=== PATIENT | male | born 1935 | race Caucasian/White ===

== ENCOUNTER → 2016-07-21 | Outpatient (CLI) | payer MEDICARE, BC ==
[2016-07-21 17:52] LABS: CH 31.5; CHCM 32.7; HCT 36.8 % (39.0-53.0); HDW 2.59; HGB 11.9 gm/dL (13.0-17.5); MCH 31.4 pg (25.0-35.0); MCHC 32.3 g/dL (31.0-37.0); RBC 3.79 m/uL (4.30-5.90); WBC 12.8 k/uL (3.8-10.6)
[2016-07-21 18:02] LABS: Anion Gap 13 mmol/L; Blood Urea Nitrogen 12 mg/dL (9-20); Carbon Dioxide 25 mmol/L (22-30); Chloride 104 mmol/L (98-107); Non-African American GFR(MDRD) >60 (>60 ml/min/1.73 sqM); Potassium 4.8 mmol/L (3.5-5.1); Sodium 142 mmol/L (137-145)
== END | disposition home or self-care (01) ==
LOC: LABPAT 17:02
PROVIDERS: ATTEND Internal Medicine Interventional Cardiology
DX: Z01.812 Encounter for preprocedural laboratory examination (principal); I35.0 Nonrheumatic aortic (valve) stenosis
CPT/HCPCS: 80051; 82565; 84520; 85027

== ENCOUNTER 2016-08-04 05:38 | Day surgery (SDC) | payer MEDICARE, BC ==
[2016-08-02 11:56] VITALS: BMI 26.5
[2016-08-04] MEDS ORDERED: NITROGLYCERIN SL TABS 0.4 MG TAB SUBLINGUAL PRN (05:49)
[2016-08-04] MEDS ORDERED: ALPRAZolam 0.25 MG TAB PO PRN (05:49)
[2016-08-04] MEDS ORDERED: ALPRAZolam 0.5 MG TAB PO PRN (05:49)
[2016-08-04] MEDS ORDERED: ATORVASTATIN 80 MG TAB PO STA (05:49)
[2016-08-04] MEDS ORDERED: ASPIRIN 325 MG TAB PO STA (05:49)
[2016-08-04] MEDS ORDERED: SODIUM CHLORIDE 0.9% 1,000 ML in EMPTY BAG 1 BAG IV ONE (05:49)
[2016-08-04 06:24] VITALS: TEMP 97.7
[2016-08-04 06:31] LABS: Glucose,Whole Blood 107 mg/dL (75-99)
[2016-08-04] MEDS ORDERED: fentaNYL (PF) 50 MCG/ML 2 ML AMP ONE (06:48)
[2016-08-04] MEDS ORDERED: MIDAZOLAM 2 MG/2 ML VIAL ONE (06:48)
[2016-08-04] MEDS: BENZOCAINE SPRAY 100 APPLIC/CAN MUCOUS MEM ONE ×2 (06:55→07:10)
[2016-08-04] MEDS ORDERED: fentaNYL (PF) 50 MCG/ML 2 ML AMP IVP ONE (07:09)
[2016-08-04] MEDS ORDERED: MIDAZOLAM 2 MG/2 ML VIAL IVP ONE (07:09)
[2016-08-04] MEDS ORDERED: SODIUM CHLORIDE 0.9% 1,000 ML IV ONE (07:30)
[2016-08-04] MEDS ORDERED: LIDOCAINE 2% INJ 20 MG/ML SQ ONE (07:55)
[2016-08-04 08:20] LABS: Site FA
[2016-08-04 08:20] LABS: Site PA
[2016-08-04 08:21] LABS: Site RA
[2016-08-04] MEDS ORDERED: IOHEXOL 350 MG/ML 125ML BOTTLE INJ ONE (08:36)
[2016-08-04] MEDS ORDERED: RX INFO: IV CONTRAST WAS GIVEN 1 EACH MISC MISCELLANE PRN (08:40)
[2016-08-04] MEDS ORDERED: SODIUM CHLORIDE 0.9% 1,000 ML IV SCH (08:45)
[2016-08-04] MEDS ORDERED: ASCORBIC ACID 500 MG TAB PO SCH (09:00)
[2016-08-04] MEDS ORDERED: ATENOLOL 25 MG TAB PO SCH (09:00)
[2016-08-04] MEDS ORDERED: EZETIMIBE PO SCH (09:00)
[2016-08-04] MEDS ORDERED: FERROUS SULFATE 325 MG TAB PO SCH (09:00)
[2016-08-04] MEDS ORDERED: SIMVASTATIN PO SCH (09:00)
[2016-08-04] MEDS ORDERED: ASPIRIN 325 MG TAB PO SCH (09:00)
[2016-08-04] MEDS ORDERED: GLIMEPIRIDE 2 MG TAB PO SCH (09:00)
[2016-08-04] MEDS ORDERED: NON-FORMULARY DRUG (Sitagliptin 100 MG) PO SCH (09:00)
[2016-08-04] MEDS ORDERED: CHOLECALCIFEROL 1,000 UNIT TAB PO SCH (09:00)
[2016-08-04 09:58] LABS: Glucose,Whole Blood 133 mg/dL (75-99)
[2016-08-04 10:05] VITALS: RESP 18
[2016-08-04] MEDS ORDERED: amLODIPine 5 MG TAB PO STA (10:16)
[2016-08-04 12:08] LABS: Glucose,Whole Blood 198 mg/dL (75-99)
[2016-08-04 14:33] VITALS: PULSE 57
[2016-08-04 14:36] LABS: Aty Lym Flag Marked; CHCM 32.9; HCT 37.1 % (39.0-53.0); HDW 2.62; HGB 12.6 gm/dL (13.0-17.5); MCHC 33.9 g/dL (31.0-37.0); MCV 94.6 fL (80.0-100.0); Mean Platelet Volume 8.6; RBC 3.92 m/uL (4.30-5.90); RDW 13.4 % (11.5-15.5); WBC 9.4 k/uL (3.8-10.6); WBC (Perox) 9.62
[2016-08-04 14:38] LABS: INR 1.1 (<1.1); Partial Thromboplastin Time 27.5 sec (22.0-30.0); Prothrombin Time 10.7 sec (9.0-12.0)
[2016-08-04 14:41] LABS: ALT 19 U/L (21-72); AST 18 U/L (17-59); Alkaline Phosphatase 76 U/L (38-126); Anion Gap 10 mmol/L; Blood Urea Nitrogen 8 mg/dL (9-20); Calcium 9.3 mg/dL (8.4-10.2); Carbon Dioxide 27 mmol/L (22-30); Chloride 103 mmol/L (98-107); Cholesterol 147 mg/dL (<200); Glucose 174 mg/dL (74-99); HDL Cholesterol 38 mg/dL (40-60); Magnesium 2.1 mg/dL (1.6-2.3); Non-African American GFR(MDRD) >60 (>60 ml/min/1.73 sqM); Potassium 4.5 mmol/L (3.5-5.1); Sodium 140 mmol/L (137-145); Total Bilirubin 0.9 mg/dL (0.2-1.3); Triglycerides 174 mg/dL (<150)
[2016-08-04 14:53] LABS: Add Differential Manual Differential
[2016-08-04 14:54] LABS: Appearance,Urine Clear (Clear); Bilirubin,Urine Negative (Negative); Glucose,Urine (UA) Negative (Negative); Ketones,Urine Negative (Negative); Leukocyte Esterase,Urine Negative (Negative); Nitrite,Urine Negative (Negative); Protein,Urine Negative (Negative); Specific Gravity,Urine 1.025 (1.001-1.035); UA Billing (MACRO vs. MICRO) CHEM; Urobilinogen,Urine <2.0 mg/dL (<2.0)
[2016-08-04 14:54] LABS: Nucleated Red Blood Cells 0 /100 WBC (0-0); Total Cells Counted 100
[2016-08-04 14:55] LABS: Polychromasia Present
[2016-08-04 15:12] LABS: Hepatitis B Surface Ag Index 0.06
[2016-08-04 15:18] LABS: Hepatitis B Core IgM Index 0.02
[2016-08-04 15:29] LABS: Hepatitis C Virus IgG Ab Negative (Negative); Hepatitis C Virus IgG Index 0.08
--- NOTE | 2016-08-04 15:32 | PCN ---
TRANSESOPHAGEAL ECHOCARDIOGRAM: INDICATION: Evaluation of the aortic valve. PROCEDURE: After explaining the procedure to the patient with its risks and complications, his blood pressure, heart rate and O2 saturation was monitored. The throat was sprayed with Cetacaine. He received 1 mg of intravenous Versed, 50 mcg of intravenous fentanyl. After obtaining moderate sedated state, the probe was introduced into the esophagus without difficulty. Images were obtained. Following that, the probe was removed. There was no immediate complication. FINDINGS: Left atrial size is dilated. Left atrial appendage is normal. Left ventricular size and systolic function normal. The aortic valve and tricuspid valve with several calcification with reduction in the opening by planemetry of the valve areas is ranging between 0.8 and 1.1 cm2. Mitral valve calcification of the chordae. Tricuspid valve is normal. Descending thoracic aorta revealed mild atherosclerotic changes. There was no pericardial effusion. Contrast bubble study revealed no shunting across the intra-atrial septum. Doppler pulse wave and color Doppler obtained, revealed moderate mitral with mild tricuspid regurgitation and mild aortic regurgitation. Accurate measures of the gradient across the aortic valve could not be obtained. CONCLUSION: 1. Biatrial enlargement. 2. Normal appearance of the left atrial appendage. 3. Normal left ventricular size and systolic function. 4. Tricuspid aortic valve with several calcification and evidence of severe aortic stenosis with a valve area ranging between 0.8 and 1.1 cm2 with mild aortic regurgitation. 5. Calcification of the mitral valve chordae with mild to moderate mitral regurgitation and mild tricuspid regurgitation. 6. There was no evidence of shunting across the intra-atrial setum. MTDD
--- NOTE | 2016-08-04 15:53 | P.GSCN ---
History of Present Illness Consult date: 08/04/16 Reason for Consult: Severe aortic stenosis, multivessel coronary artery disease, need for surgical intervention. Requesting physician: Melinda Elizalde History of present illness: This 81-year-old gentleman was being followed by Dr. Elizalde for aortic stenosis with serial echocardiograms. He was seen in Dr. Elizalde's office for follow-up with reports of progressive fatigue and dyspnea on exertion. His echocardiogram showed worsening of his aortic valve stenosis. In addition he had a drop in his ejection fraction and elements of reversible lateral ischemia on a stress test. He did deny chest discomfort, orthopnea, paroxysmal nocturnal dyspnea, edema, palpitations, syncope, stroke-like symptoms, or claudication. He was brought in for transesophageal echocardiogram and cardiac catheterization. His heart catheterization demonstrated left main stenosis 30% , RCA stenosis 70%, circumflex stenosis 80%, proximal LAD stenosis 70%, mid LAD stenosis of 50%. His transesophageal echocardiogram demonstrated biatrial enlargement, a tricuspid aortic valve with severe calcification and evidence of severe aortic stenosis with mild aortic regurgitation, and mild to moderate mitral regurgitation with mild tricuspid regurgitation. Dr. Hannon from cardiothoracic surgery was consulted for the possibility of surgical revascularization and aortic valve replacement. Review of Systems 14 point review systems was completed was negative except as noted. - Cardiovascular Reports as per HPI - Respiratory Reports as per HPI Past Medical History Past Medical History: Diabetes Mellitus, GERD/Reflux, Hyperlipidemia, Hypertension Additional Past Medical History / Comment(s): irregular heartrate, varicose veins, hx shingles, History of Any Multi-Drug Resistant Organisms: None Reported Past Surgical History: Appendectomy, Hernia Repair Additional Past Surgical History / Comment(s): "spots removed from his lung", mastoid surgery as child, mariama cataracts, Past Anesthesia/Blood Transfusion Reactions: No Reported Reaction Past Psychological History: No Psychological Hx Reported Smoking Status: Former smoker Additional Past Alcohol Use History / Comment(s): drinks 2 beers per week Past Drug Use History: None Reported - Past Family History Sister(s) Family Medical History: Cancer Medications and Allergies Home Medications Medication Instructions Recorded Confirmed Type Ascorbic Acid [Vitamin C with Kim 1,000 mg PO DAILY 08/02/16 08/02/16 History Hips] Aspirin 325 mg PO DAILY 08/02/16 08/04/16 History Atenolol [Tenormin] 25 mg PO DAILY 08/02/16 08/02/16 History Cholecalciferol [Vitamin D3] 2,000 unit PO DAILY 08/02/16 08/02/16 History Ezetimibe/Simvastatin [Vytorin 1 tab PO DAILY 08/02/16 08/02/16 History 10-80 mg Tablet] Ferrous Sulfate [Feosol] 325 mg PO DAILY 08/02/16 08/02/16 History Glimepiride [Amaryl] 2 mg PO DAILY 08/02/16 08/02/16 History metFORMIN HCL [Glucophage] 500 mg PO BID 08/02/16 08/04/16 History sitaGLIPtin [Januvia] 100 mg PO DAILY 08/02/16 08/02/16 History Allergies Allergy/AdvReac Type Severity Reaction Status Date / Time No Known Allergies Allergy Verified 08/02/16 11:42 Surgical - Exam Vital Signs Temp Pulse Resp BP Pulse Ox 97.7 F 54 L 14 179/83 97 08/04/16 06:19 08/04/16 06:19 08/04/16 06:19 08/04/16 06:19 08/04/16 06:19 - General well developed, well nourished, no distress, no pain - Eyes PERRL, normal ocular movement - ENT no hearing loss - Neck trachea midline - Respiratory normal expansion, normal respiratory effort, clear to auscultation - Cardiovascular Rhythm: regular Heart Sounds: normal: S1, S2 Abnormal Heart Sounds: systolic murmur - Abdomen Abdomen: soft, non tender, bowel sounds - Genitourinary Deferred - Rectum Deferred - Integumentary no rash - Neurologic normal coordination, normal sensation - Musculoskeletal normal gait - Psychiatric oriented to time, oriented to person, oriented to place, speech is normal, memory intact Results - Labs 08/04/16 14:12 08/04/16 14:12 Abnormal Lab Results - Last 24 Hours (Table) 08/04/16 08/04/16 08/04/16 Range/Units 06:26 09:37 12:00 RBC (4.30-5.90) m/uL Hgb (13.0-17.5) gm/dL Hct (39.0-53.0) % BUN (9-20) mg/dL Glucose (74-99) mg/dL POC Glucose (mg/dL) 107 H 133 H 198 H (75-99) mg/dL ALT (21-72) U/L Triglycerides (<150) mg/dL HDL Cholesterol (40-60) mg/dL 08/04/16 08/04/16 Range/Units 14:12 14:12 RBC 3.92 L (4.30-5.90) m/uL Hgb 12.6 L (13.0-17.5) gm/dL Hct 37.1 L (39.0-53.0) % BUN 8 L (9-20) mg/dL Glucose 174 H (74-99) mg/dL POC Glucose (mg/dL) (75-99) mg/dL ALT 19 L (21-72) U/L Triglycerides 174 H (<150) mg/dL HDL Cholesterol 38 L (40-60) mg/dL Diabetes panel 08/04/16 Range/Units 14:12 Sodium 140 (137-145) mmol/L Potassium 4.5 (3.5-5.1) mmol/L Chloride 103 (98-107) mmol/L Carbon Dioxide 27 (22-30) mmol/L BUN 8 L (9-20) mg/dL Creatinine 0.78 (0.66-1.25) mg/dL Glucose 174 H (74-99) mg/dL Calcium 9.3 (8.4-10.2) mg/dL AST 18 (17-59) U/L ALT 19 L (21-72) U/L Alkaline Phosphatase 76 (38-126) U/L Total Protein 7.0 (6.3-8.2) g/dL Albumin 3.7 (3.5-5.0) g/dL Triglycerides 174 H (<150) mg/dL HDL Cholesterol 38 L (40-60) mg/dL Thyroid panel 08/04/16 Range/Units 14:12 TSH 2.460 (0.465-4.680) mIU/L Calcium panel 08/04/16 Range/Units 14:12 Calcium 9.3 (8.4-10.2) mg/dL Albumin 3.7 (3.5-5.0) g/dL Pituitary panel 08/04/16 Range/Units 14:12 Sodium 140 (137-145) mmol/L Potassium 4.5 (3.5-5.1) mmol/L Chloride 103 (98-107) mmol/L Carbon Dioxide 27 (22-30) mmol/L BUN 8 L (9-20) mg/dL Creatinine 0.78 (0.66-1.25) mg/dL Glucose 174 H (74-99) mg/dL Calcium 9.3 (8.4-10.2) mg/dL TSH 2.460 (0.465-4.680) mIU/L Adrenal panel 08/04/16 Range/Units 14:12 Sodium 140 (137-145) mmol/L Potassium 4.5 (3.5-5.1) mmol/L Chloride 103 (98-107) mmol/L Carbon Dioxide 27 (22-30) mmol/L BUN 8 L (9-20) mg/dL Creatinine 0.78 (0.66-1.25) mg/dL Glucose 174 H (74-99) mg/dL Calcium 9.3 (8.4-10.2) mg/dL Total Bilirubin 0.9 (0.2-1.3) mg/dL AST 18 (17-59) U/L ALT 19 L (21-72) U/L Alkaline Phosphatase 76 (38-126) U/L Total Protein 7.0 (6.3-8.2) g/dL Albumin 3.7 (3.5-5.0) g/dL Assessment and Plan (1) Coronary artery disease Status: Acute (2) Severe aortic stenosis Status: Acute (3) Hypertension Status: Acute (4) Hyperlipidemia Status: Acute (5) Type 2 diabetes mellitus Status: Acute Plan: The patient was seen and examined in the extended stay unit. Chart/diagnostics were reviewed. Dr. Hannon discussed the case in detail with the patient and his . He recommended surgery. All risks and benefits were explained to the patient. Preoperative testing was ordered. The patient will follow up in the office with Dr. Hannon for further discussion on appropriate date and time for surgery. All parties were in agreement. Thank you Dr. Elizalde for this consult. We look forward to working with you in the care of your patient. Time with Patient: Greater than 30
--- NOTE | 2016-08-04 17:05 | CT ---
EXAMINATION TYPE: CT chest wo con DATE OF EXAM: 08/04/2016 COMPARISON: NONE HISTORY: 81-year-old male has no complaints at time of study. Follow up study post heart catheteriza tion. TECHNIQUE: Contiguous axial scanning of the chest without IV contrast. Coronal and sagittal reconstru ctions performed. CT DLP: 588 mGycm Automated exposure control for dose reduction was used. FINDINGS: The heart is upper limits of normal in size with extensive coronary vessel calcifications which are r emarkable for coronary artery disease. Additional dense mitral annular and aortic valvular calcificat ions are noted. Ascending aorta is ectatic at 3.6 cm. There is conventional arterial vessel branching anatomy and ect stefania of the upper descending thoracic aorta 3.1 cm and the lower descending thoracic aorta at 2.6 cm. No thoracic lymphadenopathy by CT size criteria. Trace right pleural effusion. Scattered areas of curvilinear scarring are present. There is a staple line from previous wedge resection in the region of the right middle lobe. Reticular densities in the lower lungs and some mild bibasilar bronchiectasis. Patchy nodular groundglass density in the left lower lobe. Some focal opacity along the right heart margin within the right middle lobe measures 2.0 cm but show s associated volume loss. Tiny layering calculi within the gallbladder. Suspect excreting contrast within the kidneys. Few prom inent mesenteric lymph nodes are seen measuring at the upper limits of normal at 5 mm, nonspecific. There is a moderate-sized hernia. Mild circumferential wall thickening distal third esophagus. Bones: Bridging anterior plate spondylosis mid to lower thoracic spine compatible with DISH. There is a disc osteophyte complex at T11-T12 mildly narrowing the spinal canal. IMPRESSION: 1. TRACE RIGHT PLEURAL EFFUSION. THERE IS ALSO SOME SUBTLE NODULAR GROUNDGLASS IN THE LEFT LOWER LOBE SUGGESTING A SMALL INFECTIOUS/INFLAMMATORY FOCUS. 2. SCATTERED INTERSTITIAL SCARRING AND MILD BIBASILAR BRONCHIECTASIS. PRIOR WEDGE RESECTION IN THE RI GHT MIDDLE LOBE. 3. FOCAL OPACITY MEDIAL RIGHT MIDDLE LOBE MEASURES 2 CM AND COULD REPRESENT SOME CICATRICIAL ATELECTA SIS. RECOMMEND 6 MONTH FOLLOW-UP TO EXCLUDE A PULMONARY NODULE. 4. MODERATE-SIZED HIATAL HERNIA. THERE IS ALSO MILD CIRCUMFERENTIAL WALL THICKENING OF THE LOWER THIR D ESOPHAGUS THAT COULD REPRESENT ESOPHAGITIS. CLINICALLY CORRELATE. 5. CAD, DENSE AORTIC AND MITRAL VALVE CALCIFICATIONS, AND CHOLELITHIASIS.
[2016-08-04 17:21] VITALS: BP 164/77
[2016-08-04 19:05] LABS: Hemoglobin A1C 7.6 % (4.2-6.1)
--- NOTE | 2016-08-05 07:34 | XR ---
EXAMINATION TYPE: XR chest 2V DATE OF EXAM: 08/04/2016 COMPARISON: CT chest 08/04/2016 HISTORY: Preop cardiac surgery TECHNIQUE: Frontal and lateral views of the chest are obtained on 3 images. FINDINGS: There is no pleural effusion, or pneumothorax seen. Areas of scarring present in the lowe r lungs. Calcification in the right upper lobe likely represents granuloma. The cardiac silhouette si ze is within normal limits. The osseous structures are intact. IMPRESSION: No acute cardiopulmonary process.
--- NOTE | 2016-08-05 12:13 | PCN ---
CARDIAC CATHETERIZATION Mr. Pagan is an 81-year-old male with known history of hypertension, hyperlipidemia, and diabetes mellitus who has been complaining of progressive dyspnea and fatigue. He was found to have evidence of progression of aortic valve stenosis as well as abnormal stress test. In view of that recommendation was made regarding cardiac catheterization. The procedure, risks, and complications were discussed with the patient who is in full understanding and agreement. PROCEDURE: The patient was brought to the [employer] Director in fasting, semi-sedated state after receiving Fentanyl and Benadryl and achieving moderate conscious sedated state. Using Xylocaine anesthesia and Seldinger technique, a 6 [place] sheath was introduced into the right femoral artery and an 8 [place] in the right femoral vein. Right heart catheterization was performed using [place] Loy catheter and multiple pressure samples were obtained. Cardiac output by thermodilution was calculated. Following that selective right and left coronary angiography was performed using 6 [place], 4 bend right and left Rosalie catheters. Multiple views of the coronary arteries including hemiaxial views were obtained. Following that attempt to cross the aortic valve were unsuccessful and ascending aortogram in the [place] view was performed. Following that catheter and sheaths were removed. Hemostasis was obtained with compression of the right groin. There was no immediate complications. The patient was returned to his room in stable condition. FINDINGS: HEMODYNAMICS: Right atrial saturation is 69%, pulmonary artery saturation is 68% , femoral artery saturation is 97%. Cardiac output by thermodilution 5.2 L/min and by Cynthia 5.3 L/min. Pulmonary artery systolic pressure of 34 with diastolic of 16 and mean of 23 mmHg. Pulmonary capillary wedge pressure A wave of 16, V wave of 28 with mean of 18 mmHg. Right ventricle systolic pressure of 38 with end-diastolic of 10 mm. Right atrial A wave of 10, V wave of 12 with mean of 8 mmHg. FLUOROSCOPY: There is severe calcification involving all the coronary arteries as well as the mitral annulus and the aortic valve. LEFT MAIN: This is a large size vessel trifurcating into left circumflex, left anterior descending and ramus intermedius. Left main coronary artery is calcified and has a plaque of about 30 to 40% distally. The rest of the vessel has no high grade stenosis. LEFT ANTERIOR DESCENDING CORONARY ARTERY: This is a large size vessel reaching towards the apex with wrap around the apex segment giving rise to one diagonal branch in the mid-segment. The left anterior descending artery at the ostium has 60 to 70% plaque and the mid-segment has diffuse intimal disease with area of stenosis up to 50 to 60%. The diagonal branch has an 80% plaque in the mid- segment. RAMUS INTERMEDIUS: This is a large size vessel reaching towards the apical lateral wall. The ramus intermedius in the mid-segment has an area of stenosis up to 70 to 80%. The rest of the vessel has no high grade stenosis. LEFT CIRCUMFLEX: This is a nondominant small vessel giving rise to an obtuse marginal branch. The obtuse marginal branch has a 70 to 80% plaque in the mid- segment. RIGHT CORONARY ARTERY: This is a large dominant vessel bifurcating into PDA and posterior descending segment and branches. The right coronary artery in the mid and distal segment have diffuse intimal disease, calcified with area of stenosis up to 70%. AORTOGRAM: The aortogram was performed in the [place] view and revealed severe calcified tricuspid aortic valve with no significant aortic regurgitation. CONCLUSION: 1. Calcified coronary arteries. 2. Calcified aortic valve and mitral annulus. 3. Severe triple vessel coronary artery disease. RECOMMENDATIONS: The patient will be evaluated for possible aortic valve replacement and surgical aortic valve replacement. Those findings and recommendations were discussed with the patient and his family who are in full understanding and agreement. DURATION OF THE PROCEDURE: 49 minutes. URVASHI
--- NOTE | 2016-08-05 12:19 | MISC ---
Dear Dr. Matt: I had the pleasure of performing cardiac catheterization on Mr. Pagan at [facility] on August 04, 2016 and full copy of the procedure note will be forwarded to you. In brief he was found to have severe triple vessel coronary artery disease with severe aortic stenosis and based on those findings, I have recommended proceeding with evaluation for aortic valve replacement and coronary artery bypass grafting. I will keep you updated on his progress. Thank you again for allowing me to participate in this patient's care. Please feel free to call for any questions. Sincerely, URVASHI
--- NOTE | 2016-08-10 12:09 | P.VSCSTY ---
Greater Saphenous Vein Mapping This is bilateral lower extremity greater saphenous vein mapping. Date of service 08/04/2016 Vein quality and ultrasound appearance normal. Vein size groin right 6.6 x 9.0 groin left 6.6 x 8.5 High thigh right 3.0 x 2.9 high thigh left 5.0 x 5.9 Mid thigh right 2.4 x 2.4 mid thigh left 3.5 x 4.6 Above-knee right 2.5 x 3.1 above- knee left 3.3 x 3.7 Below knee right 2.1 x 2.4 below-knee left 3.8 x 5.4 Mid calf right 2.2 x 2.7 mid calf left 3.1 x 4.0 Ankle right 2.0 x 2.3 ankle left 1.8 x 1.9 Impression usable bilateral greater saphenous vein. Somewhat small at the left ankle..
--- NOTE | 2016-08-10 12:12 | P.ARTDOP ---
Arterial Doppler Bilateral radial artery study: Imaging shows good size to both radial arteries. The right is 3.0 x 2.5-2.8 x 3.2 mm. The left is 3.9 x 3.3-3.2 x 2.6 mm. However, they are both very heavily calcified. Under these circumstances we are unable to get good pressure gradients on Doppler and were not able to compress to assess viability if radial artery is removed. Impression: Good size to both radial arteries but due to heavy calcification, radial arteries are not acceptable for use as conduit.
== END 2016-08-04 17:00 | disposition home or self-care (01) ==
LOC: CATHCVL 05:38
PROVIDERS: ATTEND Internal Medicine Interventional Cardiology
DX: I35.0 Nonrheumatic aortic (valve) stenosis (principal); I25.10 Atherosclerotic heart disease of native coronary artery without angina pectoris; I25.84 Coronary atherosclerosis due to calcified coronary lesion; I34.0 Nonrheumatic mitral (valve) insufficiency; I36.1 Nonrheumatic tricuspid (valve) insufficiency; E78.2 Mixed hyperlipidemia; E78.00 Pure hypercholesterolemia, unspecified; I10 Essential (primary) hypertension; E11.9 Type 2 diabetes mellitus without complications; Z79.82 Long term (current) use of aspirin; Z79.899 Other long term (current) drug therapy; Z79.84 Long term (current) use of oral hypoglycemic drugs; Z87.891 Personal history of nicotine dependence
CPT/HCPCS: 94150; 93312; 93320; 93325; 93456; 93567; 99152; 83880; 80061; 80053; 80074; 85018; 84443; 83036; 82810; 83735; 85025; 85610; 85730; 81003; 87070; 87086; 71020; 93930; 93970; 93923; 71250; C1769 ×3; C1894 ×2; J2001; J2250; J3010; Q9967

== ENCOUNTER → 2016-09-07 | Outpatient (CLI) | payer MEDICARE, BC ==
[2016-09-07 13:48] LABS: CH 31.8; CHCM 32.8; HCT 35.4 % (39.0-53.0); HGB 11.6 gm/dL (13.0-17.5); MCH 31.9 pg (25.0-35.0); MCHC 32.7 g/dL (31.0-37.0); MCV 97.5 fL (80.0-100.0); Mean Platelet Volume 9.7; RBC 3.63 m/uL (4.30-5.90); RDW 13.7 % (11.5-15.5)
[2016-09-07 14:03] LABS: ALT 30 U/L (21-72); AST 21 U/L (17-59); Alkaline Phosphatase 63 U/L (38-126); Anion Gap 11 mmol/L; Blood Urea Nitrogen 11 mg/dL (9-20); Calcium 9.6 mg/dL (8.4-10.2); Carbon Dioxide 23 mmol/L (22-30); Chloride 106 mmol/L (98-107); Glucose 136 mg/dL (74-99); Magnesium 1.9 mg/dL (1.6-2.3); Non-African American GFR(MDRD) >60 (>60 ml/min/1.73 sqM); Potassium 4.4 mmol/L (3.5-5.1); Sodium 140 mmol/L (137-145); Total Bilirubin 0.5 mg/dL (0.2-1.3); Total Protein 6.7 g/dL (6.3-8.2)
== END | disposition home or self-care (01) ==
LOC: LABPAT 13:28
PROVIDERS: ATTEND Surgery
DX: I25.10 Atherosclerotic heart disease of native coronary artery without angina pectoris (principal); I35.0 Nonrheumatic aortic (valve) stenosis
CPT/HCPCS: 80053; 83735; 85027

== ENCOUNTER 2016-09-12 08:00 | Inpatient (IN) | payer MEDICARE, BC ==
[2016-09-14] MEDS ORDERED: PROPOFOL 1,000 MG/100 ML VIAL IV ONE (05:00)
[2016-09-14] MEDS ORDERED: CALCIUM CHLORIDE 100 MG/ML 10 ML SYRINGE IV ONE (05:00)
[2016-09-14] MEDS ORDERED: AMINOCAPROIC ACID 5,000 MG in DEXTROSE 5% IN WATER 50 ML IV ONE ×2 (05:00)
[2016-09-14] MEDS ORDERED: NITROGLYCERIN SL TABS 0.4 MG TAB SUBLINGUAL ONE (05:00)
[2016-09-14] MEDS ORDERED: CHLORHEXIDINE GLUCONATE 15 ML CUP MUCOUS MEM ONE (05:00)
[2016-09-14] MEDS ORDERED: CLEVIDIPINE BUTYRATE 25 MG in EMPTY BAG 1 BAG IV ONE (05:00)
[2016-09-14] MEDS ORDERED: ASPIRIN 325 MG TAB PO ONE (05:00)
[2016-09-14] MEDS ORDERED: MUPIROCIN 2% OINT 22 GM TUBE NASAL ONE (05:00)
[2016-09-14] MEDS ORDERED: HEPARIN SODIUM,PORCINE 5,000 UNIT in SODIUM CHLORIDE 0.9% 500 ML IV ONE (05:00)
[2016-09-14] MEDS ORDERED: NOREPINEPHRIN 4 MG-0.9% NS PMX 4 MG/250 ML ML IV ONE (05:00)
[2016-09-14] MEDS ORDERED: PROTAMINE SULFATE 250 MG in EMPTY BAG 1 BAG IV ONE (05:00)
[2016-09-14] MEDS ORDERED: NITROGLYCERIN-D5W PMX 25 MG/250 ML BTL IV ONE (05:00)
[2016-09-14] MEDS ORDERED: PROTAMINE SULFATE 10 MG/ML 25 ML VIAL IV ONE ×2 (05:00→08:39)
[2016-09-14] MEDS ORDERED: DEXTROSE 5% IN WATER 1,000 ML with POTASSIUM CHLORIDE 25 MEQ, SODIUM CHLORIDE 4MEQ/ML V... IV ONE ×6 (05:00)
[2016-09-14] MEDS ORDERED: PHENYLEPHRINE-0.9% NACL SYG 1 MG/10 ML SYRINGE IV ONE (05:00)
[2016-09-14] MEDS ORDERED: ceFAZolin 2,000 MG in SODIUM CHLORIDE 0.9% 30 ML IVPB ONE ×4 (05:00)
[2016-09-14] MEDS ORDERED: ceFAZolin 1,000 MG in SODIUM CHLORIDE 0.9% IRRIGATIO 1,000 ML IRRIGATION ONE (05:00)
[2016-09-14] MEDS ORDERED: MAGNESIUM SULFATE MG 500 MG/ML VIAL IV ONE (05:00)
[2016-09-14] MEDS ORDERED: ALBUMIN HUMAN 5% 500 ML IVPB ONE (05:00)
[2016-09-14] MEDS ORDERED: ATORVASTATIN 10 MG TAB PO ONE (05:00)
[2016-09-14] MEDS ORDERED: SODIUM CHLORIDE 0.9% 1,000 ML IV ONE (05:00)
[2016-09-14] MEDS ORDERED: SODIUM BICARB 8.4% 50 ML SYR (1 MEQ/ML) IV ONE (05:00)
[2016-09-14] MEDS ORDERED: DEXTROSE 5% IN WATER 1,000 ML with POTASSIUM CHLORIDE 110 MEQ, MAGNESIUM SULFATE 16 MEQ... IV ONE ×5 (05:00)
[2016-09-14] MEDS ORDERED: PAPAVERINE 360 MG in SODIUM CHLORIDE 0.9% 90 ML IV ONE ×2 (05:00→09:45)
[2016-09-14] MEDS ORDERED: NITROGLYCERIN-D5W PMX 50 MG in DEXTROSE/WATER 1 250ML.BAG IV ONE (05:00)
[2016-09-14] MEDS ORDERED: LACTATED RINGERS 1,000 ML IV ONE (05:00)
[2016-09-14] MEDS ORDERED: PHENYLEPHRINE 40 MG in SODIUM CHLORIDE 0.9% 250 ML IV ONE (05:00)
[2016-09-14] MEDS ORDERED: ALBUMIN HUMAN 25% 50 ML IV ONE (05:00)
[2016-09-14] MEDS ORDERED: MANNITOL 25% 12.5 GM/50 ML VIAL IV ONE (05:00)
[2016-09-14] MEDS ORDERED: HEPARIN SODIUM 1,000 UN/ML (10ML VL) IV ONE (05:00)
[2016-09-14] MEDS ORDERED: METOPROLOL TARTRATE 12.5 MG TAB PO ONE (05:00)
[2016-09-14] MEDS ORDERED: AMINOCAPROIC ACID 250 MG/ML 20 ML VIAL IV ONE (05:00)
[2016-09-14] MEDS ORDERED: INSULIN REGULAR 100 UNIT in SODIUM CHLORIDE 0.9% 100 ML IV ONE (05:00)
[2016-09-14 06:20] LABS: Glucose,Whole Blood 104 mg/dL (75-99)
[2016-09-14] MEDS ORDERED: SODIUM CHLORIDE 0.9% 500 ML with HEPARIN SODIUM,PORCINE 5,000 UNIT IRRIGATION ONE ×2 (07:56)
[2016-09-14] MEDS ORDERED: PAPAVERINE 360 MG in SODIUM CHLORIDE 0.9% 90 ML IRRIGATION ONE (07:57)
[2016-09-14] MEDS ORDERED: ceFAZolin 1,000 MG in SODIUM CHLORIDE 0.9% 1,000 ML IRRIGATION ONE (07:57)
[2016-09-14] MEDS ORDERED: MAGNESIUM SULFATE 4 MEQ/ML 2 ML VIAL ONE (08:39)
[2016-09-14] MEDS ORDERED: fentaNYL (PF) 50 MCG/ML 50 ML VIAL ONE (08:39)
[2016-09-14] MEDS ORDERED: GLYCOPYRROLATE 0.2 MG/ML 2 ML VIAL ONE (08:39)
[2016-09-14] MEDS ORDERED: ELECTROLYTE-R (PH 7.4) 1,000 ML IV.SOLN IV ONE (08:39)
[2016-09-14] MEDS ORDERED: HEPARIN SODIUM,PORCINE 10,000 UNIT/ML 1 ML VIAL ONE (08:39)
[2016-09-14] MEDS ORDERED: fentaNYL (PF) 50 MCG/ML 2 ML AMP ONE (08:39)
[2016-09-14] MEDS ORDERED: SODIUM CHLORIDE 0.9% IRRIG 1,000 ML BTL IRRIGATION ONE (08:39)
[2016-09-14] MEDS ORDERED: SUCCINYLCHOLINE CHLORIDE 100 MG/5 ML SYR IV ONE (08:39)
[2016-09-14] MEDS ORDERED: MIDAZOLAM 2 MG/2 ML VIAL ONE (08:39)
[2016-09-14] MEDS ORDERED: LIDOCAINE 1% INJ 10MG/ML (20 ML MDV) ONE (08:39)
[2016-09-14] MEDS ORDERED: ePHEDrine SULFATE/0.9% NACL/PF 50 MG/5 ML SYRINGE IV ONE (08:39)
[2016-09-14] MEDS ORDERED: PROPOFOL 10 MG/ML 20 ML VIAL IV ONE (08:39)
[2016-09-14] MEDS ORDERED: ALBUMIN HUMAN 5% 500 ML VIAL IVPB ONE (08:39)
[2016-09-14] MEDS ORDERED: VECURONIUM 10 MG VIAL IV ONE (08:39)
[2016-09-14] MEDS ORDERED: CALCIUM CHLORIDE 100 MG/ML 10 ML SYRINGE ONE (08:39)
[2016-09-14] MEDS ORDERED: SODIUM BICARB 8.4% 50 ML SYR (1 MEQ/ML) ONE (08:39)
[2016-09-14 09:21] LABS: Glucose,Whole Blood 93 mg/dL (75-99)
[2016-09-14 11:59] LABS: Glucose,Whole Blood 110 mg/dL (75-99)
[2016-09-14 12:32] LABS: Glucose,Whole Blood 111 mg/dL (75-99)
[2016-09-14 12:52] LABS: Glucose,Whole Blood 211 mg/dL (75-99)
[2016-09-14 13:37] LABS: Glucose,Whole Blood 199 mg/dL (75-99)
[2016-09-14 14:20] LABS: Glucose,Whole Blood 222 mg/dL (75-99)
[2016-09-14 14:51] LABS: Glucose,Whole Blood 231 mg/dL (75-99)
[2016-09-14 16:14] LABS: Glucose,Whole Blood 159 mg/dL (75-99)
[2016-09-14] MEDS ORDERED: ONDANSETRON 4 MG/2 ML VIAL IVP PRN (16:37)
[2016-09-14] MEDS ORDERED: Magnesium Replacement Protocol 1 EACH MISC MISCELLANE PRN (16:37)
[2016-09-14] MEDS ORDERED: Phosphorus Replacement Protoco 1 EACH MISC MISCELLANE PRN (16:37)
[2016-09-14] MEDS ORDERED: NITROGLYCERIN-D5W PMX 50 MG in DEXTROSE/WATER 1 250ML.BAG IV SCH (16:37)
[2016-09-14] MEDS ORDERED: METOCLOPRAMIDE 5 MG/ML 2 ML VIAL IVP PRN (16:37)
[2016-09-14] MEDS ORDERED: BENZOCAINE/MENTHOL LOZENG 1 EACH LOZENGE MUCOUS MEM PRN (16:37)
[2016-09-14] MEDS ORDERED: CALCIUM GLUCONATE 2,000 MG in SODIUM CHLORIDE 0.9% 100 ML IVPB PRN (16:37)
[2016-09-14] MEDS ORDERED: PROPOFOL 1,000 MG/100 ML VIAL IV SCH (16:37)
[2016-09-14] MEDS ORDERED: MORPHINE SULFATE 2 MG/ML SYRINGE IVP PRN (16:37)
[2016-09-14] MEDS ORDERED: Potassium Replacement Protocol 1 EACH MISC MISCELLANE PRN (16:37)
[2016-09-14] MEDS ORDERED: NOREPINEPHRIN 4 MG-0.9% NS PMX 4 MG/250 ML ML IV SCH (16:45)
[2016-09-14] MEDS: IPRATROPIUM-ALBUTEROL 3 ML NEB INHALATION SCH ×3 (17:09→23:23)
[2016-09-14 17:37] LABS: Glucose,Whole Blood 132 mg/dL (75-99)
[2016-09-14 17:39] LABS: Aty Lym Flag Marked; CH 30.9; CHCM 32.4; HDW 2.52; MCH 31.6 pg (25.0-35.0); Mean Platelet Volume 8.9; RBC 1.73 m/uL (4.30-5.90); RDW 13.2 % (11.5-15.5); WBC (Perox) 9.19
[2016-09-14 17:42] LABS: HCT 16.6 % (39.0-53.0); HGB 5.5 gm/dL (13.0-17.5)
[2016-09-14 17:55] LABS: ABG HCO3 24 mmol/L (21-25); ABG PCO2 46 mmHg (35-45); ABG PH 7.33 (7.35-7.45); ABG PO2 248 mmHg (83-108)
[2016-09-14 17:56] LABS: ABG Base Excess -1.6 mmol/L; ABG TCO2 25 mmol/L (19-24)
[2016-09-14 17:58] LABS: Aty Lym Flag Marked; CH 30.8; CHCM 32.2; HDW 2.49; MCH 31.5 pg (25.0-35.0); MCHC 32.8 g/dL (31.0-37.0); MCV 96.1 fL (80.0-100.0); Mean Platelet Volume 9.7; RBC 1.71 m/uL (4.30-5.90); RDW 13.2 % (11.5-15.5); WBC 8.1 k/uL (3.8-10.6); WBC (Perox) 8.39
[2016-09-14 18:00] LABS: HCT 16.4 % (39.0-53.0); HGB 5.4 gm/dL (13.0-17.5)
--- NOTE | 2016-09-14 18:00 | P.CNPUL ---
History of Present Illness Consult date: 09/14/16 Requesting physician: Mackenzie Hannon Reason for consult: other (Mechanical ventilator/critical care management) Chief complaint: Multivessel coronary artery disease History of present illness: This is an 81-year-old gentleman who follows with Dr. Opal casarez as his primary care physician. He has a history of diabetes mellitus, gastroesophageal reflux disease, hyperlipidemia, hypertension. He follows with Dr. Elizalde in the office for aortic stenosis. He is also had worsening fatigue and dyspnea on exertion. His most recent echo revealed severe aortic stenosis and a drop in his ejection fraction along with reversible ischemia on a stress test. He had subsequently undergone cardiac catheterization which revealed multivessel coronary artery disease. He presented here today for an elective surgery which was performed today by Dr. Hannon. He received a PUTNAM to the LAD , saphenous vein grafts to the ramus and the diagonal branches along with aortic valve replacement. He is seen today in the intensive care unit immediately postoperative. He is currently on the mechanical ventilator at assist control of 12, tidal volume 450, FiO2 100% and a PEEP of 5. Current blood gases reveal pO2 of 248, pCO2 46, pH 7.33. There were unable to insert a Haviland-Loy catheter. There is a left IJ present his current blood pressure 114/ 45, CVP of 16, he is in normal sinus rhythm with a first-degree heart block. Current drips are Primacor 0.3 mcg/kg/m, propofol 20 mcg/kg/m, insulin at 1 unit per hour. Lactated Ringer's at 50 MLS per hour. Levophed currently off. Chest x-ray shows evidence of fluid volume overload. There is a split mediastinal chest tubes and a left pleural chest tube in place. Hemoglobin 5.5 which is being rerun in the lab currently. He did receive 2 units of fresh frozen plasma, 1 unit of platelets, 400 of Cell Saver and 1 unit of autologous blood. Estimated blood loss was 2000 MLS. Review of Systems ROS unobtainable: due to endotracheal tube Past Medical History Past Medical History: Diabetes Mellitus, GERD/Reflux, Hyperlipidemia, Hypertension, Memory Impairment Additional Past Medical History / Comment(s): irregular heartrate, varicose veins, past hx shingles, SOB w/exertion History of Any Multi-Drug Resistant Organisms: None Reported Past Surgical History: Appendectomy, Heart Catheterization, Hernia Repair Additional Past Surgical History / Comment(s): "spots removed from his lung", mastoid surgery as child, mariama cataracts Past Anesthesia/Blood Transfusion Reactions: No Reported Reaction Smoking Status: Former smoker - Past Family History Sister(s) Family Medical History: Cancer Medications and Allergies Home Medications Medication Instructions Recorded Confirmed Type Ascorbic Acid [Vitamin C with Kim 1,000 mg PO DAILY 08/02/16 09/14/16 History Hips] Aspirin 325 mg PO DAILY 08/02/16 09/14/16 History Atenolol [Tenormin] 25 mg PO DAILY 08/02/16 09/14/16 History Cholecalciferol [Vitamin D3] 2,000 unit PO DAILY 08/02/16 09/14/16 History Ezetimibe/Simvastatin [Vytorin 1 tab PO DAILY 08/02/16 09/14/16 History 10-80 mg Tablet] Ferrous Sulfate [Feosol] 325 mg PO DAILY 08/02/16 09/14/16 History Glimepiride [Amaryl] 2 mg PO DAILY 08/02/16 09/14/16 History sitaGLIPtin [Januvia] 100 mg PO DAILY 08/02/16 09/14/16 History Calcium Carbonate [Tums] 500 mg PO TID PRN 09/07/16 09/14/16 History Mag Hydrox/Al Hydrox/Simeth 15 - 30 ml PO HS PRN 09/07/16 09/14/16 History [Maalox] metFORMIN HCL [Glucophage] 1,000 mg PO BID 09/14/16 09/14/16 History Allergies Allergy/AdvReac Type Severity Reaction Status Date / Time No Known Allergies Allergy Verified 09/14/16 06:16 Physical Exam Vitals: Vital Signs Temp Pulse Resp BP BP Pulse Ox 09/14/16 06:13 97.7 F 53 L 16 175/81 177/77 97 Intake and Output 09/14/16 09/14/16 09/14/16 06:59 14:59 22:59 Intake Total 844 Output Total 4000 Balance -3156 Intake: Blood Product 844 Ffp 24 Cpd Unit 318 [id number] Ffp 24 Cpda Unit 226 [id number] Platelet Pheresis Acda2 300 Unit [id number] Output: Urine 2000 Estimated Blood Loss 1999 GENERAL EXAM: Intubated, sedated. HEAD: Normocephalic. EYES: Sluggish reaction of pupils, equal size. NOSE: Clear with pink turbinates. THROAT: Oral endotracheal and gastric tube secured in place. No erythema or exudates. NECK: No masses, no JVD. IJ in place. CHEST: Surgical dressing dry and intact. Mediastinal and left chest tubes in place. LUNGS: Equal air entry with few scattered rhonchi, crackles in the bases.. CVS: S1 and S2 normal with no audible murmurs, regular rhythm. ABDOMEN: No hepatosplenomegaly, hypoactive bowel sounds, no guarding or rigidity. SPINE: No scoliosis or deformity SKIN: No rashes Extremities: There is Milton wrap and a CARL drain in place to the right lower extremity. GRZEGORZ hose to the left. Trace peripheral edema. No clubbing, no cyanosis. Peripheral pulses are intact. Results - Laboratory Findings Abnormal lab findings: Abnormal Labs 09/07/16 09/14/16 09/14/16 13:30 06:16 11:45 POC Glucose (mg/dL) 104 H 110 H Crossmatch See Detail 09/14/16 09/14/16 09/14/16 12:19 12:50 13:35 POC Glucose (mg/dL) 111 H 211 H 199 H Crossmatch 09/14/16 09/14/16 09/14/16 14:06 14:47 16:10 POC Glucose (mg/dL) 222 H 231 H 159 H Crossmatch 09/14/16 17:17 POC Glucose (mg/dL) 132 H Crossmatch - Diagnostic Findings Chest x-ray: image reviewed Assessment and Plan Plan: Impression: #1 Coronary artery disease status post coronary artery bypass grafting utilizing a PUTNAM to the LAD, saphenous vein grafts to the ramus and diagonal branches. Postoperative day #0. #2 Severe aortic stenosis status post aortic valve replacement. Postoperative day #0. #3 Mechanical ventilatory support as an expected outcome following thoracotomy. #4 Postoperative anemia as an expected outcome post thoracotomy. #5 Previous history of chronic tobacco dependence. #6 Diabetes mellitus. #7 History of hypertension. #8 Hyperlipidemia. Plan: The patient was seen and evaluated by Dr. Ahn. His chest x-ray ABGs and labs were reviewed. We'll go ahead and increase the tidal volume to 500 and decrease the FiO2 to 50%. We will plan for the early extubation protocol as tolerated. We'll repeat a chest x-ray and blood gases in the a.m. We'll continue bronchodilators every 4 hours. We'll wait for repeat hemoglobin today. He may require further transfusions. We'll continue to monitor him closely here in the intensive care unit. We'll continue to follow make further recommendations based on his clinical status. Time with Patient: Greater than 30
--- NOTE | 2016-09-14 18:09 | XR ---
EXAMINATION TYPE: XR chest 1V portable DATE OF EXAM: 09/14/2016 CLINICAL HISTORY: Post open cardiac surgery TECHNIQUE: Single AP portable frontal view of the chest is obtained. COMPARISON: Chest x-ray from August 04, 2016 FINDINGS: There is new endotracheal tube at superior aortic knob level, approximately 4 to 5 cm abov e the patricia. There is new mediastinal drainage catheter in left apical chest tube. There are new pos t CABG changes with mediastinal clips and sternal wires. There is persisting cardiomegaly with new mild to moderate central vascular congestion and mild inter stitial edema. There is background of chronic parenchymal change with right midlung linear scarring. There are suspected small bilateral pleural effusions. No sizable pneumothorax is evident. Osseous st ructures are demineralized. IMPRESSION: 1. New endotracheal tube is satisfactory in position. 2. There is background chronic parenchymal change with cardiomegaly and new fairly moderate central v ascular congestion and mild interstitial edema with small bilateral pleural effusions, consider hira ed fluid overload state related to recent surgery.
[2016-09-14] MEDS: LACTATED RINGERS 1,000 ML IV SCH (18:10)
[2016-09-14] MEDS: ceFAZolin 2 GM in SODIUM CHLORIDE 0.9% 100 ML IVPB SCH ×2 (18:10→23:05)
[2016-09-14] MEDS: CLEVIDIPINE BUTYRATE 25 MG in EMPTY BAG 1 BAG IV SCH (18:11)
[2016-09-14] MEDS: MILRINONE-D5W PMX 20 MG in DEXTROSE/WATER 1 100ML.BAG IV SCH (18:11)
[2016-09-14 18:12] LABS: Ionized Calcium 4.8 mg/dL (4.5-5.3)
[2016-09-14] MEDS: INSULIN REGULAR 100 UNIT in SODIUM CHLORIDE 0.9% 100 ML IV SCH ×2 (18:12→19:00)
[2016-09-14 18:16] LABS: INR 1.4 (<1.2); Partial Thromboplastin Time 39.3 sec (22.0-30.0); Prothrombin Time 13.9 sec (9.0-12.0)
[2016-09-14 18:19] LABS: ALT 22 U/L (21-72); AST 21 U/L (17-59); Alkaline Phosphatase 30 U/L (38-126); Anion Gap 11 mmol/L; Blood Urea Nitrogen 10 mg/dL (9-20); Calcium 8.2 mg/dL (8.4-10.2); Carbon Dioxide 24 mmol/L (22-30); Chloride 110 mmol/L (98-107); Glucose 114 mg/dL (74-99); Non-African American GFR(MDRD) >60 (>60 ml/min/1.73 sqM); Potassium 3.8 mmol/L (3.5-5.1); Sodium 145 mmol/L (137-145); Total Bilirubin 0.8 mg/dL (0.2-1.3); Total Protein 4.9 g/dL (6.3-8.2)
[2016-09-14 18:42] LABS: Add Differential Manual Differential
[2016-09-14 18:44] LABS: Metamyelocytes % 2 %; Nucleated Red Blood Cells 0 /100 WBC (0-0); Polychromasia Present; Total Cells Counted 200
[2016-09-14 18:50] LABS: Glucose,Whole Blood 118 mg/dL (75-99)
[2016-09-14] MEDS: ACETAMINOPHEN IV (For NPO) 1,000 MG in EMPTY BAG 1 BAG IVPB SCH ×2 (19:12→23:05)
[2016-09-14] MEDS: POTASSIUM CHLORIDE 10 MEQ in WATER FOR INJECTION 1 100ML.BAG IVPB SCH ×2 (19:14→20:54)
[2016-09-14 20:20] LABS: Glucose,Whole Blood 114 mg/dL (75-99)
[2016-09-14] MEDS: MUPIROCIN 2% OINT 22 GM TUBE NASAL SCH (20:54)
[2016-09-14 20:58] LABS: Glucose,Whole Blood 121 mg/dL (75-99)
[2016-09-14 21:12] LABS: Aty Lym Flag Marked; CH 31.1; CHCM 32.6; HDW 2.67; MCHC 33.3 g/dL (31.0-37.0); MCV 96.1 fL (80.0-100.0); Mean Platelet Volume 9.6; RBC 2.06 m/uL (4.30-5.90); RDW 13.6 % (11.5-15.5); WBC 8.5 k/uL (3.8-10.6); WBC (Perox) 8.61
[2016-09-14 21:13] LABS: HCT 19.8 % (39.0-53.0); HGB 6.6 gm/dL (13.0-17.5)
[2016-09-14 21:22] LABS: Add Differential Manual Differential; Anion Gap 7 mmol/L; Blood Urea Nitrogen 10 mg/dL (9-20); Carbon Dioxide 25 mmol/L (22-30); Chloride 110 mmol/L (98-107); Glucose 110 mg/dL (74-99); Potassium 3.9 mmol/L (3.5-5.1); Sodium 142 mmol/L (137-145)
[2016-09-14 21:23] LABS: Calcium 8.4 mg/dL (8.4-10.2); Magnesium 2.4 mg/dL (1.6-2.3); Non-African American GFR(MDRD) >60 (>60 ml/min/1.73 sqM)
[2016-09-14 21:24] LABS: Nucleated Red Blood Cells 0 /100 WBC (0-0); Polychromasia Present; Total Cells Counted 100
[2016-09-14 22:15] LABS: Glucose,Whole Blood 127 mg/dL (75-99)
[2016-09-14 22:55] LABS: Glucose,Whole Blood 135 mg/dL (75-99)
[2016-09-14] MEDS: HEPARIN SODIUM,PORCINE 5,000 UNIT/ML 1 ML VIAL SQ SCH (23:17)
[2016-09-15 00:10] LABS: Glucose,Whole Blood 148 mg/dL (75-99)
[2016-09-15 01:59] LABS: Glucose,Whole Blood 160 mg/dL (75-99)
[2016-09-15] MEDS: IPRATROPIUM-ALBUTEROL 3 ML NEB INHALATION SCH (03:15)
[2016-09-15 03:45] LABS: ABG Base Excess -3.3 mmol/L; ABG HCO3 22 mmol/L (21-25); ABG PCO2 41 mmHg (35-45); ABG PH 7.34 (7.35-7.45); ABG PO2 121 mmHg (83-108); ABG TCO2 23 mmol/L (19-24)
[2016-09-15 04:07] LABS: Glucose,Whole Blood 187 mg/dL (75-99)
[2016-09-15 04:24] LABS: Aty Lym Flag Marked; CH 31.8; CHCM 33.1; HDW 2.84; HGB 7.7 gm/dL (13.0-17.5); MCV 96.7 fL (80.0-100.0); Mean Platelet Volume 9.4; RBC 2.48 m/uL (4.30-5.90); RDW 14.2 % (11.5-15.5); WBC 10.4 k/uL (3.8-10.6)
[2016-09-15 04:28] LABS: INR 1.2 (<1.2); Prothrombin Time 12.3 sec (9.0-12.0)
[2016-09-15 04:40] LABS: ALT 16 U/L (21-72); AST 30 U/L (17-59); Alkaline Phosphatase 30 U/L (38-126); Anion Gap 9 mmol/L; Blood Urea Nitrogen 10 mg/dL (9-20); Calcium 8.3 mg/dL (8.4-10.2); Carbon Dioxide 23 mmol/L (22-30); Chloride 111 mmol/L (98-107); Glucose 156 mg/dL (74-99); Magnesium 2.3 mg/dL (1.6-2.3); Non-African American GFR(MDRD) >60 (>60 ml/min/1.73 sqM); Potassium 4.9 mmol/L (3.5-5.1); Sodium 143 mmol/L (137-145); Total Bilirubin 0.9 mg/dL (0.2-1.3)
[2016-09-15 04:46] LABS: Add Differential Manual Differential
[2016-09-15 04:53] LABS: Band Neutrophils % 21.5 %; Manual Review Performed; Nucleated Red Blood Cells 0 /100 WBC (0-0); Total Cells Counted 200
[2016-09-15 04:57] LABS: Glucose,Whole Blood 161 mg/dL (75-99)
[2016-09-15 06:29] LABS: ABG Base Excess 0.9 mmol/L; ABG HCO3 24 mmol/L (21-25); ABG Hematocrit 33 % (34.0-46.0); ABG PCO2 32 mmHg (35-45); ABG PH 7.48 (7.35-7.45); ABG PO2 364 mmHg (83-108); ABG TCO2 25 mmol/L (19-24)
[2016-09-15 06:30] LABS: ABG Base Excess -1.3 mmol/L; ABG HCO3 23 mmol/L (21-25); ABG Hematocrit 26 % (34.0-46.0); ABG Oxygen Saturation 99.5 % (94-97); ABG PCO2 42 mmHg (35-45); ABG PH 7.37 (7.35-7.45); ABG PO2 167 mmHg (83-108); ABG TCO2 25 mmol/L (19-24)
[2016-09-15 06:31] LABS: ABG Base Excess -2.2 mmol/L; ABG HCO3 23 mmol/L (21-25); ABG Hematocrit 25 % (34.0-46.0); ABG Oxygen Saturation 99.9 % (94-97); ABG PCO2 47 mmHg (35-45); ABG PH 7.32 (7.35-7.45); ABG PO2 372 mmHg (83-108); ABG TCO2 25 mmol/L (19-24)
[2016-09-15 06:32] LABS: ABG Base Excess -1.2 mmol/L; ABG HCO3 23 mmol/L (21-25); ABG Oxygen Saturation 99.9 % (94-97); ABG PCO2 37 mmHg (35-45); ABG PO2 277 mmHg (83-108); ABG TCO2 24 mmol/L (19-24)
[2016-09-15 06:33] LABS: ABG Hematocrit 24 % (34.0-46.0)
[2016-09-15 06:34] LABS: ABG Base Excess -1.9 mmol/L; ABG HCO3 23 mmol/L (21-25); ABG Oxygen Saturation 99.8 % (94-97); ABG PCO2 43 mmHg (35-45); ABG PH 7.35 (7.35-7.45); ABG PO2 258 mmHg (83-108); ABG TCO2 24 mmol/L (19-24)
[2016-09-15 06:35] LABS: ABG Base Excess -2.6 mmol/L; ABG HCO3 24 mmol/L (21-25); ABG PCO2 57 mmHg (35-45); ABG PH 7.25 (7.35-7.45); ABG PO2 250 mmHg (83-108); ABG TCO2 26 mmol/L (19-24)
[2016-09-15 06:35] LABS: ABG Hematocrit 23 % (34.0-46.0)
[2016-09-15 06:36] LABS: ABG Hematocrit 22 % (34.0-46.0); ABG Oxygen Saturation 99.8 % (94-97)
[2016-09-15 06:38] LABS: ABG Base Excess -2.6 mmol/L; ABG HCO3 21 mmol/L (21-25); ABG Hematocrit 23 % (34.0-46.0); ABG Oxygen Saturation 99.9 % (94-97); ABG PCO2 36 mmHg (35-45); ABG PH 7.39 (7.35-7.45); ABG PO2 307 mmHg (83-108); ABG TCO2 23 mmol/L (19-24)
[2016-09-15 06:39] LABS: ABG Base Excess -4.7 mmol/L; ABG HCO3 21 mmol/L (21-25); ABG Oxygen Saturation 99.9 % (94-97); ABG PCO2 42 mmHg (35-45); ABG PH 7.31 (7.35-7.45); ABG PO2 272 mmHg (83-108); ABG TCO2 22 mmol/L (19-24)
[2016-09-15 06:40] LABS: Glucose,Whole Blood 158 mg/dL (75-99)
[2016-09-15 06:40] LABS: ABG Hematocrit 24 % (34.0-46.0)
[2016-09-15] MEDS: ACETAMINOPHEN IV (For NPO) 1,000 MG in EMPTY BAG 1 BAG IVPB SCH ×2 (06:46→14:24)
[2016-09-15] MEDS: MILRINONE-D5W PMX 20 MG in DEXTROSE/WATER 1 100ML.BAG IV SCH ×2 (06:47→17:02)
[2016-09-15] MEDS ORDERED: FUROSEMIDE 10 MG/ML 2 ML VIAL IV STA (07:49)
[2016-09-15] MEDS: ceFAZolin 2 GM in SODIUM CHLORIDE 0.9% 100 ML IVPB SCH (08:48)
[2016-09-15] MEDS: ASPIRIN 325 MG TAB PO SCH (08:49)
[2016-09-15] MEDS: METOPROLOL TARTRATE 12.5 MG TAB PO SCH ×2 (08:49→20:46)
[2016-09-15] MEDS: CLOPIDOGREL 75 MG TAB PO SCH (08:50)
[2016-09-15] MEDS: HEPARIN SODIUM,PORCINE 5,000 UNIT/ML 1 ML VIAL SQ SCH ×2 (08:50→17:04)
[2016-09-15] MEDS: ATORVASTATIN 40 MG TAB PO SCH (08:50)
[2016-09-15] MEDS: PANTOPRAZOLE 40 MG/10 ML VIAL IVP SCH (08:50)
--- NOTE | 2016-09-15 08:52 | P.CRDCN ---
History of Present Illness Consult date: 09/15/16 History of present illness: This is a pleasant 81-year-old gentleman who sees Dr. Elizalde as an outpatient who was admitted to the hospital yesterday and underwent aortic valve replacement along with CABG 3 with PUTNAM to LAD, SVG to diagonal, and SVG to ramus intermedius. The patient was extubated yesterday. Hemodynamically he continues to be stable beside small dose of Primacor. He has been maintaining normal sinus mechanism. He is making good urine. On follow-up with him this morning he seems to be slightly agitated and he is in pain. Patient continues to be on dual antiplatelet therapy along with a statin and beta gregg Past Medical History Past Medical History: Diabetes Mellitus, GERD/Reflux, Hyperlipidemia, Hypertension, Memory Impairment Additional Past Medical History / Comment(s): irregular heartrate, varicose veins, past hx shingles, SOB w/exertion History of Any Multi-Drug Resistant Organisms: None Reported Past Surgical History: Appendectomy, Heart Catheterization, Hernia Repair Additional Past Surgical History / Comment(s): "spots removed from his lung", mastoid surgery as child, mariama cataracts Past Anesthesia/Blood Transfusion Reactions: No Reported Reaction Smoking Status: Former smoker - Past Family History Sister(s) Family Medical History: Cancer Medications and Allergies Home Medications Medication Instructions Recorded Confirmed Type Ascorbic Acid [Vitamin C with Kim 1,000 mg PO DAILY 08/02/16 09/14/16 History Hips] Aspirin 325 mg PO DAILY 08/02/16 09/14/16 History Atenolol [Tenormin] 25 mg PO DAILY 08/02/16 09/14/16 History Cholecalciferol [Vitamin D3] 2,000 unit PO DAILY 08/02/16 09/14/16 History Ezetimibe/Simvastatin [Vytorin 1 tab PO DAILY 08/02/16 09/14/16 History 10-80 mg Tablet] Ferrous Sulfate [Feosol] 325 mg PO DAILY 08/02/16 09/14/16 History Glimepiride [Amaryl] 2 mg PO DAILY 08/02/16 09/14/16 History sitaGLIPtin [Januvia] 100 mg PO DAILY 08/02/16 09/14/16 History Calcium Carbonate [Tums] 500 mg PO TID PRN 09/07/16 09/14/16 History Mag Hydrox/Al Hydrox/Simeth 15 - 30 ml PO HS PRN 09/07/16 09/14/16 History [Maalox] metFORMIN HCL [Glucophage] 1,000 mg PO BID 09/14/16 09/14/16 History Allergies Allergy/AdvReac Type Severity Reaction Status Date / Time No Known Allergies Allergy Verified 09/14/16 06:16 Physical Exam Vitals: Vital Signs Temp Pulse Pulse Resp BP Pulse Ox 09/15/16 07:40 100 09/15/16 07:00 78 14 137/57 100 09/15/16 06:00 80 21 136/54 100 09/15/16 05:00 83 18 125/59 99 09/15/16 04:00 97.9 F 78 16 133/56 100 09/15/16 03:40 53 L 12 99 09/15/16 03:35 53 L 16 09/15/16 03:00 89 13 118/46 100 09/15/16 02:00 75 12 103/46 99 09/15/16 01:00 80 19 108/49 99 09/15/16 00:00 85 13 116/50 98 09/14/16 23:39 82 09/14/16 23:35 53 L 13 98 09/14/16 23:24 88 09/14/16 23:04 84 16 115/55 98 09/14/16 23:00 85 13 115/55 98 09/14/16 22:41 97.5 F L 81 13 137/56 98 09/14/16 22:11 97.5 F L 83 12 121/48 100 09/14/16 22:01 97.5 F L 83 12 125/49 100 09/14/16 22:00 97.4 F L 83 12 115/55 99 09/14/16 21:00 97.4 F L 81 12 105/51 100 09/14/16 20:11 90 09/14/16 20:00 97.4 F L 83 13 98 09/14/16 19:15 84 12 100 09/14/16 19:00 84 12 99 09/14/16 18:58 97.5 F L 86 12 125/50 99 09/14/16 18:46 97.4 F L 85 12 133/50 99 09/14/16 18:45 84 12 100 08/09/17 18:30 84 12 100 09/14/16 18:26 97.4 F L 85 12 130/52 100 09/14/16 18:17 97.4 F L 88 14 121/48 100 09/14/16 18:15 84 12 99 09/14/16 18:00 83 12 99 09/14/16 17:45 82 12 100 09/14/16 17:30 97.4 F L 82 12 100 09/14/16 16:23 97.4 F L 88 14 121/48 100 Intake and Output 09/14/16 09/15/16 09/15/16 22:59 06:59 14:59 Intake Total 2046.086 1089.827 56 Output Total 4570 718 65 Balance -2523.914 371.827 -9 Intake: IV 871.4 708 56 ACETAMINOPHEN IV (For NPO 100 200 ) 1,000 mg In Empty Bag 1 bag @ 400 mls/hr IVPB Q6HR [facility] Rx#:[id number] Calcium Gluconate 2,000 100 mg In Sodium Chloride 0.9 % 100 ml @ 100 mls/hr IVPB ONCE PRN Rx#: [id number] Insulin Regular 100 unit 3 In Sodium Chloride 0.9% 100 ml @ Per Protocol IV .Q0M [facility] Rx#:[id number] Lactated Ringers 1,000 ml 300 360 50 @ 50 mls/hr IV .Q20H [facility] Rx#:[id number] Norepinephrin 4 mg-0.9% 22.5 Ns Pmx 4 mg In 250 ml @ Titrate IV .Q0M [facility] Rx#: [id number] Potassium Chloride 10 meq 200 In Water For Injection 1 100ml.bag @ 100 mls/hr IVPB Q1H [facility] Rx#: [id number] Pressure Bag 18 48 6 Propofol 1,000 mg In 100 27.9 ml @ Titrate IV .Q0M [facility] Rx#:[id number] ceFAZolin 2 gm In Sodium 100 100 Chloride 0.9% 100 ml @ 100 mls/hr IVPB Q8HR [facility] Rx#:[id number] Intake, IV Titration 20.686 71.827 Amount Insulin Regular 100 unit 1.308 10.843 In Sodium Chloride 0.9% 100 ml @ Per Protocol IV .Q0M [facility] Rx#:[id number] Milrinone-D5w Pmx 20 mg 60.984 In Dextrose/Water 1 100ml .bag @ 0.3 MCG/KG/MIN 7. 26 mls/hr IV .[id number] [facility] Rx#:[id number] Propofol 1,000 mg In 100 19.378 ml @ Titrate IV .Q0M [facility] Rx#:[id number] Blood Product 1154 310 Ffp 24 Cpd Unit 318 [id number] Ffp 24 Cpda Unit 226 [id number] Platelet Pheresis Acda2 300 Unit [id number] Rc As-1 Unit 0 310 [id number] Rc Pheresis 2 As3 Unit 310 [id number] Output: Chest Tube Drainage 271 158 20 Chest Tube Left 31 8 0 Mediastinal 240 150 20 Drainage 25 50 Right Calf 25 50 Urine 2274 510 45 Estimated Blood Loss 1999 Other: Voiding Method Indwelling Catheter Indwelling Catheter Weight 83 kg ABP, PAP, CO, CI - Last 8 Hours Arterial Blood Pressure 122/39 Arterial Blood Pressure 127/43 Arterial Blood Pressure 121/48 Arterial Blood Pressure 123/48 Arterial Blood Pressure 125/48 Arterial Blood Pressure 130/53 Arterial Blood Pressure 120/50 - Constitutional General appearance: no acute distress - Respiratory Respiratory: bilateral: diminished - Cardiovascular Rhythm: regular Heart sounds: normal: S1, S2 Abnormal Heart Sounds: systolic murmur Results 09/15/16 04:05 09/15/16 04:05 Cardiac Enzymes 09/14/16 09/14/16 09/15/16 Range/Units 17:20 17:43 04:05 AST Cancelled 21 30 Coagulation 09/14/16 09/15/16 Range/Units 17:43 04:05 PT 13.9 H 12.3 H (9.0-12.0) sec APTT 39.3 H (22.0-30.0) sec CBC 09/14/16 09/14/16 09/14/16 Range/Units 17:20 17:43 21:00 WBC 9.0 8.1 8.5 (3.8-10.6) k/uL RBC 1.73 L 1.71 L 2.06 L (4.30-5.90) m/uL Hgb 5.5 L* D 5.4 L* 6.6 L* (13.0-17.5) gm/dL Hct 16.6 L* 16.4 L* 19.8 L* (39.0-53.0) % Plt Count 87 L D 73 L 76 L (150-450) k/uL 09/15/16 Range/Units 04:05 WBC 10.4 (3.8-10.6) k/uL RBC 2.48 L (4.30-5.90) m/uL Hgb 7.7 L (13.0-17.5) gm/dL Hct 24.0 L (39.0-53.0) % Plt Count 100 L (150-450) k/uL Comprehensive Metabolic Panel 09/14/16 09/14/16 09/14/16 Range/Units 17:20 17:43 21:00 Sodium Cancelled 145 142 Potassium Cancelled 3.8 3.9 Chloride Cancelled 110 H 110 H Carbon Dioxide Cancelled 24 25 BUN Cancelled 10 10 Creatinine Cancelled 0.70 0.70 Glucose Cancelled 114 H 110 H Calcium Cancelled 8.2 L 8.4 AST Cancelled 21 ALT Cancelled 22 Alkaline Phosphatase Cancelled 30 L Total Protein Cancelled 4.9 L Albumin Cancelled 3.1 L 09/15/16 Range/Units 04:05 Sodium 143 Potassium 4.9 Chloride 111 H Carbon Dioxide 23 BUN 10 Creatinine 0.71 Glucose 156 H Calcium 8.3 L AST 30 ALT 16 L Alkaline Phosphatase 30 L Total Protein 5.0 L Albumin 3.2 L Current Medications Generic Name Dose Route Start Last Admin Trade Name Freq PRN Reason Stop Dose Admin Hydrocodone Bitart/Acetaminophen 2 each 09/15/16 15:47 [place] 5-325 PO Q4HR PRN Severe Pain Hydrocodone Bitart/Acetaminophen 1 each 09/15/16 15:47 [place] 5-325 PO Q4HR PRN Moderate Pain Albuterol/Ipratropium 3 ml 09/15/16 15:49 Duoneb 0.5 Mg-3 Mg/3 Ml Soln INHALATION RT-Q2H PRN Shortness Of Breath Or Wheezing Aspirin 325 mg 09/15/16 09:00 Aspirin PO DAILY [facility] Atorvastatin Calcium 40 mg 09/15/16 12:00 Lipitor PO DAILY [facility] Benzocaine/Menthol 1 each 09/14/16 16:37 Cepacol Lozenge MUCOUS MEM Q2H PRN Sore Throat Bisacodyl 10 mg 09/15/16 15:48 Dulcolax RECTAL DAILY PRN Constipation Clopidogrel Bisulfate 75 mg 09/15/16 16:00 Plavix PO DAILY [facility] Heparin Sodium (Porcine) 5,000 unit 09/15/16 00:00 09/14/16 23:17 Heparin SQ Not Given Q8HR [facility] Acetaminophen 1,000 mg/ IV 100 mls @ 400 mls/hr 09/14/16 18:00 09/15/16 06:46 Solution IVPB 09/15/16 17:30 400 mls/hr Q6HR [facility] Administration Albumin Human 250 ml/ IV 250 mls @ 250 mls/hr 09/14/16 16:37 Solution IVPB 09/16/16 16:38 Q1HR PRN For Volume Calcium Gluconate 2,000 mg/ 120 mls @ 100 mls/hr 09/14/16 16:37 Sodium Chloride IVPB 09/15/16 16:38 ONCE PRN Ionized Calcium less than 4.4 Cefazolin Sodium 2 gm/ Sodium 100 mls @ 100 mls/hr 09/14/16 17:00 09/14/16 23 :05 Chloride IVPB 09/15/16 08:59 100 mls/hr Q8HR [facility] Administration Clevidipine 25 mg/ IV Solution 50 mls @ 2 mls/hr 09/14/16 16:37 09/14/16 18: 11 IV Not Given .Q24H [facility] Protocol 1 MG/HR Insulin Human Regular 100 unit 101 mls @ 0 mls/hr 09/14/16 16:37 09/15/16 04: 21 / Sodium Chloride IV 3 units/hr .Q0M [facility] 3.03 mls/hr Protocol Titration Per Protocol Lactated Ringer's 1,000 mls @ 20 mls/hr 09/14/16 16:37 09/14/16 18:10 Lactated Ringers IV 50 mls/hr .Q24H [facility] Administration Milrinone Lactate/Dextrose 20 100 mls @ 2.42 mls/hr 09/14/16 17:00 09/15/16 06:47 mg/ IV Solution IV 0.2 mcg/kg/min .Q24H [facility] 4.84 mls/hr 0.1 MCG/KG/MIN Administration Norepinephrine Bitartrate 4 mg in 250 mls @ 0 mls/hr 09/14/16 16:45 Levophed-0.9% Nacl 4 Mg/250ml Pmx IV .Q0M [facility] Protocol Titrate Magnesium Hydroxide 2,400 mg 09/15/16 15:48 Milk Of Magnesia PO BID PRN Constipation Metoclopramide HCl 10 mg 09/14/16 16:37 Reglan IVP Q4H PRN Nausea And Vomiting Metoprolol Tartrate 12.5 mg 09/15/16 09:00 Lopressor PO BID [facility] Miscellaneous Information 1 each 09/14/16 16:37 Magnesium Per Protocol MISCELLANE DAILY PRN Per Protocol Protocol Miscellaneous Information 1 each 09/14/16 16:37 Phosphorus Per Protocol MISCELLANE DAILY PRN Per Protocol Protocol Miscellaneous Information 1 each 09/14/16 16:37 Potassium Per Protocol MISCELLANE DAILY PRN Per Protocol Protocol Mupirocin 1 applic 09/14/16 21:00 09/14/16 20:54 Bactroban Oint NASAL 09/17/16 21:01 1 applic BID [facility] Administration Ondansetron HCl 4 mg 09/14/16 16:37 Zofran IVP Q6HR PRN Nausea And Vomiting Oxycodone HCl 10 mg 09/14/16 16:37 09/15/16 08:45 Oxyir PO 09/15/16 16:38 10 mg Q4H PRN Administration Severe Pain Oxycodone HCl 5 mg 09/14/16 16:37 Oxyir PO 09/15/16 16:38 Q4H PRN Moderate Pain Pantoprazole Sodium 40 mg 09/15/16 09:00 Protonix IVP DAILY [facility] Senna/Docusate Sodium 2 each 09/15/16 21:00 Senokot-S PO HS [facility] Sodium Chloride 10 ml 09/14/16 21:00 09/14/16 20:54 Saline Flush IV 10 ml BID [facility] Administration Intake and Output 09/14/16 09/15/16 09/15/16 22:59 06:59 14:59 Intake Total 1866.086 1089.827 56 Output Total 5710 718 65 Balance -2523.914 371.827 -9 Intake: IV 871.4 708 56 ACETAMINOPHEN IV (For NPO 100 200 ) 1,000 mg In Empty Bag 1 bag @ 400 mls/hr IVPB Q6HR [facility] Rx#:[id number] Calcium Gluconate 2,000 100 mg In Sodium Chloride 0.9 % 100 ml @ 100 mls/hr IVPB ONCE PRN Rx#: [id number] Insulin Regular 100 unit 3 In Sodium Chloride 0.9% 100 ml @ Per Protocol IV .Q0M [facility] Rx#:[id number] Lactated Ringers 1,000 ml 300 360 50 @ 50 mls/hr IV .Q20H [facility] Rx#:[id number] Norepinephrin 4 mg-0.9% 22.5 Ns Pmx 4 mg In 250 ml @ Titrate IV .Q0M [facility] Rx#: [id number] Potassium Chloride 10 meq 200 In Water For Injection 1 100ml.bag @ 100 mls/hr IVPB Q1H [facility] Rx#: [id number] Pressure Bag 18 48 6 Propofol 1,000 mg In 100 27.9 ml @ Titrate IV .Q0M [facility] Rx#:[id number] ceFAZolin 2 gm In Sodium 100 100 Chloride 0.9% 100 ml @ 100 mls/hr IVPB Q8HR [facility] Rx#:[id number] Intake, IV Titration 20.686 71.827 Amount Insulin Regular 100 unit 1.308 10.843 In Sodium Chloride 0.9% 100 ml @ Per Protocol IV .Q0M [facility] Rx#:[id number] Milrinone-D5w Pmx 20 mg 60.984 In Dextrose/Water 1 100ml .bag @ 0.3 MCG/KG/MIN 7. 26 mls/hr IV .[id number] [facility] Rx#:[id number] Propofol 1,000 mg In 100 19.378 ml @ Titrate IV .Q0M [facility] Rx#:[id number] Blood Product 1154 310 Ffp 24 Cpd Unit 318 [id number] Ffp 24 Cpda Unit 226 [id number] Platelet Pheresis Acda2 300 Unit [id number] Rc As-1 Unit 0 310 [id number] Rc Pheresis 2 As3 Unit 310 [id number] Output: Chest Tube Drainage 271 158 20 Chest Tube Left 31 8 0 Mediastinal 240 150 20 Drainage 25 50 Right Calf 25 50 Urine 2274 510 45 Estimated Blood Loss 1999 Other: Voiding Method Indwelling Catheter Indwelling Catheter Weight 83 kg 09/15/16 04:05 09/15/16 04:05 Assessment and Plan Plan: This is a pleasant 81-year-old gentleman who was admitted to the hospital yesterday and underwent aortic valve replacement along with CABG 3 as described above. We'll continue the current medical treatment which included dual antiplatelet therapy and statin. Continue monitor the heart rate and the patient has been maintaining normal sinus mechanism. We'll continue following up with him.
--- NOTE | 2016-09-15 09:12 | XR ---
EXAMINATION TYPE: XR chest 1V portable DATE OF EXAM: 09/15/2016 COMPARISON: NONE HISTORY: Postop cardiac surgery FINDINGS: There are bilateral pleural effusions with cardiomegaly and bibasilar infiltrate. There is a diffuse interstitial pattern. ET and NG tube removed. Chest tube noted. Postsurgical changes and mediastinal drain noted. Suggestion of epicardial lead. IMPRESSION: 1. Bilateral infiltrate and pleural effusion. Correlate for CHF.
[2016-09-15] MEDS: MUPIROCIN 2% OINT 22 GM TUBE NASAL SCH ×2 (09:18→21:05)
[2016-09-15] MEDS: KETOROLAC 30 MG/ML 1 ML VIAL IVP SCH ×3 (09:20→20:54)
[2016-09-15 09:55] LABS: Glucose,Whole Blood 130 mg/dL (75-99)
--- NOTE | 2016-09-15 10:18 | P.PN ---
Subjective Principal diagnosis: Symptomatic multivessel coronary artery disease. Severe aortic valve stenosis with mild aortic regurgitation. Type 2 diabetes mellitus. GERD. Hypertension. Hyperlipidemia. Previous tobacco dependence. Elective coronary artery bypass grafting using the left internal mammary artery to the left anterior descending artery, reverse saphenous vein graft to the ramus artery, reverse saphenous vein graft to the first diagonal artery, endoscopic vein harvesting of the right greater saphenous vein, epi-aortic scanning, graft flow measurement using the Medist[employer] system, bioprosthetic aortic valve replacement, exclusion of the left atrial appendage. The patient is currently sitting up in bed in no acute distress. Was extubated this morning. Appears to be in a mild amount of pain, does not appear short of breath. Will still a bit sleepy this morning but is now more awake. Objective - Vital Signs Vital signs: Vital Signs Temp 97.9 F 09/15/16 04:00 Pulse 78 09/15/16 07:00 Resp 14 09/15/16 07:00 BP 137/57 09/15/16 07:00 Pulse Ox 100 09/15/16 07:40 Intake & Output 09/14/16 09/15/16 09/15/16 18:59 06:59 18:59 Intake Total 1657.4 1478.513 56 Output Total 4284 1004 65 Balance -2626.6 474.513 -9 Weight 83 kg Intake: IV 503.4 1076 56 ACETAMINOPHEN IV (For NPO 100 200 ) 1,000 mg In Empty Bag 1 bag @ 400 mls/hr IVPB Q6HR [facility] Rx#:[id number] Calcium Gluconate 2,000 100 mg In Sodium Chloride 0.9 % 100 ml @ 100 mls/hr IVPB ONCE PRN Rx#: [id number] Insulin Regular 100 unit 3 In Sodium Chloride 0.9% 100 ml @ Per Protocol IV .Q0M [facility] Rx#:[id number] Lactated Ringers 1,000 ml 150 510 50 @ 50 mls/hr IV .Q20H [facility] Rx#:[id number] Norepinephrin 4 mg-0.9% 22.5 Ns Pmx 4 mg In 250 ml @ Titrate IV .Q0M [facility] Rx#: [id number] Potassium Chloride 10 meq 200 In Water For Injection 1 100ml.bag @ 100 mls/hr IVPB Q1H [facility] Rx#: [id number] Pressure Bag 66 6 Propofol 1,000 mg In 100 27.9 ml @ Titrate IV .Q0M [facility] Rx#:[id number] ceFAZolin 2 gm In Sodium 100 100 Chloride 0.9% 100 ml @ 100 mls/hr IVPB Q8HR [facility] Rx#:[id number] Intake, IV Titration 92.513 Amount Insulin Regular 100 unit 12.151 In Sodium Chloride 0.9% 100 ml @ Per Protocol IV .Q0M [facility] Rx#:[id number] Milrinone-D5w Pmx 20 mg 60.984 In Dextrose/Water 1 100ml .bag @ 0.3 MCG/KG/MIN 7. 26 mls/hr IV .[id number] [facility] Rx#:[id number] Propofol 1,000 mg In 100 19.378 ml @ Titrate IV .Q0M [facility] Rx#:[id number] Blood Product 1154 310 Ffp 24 Cpd Unit 318 [id number] Ffp 24 Cpda Unit 226 [id number] Platelet Pheresis Acda2 300 Unit [id number] Rc As-1 Unit 310 [id number] Rc Pheresis 2 As3 Unit 310 [id number] Output: Chest Tube Drainage 175 254 20 Chest Tube Left 25 14 0 Mediastinal 150 240 20 Drainage 75 Right Calf 75 Urine 2109 675 45 Estimated Blood Loss 1999 Other: Voiding Method Indwelling Catheter Indwelling Catheter ABP, PAP, CO, CI - Last Documented Arterial Blood Pressure 122/39 - Constitutional General appearance: Present: cooperative, no acute distress - Respiratory Details: Lungs sounds diminished bilaterally. Respirations even, nonlabored. Currently on 4 L nasal cannula with oxygen saturation 100%. Not able to use incentive spirometry appropriately. Left pleural chest tube to -20 cm wall suction, 10 mL serosanguineous drainage overnight, 150 mL since surgery. Mediastinal chest tube to -20 cm wall suction, 120 mL serosanguineous drainage overnight, 450 mL since surgery. No air leaks present. - Cardiovascular Details: S1, S2 present. Regular rate and rhythm, normal sinus rhythm on telemetry. Sternum stable. A/V epicardial pacemaker wires present, connected to generator , VVI mode with backup rate 50 bpm. No edema present. Palpable pulses bilaterally. Left internal jugular Cordis, right radial arterial line present. Heart hugger in place with patient unable to demonstrate appropriate use. Teds/SCDs present. - Gastrointestinal Gastrointestinal Comment(s): Abdomen soft, nontender, nondistended. Hypoactive bowel sounds present 4 quadrants. Tolerating clear liquids. - Genitourinary Genitourinary Comment(s): Lindsey present draining clear, yellow urine. Output 45-75 mL per hour overnight. - Integumentary Integumentary Comment(s): Anterior chest incision well approximated, dry intact dressing. Right lower extremity EVH site well approximated, CARL drain present with minimal serous drainage. - Musculoskeletal Musculoskeletal: Present: strength equal bilaterally - Psychiatric Psychiatric Comment(s): Alert and oriented to person and place however thought the year was 1955. Psychiatric: Present: appropriate affect - Allied health notes Allied health notes reviewed: nursing - Labs CBC & Chem 7: 09/15/16 04:05 09/15/16 04:05 Labs: Abnormal Lab Results - Last 24 Hours (Table) 09/07/16 09/14/16 09/14/16 Range/Units 13:30 09:08 11:45 RBC (4.30-5.90) m/uL Hgb (13.0-17.5) gm/dL Hct (39.0-53.0) % Plt Count (150-450) k/uL Neutrophils # (Manual) (1.3-7.7) k/uL Lymphocytes # (Manual) (1.0-4.8) k/uL PT (9.0-12.0) sec INR (<1.2) APTT (22.0-30.0) sec Fibrinogen (200-500) mg/dL ABG pH 7.48 H (7.35-7.45) ABG pCO2 32 L (35-45) mmHg ABG pO2 364 H (83-108) mmHg ABG Total CO2 25 H (19-24) mmol/L ABG O2 Saturation 100.0 H (94-97) % ABG Hematocrit 33 L (34.0-46.0) % ABG Potassium 4.9 H (3.4-4.5) mmol/L Chloride (98-107) mmol/L Glucose (74-99) mg/dL POC Glucose (mg/dL) 110 H (75-99) mg/dL Calcium (8.4-10.2) mg/dL Magnesium (1.6-2.3) mg/dL ALT (21-72) U/L Alkaline Phosphatase (38-126) U/L Total Protein (6.3-8.2) g/dL Albumin (3.5-5.0) g/dL Arterial Blood Potassium 4.9 H (3.4-4.5) mmol/L Crossmatch See Detail 09/14/16 09/14/16 09/14/16 Range/Units 11:46 12:19 12:19 RBC (4.30-5.90) m/uL Hgb (13.0-17.5) gm/dL Hct (39.0-53.0) % Plt Count (150-450) k/uL Neutrophils # (Manual) (1.3-7.7) k/uL Lymphocytes # (Manual) (1.0-4.8) k/uL PT (9.0-12.0) sec INR (<1.2) APTT (22.0-30.0) sec Fibrinogen (200-500) mg/dL ABG pH 7.32 L (7.35-7.45) ABG pCO2 47 H (35-45) mmHg ABG pO2 167 H 372 H (83-108) mmHg ABG Total CO2 25 H 25 H (19-24) mmol/L ABG O2 Saturation 99.5 H 99.9 H (94-97) % ABG Hematocrit 26 L 25 L (34.0-46.0) % ABG Potassium 4.8 H 5.0 H (3.4-4.5) mmol/L Chloride (98-107) mmol/L Glucose (74-99) mg/dL POC Glucose (mg/dL) 111 H (75-99) mg/dL Calcium (8.4-10.2) mg/dL Magnesium (1.6-2.3) mg/dL ALT (21-72) U/L Alkaline Phosphatase (38-126) U/L Total Protein (6.3-8.2) g/dL Albumin (3.5-5.0) g/dL Arterial Blood Potassium 4.8 H 5.0 H (3.4-4.5) mmol/L Crossmatch 09/14/16 09/14/16 09/14/16 Range/Units 12:50 12:50 13:35 RBC (4.30-5.90) m/uL Hgb (13.0-17.5) gm/dL Hct (39.0-53.0) % Plt Count (150-450) k/uL Neutrophils # (Manual) (1.3-7.7) k/uL Lymphocytes # (Manual) (1.0-4.8) k/uL PT (9.0-12.0) sec INR (<1.2) APTT (22.0-30.0) sec Fibrinogen (200-500) mg/dL ABG pH (7.35-7.45) ABG pCO2 (35-45) mmHg ABG pO2 277 H (83-108) mmHg ABG Total CO2 (19-24) mmol/L ABG O2 Saturation 99.9 H (94-97) % ABG Hematocrit 24 L (34.0-46.0) % ABG Potassium 6.4 H* (3.4-4.5) mmol/L Chloride (98-107) mmol/L Glucose (74-99) mg/dL POC Glucose (mg/dL) 211 H 199 H (75-99) mg/dL Calcium (8.4-10.2) mg/dL Magnesium (1.6-2.3) mg/dL ALT (21-72) U/L Alkaline Phosphatase (38-126) U/L Total Protein (6.3-8.2) g/dL Albumin (3.5-5.0) g/dL Arterial Blood Potassium 6.4 H* (3.4-4.5) mmol/L Crossmatch 09/14/16 09/14/16 09/14/16 Range/Units 13:35 14:06 14:07 RBC (4.30-5.90) m/uL Hgb (13.0-17.5) gm/dL Hct (39.0-53.0) % Plt Count (150-450) k/uL Neutrophils # (Manual) (1.3-7.7) k/uL Lymphocytes # (Manual) (1.0-4.8) k/uL PT (9.0-12.0) sec INR (<1.2) APTT (22.0-30.0) sec Fibrinogen (200-500) mg/dL ABG pH 7.25 L (7.35-7.45) ABG pCO2 57 H (35-45) mmHg ABG pO2 258 H 250 H (83-108) mmHg ABG Total CO2 26 H (19-24) mmol/L ABG O2 Saturation 99.8 H 99.8 H (94-97) % ABG Hematocrit 23 L 22 L (34.0-46.0) % ABG Potassium 5.4 H 5.2 H (3.4-4.5) mmol/L Chloride (98-107) mmol/L Glucose (74-99) mg/dL POC Glucose (mg/dL) 222 H (75-99) mg/dL Calcium (8.4-10.2) mg/dL Magnesium (1.6-2.3) mg/dL ALT (21-72) U/L Alkaline Phosphatase (38-126) U/L Total Protein (6.3-8.2) g/dL Albumin (3.5-5.0) g/dL Arterial Blood Potassium 5.4 H 5.2 H (3.4-4.5) mmol/L Crossmatch 09/14/16 09/14/16 09/14/16 Range/Units 14:47 14:48 16:10 RBC (4.30-5.90) m/uL Hgb (13.0-17.5) gm/dL Hct (39.0-53.0) % Plt Count (150-450) k/uL Neutrophils # (Manual) (1.3-7.7) k/uL Lymphocytes # (Manual) (1.0-4.8) k/uL PT (9.0-12.0) sec INR (<1.2) APTT (22.0-30.0) sec Fibrinogen (200-500) mg/dL ABG pH (7.35-7.45) ABG pCO2 (35-45) mmHg ABG pO2 307 H (83-108) mmHg ABG Total CO2 (19-24) mmol/L ABG O2 Saturation 99.9 H (94-97) % ABG Hematocrit 23 L (34.0-46.0) % ABG Potassium 5.2 H (3.4-4.5) mmol/L Chloride (98-107) mmol/L Glucose (74-99) mg/dL POC Glucose (mg/dL) 231 H 159 H (75-99) mg/dL Calcium (8.4-10.2) mg/dL Magnesium (1.6-2.3) mg/dL ALT (21-72) U/L Alkaline Phosphatase (38-126) U/L Total Protein (6.3-8.2) g/dL Albumin (3.5-5.0) g/dL Arterial Blood Potassium 5.2 H (3.4-4.5) mmol/L Crossmatch 09/14/16 09/14/16 09/14/16 Range/Units 16:11 17:17 17:20 RBC 1.73 L (4.30-5.90) m/uL Hgb 5.5 L* D (13.0-17.5) gm/dL Hct 16.6 L* (39.0-53.0) % Plt Count 87 L D (150-450) k/uL Neutrophils # (Manual) (1.3-7.7) k/uL Lymphocytes # (Manual) (1.0-4.8) k/uL PT (9.0-12.0) sec INR (<1.2) APTT (22.0-30.0) sec Fibrinogen (200-500) mg/dL ABG pH 7.31 L (7.35-7.45) ABG pCO2 (35-45) mmHg ABG pO2 272 H (83-108) mmHg ABG Total CO2 (19-24) mmol/L ABG O2 Saturation 99.9 H (94-97) % ABG Hematocrit 24 L (34.0-46.0) % ABG Potassium (3.4-4.5) mmol/L Chloride (98-107) mmol/L Glucose (74-99) mg/dL POC Glucose (mg/dL) 132 H (75-99) mg/dL Calcium (8.4-10.2) mg/dL Magnesium (1.6-2.3) mg/dL ALT (21-72) U/L Alkaline Phosphatase (38-126) U/L Total Protein (6.3-8.2) g/dL Albumin (3.5-5.0) g/dL Arterial Blood Potassium (3.4-4.5) mmol/L Crossmatch 0809/14/16 09/14/16 Range/Units 17:40 17:43 17:43 RBC 1.71 L (4.30-5.90) m/uL Hgb 5.4 L* (13.0-17.5) gm/dL Hct 16.4 L* (39.0-53.0) % Plt Count 73 L (150-450) k/uL Neutrophils # (Manual) (1.3-7.7) k/uL Lymphocytes # (Manual) 0.97 L (1.0-4.8) k/uL PT 13.9 H (9.0-12.0) sec INR 1.4 H (<1.2) APTT 39.3 H (22.0-30.0) sec Fibrinogen (200-500) mg/dL ABG pH 7.33 L (7.35-7.45) ABG pCO2 46 H (35-45) mmHg ABG pO2 248 H (83-108) mmHg ABG Total CO2 25 H (19-24) mmol/L ABG O2 Saturation 100.0 H (94-97) % ABG Hematocrit (34.0-46.0) % ABG Potassium (3.4-4.5) mmol/L Chloride (98-107) mmol/L Glucose (74-99) mg/dL POC Glucose (mg/dL) (75-99) mg/dL Calcium (8.4-10.2) mg/dL Magnesium (1.6-2.3) mg/dL ALT (21-72) U/L Alkaline Phosphatase (38-126) U/L Total Protein (6.3-8.2) g/dL Albumin (3.5-5.0) g/dL Arterial Blood Potassium (3.4-4.5) mmol/L Crossmatch 09/14/16 09/14/16 09/14/16 Range/Units 17:43 17:43 18:45 RBC (4.30-5.90) m/uL Hgb (13.0-17.5) gm/dL Hct (39.0-53.0) % Plt Count (150-450) k/uL Neutrophils # (Manual) (1.3-7.7) k/uL Lymphocytes # (Manual) (1.0-4.8) k/uL PT (9.0-12.0) sec INR (<1.2) APTT (22.0-30.0) sec Fibrinogen 177 L (200-500) mg/dL ABG pH (7.35-7.45) ABG pCO2 (35-45) mmHg ABG pO2 (83-108) mmHg ABG Total CO2 (19-24) mmol/L ABG O2 Saturation (94-97) % ABG Hematocrit (34.0-46.0) % ABG Potassium (3.4-4.5) mmol/L Chloride 110 H (98-107) mmol/L Glucose 114 H (74-99) mg/dL POC Glucose (mg/dL) 118 H (75-99) mg/dL Calcium 8.2 L (8.4-10.2) mg/dL Magnesium (1.6-2.3) mg/dL ALT (21-72) U/L Alkaline Phosphatase 30 L (38-126) U/L Total Protein 4.9 L (6.3-8.2) g/dL Albumin 3.1 L (3.5-5.0) g/dL Arterial Blood Potassium (3.4-4.5) mmol/L Crossmatch 09/14/16 09/14/16 09/14/16 Range/Units 20:17 20:56 21:00 RBC 2.06 L (4.30-5.90) m/uL Hgb 6.6 L* (13.0-17.5) gm/dL Hct 19.8 L* (39.0-53.0) % Plt Count 76 L (150-450) k/uL Neutrophils # (Manual) (1.3-7.7) k/uL Lymphocytes # (Manual) (1.0-4.8) k/uL PT (9.0-12.0) sec INR (<1.2) APTT (22.0-30.0) sec Fibrinogen (200-500) mg/dL ABG pH (7.35-7.45) ABG pCO2 (35-45) mmHg ABG pO2 (83-108) mmHg ABG Total CO2 (19-24) mmol/L ABG O2 Saturation (94-97) % ABG Hematocrit (34.0-46.0) % ABG Potassium (3.4-4.5) mmol/L Chloride (98-107) mmol/L Glucose (74-99) mg/dL POC Glucose (mg/dL) 114 H 121 H (75-99) mg/dL Calcium (8.4-10.2) mg/dL Magnesium (1.6-2.3) mg/dL ALT (21-72) U/L Alkaline Phosphatase (38-126) U/L Total Protein (6.3-8.2) g/dL Albumin (3.5-5.0) g/dL Arterial Blood Potassium (3.4-4.5) mmol/L Crossmatch 09/14/16 09/14/16 09/14/16 Range/Units 21:00 22:13 22:54 RBC (4.30-5.90) m/uL Hgb (13.0-17.5) gm/dL Hct (39.0-53.0) % Plt Count (150-450) k/uL Neutrophils # (Manual) (1.3-7.7) k/uL Lymphocytes # (Manual) (1.0-4.8) k/uL PT (9.0-12.0) sec INR (<1.2) APTT (22.0-30.0) sec Fibrinogen (200-500) mg/dL ABG pH (7.35-7.45) ABG pCO2 (35-45) mmHg ABG pO2 (83-108) mmHg ABG Total CO2 (19-24) mmol/L ABG O2 Saturation (94-97) % ABG Hematocrit (34.0-46.0) % ABG Potassium (3.4-4.5) mmol/L Chloride 110 H (98-107) mmol/L Glucose 110 H (74-99) mg/dL POC Glucose (mg/dL) 127 H 135 H (75-99) mg/dL Calcium (8.4-10.2) mg/dL Magnesium 2.4 H (1.6-2.3) mg/dL ALT (21-72) U/L Alkaline Phosphatase (38-126) U/L Total Protein (6.3-8.2) g/dL Albumin (3.5-5.0) g/dL Arterial Blood Potassium (3.4-4.5) mmol/L Crossmatch 09/15/16 09/15/16 09/15/16 Range/Units 00:08 01:58 03:33 RBC (4.30-5.90) m/uL Hgb (13.0-17.5) gm/dL Hct (39.0-53.0) % Plt Count (150-450) k/uL Neutrophils # (Manual) (1.3-7.7) k/uL Lymphocytes # (Manual) (1.0-4.8) k/uL PT (9.0-12.0) sec INR (<1.2) APTT (22.0-30.0) sec Fibrinogen (200-500) mg/dL ABG pH 7.34 L (7.35-7.45) ABG pCO2 (35-45) mmHg ABG pO2 121 H (83-108) mmHg ABG Total CO2 (19-24) mmol/L ABG O2 Saturation 99.0 H (94-97) % ABG Hematocrit (34.0-46.0) % ABG Potassium (3.4-4.5) mmol/L Chloride (98-107) mmol/L Glucose (74-99) mg/dL POC Glucose (mg/dL) 148 H 160 H (75-99) mg/dL Calcium (8.4-10.2) mg/dL Magnesium (1.6-2.3) mg/dL ALT (21-72) U/L Alkaline Phosphatase (38-126) U/L Total Protein (6.3-8.2) g/dL Albumin (3.5-5.0) g/dL Arterial Blood Potassium (3.4-4.5) mmol/L Crossmatch 09/15/16 09/15/16 09/15/16 Range/Units 04:05 04:05 04:05 RBC 2.48 L (4.30-5.90) m/uL Hgb 7.7 L (13.0-17.5) gm/dL Hct 24.0 L (39.0-53.0) % Plt Count 100 L (150-450) k/uL Neutrophils # (Manual) 8.99 H (1.3-7.7) k/uL Lymphocytes # (Manual) 0.62 L (1.0-4.8) k/uL PT 12.3 H (9.0-12.0) sec INR 1.2 H (<1.2) APTT (22.0-30.0) sec Fibrinogen (200-500) mg/dL ABG pH (7.35-7.45) ABG pCO2 (35-45) mmHg ABG pO2 (83-108) mmHg ABG Total CO2 (19-24) mmol/L ABG O2 Saturation (94-97) % ABG Hematocrit (34.0-46.0) % ABG Potassium (3.4-4.5) mmol/L Chloride 111 H (98-107) mmol/L Glucose 156 H (74-99) mg/dL POC Glucose (mg/dL) (75-99) mg/dL Calcium 8.3 L (8.4-10.2) mg/dL Magnesium (1.6-2.3) mg/dL ALT 16 L (21-72) U/L Alkaline Phosphatase 30 L (38-126) U/L Total Protein 5.0 L (6.3-8.2) g/dL Albumin 3.2 L (3.5-5.0) g/dL Arterial Blood Potassium (3.4-4.5) mmol/L Crossmatch 09/15/16 09/15/16 09/15/16 Range/Units 04:05 04:56 06:39 RBC (4.30-5.90) m/uL Hgb (13.0-17.5) gm/dL Hct (39.0-53.0) % Plt Count (150-450) k/uL Neutrophils # (Manual) (1.3-7.7) k/uL Lymphocytes # (Manual) (1.0-4.8) k/uL PT (9.0-12.0) sec INR (<1.2) APTT (22.0-30.0) sec Fibrinogen (200-500) mg/dL ABG pH (7.35-7.45) ABG pCO2 (35-45) mmHg ABG pO2 (83-108) mmHg ABG Total CO2 (19-24) mmol/L ABG O2 Saturation (94-97) % ABG Hematocrit (34.0-46.0) % ABG Potassium (3.4-4.5) mmol/L Chloride (98-107) mmol/L Glucose (74-99) mg/dL POC Glucose (mg/dL) 187 H 161 H 158 H (75-99) mg/dL Calcium (8.4-10.2) mg/dL Magnesium (1.6-2.3) mg/dL ALT (21-72) U/L Alkaline Phosphatase (38-126) U/L Total Protein (6.3-8.2) g/dL Albumin (3.5-5.0) g/dL Arterial Blood Potassium (3.4-4.5) mmol/L Crossmatch - Imaging and Cardiology Chest x-ray: report reviewed, image reviewed Assessment and Plan (1) Coronary artery disease Status: Acute (2) Hyperlipidemia Status: Acute (3) Hypertension Status: Acute (4) Severe aortic stenosis Status: Acute (5) Type 2 diabetes mellitus Status: Acute (6) Tobacco dependence in remission Status: Acute Plan: 1. Continue aspirin, Lipitor, Plavix, beta gregg. Will maximize beta gregg therapy as tolerated. 2. Will give Lasix 20 mg IV push 1 today. 3. Wean Primacor. 4. Wean O2 as tolerated. Encourage incentive spirometer use. 5. Increase activity, out of bed to chair. Physical therapy to follow. 6. GI/DVT prophylaxis. 7. Insulin management per primary care service. 8. Will monitor daily labs, chest x-rays. 9. More recommendations as patient progresses. Time with Patient: Greater than 30
[2016-09-15 10:56] LABS: Glucose,Whole Blood 113 mg/dL (75-99)
[2016-09-15 12:00] LABS: Glucose,Whole Blood 118 mg/dL (75-99)
[2016-09-15 13:05] LABS: Glucose,Whole Blood 122 mg/dL (75-99)
--- NOTE | 2016-09-15 13:14 | P.CONS ---
History of Present Illness - Reason for Consult Consult date: 09/15/16 medical management Requesting physician: Mackenzie Hannon - Chief Complaint post CABG and AVR - History of Present Illness This is an 81-year-old gentleman who follows with Dr. San as his primary care physician. He has a history of diabetes mellitus, gastroesophageal reflux disease, hyperlipidemia, hypertension. He follows with Dr. Elizalde in the office for aortic stenosis. He is also had worsening fatigue and dyspnea on exertion. His most recent echo revealed severe aortic stenosis and a drop in his ejection fraction along with reversible ischemia on a stress test. He had subsequently undergone cardiac catheterization which revealed multivessel coronary artery disease. He presented here today for an elective surgery which was performed today by Dr. Hannon. He received a PUTNAM to the LAD, saphenous vein grafts to the ramus and the diagonal branches along with aortic valve replacement. Patient was seen in the ICU sitting in a recliner appears a bit confused with minimal short term memory deficit, there is chest wall pain and minimal cough. Review of Systems Constitutional: Reports fatigue, Reports lethargy, Reports weakness, Denies anorexia, Denies chronic headaches, Denies chronic pain Eyes: bilateral blurred vision, denies bulging eye, denies decreased vision, denies diplopia Ears: bilateral: decreased hearing Ears, nose, mouth and throat: Denies dysphagia, Denies neck lump, Denies sore throat, Denies vertigo Cardiovascular: Reports chest pain, Reports decreased exercise tolerance, Reports dyspnea on exertion, Reports high blood pressure, Reports shortness of breath, Denies rapid heart beat, Denies syncope Respiratory: Reports cough, Reports dyspnea, Denies congestion, Denies cough with sputum, Denies home oxygen, Denies sleep apnea, Denies snoring, Denies wheezing Gastrointestinal: Denies abdominal pain, Denies bloating, Denies BRBPR, Denies hematemesis, Denies melena, Denies nausea, Denies vomiting Genitourinary: Denies dysuria Musculoskeletal: Reports gait dysfunction Musculoskeletal: absent: ankle pain, ankle stiffness, ankle swelling, elbow pain , elbow stiffness, elbow swelling, foot pain, foot stiffness, foot swelling, hand pain, hand stiffness, hand swelling, hip pain, hip stiffness, hip swelling , knee pain, knee stiffness, knee swelling, shoulder pain, shoulder stiffness, shoulder swelling, wrist pain, wrist stiffness, wrist swelling Integumentary: Denies pruritus, Denies rash Neurological: Reports confusion Psychiatric: Reports memory loss, Denies anxiety, Denies depression Endocrine: Denies fatigue, Denies weight change Past Medical History Past Medical History: Coronary Artery Disease (CAD), Diabetes Mellitus, GERD/ Reflux, Hyperlipidemia, Hypertension, Memory Impairment, Osteoarthritis (OA), Prostate Disorder Additional Past Medical History / Comment(s): irregular heartrate, varicose veins, past hx shingles, SOB w/exertion History of Any Multi-Drug Resistant Organisms: None Reported Past Surgical History: Appendectomy, Heart Catheterization, Hernia Repair Additional Past Surgical History / Comment(s): "spots removed from his lung", mastoid surgery as child, mariama cataracts Past Anesthesia/Blood Transfusion Reactions: No Reported Reaction Smoking Status: Former smoker - Past Family History Sister(s) Family Medical History: Cancer (Patient had a sister with colon cancer.) Father Family Medical History: Unable to Obtain (he said that his father at the age of 45.) Mother Family Medical History: Diabetes Mellitus (mother at the age of 45 from DM2.) Brother(s) Family Medical History: No Reported History (Patient has 2 brothers.) Medications and Allergies Home Medications Medication Instructions Recorded Confirmed Type Ascorbic Acid [Vitamin C with Kim 1,000 mg PO DAILY 08/02/16 09/14/16 History Hips] Aspirin 325 mg PO DAILY 08/02/16 09/14/16 History Atenolol [Tenormin] 25 mg PO DAILY 08/02/16 09/14/16 History Cholecalciferol [Vitamin D3] 2,000 unit PO DAILY 08/02/16 09/14/16 History Ezetimibe/Simvastatin [Vytorin 1 tab PO DAILY 08/02/16 09/14/16 History 10-80 mg Tablet] Ferrous Sulfate [Feosol] 325 mg PO DAILY 08/02/16 09/14/16 History Glimepiride [Amaryl] 2 mg PO DAILY 08/02/16 09/14/16 History sitaGLIPtin [Januvia] 100 mg PO DAILY 08/02/16 09/14/16 History Calcium Carbonate [Tums] 500 mg PO TID PRN 09/07/16 09/14/16 History Mag Hydrox/Al Hydrox/Simeth 15 - 30 ml PO HS PRN 09/07/16 09/14/16 History [Maalox] metFORMIN HCL [Glucophage] 1,000 mg PO BID 09/14/16 09/14/16 History Allergies Allergy/AdvReac Type Severity Reaction Status Date / Time No Known Allergies Allergy Verified 09/14/16 06:16 Physical Exam Vitals: Vital Signs Temp Pulse Pulse Resp BP Pulse Ox 09/15/16 07:40 100 09/15/16 07:00 78 14 137/57 100 09/15/16 06:00 80 21 136/54 100 09/15/16 05:00 83 18 125/59 99 09/15/16 04:00 97.9 F 78 16 133/56 100 09/15/16 03:40 53 L 12 99 09/15/16 03:35 53 L 16 09/15/16 03:00 89 13 118/46 100 09/15/16 02:00 75 12 103/46 99 09/15/16 01:00 80 19 108/49 99 09/15/16 00:00 85 13 116/50 98 09/14/16 23:39 82 09/14/16 23:35 53 L 13 98 09/14/16 23:24 88 09/14/16 23:04 84 16 115/55 98 09/14/16 23:00 85 13 115/55 98 09/14/16 22:41 97.5 F L 81 13 137/56 98 09/14/16 22:11 97.5 F L 83 12 121/48 100 09/14/16 22:01 97.5 F L 83 12 125/49 100 09/14/16 22:00 97.4 F L 83 12 115/55 99 09/14/16 21:00 97.4 F L 81 12 105/51 100 09/14/16 20:11 90 09/14/16 20:00 97.4 F L 83 13 98 09/14/16 19:15 84 12 100 09/14/16 19:00 84 12 99 09/14/16 18:58 97.5 F L 86 12 125/50 99 09/14/16 18:46 97.4 F L 85 12 133/50 99 09/14/16 18:45 84 12 100 09/14/16 18:30 84 12 100 09/14/16 18:26 97.4 F L 85 12 130/52 100 08/09/17 18:17 97.4 F L 88 14 121/48 100 09/14/16 18:15 84 12 99 09/14/16 18:00 83 12 99 09/14/16 17:45 82 12 100 09/14/16 17:30 97.4 F L 82 12 100 09/14/16 16:23 97.4 F L 88 14 121/48 100 Intake and Output 09/14/16 09/15/16 09/15/16 22:59 06:59 14:59 Intake Total 2046.086 1089.827 56 Output Total 4570 718 65 Balance -2523.914 371.827 -9 Intake: IV 871.4 708 56 ACETAMINOPHEN IV (For NPO 100 200 ) 1,000 mg In Empty Bag 1 bag @ 400 mls/hr IVPB Q6HR [facility] Rx#:[id number] Calcium Gluconate 2,000 100 mg In Sodium Chloride 0.9 % 100 ml @ 100 mls/hr IVPB ONCE PRN Rx#: [id number] Insulin Regular 100 unit 3 In Sodium Chloride 0.9% 100 ml @ Per Protocol IV .Q0M [facility] Rx#:[id number] Lactated Ringers 1,000 ml 300 360 50 @ 50 mls/hr IV .Q20H [facility] Rx#:[id number] Norepinephrin 4 mg-0.9% 22.5 Ns Pmx 4 mg In 250 ml @ Titrate IV .Q0M [facility] Rx#: [id number] Potassium Chloride 10 meq 200 In Water For Injection 1 100ml.bag @ 100 mls/hr IVPB Q1H [facility] Rx#: [id number] Pressure Bag 18 48 6 Propofol 1,000 mg In 100 27.9 ml @ Titrate IV .Q0M [facility] Rx#:[id number] ceFAZolin 2 gm In Sodium 100 100 Chloride 0.9% 100 ml @ 100 mls/hr IVPB Q8HR [facility] Rx#:[id number] Intake, IV Titration 20.686 71.827 Amount Insulin Regular 100 unit 1.308 10.843 In Sodium Chloride 0.9% 100 ml @ Per Protocol IV .Q0M [facility] Rx#:[id number] Milrinone-D5w Pmx 20 mg 60.984 In Dextrose/Water 1 100ml .bag @ 0.3 MCG/KG/MIN 7. 26 mls/hr IV .[id number] [facility] Rx#:[id number] Propofol 1,000 mg In 100 19.378 ml @ Titrate IV .Q0M [facility] Rx#:[id number] Blood Product 1154 310 Ffp 24 Cpd Unit 318 [id number] Ffp 24 Cpda Unit 226 [id number] Platelet Pheresis Acda2 300 Unit [id number] Rc As-1 Unit 0 310 [id number] Rc Pheresis 2 As3 Unit 310 [id number] Output: Chest Tube Drainage 271 158 20 Chest Tube Left 31 8 0 Mediastinal 240 150 20 Drainage 25 50 Right Calf 25 50 Urine 2274 510 45 Estimated Blood Loss 1999 Other: Voiding Method Indwelling Catheter Indwelling Catheter Weight 83 kg ABP, PAP, CO, CI - Last 8 Hours Arterial Blood Pressure 122/39 Arterial Blood Pressure 127/43 Arterial Blood Pressure 121/48 Arterial Blood Pressure 123/48 Arterial Blood Pressure 125/48 - Constitutional General appearance: average body habitus, mild distress - EENT Eyes: anicteric sclerae, EOMI, PERRLA, ptosis, no scleral icterus ENT: hard of hearing, normal oropharynx, no thrush Ears: bilateral: normal - Neck Neck: no lymphadenopathy, normal ROM, no rigidity, no thyromegaly Carotids: bilateral: upstroke delayed Thyroid: bilateral: normal size - Respiratory Respiratory: bilateral: diminished, dullness, rales, rhonchi, prolonged expiration (chest tubes and pacer wires), negative: wheezing - Cardiovascular Rhythm: regular Heart sounds: normal: S1, S2 Abnormal Heart Sounds: systolic murmur, rub, S3 Gallop - Gastrointestinal General gastrointestinal: normal bowel sounds, soft - Integumentary Integumentary: normal, normal turgor - Neurologic Neurologic: CNII-XII intact - Musculoskeletal Musculoskeletal: generalized weakness, strength equal bilaterally - Psychiatric Psychiatric: no A&O x's 3, appropriate affect, intact judgment & insight Results CBC & Chem 7: 09/15/16 04:05 09/15/16 04:05 Labs: Abnormal Lab Results - Last 24 Hours (Table) 09/07/16 09/14/16 09/14/16 Range/Units 13:30 09:08 11:45 RBC (4.30-5.90) m/uL Hgb (13.0-17.5) gm/dL Hct (39.0-53.0) % Plt Count (150-450) k/uL Neutrophils # (Manual) (1.3-7.7) k/uL Lymphocytes # (Manual) (1.0-4.8) k/uL PT (9.0-12.0) sec INR (<1.2) APTT (22.0-30.0) sec Fibrinogen (200-500) mg/dL ABG pH 7.48 H (7.35-7.45) ABG pCO2 32 L (35-45) mmHg ABG pO2 364 H (83-108) mmHg ABG Total CO2 25 H (19-24) mmol/L ABG O2 Saturation 100.0 H (94-97) % ABG Hematocrit 33 L (34.0-46.0) % ABG Potassium 4.9 H (3.4-4.5) mmol/L Chloride (98-107) mmol/L Glucose (74-99) mg/dL POC Glucose (mg/dL) 110 H (75-99) mg/dL Calcium (8.4-10.2) mg/dL Magnesium (1.6-2.3) mg/dL ALT (21-72) U/L Alkaline Phosphatase (38-126) U/L Total Protein (6.3-8.2) g/dL Albumin (3.5-5.0) g/dL Arterial Blood Potassium 4.9 H (3.4-4.5) mmol/L Crossmatch See Detail 09/14/16 09/14/16 09/14/16 Range/Units 11:46 12:19 12:19 RBC (4.30-5.90) m/uL Hgb (13.0-17.5) gm/dL Hct (39.0-53.0) % Plt Count (150-450) k/uL Neutrophils # (Manual) (1.3-7.7) k/uL Lymphocytes # (Manual) (1.0-4.8) k/uL PT (9.0-12.0) sec INR (<1.2) APTT (22.0-30.0) sec Fibrinogen (200-500) mg/dL ABG pH 7.32 L (7.35-7.45) ABG pCO2 47 H (35-45) mmHg ABG pO2 167 H 372 H (83-108) mmHg ABG Total CO2 25 H 25 H (19-24) mmol/L ABG O2 Saturation 99.5 H 99.9 H (94-97) % ABG Hematocrit 26 L 25 L (34.0-46.0) % ABG Potassium 4.8 H 5.0 H (3.4-4.5) mmol/L Chloride (98-107) mmol/L Glucose (74-99) mg/dL POC Glucose (mg/dL) 111 H (75-99) mg/dL Calcium (8.4-10.2) mg/dL Magnesium (1.6-2.3) mg/dL ALT (21-72) U/L Alkaline Phosphatase (38-126) U/L Total Protein (6.3-8.2) g/dL Albumin (3.5-5.0) g/dL Arterial Blood Potassium 4.8 H 5.0 H (3.4-4.5) mmol/L Crossmatch 09/14/16 09/14/16 09/14/16 Range/Units 12:50 12:50 13:35 RBC (4.30-5.90) m/uL Hgb (13.0-17.5) gm/dL Hct (39.0-53.0) % Plt Count (150-450) k/uL Neutrophils # (Manual) (1.3-7.7) k/uL Lymphocytes # (Manual) (1.0-4.8) k/uL PT (9.0-12.0) sec INR (<1.2) APTT (22.0-30.0) sec Fibrinogen (200-500) mg/dL ABG pH (7.35-7.45) ABG pCO2 (35-45) mmHg ABG pO2 277 H (83-108) mmHg ABG Total CO2 (19-24) mmol/L ABG O2 Saturation 99.9 H (94-97) % ABG Hematocrit 24 L (34.0-46.0) % ABG Potassium 6.4 H* (3.4-4.5) mmol/L Chloride (98-107) mmol/L Glucose (74-99) mg/dL POC Glucose (mg/dL) 211 H 199 H (75-99) mg/dL Calcium (8.4-10.2) mg/dL Magnesium (1.6-2.3) mg/dL ALT (21-72) U/L Alkaline Phosphatase (38-126) U/L Total Protein (6.3-8.2) g/dL Albumin (3.5-5.0) g/dL Arterial Blood Potassium 6.4 H* (3.4-4.5) mmol/L Crossmatch 09/14/16 09/14/16 09/14/16 Range/Units 13:35 14:06 14:07 RBC (4.30-5.90) m/uL Hgb (13.0-17.5) gm/dL Hct (39.0-53.0) % Plt Count (150-450) k/uL Neutrophils # (Manual) (1.3-7.7) k/uL Lymphocytes # (Manual) (1.0-4.8) k/uL PT (9.0-12.0) sec INR (<1.2) APTT (22.0-30.0) sec Fibrinogen (200-500) mg/dL ABG pH 7.25 L (7.35-7.45) ABG pCO2 57 H (35-45) mmHg ABG pO2 258 H 250 H (83-108) mmHg ABG Total CO2 26 H (19-24) mmol/L ABG O2 Saturation 99.8 H 99.8 H (94-97) % ABG Hematocrit 23 L 22 L (34.0-46.0) % ABG Potassium 5.4 H 5.2 H (3.4-4.5) mmol/L Chloride (98-107) mmol/L Glucose (74-99) mg/dL POC Glucose (mg/dL) 222 H (75-99) mg/dL Calcium (8.4-10.2) mg/dL Magnesium (1.6-2.3) mg/dL ALT (21-72) U/L Alkaline Phosphatase (38-126) U/L Total Protein (6.3-8.2) g/dL Albumin (3.5-5.0) g/dL Arterial Blood Potassium 5.4 H 5.2 H (3.4-4.5) mmol/L Crossmatch 09/14/16 09/14/16 09/14/16 Range/Units 14:47 14:48 16:10 RBC (4.30-5.90) m/uL Hgb (13.0-17.5) gm/dL Hct (39.0-53.0) % Plt Count (150-450) k/uL Neutrophils # (Manual) (1.3-7.7) k/uL Lymphocytes # (Manual) (1.0-4.8) k/uL PT (9.0-12.0) sec INR (<1.2) APTT (22.0-30.0) sec Fibrinogen (200-500) mg/dL ABG pH (7.35-7.45) ABG pCO2 (35-45) mmHg ABG pO2 307 H (83-108) mmHg ABG Total CO2 (19-24) mmol/L ABG O2 Saturation 99.9 H (94-97) % ABG Hematocrit 23 L (34.0-46.0) % ABG Potassium 5.2 H (3.4-4.5) mmol/L Chloride (98-107) mmol/L Glucose (74-99) mg/dL POC Glucose (mg/dL) 231 H 159 H (75-99) mg/dL Calcium (8.4-10.2) mg/dL Magnesium (1.6-2.3) mg/dL ALT (21-72) U/L Alkaline Phosphatase (38-126) U/L Total Protein (6.3-8.2) g/dL Albumin (3.5-5.0) g/dL Arterial Blood Potassium 5.2 H (3.4-4.5) mmol/L Crossmatch 09/14/16 09/14/16 09/14/16 Range/Units 16:11 17:17 17:20 RBC 1.73 L (4.30-5.90) m/uL Hgb 5.5 L* D (13.0-17.5) gm/dL Hct 16.6 L* (39.0-53.0) % Plt Count 87 L D (150-450) k/uL Neutrophils # (Manual) (1.3-7.7) k/uL Lymphocytes # (Manual) (1.0-4.8) k/uL PT (9.0-12.0) sec INR (<1.2) APTT (22.0-30.0) sec Fibrinogen (200-500) mg/dL ABG pH 7.31 L (7.35-7.45) ABG pCO2 (35-45) mmHg ABG pO2 272 H (83-108) mmHg ABG Total CO2 (19-24) mmol/L ABG O2 Saturation 99.9 H (94-97) % ABG Hematocrit 24 L (34.0-46.0) % ABG Potassium (3.4-4.5) mmol/L Chloride (98-107) mmol/L Glucose (74-99) mg/dL POC Glucose (mg/dL) 132 H (75-99) mg/dL Calcium (8.4-10.2) mg/dL Magnesium (1.6-2.3) mg/dL ALT (21-72) U/L Alkaline Phosphatase (38-126) U/L Total Protein (6.3-8.2) g/dL Albumin (3.5-5.0) g/dL Arterial Blood Potassium (3.4-4.5) mmol/L Crossmatch 09/14/16 09/14/16 09/14/16 Range/Units 17:40 17:43 17:43 RBC 1.71 L (4.30-5.90) m/uL Hgb 5.4 L* (13.0-17.5) gm/dL Hct 16.4 L* (39.0-53.0) % Plt Count 73 L (150-450) k/uL Neutrophils # (Manual) (1.3-7.7) k/uL Lymphocytes # (Manual) 0.97 L (1.0-4.8) k/uL PT 13.9 H (9.0-12.0) sec INR 1.4 H (<1.2) APTT 39.3 H (22.0-30.0) sec Fibrinogen (200-500) mg/dL ABG pH 7.33 L (7.35-7.45) ABG pCO2 46 H (35-45) mmHg ABG pO2 248 H (83-108) mmHg ABG Total CO2 25 H (19-24) mmol/L ABG O2 Saturation 100.0 H (94-97) % ABG Hematocrit (34.0-46.0) % ABG Potassium (3.4-4.5) mmol/L Chloride (98-107) mmol/L Glucose (74-99) mg/dL POC Glucose (mg/dL) (75-99) mg/dL Calcium (8.4-10.2) mg/dL Magnesium (1.6-2.3) mg/dL ALT (21-72) U/L Alkaline Phosphatase (38-126) U/L Total Protein (6.3-8.2) g/dL Albumin (3.5-5.0) g/dL Arterial Blood Potassium (3.4-4.5) mmol/L Crossmatch 09/14/16 09/14/16 09/14/16 Range/Units 17:43 17:43 18:45 RBC (4.30-5.90) m/uL Hgb (13.0-17.5) gm/dL Hct (39.0-53.0) % Plt Count (150-450) k/uL Neutrophils # (Manual) (1.3-7.7) k/uL Lymphocytes # (Manual) (1.0-4.8) k/uL PT (9.0-12.0) sec INR (<1.2) APTT (22.0-30.0) sec Fibrinogen 177 L (200-500) mg/dL ABG pH (7.35-7.45) ABG pCO2 (35-45) mmHg ABG pO2 (83-108) mmHg ABG Total CO2 (19-24) mmol/L ABG O2 Saturation (94-97) % ABG Hematocrit (34.0-46.0) % ABG Potassium (3.4-4.5) mmol/L Chloride 110 H (98-107) mmol/L Glucose 114 H (74-99) mg/dL POC Glucose (mg/dL) 118 H (75-99) mg/dL Calcium 8.2 L (8.4-10.2) mg/dL Magnesium (1.6-2.3) mg/dL ALT (21-72) U/L Alkaline Phosphatase 30 L (38-126) U/L Total Protein 4.9 L (6.3-8.2) g/dL Albumin 3.1 L (3.5-5.0) g/dL Arterial Blood Potassium (3.4-4.5) mmol/L Crossmatch 09/14/16 09/14/16 09/14/16 Range/Units 20:17 20:56 21:00 RBC 2.06 L (4.30-5.90) m/uL Hgb 6.6 L* (13.0-17.5) gm/dL Hct 19.8 L* (39.0-53.0) % Plt Count 76 L (150-450) k/uL Neutrophils # (Manual) (1.3-7.7) k/uL Lymphocytes # (Manual) (1.0-4.8) k/uL PT (9.0-12.0) sec INR (<1.2) APTT (22.0-30.0) sec Fibrinogen (200-500) mg/dL ABG pH (7.35-7.45) ABG pCO2 (35-45) mmHg ABG pO2 (83-108) mmHg ABG Total CO2 (19-24) mmol/L ABG O2 Saturation (94-97) % ABG Hematocrit (34.0-46.0) % ABG Potassium (3.4-4.5) mmol/L Chloride (98-107) mmol/L Glucose (74-99) mg/dL POC Glucose (mg/dL) 114 H 121 H (75-99) mg/dL Calcium (8.4-10.2) mg/dL Magnesium (1.6-2.3) mg/dL ALT (21-72) U/L Alkaline Phosphatase (38-126) U/L Total Protein (6.3-8.2) g/dL Albumin (3.5-5.0) g/dL Arterial Blood Potassium (3.4-4.5) mmol/L Crossmatch 09/14/16 09/14/16 09/14/16 Range/Units 21:00 22:13 22:54 RBC (4.30-5.90) m/uL Hgb (13.0-17.5) gm/dL Hct (39.0-53.0) % Plt Count (150-450) k/uL Neutrophils # (Manual) (1.3-7.7) k/uL Lymphocytes # (Manual) (1.0-4.8) k/uL PT (9.0-12.0) sec INR (<1.2) APTT (22.0-30.0) sec Fibrinogen (200-500) mg/dL ABG pH (7.35-7.45) ABG pCO2 (35-45) mmHg ABG pO2 (83-108) mmHg ABG Total CO2 (19-24) mmol/L ABG O2 Saturation (94-97) % ABG Hematocrit (34.0-46.0) % ABG Potassium (3.4-4.5) mmol/L Chloride 110 H (98-107) mmol/L Glucose 110 H (74-99) mg/dL POC Glucose (mg/dL) 127 H 135 H (75-99) mg/dL Calcium (8.4-10.2) mg/dL Magnesium 2.4 H (1.6-2.3) mg/dL ALT (21-72) U/L Alkaline Phosphatase (38-126) U/L Total Protein (6.3-8.2) g/dL Albumin (3.5-5.0) g/dL Arterial Blood Potassium (3.4-4.5) mmol/L Crossmatch 09/15/16 09/15/16 09/15/16 Range/Units 00:08 01:58 03:33 RBC (4.30-5.90) m/uL Hgb (13.0-17.5) gm/dL Hct (39.0-53.0) % Plt Count (150-450) k/uL Neutrophils # (Manual) (1.3-7.7) k/uL Lymphocytes # (Manual) (1.0-4.8) k/uL PT (9.0-12.0) sec INR (<1.2) APTT (22.0-30.0) sec Fibrinogen (200-500) mg/dL ABG pH 7.34 L (7.35-7.45) ABG pCO2 (35-45) mmHg ABG pO2 121 H (83-108) mmHg ABG Total CO2 (19-24) mmol/L ABG O2 Saturation 99.0 H (94-97) % ABG Hematocrit (34.0-46.0) % ABG Potassium (3.4-4.5) mmol/L Chloride (98-107) mmol/L Glucose (74-99) mg/dL POC Glucose (mg/dL) 148 H 160 H (75-99) mg/dL Calcium (8.4-10.2) mg/dL Magnesium (1.6-2.3) mg/dL ALT (21-72) U/L Alkaline Phosphatase (38-126) U/L Total Protein (6.3-8.2) g/dL Albumin (3.5-5.0) g/dL Arterial Blood Potassium (3.4-4.5) mmol/L Crossmatch 09/15/16 09/15/16 09/15/16 Range/Units 04:05 04:05 04:05 RBC 2.48 L (4.30-5.90) m/uL Hgb 7.7 L (13.0-17.5) gm/dL Hct 24.0 L (39.0-53.0) % Plt Count 100 L (150-450) k/uL Neutrophils # (Manual) 8.99 H (1.3-7.7) k/uL Lymphocytes # (Manual) 0.62 L (1.0-4.8) k/uL PT 12.3 H (9.0-12.0) sec INR 1.2 H (<1.2) APTT (22.0-30.0) sec Fibrinogen (200-500) mg/dL ABG pH (7.35-7.45) ABG pCO2 (35-45) mmHg ABG pO2 (83-108) mmHg ABG Total CO2 (19-24) mmol/L ABG O2 Saturation (94-97) % ABG Hematocrit (34.0-46.0) % ABG Potassium (3.4-4.5) mmol/L Chloride 111 H (98-107) mmol/L Glucose 156 H (74-99) mg/dL POC Glucose (mg/dL) (75-99) mg/dL Calcium 8.3 L (8.4-10.2) mg/dL Magnesium (1.6-2.3) mg/dL ALT 16 L (21-72) U/L Alkaline Phosphatase 30 L (38-126) U/L Total Protein 5.0 L (6.3-8.2) g/dL Albumin 3.2 L (3.5-5.0) g/dL Arterial Blood Potassium (3.4-4.5) mmol/L Crossmatch 09/15/16 09/15/16 09/15/16 Range/Units 04:05 04:56 06:39 RBC (4.30-5.90) m/uL Hgb (13.0-17.5) gm/dL Hct (39.0-53.0) % Plt Count (150-450) k/uL Neutrophils # (Manual) (1.3-7.7) k/uL Lymphocytes # (Manual) (1.0-4.8) k/uL PT (9.0-12.0) sec INR (<1.2) APTT (22.0-30.0) sec Fibrinogen (200-500) mg/dL ABG pH (7.35-7.45) ABG pCO2 (35-45) mmHg ABG pO2 (83-108) mmHg ABG Total CO2 (19-24) mmol/L ABG O2 Saturation (94-97) % ABG Hematocrit (34.0-46.0) % ABG Potassium (3.4-4.5) mmol/L Chloride (98-107) mmol/L Glucose (74-99) mg/dL POC Glucose (mg/dL) 187 H 161 H 158 H (75-99) mg/dL Calcium (8.4-10.2) mg/dL Magnesium (1.6-2.3) mg/dL ALT (21-72) U/L Alkaline Phosphatase (38-126) U/L Total Protein (6.3-8.2) g/dL Albumin (3.5-5.0) g/dL Arterial Blood Potassium (3.4-4.5) mmol/L Crossmatch 09/15/16 Range/Units 09:51 RBC (4.30-5.90) m/uL Hgb (13.0-17.5) gm/dL Hct (39.0-53.0) % Plt Count (150-450) k/uL Neutrophils # (Manual) (1.3-7.7) k/uL Lymphocytes # (Manual) (1.0-4.8) k/uL PT (9.0-12.0) sec INR (<1.2) APTT (22.0-30.0) sec Fibrinogen (200-500) mg/dL ABG pH (7.35-7.45) ABG pCO2 (35-45) mmHg ABG pO2 (83-108) mmHg ABG Total CO2 (19-24) mmol/L ABG O2 Saturation (94-97) % ABG Hematocrit (34.0-46.0) % ABG Potassium (3.4-4.5) mmol/L Chloride (98-107) mmol/L Glucose (74-99) mg/dL POC Glucose (mg/dL) 130 H (75-99) mg/dL Calcium (8.4-10.2) mg/dL Magnesium (1.6-2.3) mg/dL ALT (21-72) U/L Alkaline Phosphatase (38-126) U/L Total Protein (6.3-8.2) g/dL Albumin (3.5-5.0) g/dL Arterial Blood Potassium (3.4-4.5) mmol/L Crossmatch Assessment and Plan Plan: Assessment and plan: 1. Post operative day #1 status post CABG X3 with AVR. Continue current management as per cardiothoracic surgery, cardiology, pulmonary medicine, continue aggressive pulmonary toileting, continue metoprolol 12.5 mg orally twice every day, restart the patient on statin, continue patient on aspirin 325 mg orally once every day, continue Plavix any 5 mg orally once every day, pain control, increase activity. 2. Post vent dependent respiratory failure secondary to CABG 3 and AVR. Patient was extubated continue aggressive pulmonary toileting, encourage the usage of incentive spirometer. 3. Hypertension and hypertensive cardiovascular disease. Continue metoprolol 12.5 mg orally twice every day, start the patient on small dose of losartan when more stable. 4. Hyperlipidemia. restart Lipitor 80 mg orally daily. 5. Diabetes Mellitus type 2. will continue with insulin drip. 6. vascular dementia. will monitor. 7. DVT prophylaxis. SCD;s and GRANT wraps. 8. GI prophylaxis . continue with protonix 40 mg IVP daily. 9. Full code. 10. Thank you for the consult will follow with you.
[2016-09-15 13:50] LABS: Glucose,Whole Blood 125 mg/dL (75-99)
[2016-09-15 14:59] LABS: Glucose,Whole Blood 134 mg/dL (75-99)
[2016-09-15] MEDS ORDERED: HYDROcodone/APAP 5-325MG 1 EACH TAB PO PRN (15:47)
[2016-09-15] MEDS ORDERED: MAGNESIUM HYDROXIDE 2,400 MG/10 ML CUP PO PRN (15:48)
[2016-09-15] MEDS ORDERED: BISACODYL 10 MG SUPP RECTAL PRN (15:48)
[2016-09-15] MEDS ORDERED: IPRATROPIUM-ALBUTEROL 3 ML NEB INHALATION PRN (15:49)
[2016-09-15 16:07] LABS: Glucose,Whole Blood 127 mg/dL (75-99)
--- NOTE | 2016-09-15 16:10 | P.PN ---
Subjective Principal diagnosis: Multivessel coronary artery disease This is an 81-year-old gentleman who follows with Dr. Opal casarez as his primary care physician. He has a history of diabetes mellitus, gastroesophageal reflux disease, hyperlipidemia, hypertension. He follows with Dr. Elizalde in the office for aortic stenosis. He is also had worsening fatigue and dyspnea on exertion. His most recent echo revealed severe aortic stenosis and a drop in his ejection fraction along with reversible ischemia on a stress test. He had subsequently undergone cardiac catheterization which revealed multivessel coronary artery disease. He presented here today for an elective surgery which was performed today by Dr. Hannon. He received a PUTNAM to the LAD , saphenous vein grafts to the ramus and the diagonal branches along with aortic valve replacement. He is seen today in the intensive care unit immediately postoperative. He is currently on the mechanical ventilator at assist control of 12, tidal volume 450, FiO2 100% and a PEEP of 5. Current blood gases reveal pO2 of 248, pCO2 46, pH 7.33. There were unable to insert a [place] catheter. There is a left IJ present his current blood pressure 114/ 45, CVP of 16, he is in normal sinus rhythm with a first-degree heart block. Current drips are Primacor 0.3 mcg/kg/m, propofol 20 mcg/kg/m, insulin at 1 unit per hour. Lactated Ringer's at 50 MLS per hour. Levophed currently off. Chest x-ray shows evidence of fluid volume overload. There is a split mediastinal chest tubes and a left pleural chest tube in place. Hemoglobin 5.5 which is being rerun in the lab currently. He did receive 2 units of fresh frozen plasma, 1 unit of platelets, 400 of Cell Saver and 1 unit of autologous blood. Estimated blood loss was 2000 MLS. The patient is seen again today 09/15/2016 in follow-up in the intensive care unit. He was successfully extubated and is maintaining good O2 saturations in the upper 90s on 3 L/m per nasal cannula. His chest x-ray reveals bilateral infiltrates with small effusions. He was given Lasix 20 mg IV push 1. Currently in a negative balance. He is sternal and left pleural chest tubes are in place. He remains on milrinone at 0.1 mcg/kg/m. He is on lactated Ringer's at 50 MLS per hour. He is on a insulin drip at 1 unit per hour. His remaining in normal sinus rhythm. He did receive a total of 2 units of packed red blood cells, 2 units of fresh frozen plasma, 1 unit of pheresis platelets. His current hemoglobin is 7.7. Platelet count 100,000. Objective - Vital Signs Vital signs: Vital Signs Temp 98.7 F 09/15/16 12:00 Pulse 69 09/15/16 15:00 Resp 18 09/15/16 15:00 BP 115/60 09/15/16 15:00 Pulse Ox 100 09/15/16 15:00 Intake & Output 09/14/16 09/15/16 09/15/16 18:59 06:59 18:59 Intake Total 1657.4 1478.513 625.65 Output Total 4284 1004 996 Balance -2626.6 474.513 -370.35 Weight 83 kg Intake: IV 503.4 1076 604 ACETAMINOPHEN IV (For NPO 100 200 ) 1,000 mg In Empty Bag 1 bag @ 400 mls/hr IVPB Q6HR [facility]US Rx#:[id number] Calcium Gluconate 2,000 100 mg In Sodium Chloride 0.9 % 100 ml @ 100 mls/hr IVPB ONCE PRN Rx#: [id number] Insulin Regular 100 unit 3 In Sodium Chloride 0.9% 100 ml @ Per Protocol IV .Q0M JESUS Rx#:[id number] Lactated Ringers 1,000 ml 150 510 450 @ 20 mls/hr IV .Q24H JESUS Rx#:[id number] Norepinephrin 4 mg-0.9% 22.5 Ns Pmx 4 mg In 250 ml @ Titrate IV .Q0M JESUS Rx#: [id number] Potassium Chloride 10 meq 200 In Water For Injection 1 100ml.bag @ 100 mls/hr IVPB Q1H [facility]US Rx#: [id number] Pressure Bag 66 54 Propofol 1,000 mg In 100 27.9 ml @ Titrate IV .Q0M [facility]US Rx#:[id number] ceFAZolin 2 gm In Sodium 100 100 100 Chloride 0.9% 100 ml @ 100 mls/hr IVPB Q8HR [facility]US Rx#:[id number] Intake, IV Titration 92.513 21.65 Amount Insulin Regular 100 unit 12.151 21.65 In Sodium Chloride 0.9% 100 ml @ Per Protocol IV .Q0M [facility]US Rx#:[id number] Milrinone-D5w Pmx 20 mg 60.984 In Dextrose/Water 1 100ml .bag @ 0.1 MCG/KG/MIN 2. 42 mls/hr IV .Q24H [facility]US Rx #:[id number] Propofol 1,000 mg In 100 19.378 ml @ Titrate IV .Q0M [facility]US Rx#:[id number] Blood Product 1154 310 Ffp 24 Cpd Unit 318 [id number] Ffp 24 Cpda Unit 226 [id number] Platelet Pheresis Acda2 300 Unit [id number] Rc As-1 Unit 310 [id number] Rc Pheresis 2 As3 Unit 310 [id number] Output: Chest Tube Drainage 175 254 432 Chest Tube Left 25 14 282 Mediastinal 150 240 150 Drainage 75 Right Calf 75 Urine 2109 675 564 Estimated Blood Loss 1999 Other: Voiding Method Indwelling Catheter Indwelling Catheter Indwelling Catheter ABP, PAP, CO, CI - Last Documented Arterial Blood Pressure 83/35 - Exam GENERAL EXAM: Awake, alert. No acute distress. HEAD: Normocephalic. EYES: Sluggish reaction of pupils, equal size. NOSE: Clear with pink turbinates. THROAT: No erythema or exudates. NECK: No masses, no JVD. IJ in place. CHEST: Surgical dressing dry and intact. Mediastinal and left chest tubes in place. LUNGS: Equal air entry with few scattered rhonchi, crackles in the bases.. CVS: S1 and S2 normal with no audible murmurs, regular rhythm. ABDOMEN: No hepatosplenomegaly, hypoactive bowel sounds, no guarding or rigidity. SPINE: No scoliosis or deformity SKIN: No rashes Extremities: There is [place] wrap and a CARL drain in place to the right lower extremity. GRZEGORZ hose to the left. Trace peripheral edema. No clubbing, no cyanosis. Peripheral pulses are intact. - Labs CBC & Chem 7: 09/15/16 04:05 09/15/16 04:05 Labs: Abnormal Lab Results - Last 24 Hours (Table) 09/07/16 09/14/16 09/14/16 Range/Units 13:30 09:08 11:46 RBC (4.30-5.90) m/uL Hgb (13.0-17.5) gm/dL Hct (39.0-53.0) % Plt Count (150-450) k/uL Neutrophils # (Manual) (1.3-7.7) k/uL Lymphocytes # (Manual) (1.0-4.8) k/uL PT (9.0-12.0) sec INR (<1.2) APTT (22.0-30.0) sec Fibrinogen (200-500) mg/dL ABG pH 7.48 H (7.35-7.45) ABG pCO2 32 L (35-45) mmHg ABG pO2 364 H 167 H (83-108) mmHg ABG Total CO2 25 H 25 H (19-24) mmol/L ABG O2 Saturation 100.0 H 99.5 H (94-97) % ABG Hematocrit 33 L 26 L (34.0-46.0) % ABG Potassium 4.9 H 4.8 H (3.4-4.5) mmol/L Chloride (98-107) mmol/L Glucose (74-99) mg/dL POC Glucose (mg/dL) (75-99) mg/dL Calcium (8.4-10.2) mg/dL Magnesium (1.6-2.3) mg/dL ALT (21-72) U/L Alkaline Phosphatase (38-126) U/L Total Protein (6.3-8.2) g/dL Albumin (3.5-5.0) g/dL Arterial Blood Potassium 4.9 H 4.8 H (3.4-4.5) mmol/L Crossmatch See Detail 09/14/16 09/14/16 09/14/16 Range/Units 12:19 12:50 13:35 RBC (4.30-5.90) m/uL Hgb (13.0-17.5) gm/dL Hct (39.0-53.0) % Plt Count (150-450) k/uL Neutrophils # (Manual) (1.3-7.7) k/uL Lymphocytes # (Manual) (1.0-4.8) k/uL PT (9.0-12.0) sec INR (<1.2) APTT (22.0-30.0) sec Fibrinogen (200-500) mg/dL ABG pH 7.32 L (7.35-7.45) ABG pCO2 47 H (35-45) mmHg ABG pO2 372 H 277 H 258 H (83-108) mmHg ABG Total CO2 25 H (19-24) mmol/L ABG O2 Saturation 99.9 H 99.9 H 99.8 H (94-97) % ABG Hematocrit 25 L 24 L 23 L (34.0-46.0) % ABG Potassium 5.0 H 6.4 H* 5.4 H (3.4-4.5) mmol/L Chloride (98-107) mmol/L Glucose (74-99) mg/dL POC Glucose (mg/dL) (75-99) mg/dL Calcium (8.4-10.2) mg/dL Magnesium (1.6-2.3) mg/dL ALT (21-72) U/L Alkaline Phosphatase (38-126) U/L Total Protein (6.3-8.2) g/dL Albumin (3.5-5.0) g/dL Arterial Blood Potassium 5.0 H 6.4 H* 5.4 H (3.4-4.5) mmol/L Crossmatch 09/14/16 09/14/16 09/14/16 Range/Units 14:07 14:48 16:10 RBC (4.30-5.90) m/uL Hgb (13.0-17.5) gm/dL Hct (39.0-53.0) % Plt Count (150-450) k/uL Neutrophils # (Manual) (1.3-7.7) k/uL Lymphocytes # (Manual) (1.0-4.8) k/uL PT (9.0-12.0) sec INR (<1.2) APTT (22.0-30.0) sec Fibrinogen (200-500) mg/dL ABG pH 7.25 L (7.35-7.45) ABG pCO2 57 H (35-45) mmHg ABG pO2 250 H 307 H (83-108) mmHg ABG Total CO2 26 H (19-24) mmol/L ABG O2 Saturation 99.8 H 99.9 H (94-97) % ABG Hematocrit 22 L 23 L (34.0-46.0) % ABG Potassium 5.2 H 5.2 H (3.4-4.5) mmol/L Chloride (98-107) mmol/L Glucose (74-99) mg/dL POC Glucose (mg/dL) 159 H (75-99) mg/dL Calcium (8.4-10.2) mg/dL Magnesium (1.6-2.3) mg/dL ALT (21-72) U/L Alkaline Phosphatase (38-126) U/L Total Protein (6.3-8.2) g/dL Albumin (3.5-5.0) g/dL Arterial Blood Potassium 5.2 H 5.2 H (3.4-4.5) mmol/L Crossmatch 09/14/16 09/14/16 09/14/16 Range/Units 16:11 17:17 17:20 RBC 1.73 L (4.30-5.90) m/uL Hgb 5.5 L* D (13.0-17.5) gm/dL Hct 16.6 L* (39.0-53.0) % Plt Count 87 L D (150-450) k/uL Neutrophils # (Manual) (1.3-7.7) k/uL Lymphocytes # (Manual) (1.0-4.8) k/uL PT (9.0-12.0) sec INR (<1.2) APTT (22.0-30.0) sec Fibrinogen (200-500) mg/dL ABG pH 7.31 L (7.35-7.45) ABG pCO2 (35-45) mmHg ABG pO2 272 H (83-108) mmHg ABG Total CO2 (19-24) mmol/L ABG O2 Saturation 99.9 H (94-97) % ABG Hematocrit 24 L (34.0-46.0) % ABG Potassium (3.4-4.5) mmol/L Chloride (98-107) mmol/L Glucose (74-99) mg/dL POC Glucose (mg/dL) 132 H (75-99) mg/dL Calcium (8.4-10.2) mg/dL Magnesium (1.6-2.3) mg/dL ALT (21-72) U/L Alkaline Phosphatase (38-126) U/L Total Protein (6.3-8.2) g/dL Albumin (3.5-5.0) g/dL Arterial Blood Potassium (3.4-4.5) mmol/L Crossmatch 09/14/16 09/14/16 09/14/16 Range/Units 17:40 17:43 17:43 RBC 1.71 L (4.30-5.90) m/uL Hgb 5.4 L* (13.0-17.5) gm/dL Hct 16.4 L* (39.0-53.0) % Plt Count 73 L (150-450) k/uL Neutrophils # (Manual) (1.3-7.7) k/uL Lymphocytes # (Manual) 0.97 L (1.0-4.8) k/uL PT 13.9 H (9.0-12.0) sec INR 1.4 H (<1.2) APTT 39.3 H (22.0-30.0) sec Fibrinogen (200-500) mg/dL ABG pH 7.33 L (7.35-7.45) ABG pCO2 46 H (35-45) mmHg ABG pO2 248 H (83-108) mmHg ABG Total CO2 25 H (19-24) mmol/L ABG O2 Saturation 100.0 H (94-97) % ABG Hematocrit (34.0-46.0) % ABG Potassium (3.4-4.5) mmol/L Chloride (98-107) mmol/L Glucose (74-99) mg/dL POC Glucose (mg/dL) (75-99) mg/dL Calcium (8.4-10.2) mg/dL Magnesium (1.6-2.3) mg/dL ALT (21-72) U/L Alkaline Phosphatase (38-126) U/L Total Protein (6.3-8.2) g/dL Albumin (3.5-5.0) g/dL Arterial Blood Potassium (3.4-4.5) mmol/L Crossmatch 09/14/16 09/14/16 09/14/16 Range/Units 17:43 17:43 18:45 RBC (4.30-5.90) m/uL Hgb (13.0-17.5) gm/dL Hct (39.0-53.0) % Plt Count (150-450) k/uL Neutrophils # (Manual) (1.3-7.7) k/uL Lymphocytes # (Manual) (1.0-4.8) k/uL PT (9.0-12.0) sec INR (<1.2) APTT (22.0-30.0) sec Fibrinogen 177 L (200-500) mg/dL ABG pH (7.35-7.45) ABG pCO2 (35-45) mmHg ABG pO2 (83-108) mmHg ABG Total CO2 (19-24) mmol/L ABG O2 Saturation (94-97) % ABG Hematocrit (34.0-46.0) % ABG Potassium (3.4-4.5) mmol/L Chloride 110 H (98-107) mmol/L Glucose 114 H (74-99) mg/dL POC Glucose (mg/dL) 118 H (75-99) mg/dL Calcium 8.2 L (8.4-10.2) mg/dL Magnesium (1.6-2.3) mg/dL ALT (21-72) U/L Alkaline Phosphatase 30 L (38-126) U/L Total Protein 4.9 L (6.3-8.2) g/dL Albumin 3.1 L (3.5-5.0) g/dL Arterial Blood Potassium (3.4-4.5) mmol/L Crossmatch 09/14/16 09/14/16 09/14/16 Range/Units 20:17 20:56 21:00 RBC 2.06 L (4.30-5.90) m/uL Hgb 6.6 L* (13.0-17.5) gm/dL Hct 19.8 L* (39.0-53.0) % Plt Count 76 L (150-450) k/uL Neutrophils # (Manual) (1.3-7.7) k/uL Lymphocytes # (Manual) (1.0-4.8) k/uL PT (9.0-12.0) sec INR (<1.2) APTT (22.0-30.0) sec Fibrinogen (200-500) mg/dL ABG pH (7.35-7.45) ABG pCO2 (35-45) mmHg ABG pO2 (83-108) mmHg ABG Total CO2 (19-24) mmol/L ABG O2 Saturation (94-97) % ABG Hematocrit (34.0-46.0) % ABG Potassium (3.4-4.5) mmol/L Chloride (98-107) mmol/L Glucose (74-99) mg/dL POC Glucose (mg/dL) 114 H 121 H (75-99) mg/dL Calcium (8.4-10.2) mg/dL Magnesium (1.6-2.3) mg/dL ALT (21-72) U/L Alkaline Phosphatase (38-126) U/L Total Protein (6.3-8.2) g/dL Albumin (3.5-5.0) g/dL Arterial Blood Potassium (3.4-4.5) mmol/L Crossmatch 09/14/16 09/14/16 09/14/16 Range/Units 21:00 22:13 22:54 RBC (4.30-5.90) m/uL Hgb (13.0-17.5) gm/dL Hct (39.0-53.0) % Plt Count (150-450) k/uL Neutrophils # (Manual) (1.3-7.7) k/uL Lymphocytes # (Manual) (1.0-4.8) k/uL PT (9.0-12.0) sec INR (<1.2) APTT (22.0-30.0) sec Fibrinogen (200-500) mg/dL ABG pH (7.35-7.45) ABG pCO2 (35-45) mmHg ABG pO2 (83-108) mmHg ABG Total CO2 (19-24) mmol/L ABG O2 Saturation (94-97) % ABG Hematocrit (34.0-46.0) % ABG Potassium (3.4-4.5) mmol/L Chloride 110 H (98-107) mmol/L Glucose 110 H (74-99) mg/dL POC Glucose (mg/dL) 127 H 135 H (75-99) mg/dL Calcium (8.4-10.2) mg/dL Magnesium 2.4 H (1.6-2.3) mg/dL ALT (21-72) U/L Alkaline Phosphatase (38-126) U/L Total Protein (6.3-8.2) g/dL Albumin (3.5-5.0) g/dL Arterial Blood Potassium (3.4-4.5) mmol/L Crossmatch 09/15/16 09/15/16 09/15/16 Range/Units 00:08 01:58 03:33 RBC (4.30-5.90) m/uL Hgb (13.0-17.5) gm/dL Hct (39.0-53.0) % Plt Count (150-450) k/uL Neutrophils # (Manual) (1.3-7.7) k/uL Lymphocytes # (Manual) (1.0-4.8) k/uL PT (9.0-12.0) sec INR (<1.2) APTT (22.0-30.0) sec Fibrinogen (200-500) mg/dL ABG pH 7.34 L (7.35-7.45) ABG pCO2 (35-45) mmHg ABG pO2 121 H (83-108) mmHg ABG Total CO2 (19-24) mmol/L ABG O2 Saturation 99.0 H (94-97) % ABG Hematocrit (34.0-46.0) % ABG Potassium (3.4-4.5) mmol/L Chloride (98-107) mmol/L Glucose (74-99) mg/dL POC Glucose (mg/dL) 148 H 160 H (75-99) mg/dL Calcium (8.4-10.2) mg/dL Magnesium (1.6-2.3) mg/dL ALT (21-72) U/L Alkaline Phosphatase (38-126) U/L Total Protein (6.3-8.2) g/dL Albumin (3.5-5.0) g/dL Arterial Blood Potassium (3.4-4.5) mmol/L Crossmatch 09/15/16 09/15/16 09/15/16 Range/Units 04:05 04:05 04:05 RBC 2.48 L (4.30-5.90) m/uL Hgb 7.7 L (13.0-17.5) gm/dL Hct 24.0 L (39.0-53.0) % Plt Count 100 L (150-450) k/uL Neutrophils # (Manual) 8.99 H (1.3-7.7) k/uL Lymphocytes # (Manual) 0.62 L (1.0-4.8) k/uL PT 12.3 H (9.0-12.0) sec INR 1.2 H (<1.2) APTT (22.0-30.0) sec Fibrinogen (200-500) mg/dL ABG pH (7.35-7.45) ABG pCO2 (35-45) mmHg ABG pO2 (83-108) mmHg ABG Total CO2 (19-24) mmol/L ABG O2 Saturation (94-97) % ABG Hematocrit (34.0-46.0) % ABG Potassium (3.4-4.5) mmol/L Chloride 111 H (98-107) mmol/L Glucose 156 H (74-99) mg/dL POC Glucose (mg/dL) (75-99) mg/dL Calcium 8.3 L (8.4-10.2) mg/dL Magnesium (1.6-2.3) mg/dL ALT 16 L (21-72) U/L Alkaline Phosphatase 30 L (38-126) U/L Total Protein 5.0 L (6.3-8.2) g/dL Albumin 3.2 L (3.5-5.0) g/dL Arterial Blood Potassium (3.4-4.5) mmol/L Crossmatch 09/15/16 09/15/16 09/15/16 Range/Units 04:05 04:56 06:39 RBC (4.30-5.90) m/uL Hgb (13.0-17.5) gm/dL Hct (39.0-53.0) % Plt Count (150-450) k/uL Neutrophils # (Manual) (1.3-7.7) k/uL Lymphocytes # (Manual) (1.0-4.8) k/uL PT (9.0-12.0) sec INR (<1.2) APTT (22.0-30.0) sec Fibrinogen (200-500) mg/dL ABG pH (7.35-7.45) ABG pCO2 (35-45) mmHg ABG pO2 (83-108) mmHg ABG Total CO2 (19-24) mmol/L ABG O2 Saturation (94-97) % ABG Hematocrit (34.0-46.0) % ABG Potassium (3.4-4.5) mmol/L Chloride (98-107) mmol/L Glucose (74-99) mg/dL POC Glucose (mg/dL) 187 H 161 H 158 H (75-99) mg/dL Calcium (8.4-10.2) mg/dL Magnesium (1.6-2.3) mg/dL ALT (21-72) U/L Alkaline Phosphatase (38-126) U/L Total Protein (6.3-8.2) g/dL Albumin (3.5-5.0) g/dL Arterial Blood Potassium (3.4-4.5) mmol/L Crossmatch 09/15/16 09/15/16 09/15/16 Range/Units 09:51 10:54 11:59 RBC (4.30-5.90) m/uL Hgb (13.0-17.5) gm/dL Hct (39.0-53.0) % Plt Count (150-450) k/uL Neutrophils # (Manual) (1.3-7.7) k/uL Lymphocytes # (Manual) (1.0-4.8) k/uL PT (9.0-12.0) sec INR (<1.2) APTT (22.0-30.0) sec Fibrinogen (200-500) mg/dL ABG pH (7.35-7.45) ABG pCO2 (35-45) mmHg ABG pO2 (83-108) mmHg ABG Total CO2 (19-24) mmol/L ABG O2 Saturation (94-97) % ABG Hematocrit (34.0-46.0) % ABG Potassium (3.4-4.5) mmol/L Chloride (98-107) mmol/L Glucose (74-99) mg/dL POC Glucose (mg/dL) 130 H 113 H 118 H (75-99) mg/dL Calcium (8.4-10.2) mg/dL Magnesium (1.6-2.3) mg/dL ALT (21-72) U/L Alkaline Phosphatase (38-126) U/L Total Protein (6.3-8.2) g/dL Albumin (3.5-5.0) g/dL Arterial Blood Potassium (3.4-4.5) mmol/L Crossmatch 09/15/16 09/15/16 09/15/16 Range/Units 13:03 13:48 14:58 RBC (4.30-5.90) m/uL Hgb (13.0-17.5) gm/dL Hct (39.0-53.0) % Plt Count (150-450) k/uL Neutrophils # (Manual) (1.3-7.7) k/uL Lymphocytes # (Manual) (1.0-4.8) k/uL PT (9.0-12.0) sec INR (<1.2) APTT (22.0-30.0) sec Fibrinogen (200-500) mg/dL ABG pH (7.35-7.45) ABG pCO2 (35-45) mmHg ABG pO2 (83-108) mmHg ABG Total CO2 (19-24) mmol/L ABG O2 Saturation (94-97) % ABG Hematocrit (34.0-46.0) % ABG Potassium (3.4-4.5) mmol/L Chloride (98-107) mmol/L Glucose (74-99) mg/dL POC Glucose (mg/dL) 122 H 125 H 134 H (75-99) mg/dL Calcium (8.4-10.2) mg/dL Magnesium (1.6-2.3) mg/dL ALT (21-72) U/L Alkaline Phosphatase (38-126) U/L Total Protein (6.3-8.2) g/dL Albumin (3.5-5.0) g/dL Arterial Blood Potassium (3.4-4.5) mmol/L Crossmatch Assessment and Plan Plan: Impression: #1 Coronary artery disease status post coronary artery bypass grafting utilizing a PUTNAM to the LAD, saphenous vein grafts to the ramus and diagonal branches. Postoperative day #1. #2 Severe aortic stenosis status post aortic valve replacement. Postoperative day #1. #3 Mechanical ventilatory support as an expected outcome following thoracotomy, extubated currently on 3 L/m per nasal cannula.. #4 Postoperative anemia as an expected outcome post thoracotomy. Current hemoglobin 7.7. #5 Previous history of chronic tobacco dependence. #6 Diabetes mellitus. #7 History of hypertension. #8 Hyperlipidemia. Plan: The patient was seen and evaluated by Dr. Ahn. His chest x-ray ABGs and labs were reviewed. We will continue with his current plan of care. He is educated regarding the importance of the increased use of incentive spirometer and cough and deep breathing exercises. We'll repeat a chest x-ray and blood gases in the a.m. We'll continue bronchodilators every 4 hours. We'll continue to monitor him closely here in the intensive care unit. We'll continue to follow make further recommendations based on his clinical status.
[2016-09-15 16:52] LABS: Glucose,Whole Blood 131 mg/dL (75-99)
[2016-09-15] MEDS: LACTATED RINGERS 1,000 ML IV SCH (17:02)
[2016-09-15] MEDS: CLEVIDIPINE BUTYRATE 25 MG in EMPTY BAG 1 BAG IV SCH (17:04)
--- NOTE | 2016-09-15 17:19 | OP ---
DATE OF SURGERY: 09/14/2016 SURGEON: Dr. Mackenzie Hannon FILTRATION OPERATOR: Oliver Smith FILTRATION OPERATOR: Kali Kevin FILTRATION OPERATOR: Yoselyn Encinas ANESTHESIA: Dr. Lerma PREOPERATIVE DIAGNOSES: 1. Severe aortic graft stenosis. 2. Diffuse calcific coronary artery disease. 3. Preserved left ventricular function. 4. Hyperlipidemia. 5. Diabetes. 6. Hypertension. POSTOPERATIVE DIAGNOSES: 1. Severe aortic graft stenosis. 2. Diffuse calcific coronary artery disease. 3. Preserved left ventricular function. 4. Hyperlipidemia. 5. Diabetes. 6. Hypertension. PROCEDURE: 1. Triple-vessel coronary artery bypass grafting using the left internal mammary artery to the left anterior descending artery, reverse saphenous vein graft from the aorta to the diagonal artery, reverse saphenous vein graft from the aorta to the ramus intermedius artery. 2. Aortic valve replacement using a 25 mm pericardial bioprosthesis Magna-Ease. 3. Endoscopic harvesting of the right greater saphenous vein. 4. Intraoperative transesophageal echocardiogram and epiaortic scanning. 5. Intraoperative graft flow measurements using the [employer] system. INDICATION FOR SURGERY: Patient is an 81-year-old gentleman with workup showing severe calcific aortic valve stenosis as well as diffuse coronary artery disease with mainly proximal LAD, diagonal and ramus intermedius disease. The right coronary artery had stp-[id number] lesions except at the proximal small PDA. There was a smaller obtuse marginal artery also. Patient has obvious varicose vein in his left lower extremity, and we are hoping to obtain vein from the right lower extremity that will be suitable. Patient is brought in today for aortic valve replacement and coronary artery bypass grafting. Risks, benefits and alternatives were discussed with him. He understood them and agreed to proceed. DESCRIPTION OF THE PROCEDURE: Patient in supine position. A left internal jugular introducer was inserted, but a [place]-Loy catheter could not be floated. A right radial arterial line was placed. Subsequently he was brought to the operating room, where general endotracheal anesthesia was induced uneventfully. Lindsey catheter was inserted. Two grams of cefazolin was given intravenously. The chest, abdomen and both lower extremities were prepped and draped using ChloraPrep. Ioban was used to cover the skin. Transesophageal echocardiogram showed left ventricular hypertrophy, preserved systolic function, mild mitral valve regurgitation and normal RV function. Midline sternotomy was performed and the bone was moderately osteoporotic. No bone wax was used. The left hemisternum was elevated and the left internal mammary artery was harvested in a semi-skeletonized fashion. In the same setting , the right greater saphenous vein was harvested endoscopically from groin to above ankle level after administration of 2500 units of heparin. The leg incisions were closed over a drain. Mediastinal fat was transected between 2 ties and epiaortic scanning revealed a protruding atheroma in the posterior aspect of the aorta at the level of the crossing of the right coronary artery at the mid ascending aorta. Distally the aorta was fine. Pericardium was opened in inverted T-fashion and we encountered diffuse pericardial adhesions. Good part of those adhesions were lysed bluntly and the rest sharply anteriorly. Pericardial cradle was created. Findings included an enlarged heart and a soft aorta. After systemic heparinization and placement of respective pledgeted pursestring , aorta cannulation with a 21 Polish Soft-Flow at the level of the proximal arch , right atrial appendage cannulation with a 29 three-stage venous cannula was performed. Antegrade as well as retrograde cardioplegia catheters were placed. The mammary artery was double-clipped distally and transected. It had an excellent pulsatile flow in it. It was around 1.75 mm in diameter. The vein was prepared and we were able to basically isolate 2 suitable segments for potential bypasses. Cardiopulmonary bypass was initiated, and with the heart empty and warm, we completed the dissection of the left ventricle from the pericardial adhesions. Most of the coronary arteries were obscured by the fibrinous layer. The LAD was diffusely diseased and calcific, and I found a spot where the anterior wall was soft in its mid aspect. I was able to identify the diagonal artery also in its soft spot after diffuse calcific disease. Looking at the lateral wall, the ramus intermedius artery was diffusely calcified, and luckily we found a spot just before it bifurcated which was suitable for bypass. There were no plans at this point to bypass the posterior descending artery. The same was also for the smaller obtuse marginal artery that was actually very small by the time it came out of the groove. Aortic clamping was performed and myocardial protection was achieved with initial dose of 1 liter of cold blood cardioplegia followed by 500 mL of retrograde cold blood cardioplegia. All subsequent doses were given retrograde at 15-minute intervals. First part of the surgery was performed with distal anastomosis. The first distal anastomosis was between a segment of reverse saphenous vein graft and the ramus intermedius artery before it bifurcated, which was around 1.5 mm in diameter, using Prolene 7-0 in continuous fashion. The second distal anastomosis was between another segment of vein and the diagonal artery, which was around 1.5 mm in diameter also, diffusely diseased, using Prolene 7-0 in continuous fashion. The third distal anastomosis was between the left internal mammary artery and the mid to distal aspect of the left anterior descending artery which was diffusely diseased. It was around 1.5 mm in diameter. We used Prolene 7-0 in continuous fashion. The mammary pedicle was affixed to the epicardium with a Prolene 6-0 suture. Attention was moved at this point to performing the aortic valve replacement. The aorta was opened above the sinotubular junction in a transverse fashion. The aortic valve appeared to be trileaflet, severely calcified, and severely stenotic. The valve was excised, and it took a while to debride the deep annular calcification that extended deep in the septum also. Thorough irrigation was performed. Both coronary arteries were identified. The annulus was measured at 25 mm, and a 25 mm Magna-Ease pericardial bioprosthesis was selected and prepared on the back table. A total of 16 Ticron 2-0 pledgeted sutures on the ventricular side was passed all around the annulus circumference , and they were passed symmetrically into the valve cuff, which seated nicely in a supra-annular position. The needles were cut and the suture tied using the Cor-Knot device. Thorough irrigation was performed before and after implanting the valve. Both coronary ostia were cleared. The aorta was closed in 2 layers using Prolene 4-0 pledgeted in each corner with the first layer in a horizontal mattress and the second layer in an [id number]-blk-[id number] technique. CO2 was flowing over the field as long as the aorta was opened. At this point, we started the warming as we performed the 2 proximal anastomoses of the 2 veins grafts after punching 2 buttons of 5 mm each, and the 2 proximal anastomoses were completed using Prolene 6-0 in continuous fashion. Patient was given lidocaine and magnesium and de-airing maneuvers were carried out before unclamping of the aorta with the head down and the vent on. Patient regained spontaneous sinus rhythm. Two monopolar atrial pacing wires were affixed to the right atrial wall and one bipolar ventricular pacing wire was driven into the anterior aspect of the right ventricle. Two subsequent chest tubes were placed. YANDEL showed good functioning aortic valve with no para-valvular leak and we were able to wean off bypass guided by the YANDEL, as we had no [place]-Loy catheter, and the left ventricular function was good. We had started the patient on Primacor empirically initially. There was no mitral valve regurgitation. Satisfied with the echo and the anastomoses, test dose and then full dose protamine was given. GRAFT FLOW MEASUREMENT REVEALED EXCELLENT FLOWS IN ALL 3 GRAFTS. It took a while to achieve hemostasis, as the patient was relatively coagulopathic. I used some Coseal over the aortotomy and the proximal anastomosis. Decannulation followed and the retrograde cardioplegia site was reinforced. The aortotomy site needed to be reinforced with 2 pledgeted Prolene sutures. The antegrade site was also reinforced with a pledgeted Prolene. A deep groove was made in the left pleuropericardial fat to accommodate the mammary artery medial to the lung and away from the posterior sternal table. Pericardial site was loosely approximated over the heart, and mediastinal fat was approximated over the proximal aorta and the grafts. After ensuring adequate hemostasis and hemodynamics and after correct sponge, instrument and needle count, the sternum was closed using 7 interrupted stainless steel wires after interposing Fibrillar between the sternal edges. Thorough irrigation with cefazolin followed. The rest of the closure proceeded in layers. Patient received 900 mL of Cell Saver blood, received 6 units of platelets and 2 units of FFP. He was transferred to the ICU with normal sinus rhythm, normal EKG, mean arterial pressure of 71, CVP 16. MTDD
[2016-09-15 17:52] LABS: Glucose,Whole Blood 130 mg/dL (75-99)
[2016-09-15] MEDS: HYDROcodone/APAP 5-325MG 1 EACH TAB PO PRN (18:44)
[2016-09-15 18:55] LABS: Glucose,Whole Blood 132 mg/dL (75-99)
[2016-09-15 19:57] LABS: Glucose,Whole Blood 130 mg/dL (75-99)
[2016-09-15] MEDS: SENNOSIDES-DOCUSATE SODIUM 1 EACH TAB PO SCH (20:45)
[2016-09-15 21:08] LABS: Glucose,Whole Blood 132 mg/dL (75-99)
[2016-09-15 22:12] LABS: Glucose,Whole Blood 124 mg/dL (75-99)
[2016-09-15] MEDS: LORazepam 2 MG/ML SYRINGE IV PRN (22:16)
[2016-09-15] MEDS ORDERED: LORazepam 2 MG/ML SYRINGE IV STA (22:53)
[2016-09-15] MEDS: ALBUMIN HUMAN 5% 250 ML in EMPTY BAG 1 BAG IVPB PRN (23:01)
[2016-09-15 23:08] LABS: Glucose,Whole Blood 124 mg/dL (75-99)
[2016-09-16 00:08] LABS: Glucose,Whole Blood 121 mg/dL (75-99)
[2016-09-16] MEDS: LORazepam 2 MG/ML SYRINGE IV PRN (00:32)
[2016-09-16] MEDS: HEPARIN SODIUM,PORCINE 5,000 UNIT/ML 1 ML VIAL SQ SCH ×3 (00:42→15:58)
[2016-09-16 01:06] LABS: Glucose,Whole Blood 114 mg/dL (75-99)
[2016-09-16 02:11] LABS: Glucose,Whole Blood 119 mg/dL (75-99)
[2016-09-16 04:12] LABS: Glucose,Whole Blood 142 mg/dL (75-99)
[2016-09-16 04:13] LABS: Aty Lym Flag Marked; CH 31.9; CHCM 33.3; HCT 21.5 % (39.0-53.0); HDW 2.93; HGB 7.1 gm/dL (13.0-17.5); MCH 31.9 pg (25.0-35.0); MCHC 33.1 g/dL (31.0-37.0); MCV 96.5 fL (80.0-100.0); Mean Platelet Volume 12.2; RBC 2.23 m/uL (4.30-5.90); WBC 13.1 k/uL (3.8-10.6); WBC (Perox) 12.92
[2016-09-16 04:17] LABS: Ionized Calcium 4.9 mg/dL (4.5-5.3)
[2016-09-16] MEDS: KETOROLAC 30 MG/ML 1 ML VIAL IVP SCH ×4 (04:20→21:09)
[2016-09-16 04:25] LABS: ALT 18 U/L (21-72); AST 43 U/L (17-59); Alkaline Phosphatase 40 U/L (38-126); Anion Gap 10 mmol/L; Blood Urea Nitrogen 15 mg/dL (9-20); Calcium 8.5 mg/dL (8.4-10.2); Carbon Dioxide 22 mmol/L (22-30); Chloride 109 mmol/L (98-107); Glucose 126 mg/dL (74-99); Magnesium 2.3 mg/dL (1.6-2.3); Non-African American GFR(MDRD) >60 (>60 ml/min/1.73 sqM); Potassium 4.5 mmol/L (3.5-5.1); Sodium 141 mmol/L (137-145); Total Bilirubin 0.9 mg/dL (0.2-1.3); Total Protein 5.1 g/dL (6.3-8.2)
[2016-09-16 04:32] LABS: Add Differential Manual Differential
[2016-09-16 04:35] LABS: Manual Review Performed; Nucleated Red Blood Cells 0 /100 WBC (0-0); Total Cells Counted 100
[2016-09-16 04:39] LABS: INR 1.3 (<1.2); Partial Thromboplastin Time 33.8 sec (22.0-30.0)
[2016-09-16 05:11] LABS: Glucose,Whole Blood 133 mg/dL (75-99)
[2016-09-16] MEDS: ALBUMIN HUMAN 5% 250 ML in EMPTY BAG 1 BAG IVPB PRN (05:17)
[2016-09-16 06:48] LABS: Glucose,Whole Blood 122 mg/dL (75-99)
--- NOTE | 2016-09-16 07:37 | XR ---
EXAMINATION TYPE: XR chest 1V portable DATE OF EXAM: 09/16/2016 COMPARISON: Prior chest x-ray 09/15/2016 HISTORY: Postop cardiac surgery TECHNIQUE: Single frontal view of the chest is obtained. FINDINGS: Patient is rotated. Heart is enlarged. Sided chest tube remains in place. There is improve d aeration within the lungs. Persistent basilar density is present. Overlying cardiac leads are noted , patient is post median sternotomy. There is a median sternal drain. Patchy basilar density persists . No sizable pneumothorax. IMPRESSION: Some improvement in aeration. Additional follow-up is recommended.
[2016-09-16 07:51] LABS: Glucose,Whole Blood 139 mg/dL (75-99)
[2016-09-16] MEDS ORDERED: QUEtiapine 50 MG TAB PO SCH (09:00)
--- NOTE | 2016-09-16 09:06 | P.PN ---
Subjective Principal diagnosis: Status post open heart This is a pleasant 81-year-old gentleman who sees Dr. Elizalde as an outpatient who was admitted to the hospital yesterday and underwent aortic valve replacement along with CABG 3 with PUTNAM to LAD, SVG to diagonal, and SVG to ramus intermedius. Hemodynamically he continues to be stable beside small dose of Primacor. He has been maintaining normal sinus mechanism with frequent PVCs On follow-up with the patient today he is very confused and he is educated. Objective - Vital Signs Vital signs: Vital Signs Temp 98.8 F 09/16/16 08:00 Pulse 73 09/16/16 08:00 Resp 16 09/16/16 08:00 BP 162/69 09/16/16 08:00 Pulse Ox 100 09/16/16 08:00 Intake & Output 09/15/16 09/16/16 09/16/16 18:59 06:59 18:59 Intake Total 899.26 1049.119 142.454 Output Total 1311 565 120 Balance -411.74 484.119 22.454 Weight 82 kg 89.8 kg Intake: IV 828 1033 53 Albumin Human 5% 250 ml 500 In Empty Bag 1 bag @ 250 mls/hr IVPB Q1HR PRN Rx#: [id number] Lactated Ringers 1,000 ml 650 500 50 @ 20 mls/hr IV .Q24H JESUS Rx#:[id number] Pressure Bag 78 33 3 ceFAZolin 2 gm In Sodium 100 Chloride 0.9% 100 ml @ 100 mls/hr IVPB Q8HR JESUS Rx#:[id number] Intake, IV Titration 71.26 16.119 89.454 Amount Insulin Regular 100 unit 21.65 16.119 In Sodium Chloride 0.9% 100 ml @ Per Protocol IV .Q0M JESUS Rx#:[id number] Lactated Ringers 1,000 ml 20 @ 20 mls/hr IV .Q24H JESUS Rx#:[id number] Milrinone-D5w Pmx 20 mg 49.61 69.454 In Dextrose/Water 1 100ml .bag @ 0.1 MCG/KG/MIN 2. 42 mls/hr IV .Q24H JESUS Rx #:[id number] Oral 0 Output: Chest Tube Drainage 582 290 15 Chest Tube Left 372 120 5 Mediastinal 210 170 10 Drainage 30 25 Right Calf 30 25 Urine 699 275 80 Other: Voiding Method Indwelling Catheter Indwelling Catheter Indwelling Catheter ABP, PAP, CO, CI - Last Documented Arterial Blood Pressure 147/52 - Constitutional General appearance: Present: no acute distress - Respiratory Respiratory: bilateral: CTA - Cardiovascular Rhythm: regular Heart sounds: normal: S1, S2 - Labs CBC & Chem 7: 09/16/16 04:05 09/16/16 04:05 Labs: Abnormal Lab Results - Last 24 Hours (Table) 09/15/16 09/15/16 09/15/16 Range/Units 09:51 10:54 11:59 WBC (3.8-10.6) k/uL RBC (4.30-5.90) m/uL Hgb (13.0-17.5) gm/dL Hct (39.0-53.0) % Plt Count (150-450) k/uL Neutrophils # (Manual) (1.3-7.7) k/uL PT (9.0-12.0) sec INR (<1.2) APTT (22.0-30.0) sec Chloride (98-107) mmol/L Glucose (74-99) mg/dL POC Glucose (mg/dL) 130 H 113 H 118 H (75-99) mg/dL ALT (21-72) U/L Total Protein (6.3-8.2) g/dL Albumin (3.5-5.0) g/dL 09/15/16 09/15/16 09/15/16 Range/Units 13:03 13:48 14:58 WBC (3.8-10.6) k/uL RBC (4.30-5.90) m/uL Hgb (13.0-17.5) gm/dL Hct (39.0-53.0) % Plt Count (150-450) k/uL Neutrophils # (Manual) (1.3-7.7) k/uL PT (9.0-12.0) sec INR (<1.2) APTT (22.0-30.0) sec Chloride (98-107) mmol/L Glucose (74-99) mg/dL POC Glucose (mg/dL) 122 H 125 H 134 H (75-99) mg/dL ALT (21-72) U/L Total Protein (6.3-8.2) g/dL Albumin (3.5-5.0) g/dL 09/15/16 09/15/16 09/15/16 Range/Units 16:06 16:50 17:51 WBC (3.8-10.6) k/uL RBC (4.30-5.90) m/uL Hgb (13.0-17.5) gm/dL Hct (39.0-53.0) % Plt Count (150-450) k/uL Neutrophils # (Manual) (1.3-7.7) k/uL PT (9.0-12.0) sec INR (<1.2) APTT (22.0-30.0) sec Chloride (98-107) mmol/L Glucose (74-99) mg/dL POC Glucose (mg/dL) 127 H 131 H 130 H (75-99) mg/dL ALT (21-72) U/L Total Protein (6.3-8.2) g/dL Albumin (3.5-5.0) g/dL 09/15/16 09/15/16 09/15/16 Range/Units 18:52 19:55 21:07 WBC (3.8-10.6) k/uL RBC (4.30-5.90) m/uL Hgb (13.0-17.5) gm/dL Hct (39.0-53.0) % Plt Count (150-450) k/uL Neutrophils # (Manual) (1.3-7.7) k/uL PT (9.0-12.0) sec INR (<1.2) APTT (22.0-30.0) sec Chloride (98-107) mmol/L Glucose (74-99) mg/dL POC Glucose (mg/dL) 132 H 130 H 132 H (75-99) mg/dL ALT (21-72) U/L Total Protein (6.3-8.2) g/dL Albumin (3.5-5.0) g/dL 09/15/16 09/15/16 09/16/16 Range/Units 22:10 23:06 00:07 WBC (3.8-10.6) k/uL RBC (4.30-5.90) m/uL Hgb (13.0-17.5) gm/dL Hct (39.0-53.0) % Plt Count (150-450) k/uL Neutrophils # (Manual) (1.3-7.7) k/uL PT (9.0-12.0) sec INR (<1.2) APTT (22.0-30.0) sec Chloride (98-107) mmol/L Glucose (74-99) mg/dL POC Glucose (mg/dL) 124 H 124 H 121 H (75-99) mg/dL ALT (21-72) U/L Total Protein (6.3-8.2) g/dL Albumin (3.5-5.0) g/dL 09/16/16 09/16/16 09/16/16 Range/Units 01:05 02:10 04:05 WBC (3.8-10.6) k/uL RBC (4.30-5.90) m/uL Hgb (13.0-17.5) gm/dL Hct (39.0-53.0) % Plt Count (150-450) k/uL Neutrophils # (Manual) (1.3-7.7) k/uL PT (9.0-12.0) sec INR (<1.2) APTT (22.0-30.0) sec Chloride 109 H (98-107) mmol/L Glucose 126 H (74-99) mg/dL POC Glucose (mg/dL) 114 H 119 H (75-99) mg/dL ALT 18 L (21-72) U/L Total Protein 5.1 L (6.3-8.2) g/dL Albumin 3.1 L (3.5-5.0) g/dL 09/16/16 09/16/16 09/16/16 Range/Units 04:05 04:05 04:11 WBC 13.1 H (3.8-10.6) k/uL RBC 2.23 L (4.30-5.90) m/uL Hgb 7.1 L (13.0-17.5) gm/dL Hct 21.5 L (39.0-53.0) % Plt Count 78 L (150-450) k/uL Neutrophils # (Manual) 11.13 H (1.3-7.7) k/uL PT 13.0 H (9.0-12.0) sec INR 1.3 H (<1.2) APTT 33.8 H (22.0-30.0) sec Chloride (98-107) mmol/L Glucose (74-99) mg/dL POC Glucose (mg/dL) 142 H (75-99) mg/dL ALT (21-72) U/L Total Protein (6.3-8.2) g/dL Albumin (3.5-5.0) g/dL 09/16/16 09/16/16 09/16/16 Range/Units 05:08 06:47 07:49 WBC (3.8-10.6) k/uL RBC (4.30-5.90) m/uL Hgb (13.0-17.5) gm/dL Hct (39.0-53.0) % Plt Count (150-450) k/uL Neutrophils # (Manual) (1.3-7.7) k/uL PT (9.0-12.0) sec INR (<1.2) APTT (22.0-30.0) sec Chloride (98-107) mmol/L Glucose (74-99) mg/dL POC Glucose (mg/dL) 133 H 122 H 139 H (75-99) mg/dL ALT (21-72) U/L Total Protein (6.3-8.2) g/dL Albumin (3.5-5.0) g/dL Assessment and Plan Plan: This is a pleasant 81-year-old gentleman who was admitted to the hospital yesterday and underwent aortic valve replacement along with CABG 3 as described above. We'll continue the current medical treatment which included dual antiplatelet therapy and statin. Continue monitor the heart rate and the patient has been maintaining normal sinus mechanism. We'll continue following up with him.
[2016-09-16] MEDS: METOPROLOL TARTRATE 25 MG TAB PO SCH ×2 (09:09→20:28)
[2016-09-16] MEDS: MUPIROCIN 2% OINT 22 GM TUBE NASAL SCH ×2 (09:09→21:12)
[2016-09-16] MEDS: ATORVASTATIN 40 MG TAB PO SCH (09:09)
[2016-09-16] MEDS: ASPIRIN 325 MG TAB PO SCH (09:09)
[2016-09-16] MEDS: CLOPIDOGREL 75 MG TAB PO SCH (09:09)
[2016-09-16] MEDS: PANTOPRAZOLE 40 MG/10 ML VIAL IVP SCH (09:10)
[2016-09-16] MEDS: HALOPERIDOL LACTATE 5 MG/ML 1 ML VIAL IVP PRN ×2 (09:36→21:53)
[2016-09-16 09:44] LABS: Glucose,Whole Blood 144 mg/dL (75-99)
[2016-09-16] MEDS ORDERED: FUROSEMIDE 10 MG/ML 2 ML VIAL IV STA (10:13)
--- NOTE | 2016-09-16 11:42 | P.PN ---
Subjective Principal diagnosis: Symptomatic multivessel coronary artery disease. Severe aortic valve stenosis with mild aortic regurgitation. Preserved left ventricular function. Type 2 diabetes mellitus. GERD. Hypertension. Hyperlipidemia. Previous tobacco dependence. POD #2 elective triple-vessel coronary artery bypass grafting using the left internal mammary artery to the left anterior descending artery, reverse saphenous vein graft from the aorta to the ramus artery, reverse saphenous vein graft from the aorta to the diagonal artery. Aortic valve replacement using a 25 mm pericardial bioprosthesis magna ease. Endoscopic vein harvesting of the right greater saphenous vein. Intraoperative transesophageal echocardiogram and epi-aortic scanning. Intraoperative graft flow measurement using the [employer] system. The patient is currently sitting up in bed in no acute distress. Significantly confused. Per RN reports patient was confused and combative overnight, attempting several times to pull out his Cordis. Per this morning patient does have episodes of forgetfulness but has not been quite this agitated. Objective - Vital Signs Vital signs: Vital Signs Temp 98.8 F 09/16/16 08:00 Pulse 68 09/16/16 11:00 Resp 15 09/16/16 11:00 BP 107/48 09/16/16 11:00 Pulse Ox 92 L 09/16/16 11:00 Intake & Output 09/15/16 09/16/16 09/16/16 18:59 06:59 18:59 Intake Total 899.26 1049.119 202.454 Output Total 1311 565 200 Balance -411.74 484.119 2.454 Weight 82 kg 89.8 kg Intake: IV 828 1033 113 Albumin Human 5% 250 ml 500 In Empty Bag 1 bag @ 250 mls/hr IVPB Q1HR PRN Rx#: [id number] Lactated Ringers 1,000 ml 650 500 110 @ 20 mls/hr IV .Q24H [facility] Rx#:[id number] Pressure Bag 78 33 3 ceFAZolin 2 gm In Sodium 100 Chloride 0.9% 100 ml @ 100 mls/hr IVPB Q8HR [facility] Rx#:[id number] Intake, IV Titration 71.26 16.119 89.454 Amount Insulin Regular 100 unit 21.65 16.119 In Sodium Chloride 0.9% 100 ml @ Per Protocol IV .Q0M [facility]US Rx#:[id number] Lactated Ringers 1,000 ml 20 @ 20 mls/hr IV .Q24H [facility] Rx#:[id number] Milrinone-D5w Pmx 20 mg 49.61 69.454 In Dextrose/Water 1 100ml .bag @ 0.1 MCG/KG/MIN 2. 42 mls/hr IV .Q24H [facility] Rx #:[id number] Oral 0 Output: Chest Tube Drainage 582 290 15 Chest Tube Left 372 120 5 Mediastinal 210 170 10 Drainage 30 25 Right Calf 30 25 Urine 699 275 160 Other: Voiding Method Indwelling Catheter Indwelling Catheter Indwelling Catheter ABP, PAP, CO, CI - Last Documented Arterial Blood Pressure 147/52 Pulmonary Artery Pressure 94/43 - Constitutional General appearance: Present: no acute distress - Respiratory Details: Lungs sounds diminished bilaterally. Respirations even, nonlabored. Currently on 2 LPM NC with oxygen saturation 100%. Unable to use incentive spirometry. Mediastinal chest tube to -20 cm wall suction, 150 mL serosanguineous drainage overnight, 350 mL in the last 24 hours. Left pleural chest tube to -20 cm wall suction, 60 mL serous and was drainage overnight, 450 mL in the last no air leaks present. - Cardiovascular Details: S1, S2 present. Regular rate and rhythm, sinus rhythm with the bigeminal PVCs. A/V epicardial pacemaker wires present, capped. Sternum stable. Heart hugger in place with patient unable to use appropriately. No edema present. Teds/SCDs present. - Gastrointestinal Gastrointestinal Comment(s): Abdomen soft, nontender, nondistended. Active bowel sounds 4 quadrants. Tolerating diet. - Genitourinary Genitourinary Comment(s): Lindsey present draining clear, yellow urine. Output has tapered off overnight down to 15 mL/h this morning. - Integumentary Integumentary Comment(s): Anterior chest well approximated and covered with dry intact dressing. Right lower extremity EVH site well approximated with CARL drain in place. - Musculoskeletal Musculoskeletal: Present: strength equal bilaterally - Psychiatric Psychiatric Comment(s): Patient is oriented to person only. States he is in [place] and the year is 1936. Very argumentative, combative. Does settle down somewhat with and daughter at bedside. - Allied health notes Allied health notes reviewed: nursing - Labs CBC & Chem 7: 09/16/16 04:05 09/16/16 04:05 Labs: Abnormal Lab Results - Last 24 Hours (Table) 09/15/16 09/15/16 09/15/16 Range/Units 11:59 13:03 13:48 WBC (3.8-10.6) k/uL RBC (4.30-5.90) m/uL Hgb (13.0-17.5) gm/dL Hct (39.0-53.0) % Plt Count (150-450) k/uL Neutrophils # (Manual) (1.3-7.7) k/uL PT (9.0-12.0) sec INR (<1.2) APTT (22.0-30.0) sec Chloride (98-107) mmol/L Glucose (74-99) mg/dL POC Glucose (mg/dL) 118 H 122 H 125 H (75-99) mg/dL ALT (21-72) U/L Total Protein (6.3-8.2) g/dL Albumin (3.5-5.0) g/dL 09/15/16 09/15/16 09/15/16 Range/Units 14:58 16:06 16:50 WBC (3.8-10.6) k/uL RBC (4.30-5.90) m/uL Hgb (13.0-17.5) gm/dL Hct (39.0-53.0) % Plt Count (150-450) k/uL Neutrophils # (Manual) (1.3-7.7) k/uL PT (9.0-12.0) sec INR (<1.2) APTT (22.0-30.0) sec Chloride (98-107) mmol/L Glucose (74-99) mg/dL POC Glucose (mg/dL) 134 H 127 H 131 H (75-99) mg/dL ALT (21-72) U/L Total Protein (6.3-8.2) g/dL Albumin (3.5-5.0) g/dL 09/15/16 09/15/16 09/15/16 Range/Units 17:51 18:52 19:55 WBC (3.8-10.6) k/uL RBC (4.30-5.90) m/uL Hgb (13.0-17.5) gm/dL Hct (39.0-53.0) % Plt Count (150-450) k/uL Neutrophils # (Manual) (1.3-7.7) k/uL PT (9.0-12.0) sec INR (<1.2) APTT (22.0-30.0) sec Chloride (98-107) mmol/L Glucose (74-99) mg/dL POC Glucose (mg/dL) 130 H 132 H 130 H (75-99) mg/dL ALT (21-72) U/L Total Protein (6.3-8.2) g/dL Albumin (3.5-5.0) g/dL 09/15/16 09/15/16 09/15/16 Range/Units 21:07 22:10 23:06 WBC (3.8-10.6) k/uL RBC (4.30-5.90) m/uL Hgb (13.0-17.5) gm/dL Hct (39.0-53.0) % Plt Count (150-450) k/uL Neutrophils # (Manual) (1.3-7.7) k/uL PT (9.0-12.0) sec INR (<1.2) APTT (22.0-30.0) sec Chloride (98-107) mmol/L Glucose (74-99) mg/dL POC Glucose (mg/dL) 132 H 124 H 124 H (75-99) mg/dL ALT (21-72) U/L Total Protein (6.3-8.2) g/dL Albumin (3.5-5.0) g/dL 09/16/16 09/16/16 09/16/16 Range/Units 00:07 01:05 02:10 WBC (3.8-10.6) k/uL RBC (4.30-5.90) m/uL Hgb (13.0-17.5) gm/dL Hct (39.0-53.0) % Plt Count (150-450) k/uL Neutrophils # (Manual) (1.3-7.7) k/uL PT (9.0-12.0) sec INR (<1.2) APTT (22.0-30.0) sec Chloride (98-107) mmol/L Glucose (74-99) mg/dL POC Glucose (mg/dL) 121 H 114 H 119 H (75-99) mg/dL ALT (21-72) U/L Total Protein (6.3-8.2) g/dL Albumin (3.5-5.0) g/dL 09/16/16 09/16/16 09/16/16 Range/Units 04:05 04:05 04:05 WBC 13.1 H (3.8-10.6) k/uL RBC 2.23 L (4.30-5.90) m/uL Hgb 7.1 L (13.0-17.5) gm/dL Hct 21.5 L (39.0-53.0) % Plt Count 78 L (150-450) k/uL Neutrophils # (Manual) 11.13 H (1.3-7.7) k/uL PT 13.0 H (9.0-12.0) sec INR 1.3 H (<1.2) APTT 33.8 H (22.0-30.0) sec Chloride 109 H (98-107) mmol/L Glucose 126 H (74-99) mg/dL POC Glucose (mg/dL) (75-99) mg/dL ALT 18 L (21-72) U/L Total Protein 5.1 L (6.3-8.2) g/dL Albumin 3.1 L (3.5-5.0) g/dL 09/16/16 09/16/16 09/16/16 Range/Units 04:11 05:08 06:47 WBC (3.8-10.6) k/uL RBC (4.30-5.90) m/uL Hgb (13.0-17.5) gm/dL Hct (39.0-53.0) % Plt Count (150-450) k/uL Neutrophils # (Manual) (1.3-7.7) k/uL PT (9.0-12.0) sec INR (<1.2) APTT (22.0-30.0) sec Chloride (98-107) mmol/L Glucose (74-99) mg/dL POC Glucose (mg/dL) 142 H 133 H 122 H (75-99) mg/dL ALT (21-72) U/L Total Protein (6.3-8.2) g/dL Albumin (3.5-5.0) g/dL 09/16/16 09/16/16 Range/Units 07:49 09:42 WBC (3.8-10.6) k/uL RBC (4.30-5.90) m/uL Hgb (13.0-17.5) gm/dL Hct (39.0-53.0) % Plt Count (150-450) k/uL Neutrophils # (Manual) (1.3-7.7) k/uL PT (9.0-12.0) sec INR (<1.2) APTT (22.0-30.0) sec Chloride (98-107) mmol/L Glucose (74-99) mg/dL POC Glucose (mg/dL) 139 H 144 H (75-99) mg/dL ALT (21-72) U/L Total Protein (6.3-8.2) g/dL Albumin (3.5-5.0) g/dL - Imaging and Cardiology Chest x-ray: report reviewed, image reviewed Assessment and Plan (1) Coronary artery disease Status: Acute (2) Hyperlipidemia Status: Acute (3) Hypertension Status: Acute (4) Severe aortic stenosis Status: Acute (5) Type 2 diabetes mellitus Status: Acute (6) Tobacco dependence in remission Status: Acute Plan: 1. Continue aspirin, Lipitor, Plavix, beta gregg. Will maximize beta gregg therapy as tolerated. 2. Will give Lasix 20 mg IV push 1 today. 3. Seroquel scheduled started, Haldol when necessary ordered. Consult placed for psychiatry to address mental status. 4. Wean O2 as tolerated. Encourage incentive spirometer use. 5. Increase activity, out of bed to chair. Physical therapy to follow. 6. GI/DVT prophylaxis. 7. Insulin management per primary care service. 8. Will monitor daily labs, chest x-rays. 9. More recommendations as patient progresses. Time with Patient: Greater than 30
[2016-09-16 13:39] LABS: Glucose,Whole Blood 158 mg/dL (75-99)
--- NOTE | 2016-09-16 13:48 | P.PN ---
Subjective This is an 81-year-old gentleman who follows with Dr. San as his primary care physician. He has a history of diabetes mellitus, gastroesophageal reflux disease, hyperlipidemia, hypertension. He follows with Dr. Elizalde in the office for aortic stenosis. He is also had worsening fatigue and dyspnea on exertion. His most recent echo revealed severe aortic stenosis and a drop in his ejection fraction along with reversible ischemia on a stress test. He had subsequently undergone cardiac catheterization which revealed multivessel coronary artery disease. He presented here today for an elective surgery which was performed today by Dr. Hannon. He received a PUTNAM to the LAD, saphenous vein grafts to the ramus and the diagonal branches along with aortic valve replacement. Patient was seen in the ICU sitting in a recliner appears a bit confused with minimal short term memory deficit, there is chest wall pain and minimal cough. 09/16: issues lethargic this morning and contributing factors include lack of sleep, Ativan during the night, Haldol and Seroquel 50 mg given this morning. Patient was very uncooperative and combative and confused. Would recommend Seroquel at 12.5 mg to 25 mg twice daily only. Psychiatric consult was added. patient is sitting in bed and appears to be in no acute distress but again quite lethargic. Objective - Vital Signs Vital signs: Vital Signs Temp 98.8 F 09/16/16 08:00 Pulse 68 09/16/16 11:00 Resp 15 09/16/16 11:00 BP 107/48 09/16/16 11:00 Pulse Ox 92 L 09/16/16 11:00 Intake & Output 09/15/16 09/16/16 09/16/16 18:59 06:59 18:59 Intake Total 899.26 1049.119 202.454 Output Total 1311 565 200 Balance -411.74 484.119 2.454 Weight 82 kg 89.8 kg Intake: IV 828 1033 113 Albumin Human 5% 250 ml 500 In Empty Bag 1 bag @ 250 mls/hr IVPB Q1HR PRN Rx#: [id number] Lactated Ringers 1,000 ml 650 500 110 @ 20 mls/hr IV .Q24H [facility] Rx#:[id number] Pressure Bag 78 33 3 ceFAZolin 2 gm In Sodium 100 Chloride 0.9% 100 ml @ 100 mls/hr IVPB Q8HR [facility] Rx#:[id number] Intake, IV Titration 71.26 16.119 89.454 Amount Insulin Regular 100 unit 21.65 16.119 In Sodium Chloride 0.9% 100 ml @ Per Protocol IV .Q0M [facility] Rx#:[id number] Lactated Ringers 1,000 ml 20 @ 20 mls/hr IV .Q24H [facility] Rx#:[id number] Milrinone-D5w Pmx 20 mg 49.61 69.454 In Dextrose/Water 1 100ml .bag @ 0.1 MCG/KG/MIN 2. 42 mls/hr IV .Q24H [facility] Rx #:[id number] Oral 0 Output: Chest Tube Drainage 582 290 15 Chest Tube Left 372 120 5 Mediastinal 210 170 10 Drainage 30 25 Right Calf 30 25 Urine 699 275 160 Other: Voiding Method Indwelling Catheter Indwelling Catheter Indwelling Catheter ABP, PAP, CO, CI - Last Documented Arterial Blood Pressure 147/52 Pulmonary Artery Pressure 94/43 - Exam General appearance: average body habitus, mild distress - EENT Eyes: anicteric sclerae, EOMI, PERRLA, ptosis, no scleral icterus ENT: hard of hearing, normal oropharynx, no thrush Ears: bilateral: normal - Neck Neck: no lymphadenopathy, normal ROM, no rigidity, no thyromegaly Carotids: bilateral: upstroke delayed Thyroid: bilateral: normal size - Respiratory Respiratory: bilateral: diminished, dullness, rales, rhonchi, prolonged expiration (chest tubes and pacer wires), negative: wheezing - Cardiovascular Rhythm: regular Heart sounds: normal: S1, S2 Abnormal Heart Sounds: systolic murmur, rub, S3 Gallop - Gastrointestinal General gastrointestinal: normal bowel sounds, soft - Integumentary Integumentary: normal, normal turgor - Neurologic Neurologic: CNII-XII intact - Musculoskeletal Musculoskeletal: generalized weakness, strength equal bilaterally - Psychiatric Psychiatric: no A&O x's 3, appropriate affect, intact judgment & insight - Labs CBC & Chem 7: 09/16/16 04:05 09/16/16 04:05 Labs: Abnormal Lab Results - Last 24 Hours (Table) 09/15/16 09/15/16 09/15/16 Range/Units 11:59 13:03 13:48 WBC (3.8-10.6) k/uL RBC (4.30-5.90) m/uL Hgb (13.0-17.5) gm/dL Hct (39.0-53.0) % Plt Count (150-450) k/uL Neutrophils # (Manual) (1.3-7.7) k/uL PT (9.0-12.0) sec INR (<1.2) APTT (22.0-30.0) sec Chloride (98-107) mmol/L Glucose (74-99) mg/dL POC Glucose (mg/dL) 118 H 122 H 125 H (75-99) mg/dL ALT (21-72) U/L Total Protein (6.3-8.2) g/dL Albumin (3.5-5.0) g/dL 09/15/16 09/15/16 09/15/16 Range/Units 14:58 16:06 16:50 WBC (3.8-10.6) k/uL RBC (4.30-5.90) m/uL Hgb (13.0-17.5) gm/dL Hct (39.0-53.0) % Plt Count (150-450) k/uL Neutrophils # (Manual) (1.3-7.7) k/uL PT (9.0-12.0) sec INR (<1.2) APTT (22.0-30.0) sec Chloride (98-107) mmol/L Glucose (74-99) mg/dL POC Glucose (mg/dL) 134 H 127 H 131 H (75-99) mg/dL ALT (21-72) U/L Total Protein (6.3-8.2) g/dL Albumin (3.5-5.0) g/dL 09/15/16 09/15/16 09/15/16 Range/Units 17:51 18:52 19:55 WBC (3.8-10.6) k/uL RBC (4.30-5.90) m/uL Hgb (13.0-17.5) gm/dL Hct (39.0-53.0) % Plt Count (150-450) k/uL Neutrophils # (Manual) (1.3-7.7) k/uL PT (9.0-12.0) sec INR (<1.2) APTT (22.0-30.0) sec Chloride (98-107) mmol/L Glucose (74-99) mg/dL POC Glucose (mg/dL) 130 H 132 H 130 H (75-99) mg/dL ALT (21-72) U/L Total Protein (6.3-8.2) g/dL Albumin (3.5-5.0) g/dL 09/15/16 09/15/16 09/15/16 Range/Units 21:07 22:10 23:06 WBC (3.8-10.6) k/uL RBC (4.30-5.90) m/uL Hgb (13.0-17.5) gm/dL Hct (39.0-53.0) % Plt Count (150-450) k/uL Neutrophils # (Manual) (1.3-7.7) k/uL PT (9.0-12.0) sec INR (<1.2) APTT (22.0-30.0) sec Chloride (98-107) mmol/L Glucose (74-99) mg/dL POC Glucose (mg/dL) 132 H 124 H 124 H (75-99) mg/dL ALT (21-72) U/L Total Protein (6.3-8.2) g/dL Albumin (3.5-5.0) g/dL 09/16/16 09/16/16 09/16/16 Range/Units 00:07 01:05 02:10 WBC (3.8-10.6) k/uL RBC (4.30-5.90) m/uL Hgb (13.0-17.5) gm/dL Hct (39.0-53.0) % Plt Count (150-450) k/uL Neutrophils # (Manual) (1.3-7.7) k/uL PT (9.0-12.0) sec INR (<1.2) APTT (22.0-30.0) sec Chloride (98-107) mmol/L Glucose (74-99) mg/dL POC Glucose (mg/dL) 121 H 114 H 119 H (75-99) mg/dL ALT (21-72) U/L Total Protein (6.3-8.2) g/dL Albumin (3.5-5.0) g/dL 09/16/16 09/16/16 09/16/16 Range/Units 04:05 04:05 04:05 WBC 13.1 H (3.8-10.6) k/uL RBC 2.23 L (4.30-5.90) m/uL Hgb 7.1 L (13.0-17.5) gm/dL Hct 21.5 L (39.0-53.0) % Plt Count 78 L (150-450) k/uL Neutrophils # (Manual) 11.13 H (1.3-7.7) k/uL PT 13.0 H (9.0-12.0) sec INR 1.3 H (<1.2) APTT 33.8 H (22.0-30.0) sec Chloride 109 H (98-107) mmol/L Glucose 126 H (74-99) mg/dL POC Glucose (mg/dL) (75-99) mg/dL ALT 18 L (21-72) U/L Total Protein 5.1 L (6.3-8.2) g/dL Albumin 3.1 L (3.5-5.0) g/dL 09/16/16 09/16/16 09/16/16 Range/Units 04:11 05:08 06:47 WBC (3.8-10.6) k/uL RBC (4.30-5.90) m/uL Hgb (13.0-17.5) gm/dL Hct (39.0-53.0) % Plt Count (150-450) k/uL Neutrophils # (Manual) (1.3-7.7) k/uL PT (9.0-12.0) sec INR (<1.2) APTT (22.0-30.0) sec Chloride (98-107) mmol/L Glucose (74-99) mg/dL POC Glucose (mg/dL) 142 H 133 H 122 H (75-99) mg/dL ALT (21-72) U/L Total Protein (6.3-8.2) g/dL Albumin (3.5-5.0) g/dL 09/16/16 09/16/16 Range/Units 07:49 09:42 WBC (3.8-10.6) k/uL RBC (4.30-5.90) m/uL Hgb (13.0-17.5) gm/dL Hct (39.0-53.0) % Plt Count (150-450) k/uL Neutrophils # (Manual) (1.3-7.7) k/uL PT (9.0-12.0) sec INR (<1.2) APTT (22.0-30.0) sec Chloride (98-107) mmol/L Glucose (74-99) mg/dL POC Glucose (mg/dL) 139 H 144 H (75-99) mg/dL ALT (21-72) U/L Total Protein (6.3-8.2) g/dL Albumin (3.5-5.0) g/dL Assessment and Plan Plan: 1. Status post CABG X3 with AVR. Continue current management as per cardiothoracic surgery, cardiology, pulmonary medicine, continue aggressive pulmonary toileting, continue metoprolol 12.5 mg orally twice every day, restart the patient on statin, continue patient on aspirin 325 mg orally once every day, continue Plavix any 5 mg orally once every day, pain control, increase activity. 2. Post vent dependent respiratory failure secondary to CABG 3 and AVR, expected. Patient was extubated continue aggressive pulmonary toileting, encourage the usage of incentive spirometer. 3. Hypertension and hypertensive cardiovascular disease. Continue metoprolol 12.5 mg orally twice every day, start the patient on small dose of losartan when more stable. 4. Hyperlipidemia. restart Lipitor 80 mg orally daily. 5. Diabetes Mellitus type 2. will continue with insulin drip. 6. Vascular dementia with behavioral disturbance. Patient has received Ativan which may have contributed to his confusion , Haldol and Seroquel. Would recommend Seroquel 12.5-25 mg twice daily only. Psychiatric consult was requested. 7. Metabolic encephalopathy secondary to a combination of lack of sleep, vascular dementia, Ativan, Haldol and Seroquel. Avoid Ativan. 8. DVT prophylaxis. SCD;s and GRANT wraps. 9. GI prophylaxis . continue with protonix 40 mg IVP daily. 10. Full code. Discharge plan: To be determined Impression and plan of care have been directed as dictated by the signing physician. Shavon Kingston nurse practitioner acting as scribe for signing physician.
[2016-09-16] MEDS ORDERED: OLANZapine 2.5 MG TAB PO ONE (14:37)
[2016-09-16 14:51] LABS: Glucose,Whole Blood 160 mg/dL (75-99)
--- NOTE | 2016-09-16 15:31 | P.PN ---
Subjective Principal diagnosis: Multivessel coronary artery disease This is an 81-year-old gentleman who follows with Dr. Opal casarez as his primary care physician. He has a history of diabetes mellitus, gastroesophageal reflux disease, hyperlipidemia, hypertension. He follows with Dr. Elizalde in the office for aortic stenosis. He is also had worsening fatigue and dyspnea on exertion. His most recent echo revealed severe aortic stenosis and a drop in his ejection fraction along with reversible ischemia on a stress test. He had subsequently undergone cardiac catheterization which revealed multivessel coronary artery disease. He presented here today for an elective surgery which was performed today by Dr. Hannon. He received a PUTNAM to the LAD , saphenous vein grafts to the ramus and the diagonal branches along with aortic valve replacement. He is seen today in the intensive care unit immediately postoperative. He is currently on the mechanical ventilator at assist control of 12, tidal volume 450, FiO2 100% and a PEEP of 5. Current blood gases reveal pO2 of 248, pCO2 46, pH 7.33. There were unable to insert a [place]her[place]-Loy catheter. There is a left IJ present his current blood pressure 114/ 45, CVP of 16, he is in normal sinus rhythm with a first-degree heart block. Current drips are Primacor 0.3 mcg/kg/m, propofol 20 mcg/kg/m, insulin at 1 unit per hour. Lactated Ringer's at 50 MLS per hour. Levophed currently off. Chest x-ray shows evidence of fluid volume overload. There is a split mediastinal chest tubes and a left pleural chest tube in place. Hemoglobin 5.5 which is being rerun in the lab currently. He did receive 2 units of fresh frozen plasma, 1 unit of platelets, 400 of Cell Saver and 1 unit of autologous blood. Estimated blood loss was 2000 MLS. The patient is seen again today 09/15/2016 in follow-up in the intensive care unit. He was successfully extubated and is maintaining good O2 saturations in the upper 90s on 3 L/m per nasal cannula. His chest x-ray reveals bilateral infiltrates with small effusions. He was given Lasix 20 mg IV push 1. Currently in a negative balance. He is sternal and left pleural chest tubes are in place. He remains on milrinone at 0.1 mcg/kg/m. He is on lactated Ringer's at 50 MLS per hour. He is on a insulin drip at 1 unit per hour. His remaining in normal sinus rhythm. He did receive a total of 2 units of packed red blood cells, 2 units of fresh frozen plasma, 1 unit of pheresis platelets. His current hemoglobin is 7.7. Platelet count 100,000. The patient is seen again today 09/16/2016 in follow-up in the intensive care unit. The patient has had ongoing issues with altered mental status and confusion. Yelling out. Disoriented to place and time. He has required Haldol and Seroquel. He is currently receiving lactated Ringer's at 20 miles per hour. The milrinone has been discontinued. He did receive albumin 250 MLS. He remains on insulin drip at 0.5 units per hour. He has remained hemodynamically stable. CVP 16. WBC 13.1. Hemoglobin 7.1. Platelet count 78, 000. He is maintaining good O2 saturations in the 90s on 2 L/m per nasal cannula. His remaining in sinus rhythm. His chest x-ray does show some persistent basilar densities but improvement in overall aeration. Objective - Vital Signs Vital signs: Vital Signs Temp 98.8 F 09/16/16 08:00 Pulse 101 H 09/16/16 14:00 Resp 30 H 09/16/16 14:00 BP 145/77 09/16/16 14:00 Pulse Ox 94 L 09/16/16 14:00 Intake & Output 09/15/16 09/16/16 09/16/16 18:59 06:59 18:59 Intake Total 899.26 1049.119 262.454 Output Total 1311 565 490 Balance -411.74 484.119 -227.546 Weight 82 kg 89.8 kg Intake: IV 828 1033 153 Albumin Human 5% 250 ml 500 In Empty Bag 1 bag @ 250 mls/hr IVPB Q1HR PRN Rx#: [id number] Lactated Ringers 1,000 ml 650 500 150 @ 20 mls/hr IV .Q24H JESUS Rx#:[id number] Pressure Bag 78 33 3 ceFAZolin 2 gm In Sodium 100 Chloride 0.9% 100 ml @ 100 mls/hr IVPB Q8HR JESUS Rx#:[id number] Intake, IV Titration 71.26 16.119 109.454 Amount Insulin Regular 100 unit 21.65 16.119 In Sodium Chloride 0.9% 100 ml @ Per Protocol IV .Q0M JESUS Rx#:[id number] Lactated Ringers 1,000 ml 40 @ 20 mls/hr IV .Q24H JESUS Rx#:[id number] Milrinone-D5w Pmx 20 mg 49.61 69.454 In Dextrose/Water 1 100ml .bag @ 0.1 MCG/KG/MIN 2. 42 mls/hr IV .Q24H JESUS Rx #:[id number] Oral 0 Output: Chest Tube Drainage 582 290 15 Chest Tube Left 372 120 5 Mediastinal 210 170 10 Drainage 30 45 Right Calf 30 45 Urine 699 275 430 Other: Voiding Method Indwelling Catheter Indwelling Catheter Indwelling Catheter ABP, PAP, CO, CI - Last Documented Arterial Blood Pressure 147/52 Pulmonary Artery Pressure 141/53 - Exam GENERAL EXAM: Awake, confused to time and place. HEAD: Normocephalic. EYES: Sluggish reaction of pupils, equal size. NOSE: Clear with pink turbinates. THROAT: No erythema or exudates. NECK: No masses, no JVD. IJ in place. CHEST: Surgical dressing dry and intact. Mediastinal and left chest tubes in place. LUNGS: Equal air entry with few scattered rhonchi, crackles in the bases.. CVS: S1 and S2 normal with no audible murmurs, regular rhythm. ABDOMEN: No hepatosplenomegaly, hypoactive bowel sounds, no guarding or rigidity. SPINE: No scoliosis or deformity SKIN: No rashes Extremities: There is Milton wrap and a CARL drain in place to the right lower extremity. GRZEGORZ hose to the left. Trace peripheral edema. No clubbing, no cyanosis. Peripheral pulses are intact. - Labs CBC & Chem 7: 09/16/16 04:05 09/16/16 04:05 Labs: Abnormal Lab Results - Last 24 Hours (Table) 09/15/16 09/15/16 09/15/16 Range/Units 16:06 16:50 17:51 WBC (3.8-10.6) k/uL RBC (4.30-5.90) m/uL Hgb (13.0-17.5) gm/dL Hct (39.0-53.0) % Plt Count (150-450) k/uL Neutrophils # (Manual) (1.3-7.7) k/uL PT (9.0-12.0) sec INR (<1.2) APTT (22.0-30.0) sec Chloride (98-107) mmol/L Glucose (74-99) mg/dL POC Glucose (mg/dL) 127 H 131 H 130 H (75-99) mg/dL ALT (21-72) U/L Total Protein (6.3-8.2) g/dL Albumin (3.5-5.0) g/dL 09/15/16 09/15/16 09/15/16 Range/Units 18:52 19:55 21:07 WBC (3.8-10.6) k/uL RBC (4.30-5.90) m/uL Hgb (13.0-17.5) gm/dL Hct (39.0-53.0) % Plt Count (150-450) k/uL Neutrophils # (Manual) (1.3-7.7) k/uL PT (9.0-12.0) sec INR (<1.2) APTT (22.0-30.0) sec Chloride (98-107) mmol/L Glucose (74-99) mg/dL POC Glucose (mg/dL) 132 H 130 H 132 H (75-99) mg/dL ALT (21-72) U/L Total Protein (6.3-8.2) g/dL Albumin (3.5-5.0) g/dL 09/15/16 09/15/16 09/16/16 Range/Units 22:10 23:06 00:07 WBC (3.8-10.6) k/uL RBC (4.30-5.90) m/uL Hgb (13.0-17.5) gm/dL Hct (39.0-53.0) % Plt Count (150-450) k/uL Neutrophils # (Manual) (1.3-7.7) k/uL PT (9.0-12.0) sec INR (<1.2) APTT (22.0-30.0) sec Chloride (98-107) mmol/L Glucose (74-99) mg/dL POC Glucose (mg/dL) 124 H 124 H 121 H (75-99) mg/dL ALT (21-72) U/L Total Protein (6.3-8.2) g/dL Albumin (3.5-5.0) g/dL 09/16/16 09/16/16 09/16/16 Range/Units 01:05 02:10 04:05 WBC (3.8-10.6) k/uL RBC (4.30-5.90) m/uL Hgb (13.0-17.5) gm/dL Hct (39.0-53.0) % Plt Count (150-450) k/uL Neutrophils # (Manual) (1.3-7.7) k/uL PT (9.0-12.0) sec INR (<1.2) APTT (22.0-30.0) sec Chloride 109 H (98-107) mmol/L Glucose 126 H (74-99) mg/dL POC Glucose (mg/dL) 114 H 119 H (75-99) mg/dL ALT 18 L (21-72) U/L Total Protein 5.1 L (6.3-8.2) g/dL Albumin 3.1 L (3.5-5.0) g/dL 09/16/16 09/16/16 09/16/16 Range/Units 04:05 04:05 04:11 WBC 13.1 H (3.8-10.6) k/uL RBC 2.23 L (4.30-5.90) m/uL Hgb 7.1 L (13.0-17.5) gm/dL Hct 21.5 L (39.0-53.0) % Plt Count 78 L (150-450) k/uL Neutrophils # (Manual) 11.13 H (1.3-7.7) k/uL PT 13.0 H (9.0-12.0) sec INR 1.3 H (<1.2) APTT 33.8 H (22.0-30.0) sec Chloride (98-107) mmol/L Glucose (74-99) mg/dL POC Glucose (mg/dL) 142 H (75-99) mg/dL ALT (21-72) U/L Total Protein (6.3-8.2) g/dL Albumin (3.5-5.0) g/dL 09/16/16 09/16/1609/16/17 Range/Units 05:08 06:47 07:49 WBC (3.8-10.6) k/uL RBC (4.30-5.90) m/uL Hgb (13.0-17.5) gm/dL Hct (39.0-53.0) % Plt Count (150-450) k/uL Neutrophils # (Manual) (1.3-7.7) k/uL PT (9.0-12.0) sec INR (<1.2) APTT (22.0-30.0) sec Chloride (98-107) mmol/L Glucose (74-99) mg/dL POC Glucose (mg/dL) 133 H 122 H 139 H (75-99) mg/dL ALT (21-72) U/L Total Protein (6.3-8.2) g/dL Albumin (3.5-5.0) g/dL 09/16/16 09/16/16 09/16/16 Range/Units 09:42 13:37 14:49 WBC (3.8-10.6) k/uL RBC (4.30-5.90) m/uL Hgb (13.0-17.5) gm/dL Hct (39.0-53.0) % Plt Count (150-450) k/uL Neutrophils # (Manual) (1.3-7.7) k/uL PT (9.0-12.0) sec INR (<1.2) APTT (22.0-30.0) sec Chloride (98-107) mmol/L Glucose (74-99) mg/dL POC Glucose (mg/dL) 144 H 158 H 160 H (75-99) mg/dL ALT (21-72) U/L Total Protein (6.3-8.2) g/dL Albumin (3.5-5.0) g/dL Assessment and Plan Plan: Impression: #1 Coronary artery disease status post coronary artery bypass grafting utilizing a PUTNAM to the LAD, saphenous vein grafts to the ramus and diagonal branches. Postoperative day #2. #2 Severe aortic stenosis status post aortic valve replacement. Postoperative day #2. #3 Mechanical ventilatory support as an expected outcome following thoracotomy, extubated currently on 3 L/m per nasal cannula.. #4 Postoperative anemia as an expected outcome post thoracotomy. Current hemoglobin 7.1. #5 Previous history of chronic tobacco dependence. #6 Diabetes mellitus. #7 History of hypertension. #8 Hyperlipidemia. #9 History of dementia with significant altered mental status and confusion with some agitation. Plan: The patient was seen and evaluated by Dr. Ahn. His chest x-ray and labs were reviewed. He is currently stable from the pulmonary critical care standpoint. His altered mental status is the main issue in his recovery right now. Psychiatry has been consulted, they're recommending Risperdal. We will continue with his other medications. We'll continue to monitor him closely here in the intensive care unit. Repeat his chest x-ray and labs in the a.m. He is too altered to instruct on the incentive spirometer at this time. His family remains at the bedside.
--- NOTE | 2016-09-16 16:30 | P.CN ---
Psychiatric Consult - . Consult date: 09/16/16 Consult:: 09/16/16 15:37 Identification and Reason for Consult: Patient is an 81-year-old male who is being consulted for psychosis after CABG, becoming quite agitated. Patient is currently 2 days postop from a triple bypass and aortic valve replacement. Patient's chart was reviewed, spoke with the treating team the patient was seen with 3 family members present. Patient's family members provided all of the history as the patient was not able to do so. History of Present Illness: Patient is an 81-year-old male who was admitted on September 14 for aortic valve replacement and he also underwent a triple coronary artery bypass. Per the patient's family the patient was slightly confused yesterday, had his eyes open and was mumbling, apparently became quite agitated last evening trying to pull on IV lines, etc. Patient is seen in the intensive care unit and was observed to be constantly repeating phrases such as "come on" and at times pulling on his wrist restraints. Patient, per the family and nursing staff, after receiving medication (haldol iv and quetiapine) this morning did quiet down and appeared to be sleeping for several hours. Patient at times was calmer but this did not appear to be in response to any intervention by the family. Per the patient's family over the last 3-4 years the patient has had some difficulty with his short-term memory. Per his patient has been caring for his ADLs without assistance, he continues to drive short distances and has never gotten lost. Patient has never wandered from home nor has he ever gotten lost. Patient recognizes all members of his family and has never had any episodes of agitation at home. Patient has never had a CT or MRI of the brain to determine the etiology of his memory problems. Past Psychiatric History: Patient has no prior history of psychiatric treatment. Past Medical/Surgical History: [Patient has a history of aortic stenosis now status post aortic valve replacement; coronary artery disease now status post triple coronary artery bypass; type 2 diabetes mellitus, GERD, hypertension and elevated lipids.] Current Medications Hydrocodone Bitart/Acetaminophen ([place] 5-325) 2 each PO Q4HR PRN PRN Reason: Severe Pain Last Admin: 09/15/16 18:44 Dose: 2 each Hydrocodone Bitart/Acetaminophen ([place] 5-325) 1 each PO Q4HR PRN PRN Reason: Moderate Pain Albuterol/Ipratropium (Duoneb 0.5 Mg-3 Mg/3 Ml Soln) 3 ml INHALATION RT-Q2H PRN PRN Reason: Shortness Of Breath Or Wheezing Aspirin (Aspirin) 325 mg PO DAILY [facility] Last Admin: 09/16/16 09:09 Dose: 325 mg Atorvastatin Calcium (Lipitor) 40 mg PO DAILY [facility] Last Admin: 09/16/16 09:09 Dose: 40 mg Benzocaine/Menthol (Cepacol Lozenge) 1 each MUCOUS MEM Q2H PRN PRN Reason: Sore Throat Bisacodyl (Dulcolax) 10 mg RECTAL DAILY PRN PRN Reason: Constipation Clopidogrel Bisulfate (Plavix) 75 mg PO DAILY [facility] Last Admin: 09/16/16 09:09 Dose: 75 mg Haloperidol Lactate (Haldol) 0.5 mg IVP Q8HR PRN PRN Reason: Agitation or Acute Psychosis Last Admin: 09/16/16 09:36 Dose: 0.5 mg Heparin Sodium (Porcine) (Heparin) 5,000 unit SQ Q8HR [facility] Last Admin: 09/16/16 09:10 Dose: 5,000 unit Albumin Human 250 ml/ IV (Solution) 250 mls @ 250 mls/hr IVPB Q1HR PRN PRN Reason: For Volume Stop: 09/16/16 16:38 Last Admin: 09/16/16 05:17 Dose: 250 mls/hr Clevidipine 25 mg/ IV Solution 50 mls @ 2 mls/hr IV .Q24H JESUS; 1 MG/HR PRN Reason: Protocol Last Admin: 09/15/16 17:04 Dose: Not Given Insulin Human Regular 100 unit (/ Sodium Chloride) 101 mls @ 0 mls/hr IV .Q0M JESUS; Per Protocol PRN Reason: Protocol Last Titration: 09/16/16 06:48 Dose: 0.49 units/hr, 0.5 mls/hr Lactated Ringer's (Lactated Ringers) 1,000 mls @ 20 mls/hr IV .Q24H [facility]ESUS Last Admin: 09/15/16 17:02 Dose: 20 mls/hr Milrinone Lactate/Dextrose 20 (mg/ IV Solution) 100 mls @ 2.42 mls/hr IV .Q24H [facility]ESUS PRN Reason: 0.1 MCG/KG/MIN Last Infusion: 09/16/16 07:23 Dose: 0 mcg/kg/min, 0 mls/hr Norepinephrine Bitartrate (Levophed-0.9% Nacl 4 Mg/250ml Pmx) 4 mg in 250 mls @ 0 mls/hr IV .Q0M [facility]; Titrate PRN Reason: Protocol Ketorolac Tromethamine (Toradol) 15 mg IVP Q6H [facility] Stop: 09/20/16 09:01 Last Admin: 09/16/16 15:20 Dose: 15 mg Magnesium Hydroxide (Milk Of Magnesia) 2,400 mg PO BID PRN PRN Reason: Constipation Metoprolol Tartrate (Lopressor) 25 mg PO BID [facility] Last Admin: 09/16/16 09:09 Dose: 25 mg Miscellaneous Information (Magnesium Per Protocol) 1 each MISCELLANE DAILY PRN ; Protocol PRN Reason: Per Protocol Miscellaneous Information (Phosphorus Per Protocol) 1 each MISCELLANE DAILY PRN ; Protocol PRN Reason: Per Protocol Miscellaneous Information (Potassium Per Protocol) 1 each MISCELLANE DAILY PRN ; Protocol PRN Reason: Per Protocol Mupirocin (Bactroban Oint) 1 applic NASAL BID [facility] Stop: 09/17/16 21:01 Last Admin: 09/16/16 09:09 Dose: 1 applic Ondansetron HCl (Zofran) 4 mg IVP Q6HR PRN PRN Reason: Nausea And Vomiting Last Admin: 09/15/16 09:28 Dose: 4 mg Pantoprazole Sodium (Protonix) 40 mg IVP DAILY [facility] Last Admin: 09/16/16 09:10 Dose: 40 mg Quetiapine Fumarate (Seroquel) 50 mg PO BID [facility] Last Admin: 09/16/16 09:09 Dose: 50 mg Senna/Docusate Sodium (Senokot-S) 2 each PO HS [facility] Last Admin: 09/15/16 20:45 Dose: 2 each Sodium Chloride (Saline Flush) 10 ml IV BID [facility] Last Admin: 09/16/16 09:10 Dose: 10 ml Mental Status:Appearance/Attitude: Patient is in the intensive care unit, sitting up in bed with his eyes shut and is not responding to verbal commands. Behavior: Patient is not demonstrating any psychomotor retardation, however became acutely agitated last evening and while I was present today began pulling at his wrist restraints. Speech/Language: Patient was talking and repeating phrases such as "come on" and was not able to respond to questions. Thought Process: Unable to assess Thought Content: Unable to assess Suicidal/Homicidal Ideation: Unable to assess Sensorium/Cognition: Patient is not responding to his name, has his eyes shut but is repeating phrases over and over Mood/Affect: Patient appears agitated and at times pulls against his wrist restraints. Insight/Judgement: Unable to assess Assessment: Patient has become confused, agitated after having surgery on September 14, he has required medication to control his agitation and prevent any injury. Patient was given Ativan last evening and this morning he received Haldol 0.5 mg IV and Seroquel 50 mg orally with some benefit as the patient became less agitated and was sleeping, this lasted for about 5 hours. Laboratory Last Values WBC 13.1 k/uL (3.8-10.6) H 09/16/16 04:05 RBC 2.23 m/uL (4.30-5.90) L 09/16/16 04:05 Hgb 7.1 gm/dL (13.0-17.5) L 09/16/16 04:05 Hct 21.5 % (39.0-53.0) L 09/16/16 04:05 MCV 96.5 fL (80.0-100.0) 09/16/16 04:05 MCH 31.9 pg (25.0-35.0) 09/16/16 04:05 MCHC 33.1 g/dL (31.0-37.0) 09/16/16 04:05 RDW 15.0 % (11.5-15.5) 09/16/16 04:05 Plt Count 78 k/uL (150-450) L 09/16/16 04:05 Neutrophils % (Manual) 78 % 09/16/16 04:05 Band Neutrophils % 7.0 % 09/16/16 04:05 Lymphocytes % (Manual) 12 % 09/16/16 04:05 Monocytes % (Manual) 1 % 09/16/16 04:05 Eosinophils % (Manual) 2 % 09/16/16 04:05 Metamyelocytes % 2 % 09/14/16 17:43 Neutrophils # (Manual) 11.13 k/uL (1.3-7.7) H 09/16/16 04:05 Lymphocytes # (Manual) 1.57 k/uL (1.0-4.8) 09/16/16 04:05 Monocytes # (Manual) 0.13 k/uL (0-1.0) 09/16/16 04:05 Eosinophils # (Manual) 0.26 k/uL (0-0.7) 09/16/16 04:05 Nucleated RBCs 0 /100 WBC (0-0) 09/16/16 04:05 Manual Slide Review Performed 09/16/16 04:05 Polychromasia Present 09/14/16 21:00 Poikilocytosis (manual Present 09/16/16 04:05 PT 13.0 sec (9.0-12.0) H 09/16/16 04:05 INR 1.3 (<1.2) H 09/16/16 04:05 APTT 33.8 sec (22.0-30.0) H 09/16/16 04:05 Fibrinogen 177 mg/dL (200-500) L 09/14/16 17:43 Sample Site matlock 09/15/16 03:33 ABG pH 7.34 (7.35-7.45) L 09/15/16 03:33 ABG pCO2 41 mmHg (35-45) 09/15/16 03:33 ABG pO2 121 mmHg (83-108) H 09/15/16 03:33 ABG HCO3 22 mmol/L (21-25) 09/15/16 03:33 ABG Total CO2 23 mmol/L (19-24) 09/15/16 03:33 ABG O2 Saturation 99.0 % (94-97) H 09/15/16 03:33 ABG Base Excess -3.3 mmol/L 09/15/16 03:33 ABG Hematocrit 24 % (34.0-46.0) L 09/14/16 16:11 ABG Sodium 146 mmol/L (135-146) 09/14/16 16:11 ABG Potassium 4.2 mmol/L (3.4-4.5) 09/14/16 16:11 FiO2 40 % 09/15/16 03:33 Sodium 141 mmol/L (137-145) 09/16/16 04:05 Potassium 4.5 mmol/L (3.5-5.1) 09/16/16 04:05 Chloride 109 mmol/L (98-107) H 09/16/16 04:05 Carbon Dioxide 22 mmol/L (22-30) 09/16/16 04:05 Anion Gap 10 mmol/L 09/16/16 04:05 BUN 15 mg/dL (9-20) 09/16/16 04:05 Creatinine 1.00 mg/dL (0.66-1.25) 09/16/16 04:05 Est GFR (MDRD) Af Amer >60 (>60 ml/min/1.73 sqM) 09/16/16 04:05 Est GFR (MDRD) Non-Af >60 (>60 ml/min/1.73 sqM) 09/16/16 04:05 Glucose 126 mg/dL (74-99) H 09/16/16 04:05 POC Glucose (mg/dL) 160 mg/dL (75-99) H 09/16/16 14:49 POC Glu Mobile Architect ID Iván Meeks A 09/16/16 14:49 Calcium 8.5 mg/dL (8.4-10.2) 09/16/16 04:05 Ionized Calcium Eyal 4.9 mg/dL (4.5-5.3) 09/16/16 04:05 Magnesium 2.3 mg/dL (1.6-2.3) 09/16/16 04:05 Total Bilirubin 0.9 mg/dL (0.2-1.3) 09/16/16 04:05 AST 43 U/L (17-59) 09/16/16 04:05 ALT 18 U/L (21-72) L 09/16/16 04:05 Alkaline Phosphatase 40 U/L (38-126) 09/16/16 04:05 Total Protein 5.1 g/dL (6.3-8.2) L 09/16/16 04:05 Albumin 3.1 g/dL (3.5-5.0) L 09/16/16 04:05 Arterial Blood Potassium 4.2 mmol/L (3.4-4.5) 09/14/16 16:11 Blood Type O Positive 09/07/16 13:30 Blood Type Recheck No 09/07/16 13:30 Antibody Screen NEGATIVE 09/07/16 13:30 Crossmatch See Detail 09/07/16 13:30 Transfuse Plasma 09/14/16 09/14/16 16:00 Transfuse Platelets 09/14/16 09/07/16 13:30 Spec Expiration Date 09/16/2016 - 2330 09/07/16 13:30 Diagnosis: Delirium, multiple etiologies. Plan: I spoke with the treating team and when I was assessing the patient he was becoming more agitated and so dose of Zyprexa 2.5 mg was ordered and given. I returned to see patient after receiving the zyprexa, about 40 minutes later, patient was less agitated, continued to repeat phrases, did answer some questions appropriately, open your eyes, "I can't" but he did try to do so. Patient was not pulling on his restraints, at times would appear calmer. Will continue haldol 0.5mg IV q8 hrs prn for severe agitation and will start zyprexa 2.5mg every 6 hours as needed for agitation. Would not use any Ativan as this will only cause increasing confusion. Would continue to reorient the patient, family has been at bedside. I discussed my recommendations with his nurse and treating team. Thank you for the consultation, please don't hesitate to contact me if there are any questions or concerns. 09/16/16 16:16 09/16/16 16:23
[2016-09-16 17:16] LABS: Glucose,Whole Blood 162 mg/dL (75-99)
[2016-09-16] MEDS: CLEVIDIPINE BUTYRATE 25 MG in EMPTY BAG 1 BAG IV SCH (18:16)
[2016-09-16 18:57] LABS: Glucose,Whole Blood 155 mg/dL (75-99)
[2016-09-16] MEDS: OLANZapine 2.5 MG TAB PO PRN (19:16)
[2016-09-16 20:05] LABS: Glucose,Whole Blood 150 mg/dL (75-99)
[2016-09-16] MEDS: SENNOSIDES-DOCUSATE SODIUM 1 EACH TAB PO SCH (20:29)
[2016-09-16] MEDS ORDERED: DEXTROSE 5% IN WATER 100 ML with AMIODARONE 150 MG IV ONE (20:50)
[2016-09-16 20:59] LABS: Glucose,Whole Blood 140 mg/dL (75-99)
[2016-09-16] MEDS: AMIODARONE 450 MG in DEXTROSE 5% IN WATER 250 ML IV SCH ×2 (21:05)
[2016-09-16 21:59] LABS: Glucose,Whole Blood 163 mg/dL (75-99)
[2016-09-16 23:04] LABS: Glucose,Whole Blood 143 mg/dL (75-99)
[2016-09-16] MEDS: MILRINONE-D5W PMX 20 MG in DEXTROSE/WATER 1 100ML.BAG IV SCH (23:54)
[2016-09-17 00:12] LABS: Glucose,Whole Blood 132 mg/dL (75-99)
[2016-09-17 01:17] LABS: Anion Gap 11 mmol/L; Blood Urea Nitrogen 21 mg/dL (9-20); Calcium 8.7 mg/dL (8.4-10.2); Carbon Dioxide 24 mmol/L (22-30); Chloride 108 mmol/L (98-107); Glucose 122 mg/dL (74-99); Magnesium 2.5 mg/dL (1.6-2.3); Non-African American GFR(MDRD) >60 (>60 ml/min/1.73 sqM); Sodium 143 mmol/L (137-145)
[2016-09-17 01:24] LABS: Potassium 4.3 mmol/L (3.5-5.1)
[2016-09-17 02:02] LABS: Glucose,Whole Blood 118 mg/dL (75-99)
[2016-09-17] MEDS: OLANZapine 2.5 MG TAB PO PRN (02:04)
[2016-09-17 03:11] LABS: Glucose,Whole Blood 120 mg/dL (75-99)
[2016-09-17] MEDS: HYDROcodone/APAP 5-325MG 1 EACH TAB PO PRN (03:44)
[2016-09-17] MEDS: HEPARIN SODIUM,PORCINE 5,000 UNIT/ML 1 ML VIAL SQ SCH ×4 (03:52→23:52)
[2016-09-17] MEDS: KETOROLAC 30 MG/ML 1 ML VIAL IVP SCH ×4 (03:52→21:34)
[2016-09-17 04:35] LABS: Glucose,Whole Blood 142 mg/dL (75-99)
[2016-09-17] MEDS ORDERED: FUROSEMIDE 10 MG/ML 2 ML VIAL IV STA (04:47)
[2016-09-17 04:49] LABS: Aty Lym Flag Marked; CHCM 32.4; HCT 22.9 % (39.0-53.0); HGB 7.5 gm/dL (13.0-17.5); MCH 31.4 pg (25.0-35.0); MCHC 32.6 g/dL (31.0-37.0); MCV 96.4 fL (80.0-100.0); RBC 2.38 m/uL (4.30-5.90); RDW 14.3 % (11.5-15.5); WBC 12.9 k/uL (3.8-10.6); WBC (Perox) 14.61
[2016-09-17 04:57] LABS: ALT 31 U/L (21-72); AST 74 U/L (17-59); Alkaline Phosphatase 48 U/L (38-126); Anion Gap 10 mmol/L; Blood Urea Nitrogen 22 mg/dL (9-20); Calcium 8.5 mg/dL (8.4-10.2); Carbon Dioxide 23 mmol/L (22-30); Chloride 109 mmol/L (98-107); Glucose 137 mg/dL (74-99); Non-African American GFR(MDRD) >60 (>60 ml/min/1.73 sqM); Potassium 4.8 mmol/L (3.5-5.1); Sodium 142 mmol/L (137-145); Total Bilirubin 1.8 mg/dL (0.2-1.3); Total Protein 5.5 g/dL (6.3-8.2)
[2016-09-17 05:11] LABS: Add Differential Manual Differential
[2016-09-17 05:13] LABS: Manual Review Performed; Nucleated Red Blood Cells 0 /100 WBC (0-0); Total Cells Counted 100
[2016-09-17] MEDS: AMIODARONE 450 MG in DEXTROSE 5% IN WATER 250 ML IV SCH ×6 (05:23→21:31)
[2016-09-17 06:13] LABS: Glucose,Whole Blood 141 mg/dL (75-99)
--- NOTE | 2016-09-17 07:40 | XR ---
EXAMINATION TYPE: XR chest 1V portable DATE OF EXAM: 09/17/2016 Comparison: 09/16/2016 Clinical History: 81-year-old male post cardiac surgery Findings: Median sternotomy wires with prosthetic aortic valve and post-CABG clips. Left apical chest tube pres ent without appreciable pneumothorax. A left IJ sheath remains in place. Heart remains enlarged. Diffuse interstitial and vascular prominence. Small left effusion with a prom inent patchy retrocardiac and left basilar opacity. Impression: 1. Overall stable. Correlate for CHF and pulmonary vascular congestion/interstitial edema 2. Prominent retrocardiac and left basilar atelectasis and/or consolidation. Similar small left pleur al effusion is suspected as well.
[2016-09-17] MEDS: PANTOPRAZOLE 40 MG/10 ML VIAL IVP SCH (08:25)
[2016-09-17] MEDS: MUPIROCIN 2% OINT 22 GM TUBE NASAL SCH ×2 (08:25→21:33)
[2016-09-17] MEDS: LACTATED RINGERS 1,000 ML IV SCH ×2 (08:26→18:14)
[2016-09-17 08:34] LABS: Glucose,Whole Blood 123 mg/dL (75-99)
[2016-09-17 10:01] LABS: Glucose,Whole Blood 121 mg/dL (75-99)
[2016-09-17] MEDS: ASPIRIN 325 MG TAB PO SCH (10:13)
[2016-09-17] MEDS: ATORVASTATIN 40 MG TAB PO SCH (10:13)
[2016-09-17] MEDS: METOPROLOL TARTRATE 25 MG TAB PO SCH ×2 (10:13→21:33)
[2016-09-17] MEDS: CLOPIDOGREL 75 MG TAB PO SCH (10:13)
[2016-09-17] MEDS ORDERED: ALBUMIN HUMAN 5% 250 ML IVPB ONE ×3 (10:31→15:51)
[2016-09-17 12:42] LABS: Glucose,Whole Blood 139 mg/dL (75-99)
[2016-09-17 14:18] LABS: Glucose,Whole Blood 137 mg/dL (75-99)
--- NOTE | 2016-09-17 14:30 | P.PN ---
Subjective This is an 81-year-old gentleman who follows with Dr. Opal casarez as his primary care physician. He has a history of diabetes mellitus, gastroesophageal reflux disease, hyperlipidemia, hypertension. He follows with Dr. Elizalde in the office for aortic stenosis. He is also had worsening fatigue and dyspnea on exertion. His most recent echo revealed severe aortic stenosis and a drop in his ejection fraction along with reversible ischemia on a stress test. He had subsequently undergone cardiac catheterization which revealed multivessel coronary artery disease. He presented here today for an elective surgery which was performed today by Dr. Hannon. He received a PUTNAM to the LAD , saphenous vein grafts to the ramus and the diagonal branches along with aortic valve replacement. He is seen today in the intensive care unit immediately postoperative. He is currently on the mechanical ventilator at assist control of 12, tidal volume 450, FiO2 100% and a PEEP of 5. Current blood gases reveal pO2 of 248, pCO2 46, pH 7.33. There were unable to insert a [place] catheter. There is a left IJ present his current blood pressure 114/ 45, CVP of 16, he is in normal sinus rhythm with a first-degree heart block. Current drips are Primacor 0.3 mcg/kg/m, propofol 20 mcg/kg/m, insulin at 1 unit per hour. Lactated Ringer's at 50 MLS per hour. Levophed currently off. Chest x-ray shows evidence of fluid volume overload. There is a split mediastinal chest tubes and a left pleural chest tube in place. Hemoglobin 5.5 which is being rerun in the lab currently. He did receive 2 units of fresh frozen plasma, 1 unit of platelets, 400 of Cell Saver and 1 unit of autologous blood. Estimated blood loss was 2000 MLS. The patient is seen again today 09/15/2016 in follow-up in the intensive care unit. He was successfully extubated and is maintaining good O2 saturations in the upper 90s on 3 L/m per nasal cannula. His chest x-ray reveals bilateral infiltrates with small effusions. He was given Lasix 20 mg IV push 1. Currently in a negative balance. He is sternal and left pleural chest tubes are in place. He remains on milrinone at 0.1 mcg/kg/m. He is on lactated Ringer's at 50 MLS per hour. He is on a insulin drip at 1 unit per hour. His remaining in normal sinus rhythm. He did receive a total of 2 units of packed red blood cells, 2 units of fresh frozen plasma, 1 unit of pheresis platelets. His current hemoglobin is 7.7. Platelet count 100,000. The patient is seen again today 09/16/2016 in follow-up in the intensive care unit. The patient has had ongoing issues with altered mental status and confusion. Yelling out. Disoriented to place and time. He has required Haldol and Seroquel. He is currently receiving lactated Ringer's at 20 miles per hour. The milrinone has been discontinued. He did receive albumin 250 MLS. He remains on insulin drip at 0.5 units per hour. He has remained hemodynamically stable. CVP 16. WBC 13.1. Hemoglobin 7.1. Platelet count 78, 000. He is maintaining good O2 saturations in the 90s on 2 L/m per nasal cannula. His remaining in sinus rhythm. His chest x-ray does show some persistent basilar densities but improvement in overall aeration. On 09/17/2016 the patient is being seen in follow-up. Active issue remains his delirium as the patient has an underlying dementia in addition. He is taken Zyprexa 2.5 mg every 6 hours as needed. He is calm and comfortable. Overnight he also received IV Haldol. Hemodynamically stable. Resting comfortably in bed. In fact quite sleepy. This point. He is however easily arousable. No respiratory distress. No aspiration. Sternum stable clean and intact. Still on 2 L of oxygen nasal cannula. The milrinone drip was discontinued. He did go into atrial fibrillation currently is on amiodarone drip as loading. Rhythm is back to sinus at this point and well-controlled. Hemoglobin is at 7.5 and stable. Chest x-ray showing CHF with pulmonary vessel congestion and interstitial edema. There is also small left pleural effusion suspected. Objective - Vital Signs Vital signs: Vital Signs Temp 98.1 F 09/17/16 12:00 Pulse 62 09/17/16 14:00 Resp 25 H 09/17/16 14:00 BP 142/69 09/17/16 14:00 Pulse Ox 82 L 09/17/16 14:00 Intake & Output 09/16/16 09/17/16 09/17/16 18:59 06:59 18:59 Intake Total 342.454 849.825 250.592 Output Total 770 610 200 Balance -427.546 239.825 50.592 Weight 89.8 kg 88.7 kg 88.7 kg Intake: IV 213 583 214 Lactated Ringers 1,000 ml 210 550 190 @ 20 mls/hr IV .Q24H [facility] Rx#:[id number] Pressure Bag 3 33 24 Intake, IV Titration 129.454 266.825 36.592 Amount Amiodarone 450 mg In 254.650 Dextrose 5% in Water 250 ml @ 1 MG/MIN 34.53 mls/ hr IV .Q7H31M [facility] Rx#: [id number] Insulin Regular 100 unit 12.175 16.592 In Sodium Chloride 0.9% 100 ml @ Per Protocol IV .Q0M [facility] Rx#:[id number] Lactated Ringers 1,000 ml 60 20 @ 20 mls/hr IV .Q24H [facility] Rx#:[id number] Milrinone-D5w Pmx 20 mg 69.454 In Dextrose/Water 1 100ml .bag @ 0.1 MCG/KG/MIN 2. 42 mls/hr IV .Q24H [facility] Rx #:[id number] Oral 0 Output: Chest Tube Drainage 135 320 60 Chest Tube Left 125 320 60 Mediastinal 10 Drainage 45 Right Calf 45 Urine 590 290 140 Other: Voiding Method Indwelling Catheter Indwelling Catheter Indwelling Catheter ABP, PAP, CO, CI - Last Documented Arterial Blood Pressure 147/52 Pulmonary Artery Pressure 141/53 - Exam Head exam was generally normal. There was no scleral icterus or corneal arcus. Mucous membranes were moist.Neck was supple and without jugular venous distension, thyromegaly, or carotid bruits. Carotids were easily palpable bilaterally. There was no adenopathy. Lung sounds are diminished bilaterally otherwise clear. No wheezes or rhonchi. Heart sounds are regular, normal S1- S2 and the sternum stable clean and intact.Abdominal exam revealed normal bowel sounds. The abdomen was soft, non-tender, and without masses, organomegaly, or appreciable enlargement of the abdominal aorta. Examination of the extremities revealed easily palpable radial, femoral and pedal pulses. There was no cyanosis , clubbing or edema. neurologically the patient is quite sedated under the influence of Zyprexa. He was having some confusion and agitation earlier which got treated. - Labs CBC & Chem 7: 09/17/16 04:36 09/17/16 04:36 Labs: Abnormal Lab Results - Last 24 Hours (Table) 09/16/16 09/16/16 09/16/16 Range/Units 14:49 17:14 18:55 WBC (3.8-10.6) k/uL RBC (4.30-5.90) m/uL Hgb (13.0-17.5) gm/dL Hct (39.0-53.0) % Plt Count (150-450) k/uL Neutrophils # (Manual) (1.3-7.7) k/uL Chloride (98-107) mmol/L BUN (9-20) mg/dL Glucose (74-99) mg/dL POC Glucose (mg/dL) 160 H 162 H 155 H (75-99) mg/dL Magnesium (1.6-2.3) mg/dL Total Bilirubin (0.2-1.3) mg/dL AST (17-59) U/L Total Protein (6.3-8.2) g/dL Albumin (3.5-5.0) g/dL 09/16/16 09/16/16 09/16/16 Range/Units 20:03 20:57 21:58 WBC (3.8-10.6) k/uL RBC (4.30-5.90) m/uL Hgb (13.0-17.5) gm/dL Hct (39.0-53.0) % Plt Count (150-450) k/uL Neutrophils # (Manual) (1.3-7.7) k/uL Chloride (98-107) mmol/L BUN (9-20) mg/dL Glucose (74-99) mg/dL POC Glucose (mg/dL) 150 H 140 H 163 H (75-99) mg/dL Magnesium (1.6-2.3) mg/dL Total Bilirubin (0.2-1.3) mg/dL AST (17-59) U/L Total Protein (6.3-8.2) g/dL Albumin (3.5-5.0) g/dL 09/16/16 09/17/16 09/17/16 Range/Units 23:02 00:11 00:48 WBC (3.8-10.6) k/uL RBC (4.30-5.90) m/uL Hgb (13.0-17.5) gm/dL Hct (39.0-53.0) % Plt Count (150-450) k/uL Neutrophils # (Manual) (1.3-7.7) k/uL Chloride 108 H (98-107) mmol/L BUN 21 H (9-20) mg/dL Glucose 122 H (74-99) mg/dL POC Glucose (mg/dL) 143 H 132 H (75-99) mg/dL Magnesium 2.5 H (1.6-2.3) mg/dL Total Bilirubin (0.2-1.3) mg/dL AST (17-59) U/L Total Protein (6.3-8.2) g/dL Albumin (3.5-5.0) g/dL 09/17/16 09/17/16 09/17/16 Range/Units 02:00 03:10 04:33 WBC (3.8-10.6) k/uL RBC (4.30-5.90) m/uL Hgb (13.0-17.5) gm/dL Hct (39.0-53.0) % Plt Count (150-450) k/uL Neutrophils # (Manual) (1.3-7.7) k/uL Chloride (98-107) mmol/L BUN (9-20) mg/dL Glucose (74-99) mg/dL POC Glucose (mg/dL) 118 H 120 H 142 H (75-99) mg/dL Magnesium (1.6-2.3) mg/dL Total Bilirubin (0.2-1.3) mg/dL AST (17-59) U/L Total Protein (6.3-8.2) g/dL Albumin (3.5-5.0) g/dL 09/17/16 09/17/16 09/17/16 Range/Units 04:36 04:36 06:12 WBC 12.9 H (3.8-10.6) k/uL RBC 2.38 L (4.30-5.90) m/uL Hgb 7.5 L (13.0-17.5) gm/dL Hct 22.9 L (39.0-53.0) % Plt Count 100 L (150-450) k/uL Neutrophils # (Manual) 10.19 H (1.3-7.7) k/uL Chloride 109 H (98-107) mmol/L BUN 22 H (9-20) mg/dL Glucose 137 H (74-99) mg/dL POC Glucose (mg/dL) 141 H (75-99) mg/dL Magnesium (1.6-2.3) mg/dL Total Bilirubin 1.8 H (0.2-1.3) mg/dL AST 74 H (17-59) U/L Total Protein 5.5 L (6.3-8.2) g/dL Albumin 3.3 L (3.5-5.0) g/dL 09/17/16 09/17/16 09/17/16 Range/Units 08:32 09:59 12:40 WBC (3.8-10.6) k/uL RBC (4.30-5.90) m/uL Hgb (13.0-17.5) gm/dL Hct (39.0-53.0) % Plt Count (150-450) k/uL Neutrophils # (Manual) (1.3-7.7) k/uL Chloride (98-107) mmol/L BUN (9-20) mg/dL Glucose (74-99) mg/dL POC Glucose (mg/dL) 123 H 121 H 139 H (75-99) mg/dL Magnesium (1.6-2.3) mg/dL Total Bilirubin (0.2-1.3) mg/dL AST (17-59) U/L Total Protein (6.3-8.2) g/dL Albumin (3.5-5.0) g/dL 09/17/16 Range/Units 14:17 WBC (3.8-10.6) k/uL RBC (4.30-5.90) m/uL Hgb (13.0-17.5) gm/dL Hct (39.0-53.0) % Plt Count (150-450) k/uL Neutrophils # (Manual) (1.3-7.7) k/uL Chloride (98-107) mmol/L BUN (9-20) mg/dL Glucose (74-99) mg/dL POC Glucose (mg/dL) 137 H (75-99) mg/dL Magnesium (1.6-2.3) mg/dL Total Bilirubin (0.2-1.3) mg/dL AST (17-59) U/L Total Protein (6.3-8.2) g/dL Albumin (3.5-5.0) g/dL Assessment and Plan Plan: Impression: #1 Coronary artery disease status post coronary artery bypass grafting utilizing a PUTNAM to the LAD, saphenous vein grafts to the ramus and diagonal branches. Postoperative day #3. #2 Severe aortic stenosis status post aortic valve replacement. Postoperative day #3. The left-sided chest tube still in place with diminished output. #3 postoperative the ileum currently on Zyprexa. No active agitation. #4 Postoperative anemia as an expected outcome post thoracotomy. Current hemoglobin 7.5 #5 Previous history of chronic tobacco dependence. #6 Diabetes mellitus. #7 History of hypertension. #8 Hyperlipidemia. #9 History of dementia #10 postoperative atrial fibrillation currently on amiodarone, rhythm is back to sinus. Plan Monitor the output from the chest tube and consider removing it at a later stage. Complete then amiodarone and switched to oral. Zyprexa for agitation and delirium. Haldol for agitation. We'll try to encourage incentive spirometer once awake and cooperative. Chest x-ray was reviewed from today. We 'll continue to follow.
--- NOTE | 2016-09-17 15:03 | P.PN ---
Subjective This is an 81-year-old gentleman who follows with Dr. San as his primary care physician. He has a history of diabetes mellitus, gastroesophageal reflux disease, hyperlipidemia, hypertension. He follows with Dr. Elizalde in the office for aortic stenosis. He is also had worsening fatigue and dyspnea on exertion. His most recent echo revealed severe aortic stenosis and a drop in his ejection fraction along with reversible ischemia on a stress test. He had subsequently undergone cardiac catheterization which revealed multivessel coronary artery disease. He presented here today for an elective surgery which was performed today by Dr. Hannon. He received a PUTNAM to the LAD, saphenous vein grafts to the ramus and the diagonal branches along with aortic valve replacement. Patient was seen in the ICU sitting in a recliner appears a bit confused with minimal short term memory deficit, there is chest wall pain and minimal cough. 09/16: issues lethargic this morning and contributing factors include lack of sleep, Ativan during the night, Haldol and Seroquel 50 mg given this morning. Patient was very uncooperative and combative and confused. Would recommend Seroquel at 12.5 mg to 25 mg twice daily only. Psychiatric consult was added. patient is sitting in bed and appears to be in no acute distress but again quite lethargic. 09/17: Patient's more oriented however he is a bit drowsy, patient required Seroquel as recommended by psychiatry, patient remains in ICU, can follow commands, patient with dry mouth no aspirations observed by nursing staff Objective - Vital Signs Vital signs: Vital Signs Temp 98.1 F 09/17/16 12:00 Pulse 62 09/17/16 14:00 Resp 25 H 09/17/16 14:00 BP 142/69 09/17/16 14:00 Pulse Ox 82 L 09/17/16 14:00 Intake & Output 09/16/16 09/17/16 09/17/16 18:59 06:59 18:59 Intake Total 342.454 849.825 250.592 Output Total 770 610 200 Balance -427.546 239.825 50.592 Weight 89.8 kg 88.7 kg 88.7 kg Intake: IV 213 583 214 Lactated Ringers 1,000 ml 210 550 190 @ 20 mls/hr IV .Q24H [facility] Rx#:[id number] Pressure Bag 3 33 24 Intake, IV Titration 129.454 266.825 36.592 Amount Amiodarone 450 mg In 254.650 Dextrose 5% in Water 250 ml @ 1 MG/MIN 34.53 mls/ hr IV .Q7H31M [facility] Rx#: [id number] Insulin Regular 100 unit 12.175 16.592 In Sodium Chloride 0.9% 100 ml @ Per Protocol IV .Q0M [facility] Rx#:[id number] Lactated Ringers 1,000 ml 60 20 @ 20 mls/hr IV .Q24H [facility] Rx#:[id number] Milrinone-D5w Pmx 20 mg 69.454 In Dextrose/Water 1 100ml .bag @ 0.1 MCG/KG/MIN 2. 42 mls/hr IV .Q24H [facility] Rx #:[id number] Oral 0 Output: Chest Tube Drainage 135 320 60 Chest Tube Left 125 320 60 Mediastinal 10 Drainage 45 Right Calf 45 Urine 590 290 140 Other: Voiding Method Indwelling Catheter Indwelling Catheter Indwelling Catheter ABP, PAP, CO, CI - Last Documented Arterial Blood Pressure 147/52 Pulmonary Artery Pressure 141/53 - Constitutional General appearance: Present: cooperative, no acute distress - EENT Eyes: Present: anicteric sclerae, EOMI, PERRLA, normal appearance ENT: Present: NA/AT, normal oropharynx - Neck Neck: Present: normal ROM - Respiratory Respiratory: bilateral: CTA, diminished, negative: dullness, rales, rhonchi, wheezing, prolonged expiration - Cardiovascular Rhythm: regular Heart sounds: normal: S1, S2 Abnormal Heart Sounds: Absent: systolic murmur, diastolic murmur, rub, S3 Gallop , S4 Gallop, click, other - Gastrointestinal General gastrointestinal: Present: normal bowel sounds, soft - Integumentary Integumentary: Present: normal - Neurologic Neurologic: Present: focal deficits (lethargic) - Musculoskeletal Musculoskeletal: Present: generalized weakness - Labs CBC & Chem 7: 09/17/16 04:36 09/17/16 04:36 Labs: Abnormal Lab Results - Last 24 Hours (Table) 09/16/16 09/16/16 09/16/16 Range/Units 17:14 18:55 20:03 WBC (3.8-10.6) k/uL RBC (4.30-5.90) m/uL Hgb (13.0-17.5) gm/dL Hct (39.0-53.0) % Plt Count (150-450) k/uL Neutrophils # (Manual) (1.3-7.7) k/uL Chloride (98-107) mmol/L BUN (9-20) mg/dL Glucose (74-99) mg/dL POC Glucose (mg/dL) 162 H 155 H 150 H (75-99) mg/dL Magnesium (1.6-2.3) mg/dL Total Bilirubin (0.2-1.3) mg/dL AST (17-59) U/L Total Protein (6.3-8.2) g/dL Albumin (3.5-5.0) g/dL 09/16/16 09/16/16 09/16/16 Range/Units 20:57 21:58 23:02 WBC (3.8-10.6) k/uL RBC (4.30-5.90) m/uL Hgb (13.0-17.5) gm/dL Hct (39.0-53.0) % Plt Count (150-450) k/uL Neutrophils # (Manual) (1.3-7.7) k/uL Chloride (98-107) mmol/L BUN (9-20) mg/dL Glucose (74-99) mg/dL POC Glucose (mg/dL) 140 H 163 H 143 H (75-99) mg/dL Magnesium (1.6-2.3) mg/dL Total Bilirubin (0.2-1.3) mg/dL AST (17-59) U/L Total Protein (6.3-8.2) g/dL Albumin (3.5-5.0) g/dL 09/17/16 09/17/16 09/17/16 Range/Units 00:11 00:48 02:00 WBC (3.8-10.6) k/uL RBC (4.30-5.90) m/uL Hgb (13.0-17.5) gm/dL Hct (39.0-53.0) % Plt Count (150-450) k/uL Neutrophils # (Manual) (1.3-7.7) k/uL Chloride 108 H (98-107) mmol/L BUN 21 H (9-20) mg/dL Glucose 122 H (74-99) mg/dL POC Glucose (mg/dL) 132 H 118 H (75-99) mg/dL Magnesium 2.5 H (1.6-2.3) mg/dL Total Bilirubin (0.2-1.3) mg/dL AST (17-59) U/L Total Protein (6.3-8.2) g/dL Albumin (3.5-5.0) g/dL 09/17/16 09/17/16 09/17/16 Range/Units 03:10 04:33 04:36 WBC (3.8-10.6) k/uL RBC (4.30-5.90) m/uL Hgb (13.0-17.5) gm/dL Hct (39.0-53.0) % Plt Count (150-450) k/uL Neutrophils # (Manual) (1.3-7.7) k/uL Chloride 109 H (98-107) mmol/L BUN 22 H (9-20) mg/dL Glucose 137 H (74-99) mg/dL POC Glucose (mg/dL) 120 H 142 H (75-99) mg/dL Magnesium (1.6-2.3) mg/dL Total Bilirubin 1.8 H (0.2-1.3) mg/dL AST 74 H (17-59) U/L Total Protein 5.5 L (6.3-8.2) g/dL Albumin 3.3 L (3.5-5.0) g/dL 09/17/16 09/17/16 09/17/16 Range/Units 04:36 06:12 08:32 WBC 12.9 H (3.8-10.6) k/uL RBC 2.38 L (4.30-5.90) m/uL Hgb 7.5 L (13.0-17.5) gm/dL Hct 22.9 L (39.0-53.0) % Plt Count 100 L (150-450) k/uL Neutrophils # (Manual) 10.19 H (1.3-7.7) k/uL Chloride (98-107) mmol/L BUN (9-20) mg/dL Glucose (74-99) mg/dL POC Glucose (mg/dL) 141 H 123 H (75-99) mg/dL Magnesium (1.6-2.3) mg/dL Total Bilirubin (0.2-1.3) mg/dL AST (17-59) U/L Total Protein (6.3-8.2) g/dL Albumin (3.5-5.0) g/dL 09/17/16 09/17/16 09/17/16 Range/Units 09:59 12:40 14:17 WBC (3.8-10.6) k/uL RBC (4.30-5.90) m/uL Hgb (13.0-17.5) gm/dL Hct (39.0-53.0) % Plt Count (150-450) k/uL Neutrophils # (Manual) (1.3-7.7) k/uL Chloride (98-107) mmol/L BUN (9-20) mg/dL Glucose (74-99) mg/dL POC Glucose (mg/dL) 121 H 139 H 137 H (75-99) mg/dL Magnesium (1.6-2.3) mg/dL Total Bilirubin (0.2-1.3) mg/dL AST (17-59) U/L Total Protein (6.3-8.2) g/dL Albumin (3.5-5.0) g/dL Assessment and Plan Plan: . Status post CABG X3 with AVR. Continue current management as per cardiothoracic surgery, cardiology, pulmonary medicine, continue aggressive pulmonary toileting, continue metoprolol 12.5 mg orally twice every day, restart the patient on statin, continue patient on aspirin 325 mg orally once every day, continue Plavix any 5 mg orally once every day, pain control, increase activity. 2. Post vent dependent respiratory failure secondary to CABG 3 and AVR, expected. Patient was extubated continue aggressive pulmonary toileting, encourage the usage of incentive spirometer. 3. Hypertension and hypertensive cardiovascular disease. Continue metoprolol 12.5 mg orally twice every day, start the patient on small dose of losartan when more stable. 4. Hyperlipidemia. restart Lipitor 80 mg orally daily. 5. Diabetes Mellitus type 2. will continue with insulin drip. 6. Vascular dementia with behavioral disturbance. Patient has received Ativan which may have contributed to his confusion, and is discontinued, patient is on Seroquel 2.5 mg every 4 times a day when necessary Haldol IV for severe agitation and psychosis. Vitamin B12 to be checked, thyroid function test is normal 7. Metabolic encephalopathy secondary to a combination of lack of sleep, vascular dementia, Ativan, Haldol and Seroquel. Avoid Ativan. 8. DVT prophylaxis. SCD;s and GRANT wraps. 9. GI prophylaxis . continue with protonix 40 mg IVP daily. 10. Full code. Discharge plan: To be determined
[2016-09-17 16:09] LABS: Glucose,Whole Blood 111 mg/dL (75-99)
--- NOTE | 2016-09-17 17:43 | P.PN ---
Subjective Principal diagnosis: Symptomatic multivessel coronary artery disease. Severe aortic valve stenosis with mild aortic regurgitation. Preserved left ventricular function. Type 2 diabetes mellitus. GERD. Hypertension. Hyperlipidemia. Previous tobacco dependence. POD #3 elective triple-vessel coronary artery bypass grafting using the left internal mammary artery to the left anterior descending artery, reverse saphenous vein graft from the aorta to the ramus artery, reverse saphenous vein graft from the aorta to the diagonal artery. Aortic valve replacement using a 25 mm pericardial bioprosthesis magna ease. Endoscopic vein harvesting of the right greater saphenous vein. Intraoperative transesophageal echocardiogram and epi-aortic scanning. Intraoperative graft flow measurement using the InnoCytestim system. Patient is laying in bed with his head of bed elevated he is in no acute distress. He is agitated and sedated. He is following simple commands appropriately and moving all 4 extremities. His bedside nurse reports that he has been agitated, confused and combative throughout the night. His and daughter are at the bedside presently comforting the patient. He is oriented 1. Objective - Vital Signs Vital signs: Vital Signs Temp 98.3 F 09/17/16 16:00 Pulse 67 09/17/16 16:00 Resp 23 09/17/16 16:00 BP 166/91 09/17/16 16:00 Pulse Ox 97 09/17/16 16:00 Intake & Output 09/16/16 09/17/16 09/17/16 18:59 06:59 18:59 Intake Total 342.454 849.825 569.487 Output Total 770 610 360 Balance -427.546 239.825 209.487 Weight 89.8 kg 88.7 kg 88.7 kg Intake: IV 213 583 280 Lactated Ringers 1,000 ml 210 550 250 @ 20 mls/hr IV .Q24H [facility] Rx#:[id number] Pressure Bag 3 33 30 Intake, IV Titration 129.454 266.825 289.487 Amount Albumin Human 5% 250 ml 250 In Empty Bag 1 bag @ 250 mls/hr IVPB Q1HR PRN Rx#: [id number] Amiodarone 450 mg In 254.650 Dextrose 5% in Water 250 ml @ 1 MG/MIN 34.53 mls/ hr IV .Q7H31M [facility]US Rx#: [id number] Insulin Regular 100 unit 12.175 19.487 In Sodium Chloride 0.9% 100 ml @ Per Protocol IV .Q0M [facility]US Rx#:[id number] Lactated Ringers 1,000 ml 60 20 @ 20 mls/hr IV .Q24H [facility] Rx#:[id number] Milrinone-D5w Pmx 20 mg 69.454 In Dextrose/Water 1 100ml .bag @ 0.1 MCG/KG/MIN 2. 42 mls/hr IV .Q24H [facility] Rx #:[id number] Oral 0 Output: Chest Tube Drainage 135 320 150 Chest Tube Left 125 320 150 Mediastinal 10 Drainage 45 Right Calf 45 Urine 590 290 210 Other: Voiding Method Indwelling Catheter Indwelling Catheter Indwelling Catheter ABP, PAP, CO, CI - Last Documented Arterial Blood Pressure 147/52 Pulmonary Artery Pressure 141/53 - Constitutional Constitutional Comment(s): He is in no acute distress. He is agitated and confused. He is attempting to pull his gown and sheet off. - Neck Details: Left IJ Cordis in place continuous CVP monitoring, his current CVP pressure is 10. No JVD present. - Respiratory Details: Lungs are essentially clear throughout, diminished to his bilateral bases. Respirations are symmetrical and unlabored. His current oxygen saturations are 96% on 2 L nasal cannula. He is unable to use his incentive spirometry with direct showing at this time due to his agitation and confusion. His left pleural chest tube remains in place and without air leak. It is draining thin serosanguineous drainage. Remains to low continuous wall suction. 240 mL output in the last 8 hours, 400 mL output in the last 24 hours. - Cardiovascular Details: Irregular rhythm with controlled rate. S1 and S2 present, negative for S3, gallop or murmur. Bedside telemetry showing atrial fibrillation heart rate 65. AV epicardial pacemaker wires in place and grounded. His sternum is stable. His heart hugger is in place and is unable to use his heart hugger appropriately due to his agitation and confusion. He has knee-high GRZEGORZ hose and sequential compression devices in place to his bilateral lower extremities No edema present. - Gastrointestinal Gastrointestinal Comment(s): Abdomen is soft, nontender, and nondistended. Bowel sounds are present in all 4 abdominal quadrants. He is tolerating sips of water. - Genitourinary Genitourinary Comment(s): Marginal urine output, Lindsey catheter for accurate I&O. Dark nighat urine. - Musculoskeletal Musculoskeletal: Present: generalized weakness, strength equal bilaterally - Psychiatric Psychiatric Comment(s): He is oriented 1 to person. He states the year is 1936. Attempts made to re- orientate patient to time and place. He remains agitated and confused. - Allied health notes Allied health notes reviewed: nursing - Labs CBC & Chem 7: 09/17/16 04:36 09/17/16 04:36 Labs: Abnormal Lab Results - Last 24 Hours (Table) 09/16/16 09/16/16 09/16/16 Range/Units 18:55 20:03 20:57 WBC (3.8-10.6) k/uL RBC (4.30-5.90) m/uL Hgb (13.0-17.5) gm/dL Hct (39.0-53.0) % Plt Count (150-450) k/uL Neutrophils # (Manual) (1.3-7.7) k/uL Chloride (98-107) mmol/L BUN (9-20) mg/dL Glucose (74-99) mg/dL POC Glucose (mg/dL) 155 H 150 H 140 H (75-99) mg/dL Magnesium (1.6-2.3) mg/dL Total Bilirubin (0.2-1.3) mg/dL AST (17-59) U/L Total Protein (6.3-8.2) g/dL Albumin (3.5-5.0) g/dL 09/16/16 09/16/16 09/17/16 Range/Units 21:58 23:02 00:11 WBC (3.8-10.6) k/uL RBC (4.30-5.90) m/uL Hgb (13.0-17.5) gm/dL Hct (39.0-53.0) % Plt Count (150-450) k/uL Neutrophils # (Manual) (1.3-7.7) k/uL Chloride (98-107) mmol/L BUN (9-20) mg/dL Glucose (74-99) mg/dL POC Glucose (mg/dL) 163 H 143 H 132 H (75-99) mg/dL Magnesium (1.6-2.3) mg/dL Total Bilirubin (0.2-1.3) mg/dL AST (17-59) U/L Total Protein (6.3-8.2) g/dL Albumin (3.5-5.0) g/dL 09/17/16 09/17/16 09/17/16 Range/Units 00:48 02:00 03:10 WBC (3.8-10.6) k/uL RBC (4.30-5.90) m/uL Hgb (13.0-17.5) gm/dL Hct (39.0-53.0) % Plt Count (150-450) k/uL Neutrophils # (Manual) (1.3-7.7) k/uL Chloride 108 H (98-107) mmol/L BUN 21 H (9-20) mg/dL Glucose 122 H (74-99) mg/dL POC Glucose (mg/dL) 118 H 120 H (75-99) mg/dL Magnesium 2.5 H (1.6-2.3) mg/dL Total Bilirubin (0.2-1.3) mg/dL AST (17-59) U/L Total Protein (6.3-8.2) g/dL Albumin (3.5-5.0) g/dL 09/17/16 09/17/16 09/17/16 Range/Units 04:33 04:36 04:36 WBC 12.9 H (3.8-10.6) k/uL RBC 2.38 L (4.30-5.90) m/uL Hgb 7.5 L (13.0-17.5) gm/dL Hct 22.9 L (39.0-53.0) % Plt Count 100 L (150-450) k/uL Neutrophils # (Manual) 10.19 H (1.3-7.7) k/uL Chloride 109 H (98-107) mmol/L BUN 22 H (9-20) mg/dL Glucose 137 H (74-99) mg/dL POC Glucose (mg/dL) 142 H (75-99) mg/dL Magnesium (1.6-2.3) mg/dL Total Bilirubin 1.8 H (0.2-1.3) mg/dL AST 74 H (17-59) U/L Total Protein 5.5 L (6.3-8.2) g/dL Albumin 3.3 L (3.5-5.0) g/dL 09/17/16 09/17/16 09/17/16 Range/Units 06:12 08:32 09:59 WBC (3.8-10.6) k/uL RBC (4.30-5.90) m/uL Hgb (13.0-17.5) gm/dL Hct (39.0-53.0) % Plt Count (150-450) k/uL Neutrophils # (Manual) (1.3-7.7) k/uL Chloride (98-107) mmol/L BUN (9-20) mg/dL Glucose (74-99) mg/dL POC Glucose (mg/dL) 141 H 123 H 121 H (75-99) mg/dL Magnesium (1.6-2.3) mg/dL Total Bilirubin (0.2-1.3) mg/dL AST (17-59) U/L Total Protein (6.3-8.2) g/dL Albumin (3.5-5.0) g/dL 09/17/16 09/17/16 09/17/16 Range/Units 12:40 14:17 16:07 WBC (3.8-10.6) k/uL RBC (4.30-5.90) m/uL Hgb (13.0-17.5) gm/dL Hct (39.0-53.0) % Plt Count (150-450) k/uL Neutrophils # (Manual) (1.3-7.7) k/uL Chloride (98-107) mmol/L BUN (9-20) mg/dL Glucose (74-99) mg/dL POC Glucose (mg/dL) 139 H 137 H 111 H (75-99) mg/dL Magnesium (1.6-2.3) mg/dL Total Bilirubin (0.2-1.3) mg/dL AST (17-59) U/L Total Protein (6.3-8.2) g/dL Albumin (3.5-5.0) g/dL - Imaging and Cardiology Chest x-ray: report reviewed, image reviewed Assessment and Plan (1) Tobacco dependence in remission Status: Acute (2) Coronary artery disease Status: Acute (3) Hyperlipidemia Status: Acute (4) Hypertension Status: Acute (5) Severe aortic stenosis Status: Acute (6) Type 2 diabetes mellitus Status: Acute Plan: 1. Continue aspirin, Lipitor, Plavix, beta gregg. Will maximize beta gregg therapy as tolerated. 2. Discontinue his left IJ Cordis. 3. Seroquel scheduled started, Haldol when necessary ordered. Consult placed for psychiatry to address mental status. 4. Wean O2 as tolerated. Encourage incentive spirometer use. 5. Increase activity, out of bed to chair. Physical therapy to follow. 6. GI/DVT prophylaxis. 7. Insulin management per primary care service. 8. Will monitor daily labs, chest x-rays. 9. More recommendations as patient progresses. Time with Patient: Greater than 30
[2016-09-17] MEDS: CLEVIDIPINE BUTYRATE 25 MG in EMPTY BAG 1 BAG IV SCH (18:12)
[2016-09-17] MEDS: MILRINONE-D5W PMX 20 MG in DEXTROSE/WATER 1 100ML.BAG IV SCH (18:15)
[2016-09-17 18:18] LABS: Glucose,Whole Blood 119 mg/dL (75-99)
[2016-09-17 20:15] LABS: Glucose,Whole Blood 152 mg/dL (75-99)
--- NOTE | 2016-09-17 20:19 | P.PN ---
Subjective Principal diagnosis: Status post open heart This is a pleasant 81-year-old gentleman who sees Dr. Elizalde as an outpatient who was admitted to the hospital yesterday and underwent aortic valve replacement along with CABG 3 with PUTNAM to LAD, SVG to diagonal, and SVG to ramus intermedius. On follow-up with the patient today he is very confused and he is agitated. Objective - Vital Signs Vital signs: Vital Signs Temp 98.3 F 09/17/16 16:00 Pulse 72 09/17/16 19:00 Resp 19 09/17/16 19:00 BP 151/84 09/17/16 19:00 Pulse Ox 96 09/17/16 19:00 Intake & Output 09/17/16 09/17/16 09/18/16 06:59 18:59 06:59 Intake Total 849.825 665.487 Output Total 610 415 Balance 239.825 250.487 Weight 88.7 kg 88.7 kg Intake: IV 583 376 Lactated Ringers 1,000 ml 550 340 @ 20 mls/hr IV .Q24H [facility] Rx#:[id number] Pressure Bag 33 36 Intake, IV Titration 266.825 289.487 Amount Albumin Human 5% 250 ml 250 In Empty Bag 1 bag @ 250 mls/hr IVPB Q1HR PRN Rx#: [id number] Amiodarone 450 mg In 254.650 Dextrose 5% in Water 250 ml @ 1 MG/MIN 34.53 mls/ hr IV .Q7H31M [facility] Rx#: [id number] Insulin Regular 100 unit 12.175 19.487 In Sodium Chloride 0.9% 100 ml @ Per Protocol IV .Q0M [facility] Rx#:[id number] Lactated Ringers 1,000 ml 20 @ 20 mls/hr IV .Q24H [facility] Rx#:[id number] Output: Chest Tube Drainage 320 170 Chest Tube Left 320 170 Urine 290 245 Other: Voiding Method Indwelling Catheter Indwelling Catheter ABP, PAP, CO, CI - Last Documented Arterial Blood Pressure 147/52 Pulmonary Artery Pressure 141/53 - Constitutional General appearance: Present: mild distress - Labs CBC & Chem 7: 09/17/16 04:36 09/17/16 04:36 Labs: Abnormal Lab Results - Last 24 Hours (Table) 09/16/16 09/16/16 09/16/16 Range/Units 20:57 21:58 23:02 WBC (3.8-10.6) k/uL RBC (4.30-5.90) m/uL Hgb (13.0-17.5) gm/dL Hct (39.0-53.0) % Plt Count (150-450) k/uL Neutrophils # (Manual) (1.3-7.7) k/uL Chloride (98-107) mmol/L BUN (9-20) mg/dL Glucose (74-99) mg/dL POC Glucose (mg/dL) 140 H 163 H 143 H (75-99) mg/dL Magnesium (1.6-2.3) mg/dL Total Bilirubin (0.2-1.3) mg/dL AST (17-59) U/L Total Protein (6.3-8.2) g/dL Albumin (3.5-5.0) g/dL 09/17/16 09/17/16 09/17/16 Range/Units 00:11 00:48 02:00 WBC (3.8-10.6) k/uL RBC (4.30-5.90) m/uL Hgb (13.0-17.5) gm/dL Hct (39.0-53.0) % Plt Count (150-450) k/uL Neutrophils # (Manual) (1.3-7.7) k/uL Chloride 108 H (98-107) mmol/L BUN 21 H (9-20) mg/dL Glucose 122 H (74-99) mg/dL POC Glucose (mg/dL) 132 H 118 H (75-99) mg/dL Magnesium 2.5 H (1.6-2.3) mg/dL Total Bilirubin (0.2-1.3) mg/dL AST (17-59) U/L Total Protein (6.3-8.2) g/dL Albumin (3.5-5.0) g/dL 09/17/16 09/17/16 09/17/16 Range/Units 03:10 04:33 04:36 WBC (3.8-10.6) k/uL RBC (4.30-5.90) m/uL Hgb (13.0-17.5) gm/dL Hct (39.0-53.0) % Plt Count (150-450) k/uL Neutrophils # (Manual) (1.3-7.7) k/uL Chloride 109 H (98-107) mmol/L BUN 22 H (9-20) mg/dL Glucose 137 H (74-99) mg/dL POC Glucose (mg/dL) 120 H 142 H (75-99) mg/dL Magnesium (1.6-2.3) mg/dL Total Bilirubin 1.8 H (0.2-1.3) mg/dL AST 74 H (17-59) U/L Total Protein 5.5 L (6.3-8.2) g/dL Albumin 3.3 L (3.5-5.0) g/dL 09/17/16 09/17/16 09/17/16 Range/Units 04:36 06:12 08:32 WBC 12.9 H (3.8-10.6) k/uL RBC 2.38 L (4.30-5.90) m/uL Hgb 7.5 L (13.0-17.5) gm/dL Hct 22.9 L (39.0-53.0) % Plt Count 100 L (150-450) k/uL Neutrophils # (Manual) 10.19 H (1.3-7.7) k/uL Chloride (98-107) mmol/L BUN (9-20) mg/dL Glucose (74-99) mg/dL POC Glucose (mg/dL) 141 H 123 H (75-99) mg/dL Magnesium (1.6-2.3) mg/dL Total Bilirubin (0.2-1.3) mg/dL AST (17-59) U/L Total Protein (6.3-8.2) g/dL Albumin (3.5-5.0) g/dL 09/17/16 09/17/16 09/17/16 Range/Units 09:59 12:40 14:17 WBC (3.8-10.6) k/uL RBC (4.30-5.90) m/uL Hgb (13.0-17.5) gm/dL Hct (39.0-53.0) % Plt Count (150-450) k/uL Neutrophils # (Manual) (1.3-7.7) k/uL Chloride (98-107) mmol/L BUN (9-20) mg/dL Glucose (74-99) mg/dL POC Glucose (mg/dL) 121 H 139 H 137 H (75-99) mg/dL Magnesium (1.6-2.3) mg/dL Total Bilirubin (0.2-1.3) mg/dL AST (17-59) U/L Total Protein (6.3-8.2) g/dL Albumin (3.5-5.0) g/dL 09/17/16 09/17/16 09/17/16 Range/Units 16:07 18:17 20:13 WBC (3.8-10.6) k/uL RBC (4.30-5.90) m/uL Hgb (13.0-17.5) gm/dL Hct (39.0-53.0) % Plt Count (150-450) k/uL Neutrophils # (Manual) (1.3-7.7) k/uL Chloride (98-107) mmol/L BUN (9-20) mg/dL Glucose (74-99) mg/dL POC Glucose (mg/dL) 111 H 119 H 152 H (75-99) mg/dL Magnesium (1.6-2.3) mg/dL Total Bilirubin (0.2-1.3) mg/dL AST (17-59) U/L Total Protein (6.3-8.2) g/dL Albumin (3.5-5.0) g/dL Assessment and Plan Plan: This is a pleasant 81-year-old gentleman who was admitted to the hospital yesterday and underwent aortic valve replacement along with CABG 3 as described above. We'll continue the current medical treatment which included dual antiplatelet therapy and statin. Continue monitor the heart rate and the patient has been maintaining normal sinus mechanism. We'll continue following up with him.
[2016-09-17 21:06] LABS: Glucose,Whole Blood 144 mg/dL (75-99)
[2016-09-17] MEDS: AMIODARONE 200 MG TAB PO SCH (21:33)
[2016-09-17] MEDS: SENNOSIDES-DOCUSATE SODIUM 1 EACH TAB PO SCH (21:34)
[2016-09-17 22:03] LABS: Glucose,Whole Blood 170 mg/dL (75-99)
[2016-09-17 23:46] LABS: Glucose,Whole Blood 128 mg/dL (75-99)
[2016-09-18 01:55] LABS: Glucose,Whole Blood 124 mg/dL (75-99)
[2016-09-18] MEDS: HYDROcodone/APAP 5-325MG 1 EACH TAB PO PRN (02:00)
[2016-09-18] MEDS ORDERED: FUROSEMIDE 10 MG/ML 2 ML VIAL IV ONE ×2 (02:26→07:30)
[2016-09-18] MEDS: KETOROLAC 30 MG/ML 1 ML VIAL IVP SCH ×2 (03:46→08:42)
[2016-09-18 04:28] LABS: Glucose,Whole Blood 156 mg/dL (75-99)
[2016-09-18 05:25] LABS: Aty Lym Flag Marked; CH 31.1; CHCM 31.9; HDW 2.81; MCH 31.6 pg (25.0-35.0); MCHC 32.3 g/dL (31.0-37.0); MCV 98.1 fL (80.0-100.0); Mean Platelet Volume 9.4; RBC 2.14 m/uL (4.30-5.90); RDW 14.4 % (11.5-15.5); WBC 13.8 k/uL (3.8-10.6)
[2016-09-18 05:28] LABS: HGB 6.8 gm/dL (13.0-17.5)
[2016-09-18 05:36] LABS: ALT 78 U/L (21-72); AST 161 U/L (17-59); Alkaline Phosphatase 52 U/L (38-126); Anion Gap 15 mmol/L; Blood Urea Nitrogen 29 mg/dL (9-20); Calcium 8.4 mg/dL (8.4-10.2); Carbon Dioxide 18 mmol/L (22-30); Chloride 109 mmol/L (98-107); Glucose 145 mg/dL (74-99); Magnesium 2.4 mg/dL (1.6-2.3); Non-African American GFR(MDRD) >60 (>60 ml/min/1.73 sqM); Phosphorous 2.6 mg/dL (2.5-4.5); Potassium 4.2 mmol/L (3.5-5.1); Sodium 142 mmol/L (137-145); Total Bilirubin 3.1 mg/dL (0.2-1.3); Total Protein 5.3 g/dL (6.3-8.2)
[2016-09-18 05:56] LABS: Add Differential Manual Differential
[2016-09-18 06:01] LABS: Manual Review Performed; Nucleated Red Blood Cells 0 /100 WBC (0-0); Total Cells Counted 100
[2016-09-18 07:58] LABS: Glucose,Whole Blood 157 mg/dL (75-99)
--- NOTE | 2016-09-18 08:25 | XR ---
EXAMINATION TYPE: XR chest 1V portable DATE OF EXAM: 09/18/2016 Comparison: 09/17/2016 Clinical History: 81-year-old male FLUID OVERLOAD Findings: Median sternotomy wires are present with post-CABG clips. Prosthetic aortic valve. There is an apical ly directed left-sided chest tube without appreciable pneumothorax. Multiple old left-sided rib fract ures are present. Diffuse interstitial and vascular prominence. Fluid thickening the minor fissure. P rominent retrocardiac opacity likely in part due to underlying hiatal hernia. Additional left basilar opacity with suggestion of small left effusion. Skinfolds projecting at the peripheral right midlung . Impression: 1. Cardiomegaly with interstitial opacities. Correlate for continued CHF and pulmonary vascular conge stion/interstitial edema. 2. Small left effusion. Prominent retrocardiac and left basilar opacity likely in part relates to the patient's hiatal hernia. Continued underlying atelectasis/consolidation suggested.
[2016-09-18] MEDS: PANTOPRAZOLE 40 MG/10 ML VIAL IVP SCH (08:39)
[2016-09-18] MEDS: FERROUS SULFATE 325 MG TAB PO SCH (08:39)
[2016-09-18] MEDS: HEPARIN SODIUM,PORCINE 5,000 UNIT/ML 1 ML VIAL SQ SCH ×2 (08:40→16:10)
[2016-09-18] MEDS: CLOPIDOGREL 75 MG TAB PO SCH (08:40)
[2016-09-18] MEDS: METOPROLOL TARTRATE 25 MG TAB PO SCH ×2 (08:40→21:14)
[2016-09-18] MEDS: AMIODARONE 200 MG TAB PO SCH (08:40)
[2016-09-18] MEDS: ATORVASTATIN 40 MG TAB PO SCH (08:41)
[2016-09-18] MEDS: ASPIRIN 325 MG TAB PO SCH (08:41)
--- NOTE | 2016-09-18 09:03 | P.PN ---
Subjective This is an 81-year-old gentleman who follows with Dr. Opal casarez as his primary care physician. He has a history of diabetes mellitus, gastroesophageal reflux disease, hyperlipidemia, hypertension. He follows with Dr. Elizalde in the office for aortic stenosis. He is also had worsening fatigue and dyspnea on exertion. His most recent echo revealed severe aortic stenosis and a drop in his ejection fraction along with reversible ischemia on a stress test. He had subsequently undergone cardiac catheterization which revealed multivessel coronary artery disease. He presented here today for an elective surgery which was performed today by Dr. Hannon. He received a PUTNAM to the LAD , saphenous vein grafts to the ramus and the diagonal branches along with aortic valve replacement. He is seen today in the intensive care unit immediately postoperative. He is currently on the mechanical ventilator at assist control of 12, tidal volume 450, FiO2 100% and a PEEP of 5. Current blood gases reveal pO2 of 248, pCO2 46, pH 7.33. There were unable to insert a [place] catheter. There is a left IJ present his current blood pressure 114/ 45, CVP of 16, he is in normal sinus rhythm with a first-degree heart block. Current drips are Primacor 0.3 mcg/kg/m, propofol 20 mcg/kg/m, insulin at 1 unit per hour. Lactated Ringer's at 50 MLS per hour. Levophed currently off. Chest x-ray shows evidence of fluid volume overload. There is a split mediastinal chest tubes and a left pleural chest tube in place. Hemoglobin 5.5 which is being rerun in the lab currently. He did receive 2 units of fresh frozen plasma, 1 unit of platelets, 400 of Cell Saver and 1 unit of autologous blood. Estimated blood loss was 2000 MLS. The patient is seen again today 09/15/2016 in follow-up in the intensive care unit. He was successfully extubated and is maintaining good O2 saturations in the upper 90s on 3 L/m per nasal cannula. His chest x-ray reveals bilateral infiltrates with small effusions. He was given Lasix 20 mg IV push 1. Currently in a negative balance. He is sternal and left pleural chest tubes are in place. He remains on milrinone at 0.1 mcg/kg/m. He is on lactated Ringer's at 50 MLS per hour. He is on a insulin drip at 1 unit per hour. His remaining in normal sinus rhythm. He did receive a total of 2 units of packed red blood cells, 2 units of fresh frozen plasma, 1 unit of pheresis platelets. His current hemoglobin is 7.7. Platelet count 100,000. The patient is seen again today 09/16/2016 in follow-up in the intensive care unit. The patient has had ongoing issues with altered mental status and confusion. Yelling out. Disoriented to place and time. He has required Haldol and Seroquel. He is currently receiving lactated Ringer's at 20 miles per hour. The milrinone has been discontinued. He did receive albumin 250 MLS. He remains on insulin drip at 0.5 units per hour. He has remained hemodynamically stable. CVP 16. WBC 13.1. Hemoglobin 7.1. Platelet count 78, 000. He is maintaining good O2 saturations in the 90s on 2 L/m per nasal cannula. His remaining in sinus rhythm. His chest x-ray does show some persistent basilar densities but improvement in overall aeration. On 09/17/2016 the patient is being seen in follow-up. Active issue remains his delirium as the patient has an underlying dementia in addition. He is taken Zyprexa 2.5 mg every 6 hours as needed. He is calm and comfortable. Overnight he also received IV Haldol. Hemodynamically stable. Resting comfortably in bed. In fact quite sleepy. This point. He is however easily arousable. No respiratory distress. No aspiration. Sternum stable clean and intact. Still on 2 L of oxygen nasal cannula. The milrinone drip was discontinued. He did go into atrial fibrillation currently is on amiodarone drip as loading. Rhythm is back to sinus at this point and well-controlled. Hemoglobin is at 7.5 and stable. Chest x-ray showing CHF with pulmonary vessel congestion and interstitial edema. There is also small left pleural effusion suspected. On 09/20/2016 I'm seeing this patient in follow-up. Mentation is improved considerably. The patient did not require any Zyprexa. 2 no cough or pain control. Hemodynamically stable. Left sided chest tube in place. Put out approximately 0 that cc since morning it is such that she will be kept in place. Chest x-ray shows no pneumothorax. Lungs are well expanded. His off milrinone. Producing adequate amount of urine output. Cardiac rhythm is sinus and he is on oral amiodarone. No respiratory distress. Sternum stable clean and intact. Hemoglobin is down to 6.8 and the patient will be receiving a unit of packed RBC. Lasix will be given after the units of blood. Objective - Vital Signs Vital signs: Vital Signs Temp 98.7 F 09/18/16 04:00 Pulse 63 09/18/16 08:00 Resp 18 09/18/16 08:00 BP 176/71 09/18/16 08:00 Pulse Ox 98 09/18/16 08:00 Intake & Output 09/17/16 09/18/16 09/18/16 18:59 06:59 18:59 Intake Total 665.487 315.361 20 Output Total 415 464 245 Balance 250.487 -148.639 -225 Weight 88.7 kg Intake: IV 376 220 20 Lactated Ringers 1,000 ml 340 220 20 @ 20 mls/hr IV .Q24H [facility] Rx#:[id number] Pressure Bag 36 Intake, IV Titration 289.487 5.361 Amount Albumin Human 5% 250 ml 250 In Empty Bag 1 bag @ 250 mls/hr IVPB Q1HR PRN Rx#: [id number] Insulin Regular 100 unit 19.487 5.361 In Sodium Chloride 0.9% 100 ml @ Per Protocol IV .Q0M [facility]US Rx#:[id number] Lactated Ringers 1,000 ml 20 @ 20 mls/hr IV .Q24H [facility] Rx#:[id number] Oral 90 Output: Chest Tube Drainage 170 130 20 Chest Tube Left 170 130 20 Urine 245 334 225 Other: Voiding Method Indwelling Catheter Indwelling Catheter ABP, PAP, CO, CI - Last Documented Arterial Blood Pressure 147/52 Pulmonary Artery Pressure 141/53 - Exam Head exam was generally normal. There was no scleral icterus or corneal arcus. Mucous membranes were moist.Neck was supple and without jugular venous distension, thyromegaly, or carotid bruits. Carotids were easily palpable bilaterally. There was no adenopathy. Lung sounds are diminished bilaterally otherwise clear. No wheezes or rhonchi. Heart sounds are regular, normal S1- S2 and the sternum stable clean and intact.Abdominal exam revealed normal bowel sounds. The abdomen was soft, non-tender, and without masses, organomegaly, or appreciable enlargement of the abdominal aorta. Examination of the extremities revealed easily palpable radial, femoral and pedal pulses. There was no cyanosis , clubbing or edema. neurologically the patient is quite sedated under the influence of Zyprexa. He was having some confusion and agitation earlier which got treated. - Labs CBC & Chem 7: 09/18/16 04:54 09/18/16 04:54 Labs: Abnormal Lab Results - Last 24 Hours (Table) 09/17/16 09/17/16 09/17/16 Range/Units 09:59 12:40 14:17 WBC (3.8-10.6) k/uL RBC (4.30-5.90) m/uL Hgb (13.0-17.5) gm/dL Hct (39.0-53.0) % Plt Count (150-450) k/uL Neutrophils # (Manual) (1.3-7.7) k/uL Lymphocytes # (Manual) (1.0-4.8) k/uL Chloride (98-107) mmol/L Carbon Dioxide (22-30) mmol/L BUN (9-20) mg/dL Glucose (74-99) mg/dL POC Glucose (mg/dL) 121 H 139 H 137 H (75-99) mg/dL Magnesium (1.6-2.3) mg/dL Total Bilirubin (0.2-1.3) mg/dL AST (17-59) U/L ALT (21-72) U/L Total Protein (6.3-8.2) g/dL Albumin (3.5-5.0) g/dL 09/17/16 09/17/16 09/17/16 Range/Units 16:07 18:17 20:13 WBC (3.8-10.6) k/uL RBC (4.30-5.90) m/uL Hgb (13.0-17.5) gm/dL Hct (39.0-53.0) % Plt Count (150-450) k/uL Neutrophils # (Manual) (1.3-7.7) k/uL Lymphocytes # (Manual) (1.0-4.8) k/uL Chloride (98-107) mmol/L Carbon Dioxide (22-30) mmol/L BUN (9-20) mg/dL Glucose (74-99) mg/dL POC Glucose (mg/dL) 111 H 119 H 152 H (75-99) mg/dL Magnesium (1.6-2.3) mg/dL Total Bilirubin (0.2-1.3) mg/dL AST (17-59) U/L ALT (21-72) U/L Total Protein (6.3-8.2) g/dL Albumin (3.5-5.0) g/dL 09/17/16 09/17/16 09/17/16 Range/Units 21:04 22:01 23:44 WBC (3.8-10.6) k/uL RBC (4.30-5.90) m/uL Hgb (13.0-17.5) gm/dL Hct (39.0-53.0) % Plt Count (150-450) k/uL Neutrophils # (Manual) (1.3-7.7) k/uL Lymphocytes # (Manual) (1.0-4.8) k/uL Chloride (98-107) mmol/L Carbon Dioxide (22-30) mmol/L BUN (9-20) mg/dL Glucose (74-99) mg/dL POC Glucose (mg/dL) 144 H 170 H 128 H (75-99) mg/dL Magnesium (1.6-2.3) mg/dL Total Bilirubin (0.2-1.3) mg/dL AST (17-59) U/L ALT (21-72) U/L Total Protein (6.3-8.2) g/dL Albumin (3.5-5.0) g/dL 09/18/16 09/18/16 09/18/16 Range/Units 01:54 04:27 04:54 WBC 13.8 H (3.8-10.6) k/uL RBC 2.14 L (4.30-5.90) m/uL Hgb 6.8 L* (13.0-17.5) gm/dL Hct 21.0 L (39.0-53.0) % Plt Count 124 L (150-450) k/uL Neutrophils # (Manual) 13.38 H (1.3-7.7) k/uL Lymphocytes # (Manual) 0.14 L (1.0-4.8) k/uL Chloride (98-107) mmol/L Carbon Dioxide (22-30) mmol/L BUN (9-20) mg/dL Glucose (74-99) mg/dL POC Glucose (mg/dL) 124 H 156 H (75-99) mg/dL Magnesium (1.6-2.3) mg/dL Total Bilirubin (0.2-1.3) mg/dL AST (17-59) U/L ALT (21-72) U/L Total Protein (6.3-8.2) g/dL Albumin (3.5-5.0) g/dL 09/18/16 09/18/16 Range/Units 04:54 07:56 WBC (3.8-10.6) k/uL RBC (4.30-5.90) m/uL Hgb (13.0-17.5) gm/dL Hct (39.0-53.0) % Plt Count (150-450) k/uL Neutrophils # (Manual) (1.3-7.7) k/uL Lymphocytes # (Manual) (1.0-4.8) k/uL Chloride 109 H (98-107) mmol/L Carbon Dioxide 18 L (22-30) mmol/L BUN 29 H (9-20) mg/dL Glucose 145 H (74-99) mg/dL POC Glucose (mg/dL) 157 H (75-99) mg/dL Magnesium 2.4 H (1.6-2.3) mg/dL Total Bilirubin 3.1 H (0.2-1.3) mg/dL AST 161 H (17-59) U/L ALT 78 H (21-72) U/L Total Protein 5.3 L (6.3-8.2) g/dL Albumin 3.1 L (3.5-5.0) g/dL Assessment and Plan Plan: Impression: #1 Coronary artery disease status post coronary artery bypass grafting utilizing a PUTNAM to the LAD, saphenous vein grafts to the ramus and diagonal branches. Postoperative day #4. #2 Severe aortic stenosis status post aortic valve replacement. Postoperative day #4. The left-sided chest tube still in place with an output of 300 mL since morning. #3 postoperative delirium, currently on Zyprexa. No active agitation. Patient is not required Zyprexa overnight. #4 Postoperative anemia as an expected outcome post thoracotomy. Current hemoglobin 6.8, and the patient be receiving a unit of packed RBC #5 Previous history of chronic tobacco dependence. #6 Diabetes mellitus. Patient is on 1 units an hour of insulin drip and the patient will be switched to sliding scale coverage. #7 History of hypertension. #8 Hyperlipidemia. #9 History of dementia #10 postoperative atrial fibrillation currently on amiodarone, rhythm is back to sinus. Plan Mentation is improved. We'll continue to follow. No need for Zyprexa at this point. Give units of packed RBC. Lasix 40 mg following the transfusion. Stop insulin drip and put the patient on a sliding scale insulin coverage. May start Januvia and metformin at a later stage once the patient is back to his regular diet. We'll continue to follow. He'll be kept in ICU. There is a sitter at the bedside.
[2016-09-18 10:10] LABS: Glucose,Whole Blood 174 mg/dL (75-99)
[2016-09-18] MEDS: INSULIN REGULAR 100 UNIT in SODIUM CHLORIDE 0.9% 100 ML IV SCH (10:12)
[2016-09-18 12:42] LABS: Glucose,Whole Blood 139 mg/dL (75-99)
--- NOTE | 2016-09-18 14:24 | P.PN ---
Subjective Principal diagnosis: Status post open heart This is a pleasant 81-year-old gentleman who sees Dr. Elizalde as an outpatient who was admitted to the hospital yesterday and underwent aortic valve replacement along with CABG 3 with PUTNAM to LAD, SVG to diagonal, and SVG to ramus intermedius. On follow-up with the patient today the change in mental status has improved significantly. Objective - Vital Signs Vital signs: Vital Signs Temp 97.4 F L 09/18/16 12:00 Pulse 51 L 09/18/16 13:00 Resp 13 09/18/16 13:00 BP 126/54 09/18/16 13:00 Pulse Ox 98 09/18/16 13:00 Intake & Output 09/17/16 09/18/16 09/18/16 18:59 06:59 18:59 Intake Total 665.487 315.361 572.883 Output Total 210 408 1192 Balance 250.487 -148.639 -692.117 Weight 88.7 kg 88.7 kg Intake: IV 376 220 140 Lactated Ringers 1,000 ml 340 220 140 @ 20 mls/hr IV .Q24H [facility] Rx#:[id number] Pressure Bag 36 Intake, IV Titration 289.487 5.361 2.883 Amount Albumin Human 5% 250 ml 250 In Empty Bag 1 bag @ 250 mls/hr IVPB Q1HR PRN Rx#: [id number] Insulin Regular 100 unit 19.487 5.361 2.883 In Sodium Chloride 0.9% 100 ml @ Per Protocol IV .Q0M [facility] Rx#:[id number] Lactated Ringers 1,000 ml 20 @ 20 mls/hr IV .Q24H [facility] Rx#:[id number] Oral 90 120 Blood Product 310 Rc Pheresis 2 As3 Unit 310 [id number] Output: Chest Tube Drainage 170 130 370 Chest Tube Left 170 130 370 Urine 245 334 895 Other: Voiding Method Indwelling Catheter Indwelling Catheter Indwelling Catheter # Bowel Movements 1 ABP, PAP, CO, CI - Last Documented Arterial Blood Pressure 147/52 Pulmonary Artery Pressure 141/53 - Constitutional General appearance: Present: no acute distress - Respiratory Respiratory: bilateral: diminished - Cardiovascular Rhythm: regular Heart sounds: normal: S1, S2 - Labs CBC & Chem 7: 09/18/16 04:54 09/18/16 04:54 Labs: Abnormal Lab Results - Last 24 Hours (Table) 09/07/16 09/17/16 09/17/16 Range/Units 13:30 16:07 18:17 WBC (3.8-10.6) k/uL RBC (4.30-5.90) m/uL Hgb (13.0-17.5) gm/dL Hct (39.0-53.0) % Plt Count (150-450) k/uL Neutrophils # (Manual) (1.3-7.7) k/uL Lymphocytes # (Manual) (1.0-4.8) k/uL Chloride (98-107) mmol/L Carbon Dioxide (22-30) mmol/L BUN (9-20) mg/dL Glucose (74-99) mg/dL POC Glucose (mg/dL) 111 H 119 H (75-99) mg/dL Magnesium (1.6-2.3) mg/dL Total Bilirubin (0.2-1.3) mg/dL AST (17-59) U/L ALT (21-72) U/L Total Protein (6.3-8.2) g/dL Albumin (3.5-5.0) g/dL Crossmatch See Detail 09/17/16 09/17/16 09/17/16 Range/Units 20:13 21:04 22:01 WBC (3.8-10.6) k/uL RBC (4.30-5.90) m/uL Hgb (13.0-17.5) gm/dL Hct (39.0-53.0) % Plt Count (150-450) k/uL Neutrophils # (Manual) (1.3-7.7) k/uL Lymphocytes # (Manual) (1.0-4.8) k/uL Chloride (98-107) mmol/L Carbon Dioxide (22-30) mmol/L BUN (9-20) mg/dL Glucose (74-99) mg/dL POC Glucose (mg/dL) 152 H 144 H 170 H (75-99) mg/dL Magnesium (1.6-2.3) mg/dL Total Bilirubin (0.2-1.3) mg/dL AST (17-59) U/L ALT (21-72) U/L Total Protein (6.3-8.2) g/dL Albumin (3.5-5.0) g/dL Crossmatch 09/17/16 09/18/16 09/18/16 Range/Units 23:44 01:54 04:27 WBC (3.8-10.6) k/uL RBC (4.30-5.90) m/uL Hgb (13.0-17.5) gm/dL Hct (39.0-53.0) % Plt Count (150-450) k/uL Neutrophils # (Manual) (1.3-7.7) k/uL Lymphocytes # (Manual) (1.0-4.8) k/uL Chloride (98-107) mmol/L Carbon Dioxide (22-30) mmol/L BUN (9-20) mg/dL Glucose (74-99) mg/dL POC Glucose (mg/dL) 128 H 124 H 156 H (75-99) mg/dL Magnesium (1.6-2.3) mg/dL Total Bilirubin (0.2-1.3) mg/dL AST (17-59) U/L ALT (21-72) U/L Total Protein (6.3-8.2) g/dL Albumin (3.5-5.0) g/dL Crossmatch 09/18/16 09/18/16 09/18/16 Range/Units 04:54 04:54 07:56 WBC 13.8 H (3.8-10.6) k/uL RBC 2.14 L (4.30-5.90) m/uL Hgb 6.8 L* (13.0-17.5) gm/dL Hct 21.0 L (39.0-53.0) % Plt Count 124 L (150-450) k/uL Neutrophils # (Manual) 13.38 H (1.3-7.7) k/uL Lymphocytes # (Manual) 0.14 L (1.0-4.8) k/uL Chloride 109 H (98-107) mmol/L Carbon Dioxide 18 L (22-30) mmol/L BUN 29 H (9-20) mg/dL Glucose 145 H (74-99) mg/dL POC Glucose (mg/dL) 157 H (75-99) mg/dL Magnesium 2.4 H (1.6-2.3) mg/dL Total Bilirubin 3.1 H (0.2-1.3) mg/dL AST 161 H (17-59) U/L ALT 78 H (21-72) U/L Total Protein 5.3 L (6.3-8.2) g/dL Albumin 3.1 L (3.5-5.0) g/dL Crossmatch 09/18/16 09/18/16 09/18/16 Range/Units 08:10 10:09 12:39 WBC (3.8-10.6) k/uL RBC (4.30-5.90) m/uL Hgb (13.0-17.5) gm/dL Hct (39.0-53.0) % Plt Count (150-450) k/uL Neutrophils # (Manual) (1.3-7.7) k/uL Lymphocytes # (Manual) (1.0-4.8) k/uL Chloride (98-107) mmol/L Carbon Dioxide (22-30) mmol/L BUN (9-20) mg/dL Glucose (74-99) mg/dL POC Glucose (mg/dL) 174 H 139 H (75-99) mg/dL Magnesium (1.6-2.3) mg/dL Total Bilirubin (0.2-1.3) mg/dL AST (17-59) U/L ALT (21-72) U/L Total Protein (6.3-8.2) g/dL Albumin (3.5-5.0) g/dL Crossmatch See Detail Assessment and Plan Plan: This is a pleasant 81-year-old gentleman who was admitted to the hospital yesterday and underwent aortic valve replacement along with CABG 3 as described above. We'll continue the current medical treatment which included dual antiplatelet therapy and statin. Continue monitor the heart rate and the patient has been maintaining normal sinus mechanism. We'll continue following up with him.
[2016-09-18 15:51] LABS: Aty Lym Flag Marked; CHCM 32.6; HCT 25.7 % (39.0-53.0); HDW 3.13; MCH 32.1 pg (25.0-35.0); MCHC 33.5 g/dL (31.0-37.0); MCV 95.8 fL (80.0-100.0); RBC 2.68 m/uL (4.30-5.90); RDW 14.5 % (11.5-15.5); WBC 11.5 k/uL (3.8-10.6); WBC (Perox) 12.37
[2016-09-18 15:53] LABS: HGB 8.6 gm/dL (13.0-17.5)
[2016-09-18] MEDS: LISINOPRIL 10 MG TAB PO SCH (16:10)
--- NOTE | 2016-09-18 17:04 | P.PN ---
Subjective This is an 81-year-old gentleman who follows with Dr. San as his primary care physician. He has a history of diabetes mellitus, gastroesophageal reflux disease, hyperlipidemia, hypertension. He follows with Dr. Elizalde in the office for aortic stenosis. He is also had worsening fatigue and dyspnea on exertion. His most recent echo revealed severe aortic stenosis and a drop in his ejection fraction along with reversible ischemia on a stress test. He had subsequently undergone cardiac catheterization which revealed multivessel coronary artery disease. He presented here today for an elective surgery which was performed today by Dr. Hannon. He received a PUTNAM to the LAD, saphenous vein grafts to the ramus and the diagonal branches along with aortic valve replacement. Patient was seen in the ICU sitting in a recliner appears a bit confused with minimal short term memory deficit, there is chest wall pain and minimal cough. 09/16: issues lethargic this morning and contributing factors include lack of sleep, Ativan during the night, Haldol and Seroquel 50 mg given this morning. Patient was very uncooperative and combative and confused. Would recommend Seroquel at 12.5 mg to 25 mg twice daily only. Psychiatric consult was added. patient is sitting in bed and appears to be in no acute distress but again quite lethargic. 09/17: Patient's more oriented however he is a bit drowsy, patient required Seroquel as recommended by psychiatry, patient remains in ICU, can follow commands, patient with dry mouth no aspirations observed by nursing staff 09/18: Patient remains in ICU, mentation has improved significantly, patient's more lucid, did not require any sedation or antipsychotics at this point, he is to receive 1 unit of packed red blood cells for hemoglobin of 6.8, patient is comfortable, chest tube and left side remains in place insulin drip is now switched to sliding scale, 1 diet is more consistent, home blood sugar medications will be resumed Objective - Vital Signs Vital signs: Vital Signs Temp 98.0 F 09/18/16 16:00 Pulse 55 L 09/18/16 16:00 Resp 16 09/18/16 16:00 BP 140/56 09/18/16 16:00 Pulse Ox 96 09/18/16 16:00 Intake & Output 09/17/16 09/18/16 09/18/16 18:59 06:59 18:59 Intake Total 665.487 057.318 4068.883 Output Total 888 708 5874 Balance 250.487 -148.639 -32.117 Weight 88.7 kg 88.7 kg Intake: IV 376 220 200 Lactated Ringers 1,000 ml 340 220 200 @ 20 mls/hr IV .Q24H [facility] Rx#:[id number] Pressure Bag 36 Intake, IV Titration 289.487 5.361 2.883 Amount Albumin Human 5% 250 ml 250 In Empty Bag 1 bag @ 250 mls/hr IVPB Q1HR PRN Rx#: [id number] Insulin Regular 100 unit 19.487 5.361 2.883 In Sodium Chloride 0.9% 100 ml @ Per Protocol IV .Q0M [facility] Rx#:[id number] Lactated Ringers 1,000 ml 20 @ 20 mls/hr IV .Q24H [facility] Rx#:[id number] Oral 90 960 Blood Product 310 Rc Pheresis 2 As3 Unit 310 [id number] Output: Chest Tube Drainage 170 130 410 Chest Tube Left 170 130 410 Urine 973 846 0615 Other: Voiding Method Indwelling Catheter Indwelling Catheter Indwelling Catheter # Bowel Movements 1 ABP, PAP, CO, CI - Last Documented Arterial Blood Pressure 147/52 Pulmonary Artery Pressure 141/53 - Constitutional General appearance: Present: cooperative, no acute distress - EENT Eyes: Present: anicteric sclerae, EOMI, poor dentition, normal appearance ENT: Present: NA/AT - Neck Neck: Present: normal ROM - Respiratory Respiratory: bilateral: CTA - Cardiovascular Rhythm: regular Heart sounds: normal: S1, S2 Abnormal Heart Sounds: Absent: systolic murmur, diastolic murmur, rub, S3 Gallop , S4 Gallop, click, other - Gastrointestinal General gastrointestinal: Present: normal bowel sounds, soft - Integumentary Integumentary: Present: decreased turgor, normal - Neurologic Neurologic: Present: CNII-XII intact - Musculoskeletal Musculoskeletal: Present: generalized weakness, strength equal bilaterally - Psychiatric Psychiatric: Present: A&O x's 3, appropriate affect - Labs CBC & Chem 7: 09/18/16 15:38 09/18/16 04:54 Labs: Abnormal Lab Results - Last 24 Hours (Table) 09/07/16 09/17/16 09/17/16 Range/Units 13:30 18:17 20:13 WBC (3.8-10.6) k/uL RBC (4.30-5.90) m/uL Hgb (13.0-17.5) gm/dL Hct (39.0-53.0) % Plt Count (150-450) k/uL Neutrophils # (Manual) (1.3-7.7) k/uL Lymphocytes # (Manual) (1.0-4.8) k/uL Chloride (98-107) mmol/L Carbon Dioxide (22-30) mmol/L BUN (9-20) mg/dL Glucose (74-99) mg/dL POC Glucose (mg/dL) 119 H 152 H (75-99) mg/dL Magnesium (1.6-2.3) mg/dL Total Bilirubin (0.2-1.3) mg/dL AST (17-59) U/L ALT (21-72) U/L Total Protein (6.3-8.2) g/dL Albumin (3.5-5.0) g/dL Crossmatch See Detail 09/17/16 09/17/16 09/17/16 Range/Units 21:04 22:01 23:44 WBC (3.8-10.6) k/uL RBC (4.30-5.90) m/uL Hgb (13.0-17.5) gm/dL Hct (39.0-53.0) % Plt Count (150-450) k/uL Neutrophils # (Manual) (1.3-7.7) k/uL Lymphocytes # (Manual) (1.0-4.8) k/uL Chloride (98-107) mmol/L Carbon Dioxide (22-30) mmol/L BUN (9-20) mg/dL Glucose (74-99) mg/dL POC Glucose (mg/dL) 144 H 170 H 128 H (75-99) mg/dL Magnesium (1.6-2.3) mg/dL Total Bilirubin (0.2-1.3) mg/dL AST (17-59) U/L ALT (21-72) U/L Total Protein (6.3-8.2) g/dL Albumin (3.5-5.0) g/dL Crossmatch 09/18/16 09/18/16 09/18/16 Range/Units 01:54 04:27 04:54 WBC 13.8 H (3.8-10.6) k/uL RBC 2.14 L (4.30-5.90) m/uL Hgb 6.8 L* (13.0-17.5) gm/dL Hct 21.0 L (39.0-53.0) % Plt Count 124 L (150-450) k/uL Neutrophils # (Manual) 13.38 H (1.3-7.7) k/uL Lymphocytes # (Manual) 0.14 L (1.0-4.8) k/uL Chloride (98-107) mmol/L Carbon Dioxide (22-30) mmol/L BUN (9-20) mg/dL Glucose (74-99) mg/dL POC Glucose (mg/dL) 124 H 156 H (75-99) mg/dL Magnesium (1.6-2.3) mg/dL Total Bilirubin (0.2-1.3) mg/dL AST (17-59) U/L ALT (21-72) U/L Total Protein (6.3-8.2) g/dL Albumin (3.5-5.0) g/dL Crossmatch 09/18/16 09/18/16 09/18/16 Range/Units 04:54 07:56 08:10 WBC (3.8-10.6) k/uL RBC (4.30-5.90) m/uL Hgb (13.0-17.5) gm/dL Hct (39.0-53.0) % Plt Count (150-450) k/uL Neutrophils # (Manual) (1.3-7.7) k/uL Lymphocytes # (Manual) (1.0-4.8) k/uL Chloride 109 H (98-107) mmol/L Carbon Dioxide 18 L (22-30) mmol/L BUN 29 H (9-20) mg/dL Glucose 145 H (74-99) mg/dL POC Glucose (mg/dL) 157 H (75-99) mg/dL Magnesium 2.4 H (1.6-2.3) mg/dL Total Bilirubin 3.1 H (0.2-1.3) mg/dL AST 161 H (17-59) U/L ALT 78 H (21-72) U/L Total Protein 5.3 L (6.3-8.2) g/dL Albumin 3.1 L (3.5-5.0) g/dL Crossmatch See Detail 09/18/16 09/18/16 09/18/16 Range/Units 10:09 12:39 15:38 WBC 11.5 H (3.8-10.6) k/uL RBC 2.68 L (4.30-5.90) m/uL Hgb 8.6 L D (13.0-17.5) gm/dL Hct 25.7 L (39.0-53.0) % Plt Count 142 L (150-450) k/uL Neutrophils # (Manual) (1.3-7.7) k/uL Lymphocytes # (Manual) (1.0-4.8) k/uL Chloride (98-107) mmol/L Carbon Dioxide (22-30) mmol/L BUN (9-20) mg/dL Glucose (74-99) mg/dL POC Glucose (mg/dL) 174 H 139 H (75-99) mg/dL Magnesium (1.6-2.3) mg/dL Total Bilirubin (0.2-1.3) mg/dL AST (17-59) U/L ALT (21-72) U/L Total Protein (6.3-8.2) g/dL Albumin (3.5-5.0) g/dL Crossmatch Assessment and Plan Plan: . Status post CABG X3 with AVR. Continue current management as per cardiothoracic surgery, cardiology, pulmonary medicine, continue aggressive pulmonary toileting, continue metoprolol 12.5 mg orally twice every day, restart the patient on statin, continue patient on aspirin 325 mg orally once every day, continue Plavix any 5 mg orally once every day, pain control, increase activity. 2. Post vent dependent respiratory failure secondary to CABG 3 and AVR, expected. Patient was extubated continue aggressive pulmonary toileting, encourage the usage of incentive spirometer. 3. Hypertension and hypertensive cardiovascular disease. Continue metoprolol 12.5 mg orally twice every day, start the patient on small dose of losartan when more stable. 4. Hyperlipidemia. restart Lipitor 80 mg orally daily. 5. Diabetes Mellitus type 2. will continue with insulin drip. 6. Vascular dementia with behavioral disturbance. Patient has received Ativan which may have contributed to his confusion, and is discontinued, patient is on Seroquel 2.5 mg every 4 times a day when necessary Haldol IV for severe agitation and psychosis. Vitamin B12 to be checked, thyroid function test is normal 7. Metabolic encephalopathy secondary to a combination of lack of sleep, vascular dementia, Ativan, Haldol and Seroquel. Avoid Ativan. 8. DVT prophylaxis. SCD;s and GRANT wraps. 9. GI prophylaxis . continue with protonix 40 mg IVP daily. 10. Full code. Discharge plan: To be determined
[2016-09-18 17:07] LABS: Glucose,Whole Blood 139 mg/dL (75-99)
[2016-09-18 17:07] LABS: Add Differential Manual Differential
[2016-09-18 17:11] LABS: Manual Review Performed; Nucleated Red Blood Cells 0 /100 WBC (0-0); Total Cells Counted 100
[2016-09-18] MEDS: PANTOPRAZOLE 40 MG TABLET PO SCH (17:52)
[2016-09-18] MEDS: INSULIN LISPRO (humaLOG) 300 UNIT/3 ML VIAL SQ SCH ×2 (17:52→21:13)
[2016-09-18 21:14] LABS: Glucose,Whole Blood 123 mg/dL (75-99)
[2016-09-18] MEDS: SENNOSIDES-DOCUSATE SODIUM 1 EACH TAB PO SCH (21:14)
[2016-09-19] MEDS: HEPARIN SODIUM,PORCINE 5,000 UNIT/ML 1 ML VIAL SQ SCH ×4 (02:29→23:35)
[2016-09-19 05:04] LABS: ALT 97 U/L (21-72); AST 156 U/L (17-59); Alkaline Phosphatase 49 U/L (38-126); Anion Gap 9 mmol/L; Blood Urea Nitrogen 27 mg/dL (9-20); Calcium 7.9 mg/dL (8.4-10.2); Carbon Dioxide 23 mmol/L (22-30); Chloride 107 mmol/L (98-107); Glucose 108 mg/dL (74-99); Magnesium 2.4 mg/dL (1.6-2.3); Non-African American GFR(MDRD) >60 (>60 ml/min/1.73 sqM); Potassium 3.7 mmol/L (3.5-5.1); Sodium 139 mmol/L (137-145); Total Bilirubin 2.7 mg/dL (0.2-1.3)
[2016-09-19 06:58] LABS: Ionized Calcium 4.8 mg/dL (4.5-5.3)
[2016-09-19 07:00] LABS: CH 32.1; CHCM 32.9; HCT 25.6 % (39.0-53.0); HDW 3.22; HGB 8.3 gm/dL (13.0-17.5); MCH 31.8 pg (25.0-35.0); MCHC 32.3 g/dL (31.0-37.0); MCV 98.5 fL (80.0-100.0); Macrocytosis Slight; Mean Platelet Volume 9.8; RDW 15.6 % (11.5-15.5); WBC 11.7 k/uL (3.8-10.6)
[2016-09-19] MEDS ORDERED: POTASSIUM CHLORIDE ER 20 MEQ TAB.ER PO SCH ×2 (07:00→15:00)
[2016-09-19 07:06] LABS: Phosphorous 2.1 mg/dL (2.5-4.5)
[2016-09-19 07:39] LABS: Glucose,Whole Blood 112 mg/dL (75-99)
--- NOTE | 2016-09-19 07:50 | XR ---
EXAMINATION TYPE: XR chest 1V portable DATE OF EXAM: 09/19/2016 COMPARISON: Prior chest x-ray 09/18/2016 HISTORY: Chest tube TECHNIQUE: Single frontal view of the chest is obtained. FINDINGS: Left-sided chest tube remains in place, patient is rotated and post median sternotomy. The re are overlying cardiac leads. Retrocardiac density, bibasilar increased density noted. No sizable p neumothorax. The heart is enlarged. IMPRESSION: Similar to previous exam. Correlate for congestive heart failure, pneumonia, and there m ay be associated atelectasis or effusion. Follow-up recommended.
[2016-09-19] MEDS: INSULIN LISPRO (humaLOG) 300 UNIT/3 ML VIAL SQ SCH ×4 (08:25→21:34)
[2016-09-19] MEDS: ASPIRIN 325 MG TAB PO SCH (08:39)
[2016-09-19] MEDS: METOPROLOL TARTRATE 25 MG TAB PO SCH ×2 (08:39→21:16)
[2016-09-19] MEDS: ATORVASTATIN 40 MG TAB PO SCH (08:39)
[2016-09-19] MEDS: PANTOPRAZOLE 40 MG TABLET PO SCH ×2 (08:39→18:28)
[2016-09-19] MEDS: LISINOPRIL 10 MG TAB PO SCH (08:39)
[2016-09-19] MEDS: CLOPIDOGREL 75 MG TAB PO SCH (08:39)
--- NOTE | 2016-09-19 09:04 | P.PN ---
Subjective Principal diagnosis: Status post open heart This is a pleasant 81-year-old gentleman who sees Dr. Elizalde as an outpatient who was admitted to the hospital yesterday and underwent aortic valve replacement along with CABG 3 with PUTNAM to LAD, SVG to diagonal, and SVG to ramus intermedius. On follow-up with the patient today the change in mental status has improved significantly. The liver function test is alleviated and the amiodarone is on hold and I am going to DC the statin as well. Objective - Vital Signs Vital signs: Vital Signs Temp 98.3 F 09/19/16 08:00 Pulse 75 09/19/16 08:00 Resp 29 H 09/19/16 08:00 BP 143/58 09/19/16 08:00 Pulse Ox 89 L 09/19/16 08:00 Intake & Output 09/18/16 09/19/16 09/19/16 18:59 06:59 18:59 Intake Total 2012.883 240 20 Output Total 1650 480 35 Balance 362.883 -240 -15 Weight 88.7 kg 87.1 kg Intake: IV 240 240 20 Lactated Ringers 1,000 ml 240 240 20 @ 20 mls/hr IV .Q24H [facility] Rx#:[id number] Intake, IV Titration 2.883 Amount Insulin Regular 100 unit 2.883 In Sodium Chloride 0.9% 100 ml @ Per Protocol IV .Q0M [facility] Rx#:[id number] Oral 1460 Blood Product 310 Rc Pheresis 2 As3 Unit 310 [id number] Output: Chest Tube Drainage 410 30 Chest Tube Left 410 30 Urine 1240 450 35 Other: Voiding Method Indwelling Catheter Indwelling Catheter # Bowel Movements 1 ABP, PAP, CO, CI - Last Documented Arterial Blood Pressure 147/52 Pulmonary Artery Pressure 141/53 - Constitutional General appearance: Present: no acute distress - Respiratory Respiratory: bilateral: diminished - Cardiovascular Rhythm: irregularly irregular Heart sounds: normal: S1, S2 Abnormal Heart Sounds: Present: systolic murmur - Labs CBC & Chem 7: 09/19/16 06:16 09/19/16 04:33 Labs: Abnormal Lab Results - Last 24 Hours (Table) 09/07/16 09/18/16 09/18/16 Range/Units 13:30 08:10 10:09 WBC (3.8-10.6) k/uL RBC (4.30-5.90) m/uL Hgb (13.0-17.5) gm/dL Hct (39.0-53.0) % RDW (11.5-15.5) % Plt Count (150-450) k/uL Neutrophils # (Manual) (1.3-7.7) k/uL BUN (9-20) mg/dL Glucose (74-99) mg/dL POC Glucose (mg/dL) 174 H (75-99) mg/dL Calcium (8.4-10.2) mg/dL Phosphorus (2.5-4.5) mg/dL Magnesium (1.6-2.3) mg/dL Total Bilirubin (0.2-1.3) mg/dL AST (17-59) U/L ALT (21-72) U/L Total Protein (6.3-8.2) g/dL Albumin (3.5-5.0) g/dL Crossmatch See Detail See Detail 09/18/16 09/18/16 09/18/16 Range/Units 12:39 15:38 17:06 WBC 11.5 H (3.8-10.6) k/uL RBC 2.68 L (4.30-5.90) m/uL Hgb 8.6 L D (13.0-17.5) gm/dL Hct 25.7 L (39.0-53.0) % RDW (11.5-15.5) % Plt Count 142 L (150-450) k/uL Neutrophils # (Manual) 9.43 H (1.3-7.7) k/uL BUN (9-20) mg/dL Glucose (74-99) mg/dL POC Glucose (mg/dL) 139 H 139 H (75-99) mg/dL Calcium (8.4-10.2) mg/dL Phosphorus (2.5-4.5) mg/dL Magnesium (1.6-2.3) mg/dL Total Bilirubin (0.2-1.3) mg/dL AST (17-59) U/L ALT (21-72) U/L Total Protein (6.3-8.2) g/dL Albumin (3.5-5.0) g/dL Crossmatch 09/18/16 09/19/16 09/19/16 Range/Units 21:12 04:33 06:16 WBC 11.7 H (3.8-10.6) k/uL RBC 2.60 L (4.30-5.90) m/uL Hgb 8.3 L (13.0-17.5) gm/dL Hct 25.6 L (39.0-53.0) % RDW 15.6 H (11.5-15.5) % Plt Count 144 L (150-450) k/uL Neutrophils # (Manual) (1.3-7.7) k/uL BUN 27 H (9-20) mg/dL Glucose 108 H (74-99) mg/dL POC Glucose (mg/dL) 123 H (75-99) mg/dL Calcium 7.9 L (8.4-10.2) mg/dL Phosphorus (2.5-4.5) mg/dL Magnesium 2.4 H (1.6-2.3) mg/dL Total Bilirubin 2.7 H (0.2-1.3) mg/dL AST 156 H (17-59) U/L ALT 97 H (21-72) U/L Total Protein 5.0 L (6.3-8.2) g/dL Albumin 2.8 L (3.5-5.0) g/dL Crossmatch 09/19/16 09/19/16 Range/Units 06:16 07:37 WBC (3.8-10.6) k/uL RBC (4.30-5.90) m/uL Hgb (13.0-17.5) gm/dL Hct (39.0-53.0) % RDW (11.5-15.5) % Plt Count (150-450) k/uL Neutrophils # (Manual) (1.3-7.7) k/uL BUN (9-20) mg/dL Glucose (74-99) mg/dL POC Glucose (mg/dL) 112 H (75-99) mg/dL Calcium (8.4-10.2) mg/dL Phosphorus 2.1 L (2.5-4.5) mg/dL Magnesium (1.6-2.3) mg/dL Total Bilirubin (0.2-1.3) mg/dL AST (17-59) U/L ALT (21-72) U/L Total Protein (6.3-8.2) g/dL Albumin (3.5-5.0) g/dL Crossmatch Assessment and Plan Plan: This is a pleasant 81-year-old gentleman who was admitted to the hospital yesterday and underwent aortic valve replacement along with CABG 3 as described above. We'll continue the current medical treatment which included dual antiplatelet, hold the amiodarone and hold the statin in view of the elevated liver function tests.
[2016-09-19] MEDS ORDERED: FUROSEMIDE 10 MG/ML 2 ML VIAL IV ONE (10:27)
--- NOTE | 2016-09-19 12:18 | P.PN ---
Subjective Principal diagnosis: Status post CABG and aortic valve replacement postoperative day #5 This is an 81-year-old gentleman who follows with Dr. Opal casarez as his primary care physician. He has a history of diabetes mellitus, gastroesophageal reflux disease, hyperlipidemia, hypertension. He follows with Dr. Elizalde in the office for aortic stenosis. He is also had worsening fatigue and dyspnea on exertion. His most recent echo revealed severe aortic stenosis and a drop in his ejection fraction along with reversible ischemia on a stress test. He had subsequently undergone cardiac catheterization which revealed multivessel coronary artery disease. He presented here today for an elective surgery which was performed today by Dr. Hannon. He received a PUTNAM to the LAD , saphenous vein grafts to the ramus and the diagonal branches along with aortic valve replacement. He is seen today in the intensive care unit immediately postoperative. He is currently on the mechanical ventilator at assist control of 12, tidal volume 450, FiO2 100% and a PEEP of 5. Current blood gases reveal pO2 of 248, pCO2 46, pH 7.33. There were unable to insert a [place] catheter. There is a left IJ present his current blood pressure 114/ 45, CVP of 16, he is in normal sinus rhythm with a first-degree heart block. Current drips are Primacor 0.3 mcg/kg/m, propofol 20 mcg/kg/m, insulin at 1 unit per hour. Lactated Ringer's at 50 MLS per hour. Levophed currently off. Chest x-ray shows evidence of fluid volume overload. There is a split mediastinal chest tubes and a left pleural chest tube in place. Hemoglobin 5.5 which is being rerun in the lab currently. He did receive 2 units of fresh frozen plasma, 1 unit of platelets, 400 of Cell Saver and 1 unit of autologous blood. Estimated blood loss was 2000 MLS. The patient is seen again today 09/15/2016 in follow-up in the intensive care unit. He was successfully extubated and is maintaining good O2 saturations in the upper 90s on 3 L/m per nasal cannula. His chest x-ray reveals bilateral infiltrates with small effusions. He was given Lasix 20 mg IV push 1. Currently in a negative balance. He is sternal and left pleural chest tubes are in place. He remains on milrinone at 0.1 mcg/kg/m. He is on lactated Ringer's at 50 MLS per hour. He is on a insulin drip at 1 unit per hour. His remaining in normal sinus rhythm. He did receive a total of 2 units of packed red blood cells, 2 units of fresh frozen plasma, 1 unit of pheresis platelets. His current hemoglobin is 7.7. Platelet count 100,000. The patient is seen again today 09/16/2016 in follow-up in the intensive care unit. The patient has had ongoing issues with altered mental status and confusion. Yelling out. Disoriented to place and time. He has required Haldol and Seroquel. He is currently receiving lactated Ringer's at 20 miles per hour. The milrinone has been discontinued. He did receive albumin 250 MLS. He remains on insulin drip at 0.5 units per hour. He has remained hemodynamically stable. CVP 16. WBC 13.1. Hemoglobin 7.1. Platelet count 78, 000. He is maintaining good O2 saturations in the 90s on 2 L/m per nasal cannula. His remaining in sinus rhythm. His chest x-ray does show some persistent basilar densities but improvement in overall aeration. On 09/17/2016 the patient is being seen in follow-up. Active issue remains his delirium as the patient has an underlying dementia in addition. He is taken Zyprexa 2.5 mg every 6 hours as needed. He is calm and comfortable. Overnight he also received IV Haldol. Hemodynamically stable. Resting comfortably in bed. In fact quite sleepy. This point. He is however easily arousable. No respiratory distress. No aspiration. Sternum stable clean and intact. Still on 2 L of oxygen nasal cannula. The milrinone drip was discontinued. He did go into atrial fibrillation currently is on amiodarone drip as loading. Rhythm is back to sinus at this point and well-controlled. Hemoglobin is at 7.5 and stable. Chest x-ray showing CHF with pulmonary vessel congestion and interstitial edema. There is also small left pleural effusion suspected. On 09/18/2016 I'm seeing this patient in follow-up. Mentation is improved considerably. The patient did not require any Zyprexa. 2 no cough or pain control. Hemodynamically stable. Left sided chest tube in place. Put out approximately 0 that cc since morning it is such that she will be kept in place. Chest x-ray shows no pneumothorax. Lungs are well expanded. His off milrinone. Producing adequate amount of urine output. Cardiac rhythm is sinus and he is on oral amiodarone. No respiratory distress. Sternum stable clean and intact. Hemoglobin is down to 6.8 and the patient will be receiving a unit of packed RBC. Lasix will be given after the units of blood. On 09/19/2016, patient continues to do relatively well, mentation is improving but remains a bit confused, oriented to place, but not time and date. Patient is off Zyprexa, he is relatively asymptomatic, his left sided chest tube was removed. Labs including CBC and basic metabolic profile and renal profile were noted and reviewed. Patient denies any shortness of breath no cough no wheezing and no chest pain. We plan to consider moving the patient to a monitored bed on selective today. Objective - Vital Signs Vital signs: Vital Signs Temp 98.3 F 09/19/16 08:00 Pulse 64 09/19/16 10:00 Resp 19 09/19/16 10:00 BP 112/58 09/19/16 10:00 Pulse Ox 97 09/19/16 10:00 Intake & Output 09/18/16 09/19/16 09/19/16 18:59 06:59 18:59 Intake Total 2012.883 240 20 Output Total 1650 480 60 Balance 362.883 -240 -40 Weight 88.7 kg 87.1 kg Intake: IV 240 240 20 Lactated Ringers 1,000 ml 240 240 20 @ 20 mls/hr IV .Q24H [facility] Rx#:[id number] Intake, IV Titration 2.883 Amount Insulin Regular 100 unit 2.883 In Sodium Chloride 0.9% 100 ml @ Per Protocol IV .Q0M [facility] Rx#:[id number] Oral 1460 Blood Product 310 Rc Pheresis 2 As3 Unit 310 [id number] Output: Chest Tube Drainage 410 30 Chest Tube Left 410 30 Urine 1240 450 60 Other: Voiding Method Indwelling Catheter Indwelling Catheter # Bowel Movements 1 ABP, PAP, CO, CI - Last Documented Arterial Blood Pressure 147/52 Pulmonary Artery Pressure 141/53 - Exam Physical Exam: Revealed an 81-year-old slightly confused but in no distress. HEENT:[Neck is supple.] [No neck masses.] [No thyromegaly.] [No JVD.] Chest: [Diminished breath sounds at the bases no crackles or rhonchi or wheezes..] Cardiac Exam: [Normal S1 and S2, no S3 gallop, no murmur.] Abdomen: [Soft, nontender, no megaly, no rebound, no guarding, normal bowel sounds.] Extremities: [No clubbing, no edema, no cyanosis.] Neurological Exam: [Diffuse but no other focal neurologic deficit. - Labs CBC & Chem 7: 09/19/16 06:16 09/19/16 04:33 Labs: Abnormal Lab Results - Last 24 Hours (Table) 09/18/16 09/18/16 09/18/16 Range/Units 12:39 15:38 17:06 WBC 11.5 H (3.8-10.6) k/uL RBC 2.68 L (4.30-5.90) m/uL Hgb 8.6 L D (13.0-17.5) gm/dL Hct 25.7 L (39.0-53.0) % RDW (11.5-15.5) % Plt Count 142 L (150-450) k/uL Neutrophils # (Manual) 9.43 H (1.3-7.7) k/uL BUN (9-20) mg/dL Glucose (74-99) mg/dL POC Glucose (mg/dL) 139 H 139 H (75-99) mg/dL Calcium (8.4-10.2) mg/dL Phosphorus (2.5-4.5) mg/dL Magnesium (1.6-2.3) mg/dL Total Bilirubin (0.2-1.3) mg/dL AST (17-59) U/L ALT (21-72) U/L Total Protein (6.3-8.2) g/dL Albumin (3.5-5.0) g/dL 09/18/16 09/19/16 09/19/16 Range/Units 21:12 04:33 06:16 WBC 11.7 H (3.8-10.6) k/uL RBC 2.60 L (4.30-5.90) m/uL Hgb 8.3 L (13.0-17.5) gm/dL Hct 25.6 L (39.0-53.0) % RDW 15.6 H (11.5-15.5) % Plt Count 144 L (150-450) k/uL Neutrophils # (Manual) (1.3-7.7) k/uL BUN 27 H (9-20) mg/dL Glucose 108 H (74-99) mg/dL POC Glucose (mg/dL) 123 H (75-99) mg/dL Calcium 7.9 L (8.4-10.2) mg/dL Phosphorus (2.5-4.5) mg/dL Magnesium 2.4 H (1.6-2.3) mg/dL Total Bilirubin 2.7 H (0.2-1.3) mg/dL AST 156 H (17-59) U/L ALT 97 H (21-72) U/L Total Protein 5.0 L (6.3-8.2) g/dL Albumin 2.8 L (3.5-5.0) g/dL 09/19/16 09/19/16 Range/Units 06:16 07:37 WBC (3.8-10.6) k/uL RBC (4.30-5.90) m/uL Hgb (13.0-17.5) gm/dL Hct (39.0-53.0) % RDW (11.5-15.5) % Plt Count (150-450) k/uL Neutrophils # (Manual) (1.3-7.7) k/uL BUN (9-20) mg/dL Glucose (74-99) mg/dL POC Glucose (mg/dL) 112 H (75-99) mg/dL Calcium (8.4-10.2) mg/dL Phosphorus 2.1 L (2.5-4.5) mg/dL Magnesium (1.6-2.3) mg/dL Total Bilirubin (0.2-1.3) mg/dL AST (17-59) U/L ALT (21-72) U/L Total Protein (6.3-8.2) g/dL Albumin (3.5-5.0) g/dL Assessment and Plan Plan: #1 Coronary artery disease status post coronary artery bypass grafting utilizing a PUTNAM to the LAD, saphenous vein grafts to the ramus and diagonal branches. Postoperative day # 5 #2 Severe aortic stenosis status post aortic valve replacement. Postoperative day #5 The left-sided chest tube was removed #3 postoperative delirium, currently on Zyprexa. No active agitation. Patient is not required Zyprexa overnight. #4 Postoperative anemia as an expected outcome post thoracotomy. Current hemoglobin 6.8, and the patient be receiving a unit of packed RBC #5 Previous history of chronic tobacco dependence. #6 Diabetes mellitus. Patient is on 1 units an hour of insulin drip and the patient will be switched to sliding scale coverage. #7 History of hypertension. #8 Hyperlipidemia. #9 History of dementia #10 postoperative atrial fibrillation currently on amiodarone, rhythm is back to sinus. Plan Mentation is improved. We'll continue to follow. No need for Zyprexa at this point. Encourage ambulation today, and possibly transferred to a monitored bed on selective today. Time with Patient: Less than 30
--- NOTE | 2016-09-19 12:53 | CDI ---
In responding to this query, please exercise your independent professional judgment. The [facility] Coding Staff and Clinical Documentation Specialists appreciate your assistance in clarifying documentation, maintaining compliance with coding guidelines, accurately documenting patients condition and capturing severity of illness. The fact that a question is asked does not imply that any particular answer is desired or expected. Communication forms are a method of clarifying documentation and are not made part of the Legal Health Record. Thank you in advance for your clarification. Last Revision, December [address] [facility] [place] [address] Documentation Clarification Form Date: 09/19/2016 12:35:00 PM From: Gricelda Delta Admit Date: 09/14/2016 5:44:00 AM Patient Name: Francisco Pagan Visit Number: [id number] Discharge Date: Dr. Viry Ahn/Elin Richter [employer]URING ENGINEERING MANAGER-Edgardo A diagnosis of anemia lacks specificity to accurately reflect your patients severity of condition and clarification is needed. Patient history/risk factors: Hypertensive cardiovascular disease, Diabetes Mellitus type 2, Clinical Indicators: post op CABG with estimated blood loss was 2000 mls (per progress notes on 09/14/16) Hemoglobin: 5.4, 6.6 Hematocrit: 16.4, 19.8 Treatment: 3 units packed red blood cells, Fresh frozen Plasma 1 units Pheresis Platelets 1 unit Monitor CBC In order to capture the severity of condition, please clarify the type of anemia and etiology if known: Acute blood loss anemia Acute on chronic blood loss anemia Chronic blood loss anemia Iron deficiency anemia Hemolytic anemia Anemia of chronic kidney disease Unable to determine Other, please specify Please document in your progress notes in order to capture severity of illness and risk of mortality. Include clinical findings that support your diagnosis. FYI: Press F11 to launch patient chart. URVAHSI
[2016-09-19] MEDS ORDERED: Phosphorus Replacement Protoco 1 EACH MISC MISCELLANE PRN (12:59)
[2016-09-19 13:15] LABS: Glucose,Whole Blood 129 mg/dL (75-99)
--- NOTE | 2016-09-19 13:16 | P.PN ---
Subjective Principal diagnosis: Symptomatic multivessel coronary artery disease. Severe aortic valve stenosis with mild aortic regurgitation. Preserved left ventricular function. Type 2 diabetes mellitus. GERD. Hypertension. Hyperlipidemia. Previous tobacco dependence. POD #4 elective triple-vessel coronary artery bypass grafting using the left internal mammary artery to the left anterior descending artery, reverse saphenous vein graft from the aorta to the ramus artery, reverse saphenous vein graft from the aorta to the diagonal artery. Aortic valve replacement using a 25 mm pericardial bioprosthesis magna ease. Endoscopic vein harvesting of the right greater saphenous vein. Intraoperative transesophageal echocardiogram and epi-aortic scanning. Intraoperative graft flow measurement using the [employer] system. Patient is laying in bed with his head of bed elevated he is in no acute distress. He is alert and oriented 2. He remains confused to time. Attempts made to re-orient him to time. He is following simple commands appropriately and moving all 4 extremities. His and daughter are at the bedside comforting the patient. Objective - Vital Signs Vital signs: Vital Signs Temp 97.4 F L 09/18/16 12:00 Pulse 51 L 09/18/16 13:00 Resp 13 09/18/16 13:00 BP 126/54 09/18/16 13:00 Pulse Ox 98 09/18/16 13:00 Intake & Output 09/17/16 09/18/16 09/18/16 18:59 06:59 18:59 Intake Total 665.487 315.361 572.883 Output Total 111 726 3373 Balance 250.487 -148.639 -692.117 Weight 88.7 kg 88.7 kg Intake: IV 376 220 140 Lactated Ringers 1,000 ml 340 220 140 @ 20 mls/hr IV .Q24H JESUS Rx#:[id number] Pressure Bag 36 Intake, IV Titration 289.487 5.361 2.883 Amount Albumin Human 5% 250 ml 250 In Empty Bag 1 bag @ 250 mls/hr IVPB Q1HR PRN Rx#: [id number] Insulin Regular 100 unit 19.487 5.361 2.883 In Sodium Chloride 0.9% 100 ml @ Per Protocol IV .Q0M JESUS Rx#:[id number] Lactated Ringers 1,000 ml 20 @ 20 mls/hr IV .Q24H JESUS Rx#:[id number] Oral 90 120 Blood Product 310 Rc Pheresis 2 As3 Unit 310 [id number] Output: Chest Tube Drainage 170 130 370 Chest Tube Left 170 130 370 Urine 245 334 895 Other: Voiding Method Indwelling Catheter Indwelling Catheter Indwelling Catheter # Bowel Movements 1 ABP, PAP, CO, CI - Last Documented Arterial Blood Pressure 147/52 Pulmonary Artery Pressure 141/53 - Constitutional General appearance: Present: cooperative, no acute distress - EENT Eyes: Present: PERRLA, normal appearance ENT: Present: hearing grossly normal - Neck Details: No JVD present. - Respiratory Details: Essentially clear throughout, diminished to his bilateral bases. Respirations are symmetrical and unlabored. His current oxygen saturations are 93% on 3 L nasal cannula. His left pleural chest tube remained intact to low continuous wall suction. No air leak present. Draining thin serosanguineous drainage. 300 mL output in the last 8 hours, 570 mL output in the last 24 hours. He is tolerating 1000 ml on his incentive spirometry with encouragement. - Cardiovascular Details: Irregular rhythm with controlled rate. S1 and S2 present, negative for S3, gallop or murmur. Sternum is stable. Bedside telemetry showing atrial fibrillation heart rate 63. AV epicardial pacemaker wires in place and grounded. His sternum is stable. His heart hugger is in place and is unable to use his heart hugger appropriately due to his confusion. Knee-high GRZEGORZ hose and sequential compression devices in place to his bilateral lower extremities No edema present. - Gastrointestinal Gastrointestinal Comment(s): Abdomen soft, nontender, and nondistended. Positive bowel movement this a.m. Positive bowel sounds all 4 abdominal quadrants. He is tolerating oral intake with encouragement. - Genitourinary Genitourinary Comment(s): Adequate, Lindsey catheter for accurate I&O. Clear nighat urine. - Integumentary Integumentary Comment(s): Midline sternal incision clean dry and well approximated, Dermabond dressing intact. Folded 4 x 4 gauze dressing intact to his sternal incision. Right leg incisions clean dry and well approximated. No drainage noted. - Musculoskeletal Musculoskeletal: Present: generalized weakness - Psychiatric Psychiatric Comment(s): He is oriented [address]. He states the year is 2006. Attempts made to reorient the patient to time. - Allied health notes Allied health notes reviewed: nursing - Labs CBC & Chem 7: 09/18/16 04:54 09/18/16 04:54 Labs: Abnormal Lab Results - Last 24 Hours (Table) 09/07/16 09/17/16 09/17/16 Range/Units 13:30 14:17 16:07 WBC (3.8-10.6) k/uL RBC (4.30-5.90) m/uL Hgb (13.0-17.5) gm/dL Hct (39.0-53.0) % Plt Count (150-450) k/uL Neutrophils # (Manual) (1.3-7.7) k/uL Lymphocytes # (Manual) (1.0-4.8) k/uL Chloride (98-107) mmol/L Carbon Dioxide (22-30) mmol/L BUN (9-20) mg/dL Glucose (74-99) mg/dL POC Glucose (mg/dL) 137 H 111 H (75-99) mg/dL Magnesium (1.6-2.3) mg/dL Total Bilirubin (0.2-1.3) mg/dL AST (17-59) U/L ALT (21-72) U/L Total Protein (6.3-8.2) g/dL Albumin (3.5-5.0) g/dL Crossmatch See Detail 09/17/16 09/17/16 09/17/16 Range/Units 18:17 20:13 21:04 WBC (3.8-10.6) k/uL RBC (4.30-5.90) m/uL Hgb (13.0-17.5) gm/dL Hct (39.0-53.0) % Plt Count (150-450) k/uL Neutrophils # (Manual) (1.3-7.7) k/uL Lymphocytes # (Manual) (1.0-4.8) k/uL Chloride (98-107) mmol/L Carbon Dioxide (22-30) mmol/L BUN (9-20) mg/dL Glucose (74-99) mg/dL POC Glucose (mg/dL) 119 H 152 H 144 H (75-99) mg/dL Magnesium (1.6-2.3) mg/dL Total Bilirubin (0.2-1.3) mg/dL AST (17-59) U/L ALT (21-72) U/L Total Protein (6.3-8.2) g/dL Albumin (3.5-5.0) g/dL Crossmatch 09/17/16 09/17/16 09/18/16 Range/Units 22:01 23:44 01:54 WBC (3.8-10.6) k/uL RBC (4.30-5.90) m/uL Hgb (13.0-17.5) gm/dL Hct (39.0-53.0) % Plt Count (150-450) k/uL Neutrophils # (Manual) (1.3-7.7) k/uL Lymphocytes # (Manual) (1.0-4.8) k/uL Chloride (98-107) mmol/L Carbon Dioxide (22-30) mmol/L BUN (9-20) mg/dL Glucose (74-99) mg/dL POC Glucose (mg/dL) 170 H 128 H 124 H (75-99) mg/dL Magnesium (1.6-2.3) mg/dL Total Bilirubin (0.2-1.3) mg/dL AST (17-59) U/L ALT (21-72) U/L Total Protein (6.3-8.2) g/dL Albumin (3.5-5.0) g/dL Crossmatch 09/18/16 09/18/16 09/18/16 Range/Units 04:27 04:54 04:54 WBC 13.8 H (3.8-10.6) k/uL RBC 2.14 L (4.30-5.90) m/uL Hgb 6.8 L* (13.0-17.5) gm/dL Hct 21.0 L (39.0-53.0) % Plt Count 124 L (150-450) k/uL Neutrophils # (Manual) 13.38 H (1.3-7.7) k/uL Lymphocytes # (Manual) 0.14 L (1.0-4.8) k/uL Chloride 109 H (98-107) mmol/L Carbon Dioxide 18 L (22-30) mmol/L BUN 29 H (9-20) mg/dL Glucose 145 H (74-99) mg/dL POC Glucose (mg/dL) 156 H (75-99) mg/dL Magnesium 2.4 H (1.6-2.3) mg/dL Total Bilirubin 3.1 H (0.2-1.3) mg/dL AST 161 H (17-59) U/L ALT 78 H (21-72) U/L Total Protein 5.3 L (6.3-8.2) g/dL Albumin 3.1 L (3.5-5.0) g/dL Crossmatch 09/18/16 09/18/16 09/18/16 Range/Units 07:56 08:10 10:09 WBC (3.8-10.6) k/uL RBC (4.30-5.90) m/uL Hgb (13.0-17.5) gm/dL Hct (39.0-53.0) % Plt Count (150-450) k/uL Neutrophils # (Manual) (1.3-7.7) k/uL Lymphocytes # (Manual) (1.0-4.8) k/uL Chloride (98-107) mmol/L Carbon Dioxide (22-30) mmol/L BUN (9-20) mg/dL Glucose (74-99) mg/dL POC Glucose (mg/dL) 157 H 174 H (75-99) mg/dL Magnesium (1.6-2.3) mg/dL Total Bilirubin (0.2-1.3) mg/dL AST (17-59) U/L ALT (21-72) U/L Total Protein (6.3-8.2) g/dL Albumin (3.5-5.0) g/dL Crossmatch See Detail 09/18/16 Range/Units 12:39 WBC (3.8-10.6) k/uL RBC (4.30-5.90) m/uL Hgb (13.0-17.5) gm/dL Hct (39.0-53.0) % Plt Count (150-450) k/uL Neutrophils # (Manual) (1.3-7.7) k/uL Lymphocytes # (Manual) (1.0-4.8) k/uL Chloride (98-107) mmol/L Carbon Dioxide (22-30) mmol/L BUN (9-20) mg/dL Glucose (74-99) mg/dL POC Glucose (mg/dL) 139 H (75-99) mg/dL Magnesium (1.6-2.3) mg/dL Total Bilirubin (0.2-1.3) mg/dL AST (17-59) U/L ALT (21-72) U/L Total Protein (6.3-8.2) g/dL Albumin (3.5-5.0) g/dL Crossmatch - Imaging and Cardiology Chest x-ray: report reviewed, image reviewed Assessment and Plan (1) Tobacco dependence in remission Status: Acute (2) Coronary artery disease Status: Acute (3) Hyperlipidemia Status: Acute (4) Hypertension Status: Acute (5) Severe aortic stenosis Status: Acute (6) Type 2 diabetes mellitus Status: Acute Plan: 1. Continue aspirin, Lipitor, Plavix, beta gregg. . 2. His amiodarone will be discontinued due to his elevation in his liver enzymes.. 3. We will transfuse 1 unit of packed red blood cells for a hemoglobin of 6.8 which will be followed by Lasix 20 mg IV 1. 4. Wean O2 as tolerated. Encourage incentive spirometer use. 5. Increase activity, out of bed to chair. Physical therapy to follow. 6. GI/DVT prophylaxis. 7. Insulin management per primary care service. 8. Will monitor daily labs, chest x-rays. 9. More recommendations as patient progresses. Time with Patient: Greater than 30
[2016-09-19] MEDS: FERROUS SULFATE 325 MG TAB PO SCH (13:18)
--- NOTE | 2016-09-19 13:27 | P.PN ---
Subjective Principal diagnosis: Symptomatic multivessel coronary artery disease. Severe aortic valve stenosis with mild aortic regurgitation. Preserved left ventricular function. Type 2 diabetes mellitus. GERD. Hypertension. Hyperlipidemia. Previous tobacco dependence. POD #5 elective triple-vessel coronary artery bypass grafting using the left internal mammary artery to the left anterior descending artery, reverse saphenous vein graft from the aorta to the ramus artery, reverse saphenous vein graft from the aorta to the diagonal artery. Aortic valve replacement using a 25 mm pericardial bioprosthesis magna ease. Endoscopic vein harvesting of the right greater saphenous vein. Intraoperative transesophageal echocardiogram and epi-aortic scanning. Intraoperative graft flow measurement using the [employer] system. Patient is sitting up to the bedside chair tolerating his breakfast. He is alert and oriented 2. He remains confused to time. Attempts made to re- orient him to time. He is following simple commands appropriately and moving all 4 extremities. Objective - Vital Signs Vital signs: Vital Signs Temp 98.3 F 09/19/16 08:00 Pulse 74 09/19/16 13:00 Resp 15 09/19/16 13:00 BP 124/52 09/19/16 13:00 Pulse Ox 97 09/19/16 13:00 Intake & Output 09/18/16 09/19/16 09/19/16 18:59 06:59 18:59 Intake Total 2012.883 240 40 Output Total 1650 480 60 Balance 362.883 -240 -20 Weight 88.7 kg 87.1 kg Intake: IV 240 240 40 Lactated Ringers 1,000 ml 240 240 40 @ 20 mls/hr IV .Q24H JESUS Rx#:[id number] Intake, IV Titration 2.883 Amount Insulin Regular 100 unit 2.883 In Sodium Chloride 0.9% 100 ml @ Per Protocol IV .Q0M JESUS Rx#:[id number] Oral 1460 Blood Product 310 Rc Pheresis 2 As3 Unit 310 [id number] Output: Chest Tube Drainage 410 30 Chest Tube Left 410 30 Urine 1240 450 60 Other: Voiding Method Indwelling Catheter Indwelling Catheter # Voids 1 # Bowel Movements 1 1 ABP, PAP, CO, CI - Last Documented Arterial Blood Pressure 147/52 Pulmonary Artery Pressure 141/53 - Constitutional General appearance: Present: cooperative, no acute distress - EENT Eyes: Present: PERRLA, normal appearance ENT: Present: hearing grossly normal - Neck Details: No JVD present. - Respiratory Details: Essentially clear throughout, diminished to his bilateral bases. Respirations are symmetrical and unlabored. His current oxygen saturations are 97% on 2 L nasal cannula. His left pleural chest tube remained intact to low continuous wall suction. No air leak present. Draining thin serosanguineous drainage. 100 mL output in the last 24 hours. He is tolerating 1250 ml on his incentive spirometry with encouragement. - Cardiovascular Details: Irregular rhythm with controlled rate. S1 and S2 present, negative for S3, gallop or murmur. Sternum is stable. Bedside telemetry showing atrial fibrillation heart rate 78. AV epicardial pacemaker wires in place and grounded. His sternum is stable. His heart hugger is demonstrating appropriate use of his heart hugger. Knee-high GRZEGORZ hose and sequential compression devices in place to his bilateral lower extremities No edema present. - Gastrointestinal Gastrointestinal Comment(s): Abdomen soft, nontender, and nondistended. Positive bowel sounds all 4 abdominal quadrants. He is tolerating oral intake with encouragement. - Genitourinary Genitourinary Comment(s): Adequate, Lindsey catheter for accurate I&O. Clear nighat urine. - Integumentary Integumentary Comment(s): Midline sternal incision clean dry and well approximated, Dermabond dressing intact. Folded 4 x 4 gauze dressing intact to his sternal incision. Right leg incisions clean dry and well approximated. No drainage noted. - Musculoskeletal Musculoskeletal: Present: generalized weakness, strength equal bilaterally - Psychiatric Psychiatric Comment(s): He is oriented [address]. He states the year is 2006. Attempts made to reorient the patient to time. - Allied health notes Allied health notes reviewed: nursing - Labs CBC & Chem 7: 09/19/16 06:16 09/19/16 04:33 Labs: Abnormal Lab Results - Last 24 Hours (Table) 09/18/16 09/18/16 09/18/16 Range/Units 15:38 17:06 21:12 WBC 11.5 H (3.8-10.6) k/uL RBC 2.68 L (4.30-5.90) m/uL Hgb 8.6 L D (13.0-17.5) gm/dL Hct 25.7 L (39.0-53.0) % RDW (11.5-15.5) % Plt Count 142 L (150-450) k/uL Neutrophils # (Manual) 9.43 H (1.3-7.7) k/uL BUN (9-20) mg/dL Glucose (74-99) mg/dL POC Glucose (mg/dL) 139 H 123 H (75-99) mg/dL Calcium (8.4-10.2) mg/dL Phosphorus (2.5-4.5) mg/dL Magnesium (1.6-2.3) mg/dL Total Bilirubin (0.2-1.3) mg/dL AST (17-59) U/L ALT (21-72) U/L Total Protein (6.3-8.2) g/dL Albumin (3.5-5.0) g/dL 09/19/16 09/19/16 09/19/16 Range/Units 04:33 06:16 06:16 WBC 11.7 H (3.8-10.6) k/uL RBC 2.60 L (4.30-5.90) m/uL Hgb 8.3 L (13.0-17.5) gm/dL Hct 25.6 L (39.0-53.0) % RDW 15.6 H (11.5-15.5) % Plt Count 144 L (150-450) k/uL Neutrophils # (Manual) (1.3-7.7) k/uL BUN 27 H (9-20) mg/dL Glucose 108 H (74-99) mg/dL POC Glucose (mg/dL) (75-99) mg/dL Calcium 7.9 L (8.4-10.2) mg/dL Phosphorus 2.1 L (2.5-4.5) mg/dL Magnesium 2.4 H (1.6-2.3) mg/dL Total Bilirubin 2.7 H (0.2-1.3) mg/dL AST 156 H (17-59) U/L ALT 97 H (21-72) U/L Total Protein 5.0 L (6.3-8.2) g/dL Albumin 2.8 L (3.5-5.0) g/dL 09/19/16 09/19/16 Range/Units 07:37 13:12 WBC (3.8-10.6) k/uL RBC (4.30-5.90) m/uL Hgb (13.0-17.5) gm/dL Hct (39.0-53.0) % RDW (11.5-15.5) % Plt Count (150-450) k/uL Neutrophils # (Manual) (1.3-7.7) k/uL BUN (9-20) mg/dL Glucose (74-99) mg/dL POC Glucose (mg/dL) 112 H 129 H (75-99) mg/dL Calcium (8.4-10.2) mg/dL Phosphorus (2.5-4.5) mg/dL Magnesium (1.6-2.3) mg/dL Total Bilirubin (0.2-1.3) mg/dL AST (17-59) U/L ALT (21-72) U/L Total Protein (6.3-8.2) g/dL Albumin (3.5-5.0) g/dL - Imaging and Cardiology Chest x-ray: report reviewed, image reviewed Assessment and Plan (1) Tobacco dependence in remission Status: Acute (2) Coronary artery disease Status: Acute (3) Hyperlipidemia Status: Acute (4) Hypertension Status: Acute (5) Severe aortic stenosis Status: Acute (6) Type 2 diabetes mellitus Status: Acute Plan: 1. Continue aspirin, Lipitor, Plavix, beta gregg. . 2. Amiodarone will be remain on hold due to his elevation in his liver enzymes.. 3. Lasix 20 mg IV 1 today. 4. Wean O2 as tolerated. Encourage incentive spirometer use every hour while awake. 5. Increase activity, out of bed to chair. Physical therapy to follow. 6. GI/DVT prophylaxis. 7. Insulin management per primary care service. 8. Will monitor daily labs, chest x-rays. 9. Dr. Keller has been contacted to evaluate for inpatient rehab placement. 10. We will discontinue his left pleural chest tube. 11. We will transfer him to [address] [place] [address] for further monitoring and rehabilitation. 12. His potassium and phosphorus will be replaced per protocol 13. More recommendations as patient progresses. Time with Patient: Greater than 30
[2016-09-19] MEDS ORDERED: SODIUM PHOSPHATE 10 MMOL in SODIUM CHLORIDE 0.9% 250 ML IVPB ONE (13:30)
--- NOTE | 2016-09-19 14:03 | P.PN ---
Subjective This is an 81-year-old gentleman who follows with Dr. San as his primary care physician. He has a history of diabetes mellitus, gastroesophageal reflux disease, hyperlipidemia, hypertension. He follows with Dr. Elizalde in the office for aortic stenosis. He is also had worsening fatigue and dyspnea on exertion. His most recent echo revealed severe aortic stenosis and a drop in his ejection fraction along with reversible ischemia on a stress test. He had subsequently undergone cardiac catheterization which revealed multivessel coronary artery disease. He presented here today for an elective surgery which was performed today by Dr. Hannon. He received a PUTNAM to the LAD, saphenous vein grafts to the ramus and the diagonal branches along with aortic valve replacement. Patient was seen in the ICU sitting in a recliner appears a bit confused with minimal short term memory deficit, there is chest wall pain and minimal cough. 09/16: issues lethargic this morning and contributing factors include lack of sleep, Ativan during the night, Haldol and Seroquel 50 mg given this morning. Patient was very uncooperative and combative and confused. Would recommend Seroquel at 12.5 mg to 25 mg twice daily only. Psychiatric consult was added. patient is sitting in bed and appears to be in no acute distress but again quite lethargic. 09/17: Patient's more oriented however he is a bit drowsy, patient required Seroquel as recommended by psychiatry, patient remains in ICU, can follow commands, patient with dry mouth no aspirations observed by nursing staff 09/18: Patient remains in ICU, mentation has improved significantly, patient's more lucid, did not require any sedation or antipsychotics at this point, he is to receive 1 unit of packed red blood cells for hemoglobin of 6.8, patient is comfortable, chest tube and left side remains in place insulin drip is now switched to sliding scale, 1 diet is more consistent, home blood sugar medications will be resumed 09/19: Patient has been evaluated by physical therapy with recommendations for home. There is a consult in place for Dr. Keller to evaluate for inpatient rehab. Amiodarone is on hold due to his elevated liver function tests. He did receive 1 dose of IV Lasix this morning. Left pleural chest tube is to be removed and patient be transferred to selective care today. No new complaints today. Objective - Vital Signs Vital signs: Vital Signs Temp 98.3 F 09/19/16 08:00 Pulse 64 09/19/16 10:00 Resp 19 09/19/16 10:00 BP 112/58 09/19/16 10:00 Pulse Ox 97 09/19/16 10:00 Intake & Output 09/18/16 09/19/16 09/19/16 18:59 06:59 18:59 Intake Total 2012.883 240 20 Output Total 1650 480 60 Balance 362.883 -240 -40 Weight 88.7 kg 87.1 kg Intake: IV 240 240 20 Lactated Ringers 1,000 ml 240 240 20 @ 20 mls/hr IV .Q24H [facility] Rx#:[id number] Intake, IV Titration 2.883 Amount Insulin Regular 100 unit 2.883 In Sodium Chloride 0.9% 100 ml @ Per Protocol IV .Q0M [facility] Rx#:[id number] Oral 1460 Blood Product 310 Rc Pheresis 2 As3 Unit 310 [id number] Output: Chest Tube Drainage 410 30 Chest Tube Left 410 30 Urine 1240 450 60 Other: Voiding Method Indwelling Catheter Indwelling Catheter # Bowel Movements 1 ABP, PAP, CO, CI - Last Documented Arterial Blood Pressure 147/52 Pulmonary Artery Pressure 141/53 - Exam General appearance: Present: cooperative, no acute distress - EENT Eyes: Present: anicteric sclerae, EOMI, poor dentition, normal appearance ENT: Present: NA/AT - Neck Neck: Present: normal ROM - Respiratory Respiratory: bilateral: CTA - Cardiovascular Rhythm: regular Heart sounds: normal: S1, S2 Abnormal Heart Sounds: Absent: systolic murmur, diastolic murmur, rub, S3 Gallop , S4 Gallop, click, other - Gastrointestinal General gastrointestinal: Present: normal bowel sounds, soft - Integumentary Integumentary: Present: decreased turgor, normal - Neurologic Neurologic: Present: CNII-XII intact - Musculoskeletal Musculoskeletal: Present: generalized weakness, strength equal bilaterally - Psychiatric Psychiatric: Present: A&O x's 2, appropriate affect - Labs CBC & Chem 7: 09/19/16 06:16 09/19/16 13:20 Labs: Abnormal Lab Results - Last 24 Hours (Table) 09/18/16 09/18/16 09/18/16 Range/Units 12:39 15:38 17:06 WBC 11.5 H (3.8-10.6) k/uL RBC 2.68 L (4.30-5.90) m/uL Hgb 8.6 L D (13.0-17.5) gm/dL Hct 25.7 L (39.0-53.0) % RDW (11.5-15.5) % Plt Count 142 L (150-450) k/uL Neutrophils # (Manual) 9.43 H (1.3-7.7) k/uL BUN (9-20) mg/dL Glucose (74-99) mg/dL POC Glucose (mg/dL) 139 H 139 H (75-99) mg/dL Calcium (8.4-10.2) mg/dL Phosphorus (2.5-4.5) mg/dL Magnesium (1.6-2.3) mg/dL Total Bilirubin (0.2-1.3) mg/dL AST (17-59) U/L ALT (21-72) U/L Total Protein (6.3-8.2) g/dL Albumin (3.5-5.0) g/dL 09/18/16 09/19/16 09/19/16 Range/Units 21:12 04:33 06:16 WBC 11.7 H (3.8-10.6) k/uL RBC 2.60 L (4.30-5.90) m/uL Hgb 8.3 L (13.0-17.5) gm/dL Hct 25.6 L (39.0-53.0) % RDW 15.6 H (11.5-15.5) % Plt Count 144 L (150-450) k/uL Neutrophils # (Manual) (1.3-7.7) k/uL BUN 27 H (9-20) mg/dL Glucose 108 H (74-99) mg/dL POC Glucose (mg/dL) 123 H (75-99) mg/dL Calcium 7.9 L (8.4-10.2) mg/dL Phosphorus (2.5-4.5) mg/dL Magnesium 2.4 H (1.6-2.3) mg/dL Total Bilirubin 2.7 H (0.2-1.3) mg/dL AST 156 H (17-59) U/L ALT 97 H (21-72) U/L Total Protein 5.0 L (6.3-8.2) g/dL Albumin 2.8 L (3.5-5.0) g/dL 09/19/16 09/19/16 Range/Units 06:16 07:37 WBC (3.8-10.6) k/uL RBC (4.30-5.90) m/uL Hgb (13.0-17.5) gm/dL Hct (39.0-53.0) % RDW (11.5-15.5) % Plt Count (150-450) k/uL Neutrophils # (Manual) (1.3-7.7) k/uL BUN (9-20) mg/dL Glucose (74-99) mg/dL POC Glucose (mg/dL) 112 H (75-99) mg/dL Calcium (8.4-10.2) mg/dL Phosphorus 2.1 L (2.5-4.5) mg/dL Magnesium (1.6-2.3) mg/dL Total Bilirubin (0.2-1.3) mg/dL AST (17-59) U/L ALT (21-72) U/L Total Protein (6.3-8.2) g/dL Albumin (3.5-5.0) g/dL Assessment and Plan Plan: 1. Status post CABG X3 with AVR. Continue current management as per cardiothoracic surgery, cardiology, pulmonary medicine, continue aggressive pulmonary toileting, continue metoprolol 12.5 mg orally twice every day, restart the patient on statin, continue patient on aspirin 325 mg orally once every day, continue Plavix 75 mg orally once every day, pain control, increase activity. 2. Post vent dependent respiratory support secondary to CABG 3 and AVR, expected. Patient was extubated continue aggressive pulmonary toileting, encourage the usage of incentive spirometer. 3. Hypertension and hypertensive cardiovascular disease. Continue metoprolol 12.5 mg orally twice every day, start the patient on small dose of losartan when more stable. 4. Hyperlipidemia. restart Lipitor 80 mg orally daily. 5. Diabetes Mellitus type 2. will continue with insulin drip. 6. Vascular dementia with behavioral disturbance. Patient has received Ativan which may have contributed to his confusion , Haldol and Seroquel. Psychiatric consult was requested. Psychiatrist has recommended Haldol 0.5 mg IV every 8 hours for severe agitation and to start Zyprexa. 7. Metabolic encephalopathy secondary to a combination of lack of sleep, vascular dementia, Ativan, Haldol and Seroquel. Avoid Ativan. 8. Acute blood loss anemia status post multiple transfusions. 9. DVT prophylaxis. SCD;s and GRANT wraps. 10. GI prophylaxis . continue with protonix 40 mg IVP daily. 11. Full code. Discharge plan: To be determined Impression and plan of care have been directed as dictated by the signing physician. Shavon Kingston nurse practitioner acting as scribe for signing physician.
[2016-09-19] MEDS ORDERED: Potassium Replacement Protocol 1 EACH MISC MISCELLANE PRN ×2 (14:17→19:50)
--- NOTE | 2016-09-19 14:45 | P.PN ---
Progress Note - Text Interval History: Patient is an 81-year-old male who underwent aortic valve replacement and a coronary artery bypass surgery and was seen in consultation for delirium. Patient's chart was reviewed and he last received an as needed dose of Zyprexa on Monday he has not received any further antipsychotics. Patient was seen with his , he was sitting up in the chair and eating his lunch. He reported to me that he was feeling much better and stated that he was as confused as he always is. Patient was able to tell me that he was in the hospital for surgery on his heart could not give me specifics and patient was aware of where he was. Per the patient's he is at his baseline, she feels he is doing as well as he was prior to his admission. Patient had no complaints and stated that he was feeling much better. Mental Status: Appearance/Attitude: Patient was sitting up in a chair and in no acute distress and was eating his lunch and made intermittent eye contact and was cooperative. Behavior: Patient did not display any psychomotor agitation or retardation. Speech/Language: Patient's speech was not spontaneous, patient only responded to my questions and spoke in a soft voice and was coherent. Thought Process: Patient was relevant when he responded to questions with brief answers at times stating he didn't know the answer because he is always confused. Patient did not display any loose associations or flight of ideas. Thought Content: Patient did not report any auditory hallucinations and no visual hallucinations, no delusional or paranoid ideation was elicited. Patient was appropriately sitting up in his chair and eating his lunch and did not seem to have any difficulty feeding himself. He was watching a baseball game in which the Tigers were playing. Patient reported he was feeling much better. Suicidal/Homicidal Ideation: Patient denies any homicidal or suicidal ideation at this time. Sensorium/Cognition: Patient was alert and oriented to person, place and situation patient was unable to tell me what month it was or what year it was telling me it was spring possibly July and that the year was something. Patient was unable to tell me who the current president was and stated that the last president he paid any attention to was [place]. Patient was able to focus and was watching television. Mood/Affect: Patient's mood was pleasant and his affect was appropriate. Insight/Judgement: Patient's insight and judgment are fair. Assessment: patient is no longer delirious, has not required any medication for agitation since Monday, he has been cooperative and is now sitting up in a chair and eating his lunch. His feels that he has returned to his baseline. Patient had been having difficulty with his recent memory per his family prior to his admission. Plan: patient has improved and is no longer delirious, his focus and attention are improved and he is no longer agitated. We will leave the Zyprexa as needed should there be any further episodes of agitation. No further intervention from psychiatry is needed at this time and I will sign off the case please and hesitate to contact me if you have any questions or concerns.
--- NOTE | 2016-09-19 15:20 | P.CONS ---
History of Present Illness - Chief Complaint Medical debility - History of Present Illness I had the op to see patient for inpatient rehab consultation with regard to cardiac debility. He was admitted to [facility] September 14 with chest pain. Workup revealed cardiac disease and underwent core bypassing Dr. Hannon. Seen in consultation by Drs. Dr. Ahn and Shemar. PT and OT prescribed. OT reports supervision for upper dressing and minimal assistance for lower dressing , bathing, functional ability. Total assist for toileting. Chest x-rays followed for CHF versus atelectasis. Previous functional history as elicited from patient and : 81 right-handed white male who is lives in [facility] home with . Retired. does the cooking laundry and most or all of the driving. Patient independent with very minimal driving, standing shower and gait without device. Family history of diabetes in both parents. Review of Systems Review of systems: ENT: Denies sneezes or discharge. Eyes: Denies discharge or photophobia. Cardiac: Denies chest pain or palpitation. Some anterior chest discomfort Pulmonary: Mild shortness of breath. Gastrointestinal: Denies nausea, emesis, constipation, diarrhea. Genitourinary: Denies discharge or frequency. Musculoskeletal: Denies muscle or bone aches. Neurologic: Generalized weakness. Endocrine: Denies shakes or sweats. Oncology: Denies cancers. Dermatologic: Denies rash, itching, pruritus. ALLERGY/immunology: Denies sneezes, rashes. Past Medical History Past Medical History: Coronary Artery Disease (CAD), Diabetes Mellitus, GERD/ Reflux, Hyperlipidemia, Hypertension, Memory Impairment, Osteoarthritis (OA), Prostate Disorder Additional Past Medical History / Comment(s): irregular heartrate, varicose veins, past hx shingles, SOB w/exertion History of Any Multi-Drug Resistant Organisms: None Reported Past Surgical History: Appendectomy, Heart Catheterization, Hernia Repair Additional Past Surgical History / Comment(s): "spots removed from his lung", mastoid surgery as child, mariama cataracts Past Anesthesia/Blood Transfusion Reactions: No Reported Reaction Smoking Status: Former smoker - Past Family History Sister(s) Family Medical History: Cancer (Patient had a sister with colon cancer.) Father Family Medical History: Unable to Obtain (he said that his father at the age of 45.) Mother Family Medical History: Diabetes Mellitus (mother at the age of 45 from DM2.) Brother(s) Family Medical History: No Reported History (Patient has 2 brothers.) Medications and Allergies Home Medications Medication Instructions Recorded Confirmed Type Ascorbic Acid [Vitamin C with Kim 1,000 mg PO DAILY 08/02/16 09/14/16 History Hips] Aspirin 325 mg PO DAILY 08/02/16 09/14/16 History Atenolol [Tenormin] 25 mg PO DAILY 08/02/16 09/14/16 History Cholecalciferol [Vitamin D3] 2,000 unit PO DAILY 08/02/16 09/14/16 History Ezetimibe/Simvastatin [Vytorin 1 tab PO DAILY 08/02/16 09/14/16 History 10-80 mg Tablet] Ferrous Sulfate [Feosol] 325 mg PO DAILY 08/02/16 09/14/16 History Glimepiride [Amaryl] 2 mg PO DAILY 08/02/16 09/14/16 History sitaGLIPtin [Januvia] 100 mg PO DAILY 08/02/16 09/14/16 History Calcium Carbonate [Tums] 500 mg PO TID PRN 09/07/16 09/14/16 History Mag Hydrox/Al Hydrox/Simeth 15 - 30 ml PO HS PRN 09/07/16 09/14/16 History [Maalox] metFORMIN HCL [Glucophage] 1,000 mg PO BID 09/14/16 09/14/16 History Allergies Allergy/AdvReac Type Severity Reaction Status Date / Time No Known Allergies Allergy Verified 09/14/16 06:16 Physical Exam Vitals: Vital Signs Temp Pulse Resp BP Pulse Ox 09/19/16 14:00 69 16 135/56 96 09/19/16 13:00 74 15 124/52 97 09/19/16 12:14 71 13 124/52 97 09/19/16 12:00 15 09/19/16 11:00 70 20 104/51 97 09/19/16 10:00 64 19 112/58 97 09/19/16 09:00 74 19 145/57 09/19/16 08:00 98.3 F 75 29 H 143/58 89 L 09/19/16 07:00 74 17 124/57 95 09/19/16 06:00 66 14 122/60 97 09/19/16 05:00 64 19 127/63 95 09/19/16 04:00 98 F 68 16 109/59 97 09/19/16 03:00 75 15 112/50 96 09/19/16 02:00 60 19 107/51 96 09/19/16 01:00 64 17 115/57 96 09/19/16 00:00 98.6 F 58 L 18 111/57 98 09/18/16 23:00 66 16 110/56 96 09/18/16 22:00 61 16 136/56 94 L 09/18/16 21:00 64 15 143/62 96 09/18/16 20:00 97.4 F L 60 17 138/57 97 09/18/16 19:58 16 09/18/16 19:00 58 L 13 156/67 95 09/18/16 18:00 58 L 16 133/53 97 09/18/16 17:00 55 L 13 132/57 97 09/18/16 16:00 98.0 F 55 L 16 140/56 96 Intake and Output 09/19/16 09/19/16 09/19/16 06:59 14:59 22:59 Intake Total 180 280 Output Total 330 60 Balance -150 220 Intake: IV 180 40 Lactated Ringers 1,000 ml 180 40 @ 20 mls/hr IV .Q24H [facility] Rx#:[id number] Oral 240 Output: Urine 330 60 Other: Voiding Method Indwelling Catheter Indwelling Catheter # Voids 1 # Bowel Movements 1 Weight 87.1 kg Skin: Atrophic, turgor. General: Thin to Medium build and comfortable appearance. Head: Normocephalic, atraumatic. Eyes: Symmetric. Pupils equal round. Ears: Symmetric. Hearing within normal limits. Mouth: Clear. Neck: Supple. Carotid without bruit. Cardiac: Regular rate and rhythm. Sternotomy scar clean and well healing. Nursing performing skin care. Lungs: Clear anteriorly and posteriorly. Abdomen: Soft active nontender. Extremities: Normal tone. Neurological: Mental status: Alert, cooperative, pleasant. Cranial nerves: Symmetric facial tone and trapezius. Motor: Active movement all 4 limbs. Sensation: Intact throughout. DTRs: Symmetric and equal throughout. Mobility: Unable to sit or stand as nursing performing skin and chest care. Results CBC & Chem 7: 09/19/16 06:16 09/19/16 13:20 Labs: Abnormal Lab Results - Last 24 Hours (Table) 09/18/16 09/18/16 09/18/16 Range/Units 15:38 17:06 21:12 WBC 11.5 H (3.8-10.6) k/uL RBC 2.68 L (4.30-5.90) m/uL Hgb 8.6 L D (13.0-17.5) gm/dL Hct 25.7 L (39.0-53.0) % RDW (11.5-15.5) % Plt Count 142 L (150-450) k/uL Neutrophils # (Manual) 9.43 H (1.3-7.7) k/uL BUN (9-20) mg/dL Glucose (74-99) mg/dL POC Glucose (mg/dL) 139 H 123 H (75-99) mg/dL Calcium (8.4-10.2) mg/dL Phosphorus (2.5-4.5) mg/dL Magnesium (1.6-2.3) mg/dL Total Bilirubin (0.2-1.3) mg/dL AST (17-59) U/L ALT (21-72) U/L Total Protein (6.3-8.2) g/dL Albumin (3.5-5.0) g/dL 09/19/16 09/19/16 09/19/16 Range/Units 04:33 06:16 06:16 WBC 11.7 H (3.8-10.6) k/uL RBC 2.60 L (4.30-5.90) m/uL Hgb 8.3 L (13.0-17.5) gm/dL Hct 25.6 L (39.0-53.0) % RDW 15.6 H (11.5-15.5) % Plt Count 144 L (150-450) k/uL Neutrophils # (Manual) (1.3-7.7) k/uL BUN 27 H (9-20) mg/dL Glucose 108 H (74-99) mg/dL POC Glucose (mg/dL) (75-99) mg/dL Calcium 7.9 L (8.4-10.2) mg/dL Phosphorus 2.1 L (2.5-4.5) mg/dL Magnesium 2.4 H (1.6-2.3) mg/dL Total Bilirubin 2.7 H (0.2-1.3) mg/dL AST 156 H (17-59) U/L ALT 97 H (21-72) U/L Total Protein 5.0 L (6.3-8.2) g/dL Albumin 2.8 L (3.5-5.0) g/dL 09/19/16 09/19/16 Range/Units 07:37 13:12 WBC (3.8-10.6) k/uL RBC (4.30-5.90) m/uL Hgb (13.0-17.5) gm/dL Hct (39.0-53.0) % RDW (11.5-15.5) % Plt Count (150-450) k/uL Neutrophils # (Manual) (1.3-7.7) k/uL BUN (9-20) mg/dL Glucose (74-99) mg/dL POC Glucose (mg/dL) 112 H 129 H (75-99) mg/dL Calcium (8.4-10.2) mg/dL Phosphorus (2.5-4.5) mg/dL Magnesium (1.6-2.3) mg/dL Total Bilirubin (0.2-1.3) mg/dL AST (17-59) U/L ALT (21-72) U/L Total Protein (6.3-8.2) g/dL Albumin (3.5-5.0) g/dL Chest x-ray: report reviewed (Chest x-rays followed for CHF and atelectasis.) Assessment and Plan (1) Coronary artery disease Status: Acute Plan: Impression: 1. Cardiac debility. 2. Status post cardiac surgery. 3. Severe aortic stenosis. 4. Diabetes. 5. Hypertension. 6. Dyslipidemia. 7. Memory impairment. 8. Osteoarthritis. 9.reflux. Comments and plan: At this time PT and OT are prescribed. We'll follow therapies for safety concerns and benefit. Discussed with .
[2016-09-19 18:05] LABS: Glucose,Whole Blood 130 mg/dL (75-99)
[2016-09-19] MEDS ORDERED: POTASSIUM CHLORIDE ORAL LIQUID 40 MEQ/30 ML CUP NG-TUBE SCH (20:00)
[2016-09-19 21:23] LABS: Glucose,Whole Blood 221 mg/dL (75-99)
[2016-09-20 06:55] LABS: CH 31.9; CHCM 33.2; HCT 26.4 % (39.0-53.0); HDW 3.23; HGB 8.7 gm/dL (13.0-17.5); MCH 31.8 pg (25.0-35.0); MCHC 32.9 g/dL (31.0-37.0); MCV 96.9 fL (80.0-100.0); Mean Platelet Volume 9.4; RBC 2.72 m/uL (4.30-5.90); RDW 15.6 % (11.5-15.5); WBC 15.5 k/uL (3.8-10.6)
[2016-09-20 07:06] LABS: ALT 156 U/L (21-72); AST 236 U/L (17-59); Alkaline Phosphatase 65 U/L (38-126); Anion Gap 9 mmol/L; Blood Urea Nitrogen 20 mg/dL (9-20); Calcium 7.9 mg/dL (8.4-10.2); Carbon Dioxide 24 mmol/L (22-30); Chloride 104 mmol/L (98-107); Glucose 140 mg/dL (74-99); Magnesium 2.3 mg/dL (1.6-2.3); Non-African American GFR(MDRD) >60 (>60 ml/min/1.73 sqM); Phosphorous 1.8 mg/dL (2.5-4.5); Potassium 3.6 mmol/L (3.5-5.1); Sodium 137 mmol/L (137-145); Total Bilirubin 2.7 mg/dL (0.2-1.3); Total Protein 5.3 g/dL (6.3-8.2)
[2016-09-20 07:15] LABS: INR 1.2 (<1.2); Prothrombin Time 12.2 sec (9.0-12.0)
[2016-09-20] MEDS ORDERED: Potassium Replacement Protocol 1 EACH MISC MISCELLANE PRN (07:19)
[2016-09-20] MEDS ORDERED: Phosphorus Replacement Protoco 1 EACH MISC MISCELLANE PRN ×2 (07:19→07:55)
[2016-09-20 07:38] LABS: Ionized Calcium 4.7 mg/dL (4.5-5.3)
[2016-09-20 07:46] LABS: Glucose,Whole Blood 194 mg/dL (75-99)
[2016-09-20] MEDS ORDERED: POTASSIUM CHLORIDE ER 20 MEQ TAB.ER PO SCH (08:00)
[2016-09-20] MEDS ORDERED: SODIUM PHOSPHATE 10 MMOL in SODIUM CHLORIDE 0.9% 250 ML IVPB SCH (08:00)
[2016-09-20] MEDS: INSULIN LISPRO (humaLOG) 300 UNIT/3 ML VIAL SQ SCH ×4 (08:28→22:08)
[2016-09-20] MEDS: PANTOPRAZOLE 40 MG TABLET PO SCH ×2 (08:29→17:32)
[2016-09-20] MEDS: HEPARIN SODIUM,PORCINE 5,000 UNIT/ML 1 ML VIAL SQ SCH ×2 (08:29→17:30)
[2016-09-20] MEDS: ATORVASTATIN 40 MG TAB PO SCH (08:30)
[2016-09-20] MEDS: CLOPIDOGREL 75 MG TAB PO SCH (08:30)
[2016-09-20] MEDS: LISINOPRIL 10 MG TAB PO SCH (08:30)
[2016-09-20] MEDS: METOPROLOL TARTRATE 25 MG TAB PO SCH ×3 (08:30→22:07)
[2016-09-20] MEDS: ASPIRIN 325 MG TAB PO SCH (08:30)
[2016-09-20] MEDS: POTASSIUM PHOSPHATE 10 MMOL in SODIUM CHLORIDE 0.9% 250 ML IV SCH ×2 (08:30→10:42)
--- NOTE | 2016-09-20 08:49 | P.PN ---
Subjective Principal diagnosis: Status post open heart This is a pleasant 81-year-old gentleman who sees Dr. Elizalde as an outpatient who was admitted to the hospital yesterday and underwent aortic valve replacement along with CABG 3 with PUTNAM to LAD, SVG to diagonal, and SVG to ramus intermedius. On follow-up with the patient today the change in mental status has improved significantly. Objective - Vital Signs Vital signs: Vital Signs Temp 98.2 F 09/20/16 04:00 Pulse 66 09/20/16 04:00 Resp 17 09/20/16 04:00 BP 139/63 09/20/16 04:00 Pulse Ox 96 09/20/16 04:00 Intake & Output 09/19/16 09/20/16 09/20/16 18:59 06:59 18:59 Intake Total 530 250 Output Total 760 382 Balance -230 -132 Weight 87.044 kg Intake: IV 40 Lactated Ringers 1,000 ml 40 @ 20 mls/hr IV .Q24H [facility] Rx#:[id number] Intake, IV Titration 250 Amount Sodium Phosphate 10 mmol 250 In Sodium Chloride 0.9% 250 ml @ 125 mls/hr IVPB ONCE ONE Rx#:[id number] Oral 240 250 Output: Urine 760 382 Other: Voiding Method Indwelling Catheter Indwelling Catheter # Voids 1 # Bowel Movements 1 1 ABP, PAP, CO, CI - Last Documented Arterial Blood Pressure 147/52 Pulmonary Artery Pressure 141/53 - Constitutional General appearance: Present: no acute distress - Respiratory Respiratory: bilateral: diminished - Cardiovascular Rhythm: regular Heart sounds: normal: S1, S2 - Labs CBC & Chem 7: 09/20/16 06:40 09/20/16 06:40 Labs: Abnormal Lab Results - Last 24 Hours (Table) 09/19/16 09/19/16 09/19/16 Range/Units 13:12 18:01 21:21 WBC (3.8-10.6) k/uL RBC (4.30-5.90) m/uL Hgb (13.0-17.5) gm/dL Hct (39.0-53.0) % RDW (11.5-15.5) % PT (9.0-12.0) sec INR (<1.2) Glucose (74-99) mg/dL POC Glucose (mg/dL) 129 H 130 H 221 H (75-99) mg/dL Calcium (8.4-10.2) mg/dL Phosphorus (2.5-4.5) mg/dL Total Bilirubin (0.2-1.3) mg/dL AST (17-59) U/L ALT (21-72) U/L Total Protein (6.3-8.2) g/dL Albumin (3.5-5.0) g/dL 09/20/16 09/20/16 09/20/16 Range/Units 06:40 06:40 06:40 WBC 15.5 H (3.8-10.6) k/uL RBC 2.72 L (4.30-5.90) m/uL Hgb 8.7 L (13.0-17.5) gm/dL Hct 26.4 L (39.0-53.0) % RDW 15.6 H (11.5-15.5) % PT 12.2 H (9.0-12.0) sec INR 1.2 H (<1.2) Glucose 140 H (74-99) mg/dL POC Glucose (mg/dL) (75-99) mg/dL Calcium 7.9 L (8.4-10.2) mg/dL Phosphorus 1.8 L (2.5-4.5) mg/dL Total Bilirubin 2.7 H (0.2-1.3) mg/dL AST 236 H (17-59) U/L ALT 156 H (21-72) U/L Total Protein 5.3 L (6.3-8.2) g/dL Albumin 2.8 L (3.5-5.0) g/dL 09/20/16 Range/Units 07:26 WBC (3.8-10.6) k/uL RBC (4.30-5.90) m/uL Hgb (13.0-17.5) gm/dL Hct (39.0-53.0) % RDW (11.5-15.5) % PT (9.0-12.0) sec INR (<1.2) Glucose (74-99) mg/dL POC Glucose (mg/dL) 194 H (75-99) mg/dL Calcium (8.4-10.2) mg/dL Phosphorus (2.5-4.5) mg/dL Total Bilirubin (0.2-1.3) mg/dL AST (17-59) U/L ALT (21-72) U/L Total Protein (6.3-8.2) g/dL Albumin (3.5-5.0) g/dL Assessment and Plan Plan: This is a pleasant 81-year-old gentleman who was admitted to the hospital yesterday and underwent aortic valve replacement along with CABG 3 as described above. We'll continue the current medical treatment which included dual antiplatelet and statin and follow-up with the patient.
--- NOTE | 2016-09-20 10:44 | P.PN ---
Subjective Principal diagnosis: Status post CABG and aortic valve replacement postoperative day #6 This is an 81-year-old gentleman who follows with Dr. Opal casarez as his primary care physician. He has a history of diabetes mellitus, gastroesophageal reflux disease, hyperlipidemia, hypertension. He follows with Dr. Elizalde in the office for aortic stenosis. He is also had worsening fatigue and dyspnea on exertion. His most recent echo revealed severe aortic stenosis and a drop in his ejection fraction along with reversible ischemia on a stress test. He had subsequently undergone cardiac catheterization which revealed multivessel coronary artery disease. He presented here today for an elective surgery which was performed today by Dr. Hannon. He received a PUTNAM to the LAD , saphenous vein grafts to the ramus and the diagonal branches along with aortic valve replacement. He is seen today in the intensive care unit immediately postoperative. He is currently on the mechanical ventilator at assist control of 12, tidal volume 450, FiO2 100% and a PEEP of 5. Current blood gases reveal pO2 of 248, pCO2 46, pH 7.33. There were unable to insert a [place] catheter. There is a left IJ present his current blood pressure 114/ 45, CVP of 16, he is in normal sinus rhythm with a first-degree heart block. Current drips are Primacor 0.3 mcg/kg/m, propofol 20 mcg/kg/m, insulin at 1 unit per hour. Lactated Ringer's at 50 MLS per hour. Levophed currently off. Chest x-ray shows evidence of fluid volume overload. There is a split mediastinal chest tubes and a left pleural chest tube in place. Hemoglobin 5.5 which is being rerun in the lab currently. He did receive 2 units of fresh frozen plasma, 1 unit of platelets, 400 of Cell Saver and 1 unit of autologous blood. Estimated blood loss was 2000 MLS. The patient is seen again today 09/15/2016 in follow-up in the intensive care unit. He was successfully extubated and is maintaining good O2 saturations in the upper 90s on 3 L/m per nasal cannula. His chest x-ray reveals bilateral infiltrates with small effusions. He was given Lasix 20 mg IV push 1. Currently in a negative balance. He is sternal and left pleural chest tubes are in place. He remains on milrinone at 0.1 mcg/kg/m. He is on lactated Ringer's at 50 MLS per hour. He is on a insulin drip at 1 unit per hour. His remaining in normal sinus rhythm. He did receive a total of 2 units of packed red blood cells, 2 units of fresh frozen plasma, 1 unit of pheresis platelets. His current hemoglobin is 7.7. Platelet count 100,000. The patient is seen again today 09/16/2016 in follow-up in the intensive care unit. The patient has had ongoing issues with altered mental status and confusion. Yelling out. Disoriented to place and time. He has required Haldol and Seroquel. He is currently receiving lactated Ringer's at 20 miles per hour. The milrinone has been discontinued. He did receive albumin 250 MLS. He remains on insulin drip at 0.5 units per hour. He has remained hemodynamically stable. CVP 16. WBC 13.1. Hemoglobin 7.1. Platelet count 78, 000. He is maintaining good O2 saturations in the 90s on 2 L/m per nasal cannula. His remaining in sinus rhythm. His chest x-ray does show some persistent basilar densities but improvement in overall aeration. On 09/17/2016 the patient is being seen in follow-up. Active issue remains his delirium as the patient has an underlying dementia in addition. He is taken Zyprexa 2.5 mg every 6 hours as needed. He is calm and comfortable. Overnight he also received IV Haldol. Hemodynamically stable. Resting comfortably in bed. In fact quite sleepy. This point. He is however easily arousable. No respiratory distress. No aspiration. Sternum stable clean and intact. Still on 2 L of oxygen nasal cannula. The milrinone drip was discontinued. He did go into atrial fibrillation currently is on amiodarone drip as loading. Rhythm is back to sinus at this point and well-controlled. Hemoglobin is at 7.5 and stable. Chest x-ray showing CHF with pulmonary vessel congestion and interstitial edema. There is also small left pleural effusion suspected. On 09/18/2016 I'm seeing this patient in follow-up. Mentation is improved considerably. The patient did not require any Zyprexa. 2 no cough or pain control. Hemodynamically stable. Left sided chest tube in place. Put out approximately 0 that cc since morning it is such that she will be kept in place. Chest x-ray shows no pneumothorax. Lungs are well expanded. His off milrinone. Producing adequate amount of urine output. Cardiac rhythm is sinus and he is on oral amiodarone. No respiratory distress. Sternum stable clean and intact. Hemoglobin is down to 6.8 and the patient will be receiving a unit of packed RBC. Lasix will be given after the units of blood. On 09/19/2016, patient continues to do relatively well, mentation is improving but remains a bit confused, oriented to place, but not time and date. Patient is off Zyprexa, he is relatively asymptomatic, his left sided chest tube was removed. Labs including CBC and basic metabolic profile and renal profile were noted and reviewed. Patient denies any shortness of breath no cough no wheezing and no chest pain. We plan to consider moving the patient to a monitored bed on selective today. On 09/20/2016, patient is postoperative day #6, less confused, more alert and oriented, denies any specific complaints, patient is presently on overflow supposed to be on selective/monitor bed. But he remains in the ICU as an overflow patient. CBC showed a hemoglobin of 8.7 electrolytes and renal profile are normal. Liver enzymes were noted to be a bit elevated but being monitored. INR is 1.2. Renal profile is normal. No chest x-ray was done today. Objective - Vital Signs Vital signs: Vital Signs Temp 98.0 F 09/20/16 08:00 Pulse 88 09/20/16 08:00 Resp 19 09/20/16 08:00 BP 140/65 09/20/16 08:00 Pulse Ox 94 L 09/20/16 08:00 Intake & Output 09/19/16 09/20/16 09/20/16 18:59 06:59 18:59 Intake Total 530 250 Output Total 760 382 Balance -230 -132 Weight 87.044 kg Intake: IV 40 Lactated Ringers 1,000 ml 40 @ 20 mls/hr IV .Q24H [facility] Rx#:[id number] Intake, IV Titration 250 Amount Sodium Phosphate 10 mmol 250 In Sodium Chloride 0.9% 250 ml @ 125 mls/hr IVPB ONCE ONE Rx#:[id number] Oral 240 250 Output: Urine 760 382 Other: Voiding Method Indwelling Catheter Indwelling Catheter Indwelling Catheter # Voids 1 # Bowel Movements 1 1 ABP, PAP, CO, CI - Last Documented Arterial Blood Pressure 147/52 Pulmonary Artery Pressure 141/53 - Exam Physical Exam: Revealed an 81-year-old slightly confused but in no distress. HEENT:[Neck is supple.] [No neck masses.] [No thyromegaly.] [No JVD.] Chest: [Diminished breath sounds at the bases no crackles or rhonchi or wheezes..] Cardiac Exam: [Normal S1 and S2, no S3 gallop, no murmur.] Abdomen: [Soft, nontender, no megaly, no rebound, no guarding, normal bowel sounds.] Extremities: [No clubbing, no edema, no cyanosis.] Neurological Exam: Slight confusion, no focal neurologic deficit otherwise. - Labs CBC & Chem 7: 09/20/16 06:40 09/20/16 06:40 Labs: Abnormal Lab Results - Last 24 Hours (Table) 09/19/16 09/19/16 09/19/16 Range/Units 13:12 18:01 21:21 WBC (3.8-10.6) k/uL RBC (4.30-5.90) m/uL Hgb (13.0-17.5) gm/dL Hct (39.0-53.0) % RDW (11.5-15.5) % PT (9.0-12.0) sec INR (<1.2) Glucose (74-99) mg/dL POC Glucose (mg/dL) 129 H 130 H 221 H (75-99) mg/dL Calcium (8.4-10.2) mg/dL Phosphorus (2.5-4.5) mg/dL Total Bilirubin (0.2-1.3) mg/dL AST (17-59) U/L ALT (21-72) U/L Total Protein (6.3-8.2) g/dL Albumin (3.5-5.0) g/dL 09/20/16 09/20/16 09/20/16 Range/Units 06:40 06:40 06:40 WBC 15.5 H (3.8-10.6) k/uL RBC 2.72 L (4.30-5.90) m/uL Hgb 8.7 L (13.0-17.5) gm/dL Hct 26.4 L (39.0-53.0) % RDW 15.6 H (11.5-15.5) % PT 12.2 H (9.0-12.0) sec INR 1.2 H (<1.2) Glucose 140 H (74-99) mg/dL POC Glucose (mg/dL) (75-99) mg/dL Calcium 7.9 L (8.4-10.2) mg/dL Phosphorus 1.8 L (2.5-4.5) mg/dL Total Bilirubin 2.7 H (0.2-1.3) mg/dL AST 236 H (17-59) U/L ALT 156 H (21-72) U/L Total Protein 5.3 L (6.3-8.2) g/dL Albumin 2.8 L (3.5-5.0) g/dL 09/20/16 Range/Units 07:26 WBC (3.8-10.6) k/uL RBC (4.30-5.90) m/uL Hgb (13.0-17.5) gm/dL Hct (39.0-53.0) % RDW (11.5-15.5) % PT (9.0-12.0) sec INR (<1.2) Glucose (74-99) mg/dL POC Glucose (mg/dL) 194 H (75-99) mg/dL Calcium (8.4-10.2) mg/dL Phosphorus (2.5-4.5) mg/dL Total Bilirubin (0.2-1.3) mg/dL AST (17-59) U/L ALT (21-72) U/L Total Protein (6.3-8.2) g/dL Albumin (3.5-5.0) g/dL Assessment and Plan Plan: #1 Coronary artery disease status post coronary artery bypass grafting utilizing a PUTNAM to the LAD, saphenous vein grafts to the ramus and diagonal branches. Postoperative day #6 #2 Severe aortic stenosis status post aortic valve replacement. Postoperative day #6 #3 postoperative delirium, resolved #4 Postoperative anemia as an expected outcome post thoracotomy. Current hemoglobin 8.7 #5 Previous history of chronic tobacco dependence. #6 Diabetes mellitus. #7 History of hypertension. #8 Hyperlipidemia. #9 History of dementia #10 postoperative atrial fibrillation , presently in sinus rhythm Plan Continue present supportive care measures, ambulate, continue incentive spirometry, possible transfer to a monitored bed on selective today. We'll continue to follow. Time with Patient: Less than 30
[2016-09-20 12:17] LABS: Glucose,Whole Blood 116 mg/dL (75-99)
[2016-09-20] MEDS: LINAGLIPTIN 5 MG TABLET PO SCH (12:44)
[2016-09-20] MEDS: FERROUS SULFATE 325 MG TAB PO SCH (12:44)
[2016-09-20] MEDS ORDERED: KETOROLAC 30 MG/ML 1 ML VIAL IVP PRN (14:09)
[2016-09-20 14:26] VITALS: BMI 27.5
--- NOTE | 2016-09-20 14:52 | P.PN ---
Subjective This is an 81-year-old gentleman who follows with Dr. San as his primary care physician. He has a history of diabetes mellitus, gastroesophageal reflux disease, hyperlipidemia, hypertension. He follows with Dr. Elizalde in the office for aortic stenosis. He is also had worsening fatigue and dyspnea on exertion. His most recent echo revealed severe aortic stenosis and a drop in his ejection fraction along with reversible ischemia on a stress test. He had subsequently undergone cardiac catheterization which revealed multivessel coronary artery disease. He presented here today for an elective surgery which was performed today by Dr. Hannon. He received a PUTNAM to the LAD, saphenous vein grafts to the ramus and the diagonal branches along with aortic valve replacement. Patient was seen in the ICU sitting in a recliner appears a bit confused with minimal short term memory deficit, there is chest wall pain and minimal cough. 09/16: issues lethargic this morning and contributing factors include lack of sleep, Ativan during the night, Haldol and Seroquel 50 mg given this morning. Patient was very uncooperative and combative and confused. Would recommend Seroquel at 12.5 mg to 25 mg twice daily only. Psychiatric consult was added. patient is sitting in bed and appears to be in no acute distress but again quite lethargic. 09/17: Patient's more oriented however he is a bit drowsy, patient required Seroquel as recommended by psychiatry, patient remains in ICU, can follow commands, patient with dry mouth no aspirations observed by nursing staff 09/18: Patient remains in ICU, mentation has improved significantly, patient's more lucid, did not require any sedation or antipsychotics at this point, he is to receive 1 unit of packed red blood cells for hemoglobin of 6.8, patient is comfortable, chest tube and left side remains in place insulin drip is now switched to sliding scale, 1 diet is more consistent, home blood sugar medications will be resumed 09/19: Patient has been evaluated by physical therapy with recommendations for home. There is a consult in place for Dr. Keller to evaluate for inpatient rehab. Amiodarone is on hold due to his elevated liver function tests. He did receive 1 dose of IV Lasix this morning. Left pleural chest tube is to be removed and patient be transferred to selective care today. No new complaints today. 09/20: Patient remains in the intensive care unit. He is awake and alert. He denies any shortness of breath or cough. He states he slept okay last night. Patient has required Lindsey catheter for urinary retention and consult was placed with urology. We will plan to resume patient back on which the hospital carries Tradjenta as a replacement. No Nipride or metformin at this time. Objective - Vital Signs Vital signs: Vital Signs Temp 98.0 F 09/20/16 08:00 Pulse 88 09/20/16 08:00 Resp 19 09/20/16 08:00 BP 140/65 09/20/16 08:00 Pulse Ox 94 L 09/20/16 08:00 Intake & Output 09/19/16 09/20/16 09/20/16 18:59 06:59 18:59 Intake Total 530 250 Output Total 760 382 Balance -230 -132 Weight 87.044 kg Intake: IV 40 Lactated Ringers 1,000 ml 40 @ 20 mls/hr IV .Q24H [facility] Rx#:[id number] Intake, IV Titration 250 Amount Sodium Phosphate 10 mmol 250 In Sodium Chloride 0.9% 250 ml @ 125 mls/hr IVPB ONCE ONE Rx#:[id number] Oral 240 250 Output: Urine 760 382 Other: Voiding Method Indwelling Catheter Indwelling Catheter Indwelling Catheter # Voids 1 # Bowel Movements 1 1 ABP, PAP, CO, CI - Last Documented Arterial Blood Pressure 147/52 Pulmonary Artery Pressure 141/53 - Exam General appearance: Present: cooperative, no acute distress - EENT Eyes: Present: anicteric sclerae, EOMI, poor dentition, normal appearance ENT: Present: NA/AT - Neck Neck: Present: normal ROM - Respiratory Respiratory: bilateral: CTA - Cardiovascular Rhythm: regular Heart sounds: normal: S1, S2 Abnormal Heart Sounds: Absent: systolic murmur, diastolic murmur, rub, S3 Gallop , S4 Gallop, click, other - Gastrointestinal General gastrointestinal: Present: normal bowel sounds, soft - Integumentary Integumentary: Present: decreased turgor, normal - Neurologic Neurologic: Present: CNII-XII intact - Musculoskeletal Musculoskeletal: Present: generalized weakness, strength equal bilaterally - Psychiatric Psychiatric: Present: A&O x's 2, appropriate affect - Labs CBC & Chem 7: 09/20/16 06:40 08/15/17 06:40 Labs: Abnormal Lab Results - Last 24 Hours (Table) 09/19/16 09/19/16 09/19/16 Range/Units 13:12 18:01 21:21 WBC (3.8-10.6) k/uL RBC (4.30-5.90) m/uL Hgb (13.0-17.5) gm/dL Hct (39.0-53.0) % RDW (11.5-15.5) % PT (9.0-12.0) sec INR (<1.2) Glucose (74-99) mg/dL POC Glucose (mg/dL) 129 H 130 H 221 H (75-99) mg/dL Calcium (8.4-10.2) mg/dL Phosphorus (2.5-4.5) mg/dL Total Bilirubin (0.2-1.3) mg/dL AST (17-59) U/L ALT (21-72) U/L Total Protein (6.3-8.2) g/dL Albumin (3.5-5.0) g/dL 09/20/16 09/20/16 09/20/16 Range/Units 06:40 06:40 06:40 WBC 15.5 H (3.8-10.6) k/uL RBC 2.72 L (4.30-5.90) m/uL Hgb 8.7 L (13.0-17.5) gm/dL Hct 26.4 L (39.0-53.0) % RDW 15.6 H (11.5-15.5) % PT 12.2 H (9.0-12.0) sec INR 1.2 H (<1.2) Glucose 140 H (74-99) mg/dL POC Glucose (mg/dL) (75-99) mg/dL Calcium 7.9 L (8.4-10.2) mg/dL Phosphorus 1.8 L (2.5-4.5) mg/dL Total Bilirubin 2.7 H (0.2-1.3) mg/dL AST 236 H (17-59) U/L ALT 156 H (21-72) U/L Total Protein 5.3 L (6.3-8.2) g/dL Albumin 2.8 L (3.5-5.0) g/dL 09/20/16 Range/Units 07:26 WBC (3.8-10.6) k/uL RBC (4.30-5.90) m/uL Hgb (13.0-17.5) gm/dL Hct (39.0-53.0) % RDW (11.5-15.5) % PT (9.0-12.0) sec INR (<1.2) Glucose (74-99) mg/dL POC Glucose (mg/dL) 194 H (75-99) mg/dL Calcium (8.4-10.2) mg/dL Phosphorus (2.5-4.5) mg/dL Total Bilirubin (0.2-1.3) mg/dL AST (17-59) U/L ALT (21-72) U/L Total Protein (6.3-8.2) g/dL Albumin (3.5-5.0) g/dL Assessment and Plan Plan: 1. Status post CABG X3 with AVR. Continue current management as per cardiothoracic surgery, cardiology, pulmonary medicine, continue aggressive pulmonary toileting, continue metoprolol 12.5 mg orally twice every day, restart the patient on statin, continue patient on aspirin 325 mg orally once every day, continue Plavix 75 mg orally once every day, pain control, increase activity. 2. Post vent dependent respiratory support secondary to CABG 3 and AVR, expected. Patient was extubated continue aggressive pulmonary toileting, encourage the usage of incentive spirometer. 3. Hypertension and hypertensive cardiovascular disease. Continue metoprolol 12.5 mg orally twice every day, start the patient on small dose of losartan when more stable. 4. Hyperlipidemia. restart Lipitor 80 mg orally daily. 5. Diabetes Mellitus type 2. Januvia/tradjenta to started. 6. Vascular dementia with behavioral disturbance. Patient has received Ativan which may have contributed to his confusion , Haldol and Seroquel. Psychiatric consult was requested. Psychiatrist has recommended Haldol 0.5 mg IV every 8 hours for severe agitation and to start Zyprexa. 7. Metabolic encephalopathy secondary to a combination of lack of sleep, vascular dementia, Ativan, Haldol and Seroquel. Avoid Ativan. 8. Acute blood loss anemia status post multiple transfusions. 9. DVT prophylaxis. SCD;s and GRANT wraps. 10. GI prophylaxis . continue with protonix 40 mg IVP daily. 11. Full code. Discharge plan: To be determined Impression and plan of care have been directed as dictated by the signing physician. Shavon Kingston nurse practitioner acting as scribe for signing physician.
--- NOTE | 2016-09-20 15:22 | P.PN ---
Subjective Principal diagnosis: Symptomatic multivessel coronary artery disease. Severe aortic valve stenosis with mild aortic regurgitation. Preserved left ventricular function. Type 2 diabetes mellitus. GERD. Hypertension. Hyperlipidemia. Previous tobacco dependence. POD #6 elective triple-vessel coronary artery bypass grafting using the left internal mammary artery to the left anterior descending artery, reverse saphenous vein graft from the aorta to the ramus artery, reverse saphenous vein graft from the aorta to the diagonal artery. Aortic valve replacement using a 25 mm pericardial bioprosthesis magna ease. Endoscopic vein harvesting of the right greater saphenous vein. Intraoperative transesophageal echocardiogram and epi-aortic scanning. Intraoperative graft flow measurement using the [employer] system. Postoperative urinary retention, inherent to the procedure, with reinsertion of Lindsey catheter. The patient is currently sitting up in bed in no acute distress. Less confused , not combative, much more cooperative. Denies pain, shortness of breath. Transfer orders placed yesterday to send patient out of ICU to [facility]. selective Objective - Vital Signs Vital signs: Vital Signs Temp 98.1 F 09/20/16 12:00 Pulse 72 09/20/16 12:00 Resp 19 09/20/16 12:00 BP 151/59 09/20/16 12:00 Pulse Ox 93 L 09/20/16 12:00 Intake & Output 09/19/16 09/20/16 09/20/16 18:59 06:59 18:59 Intake Total 530 250 Output Total 760 382 Balance -230 -132 Weight 87.044 kg 87.044 kg Intake: IV 40 Lactated Ringers 1,000 ml 40 @ 20 mls/hr IV .Q24H [facility] Rx#:[id number] Intake, IV Titration 250 Amount Sodium Phosphate 10 mmol 250 In Sodium Chloride 0.9% 250 ml @ 125 mls/hr IVPB ONCE ONE Rx#:[id number] Oral 240 250 Output: Urine 760 382 Other: Voiding Method Indwelling Catheter Indwelling Catheter Indwelling Catheter # Voids 1 # Bowel Movements 1 1 ABP, PAP, CO, CI - Last Documented Arterial Blood Pressure 147/52 Pulmonary Artery Pressure 141/53 - Constitutional General appearance: Present: cooperative, no acute distress - Respiratory Details: Lungs sounds diminished bilaterally. Respirations even, nonlabored. Currently on 2 L nasal cannula with oxygen saturation 93%. Able to achieve 1250 mL on his incentive spirometry. - Cardiovascular Details: S1, S2 present. Regular rate and rhythm, normal sinus rhythm on telemetry. Sternum stable. Heart hugger in place with patient demonstrating appropriate use. Palpable pulses bilaterally. No edema present. Teds/SCDs present. A/V epicardial pacemaker wires present, capped. - Gastrointestinal Gastrointestinal Comment(s): Abdomen soft, nontender, nondistended. Active bowel sounds 4 quadrants. Tolerating diet. - Genitourinary Genitourinary Comment(s): Lindsey present draining clear, yellow urine. - Integumentary Integumentary Comment(s): Anterior chest incision well approximated and covered with dry intact dressing. Right lower extremity EVH site well approximated. - Musculoskeletal Musculoskeletal: Present: generalized weakness - Psychiatric Psychiatric Comment(s): Alert and oriented to person and place, still unsure of the year but at least in the right Century as he states its 2000 something. Does remember that he is here because he had open heart surgery. Psychiatric: Present: appropriate affect - Allied health notes Allied health notes reviewed: nursing - Labs CBC & Chem 7: 09/20/16 06:40 09/20/16 06:40 Labs: Abnormal Lab Results - Last 24 Hours (Table) 09/19/16 09/19/16 09/20/16 Range/Units 18:01 21:21 06:40 WBC 15.5 H (3.8-10.6) k/uL RBC 2.72 L (4.30-5.90) m/uL Hgb 8.7 L (13.0-17.5) gm/dL Hct 26.4 L (39.0-53.0) % RDW 15.6 H (11.5-15.5) % PT (9.0-12.0) sec INR (<1.2) Glucose (74-99) mg/dL POC Glucose (mg/dL) 130 H 221 H (75-99) mg/dL Calcium (8.4-10.2) mg/dL Phosphorus (2.5-4.5) mg/dL Total Bilirubin (0.2-1.3) mg/dL AST (17-59) U/L ALT (21-72) U/L Total Protein (6.3-8.2) g/dL Albumin (3.5-5.0) g/dL 09/20/16 09/20/16 09/20/16 Range/Units 06:40 06:40 07:26 WBC (3.8-10.6) k/uL RBC (4.30-5.90) m/uL Hgb (13.0-17.5) gm/dL Hct (39.0-53.0) % RDW (11.5-15.5) % PT 12.2 H (9.0-12.0) sec INR 1.2 H (<1.2) Glucose 140 H (74-99) mg/dL POC Glucose (mg/dL) 194 H (75-99) mg/dL Calcium 7.9 L (8.4-10.2) mg/dL Phosphorus 1.8 L (2.5-4.5) mg/dL Total Bilirubin 2.7 H (0.2-1.3) mg/dL AST 236 H (17-59) U/L ALT 156 H (21-72) U/L Total Protein 5.3 L (6.3-8.2) g/dL Albumin 2.8 L (3.5-5.0) g/dL 09/20/16 Range/Units 12:14 WBC (3.8-10.6) k/uL RBC (4.30-5.90) m/uL Hgb (13.0-17.5) gm/dL Hct (39.0-53.0) % RDW (11.5-15.5) % PT (9.0-12.0) sec INR (<1.2) Glucose (74-99) mg/dL POC Glucose (mg/dL) 116 H (75-99) mg/dL Calcium (8.4-10.2) mg/dL Phosphorus (2.5-4.5) mg/dL Total Bilirubin (0.2-1.3) mg/dL AST (17-59) U/L ALT (21-72) U/L Total Protein (6.3-8.2) g/dL Albumin (3.5-5.0) g/dL Assessment and Plan (1) Coronary artery disease Status: Acute (2) Hyperlipidemia Status: Acute (3) Hypertension Status: Acute (4) Severe aortic stenosis Status: Acute (5) Type 2 diabetes mellitus Status: Acute (6) Tobacco dependence in remission Status: Acute Plan: 1. Continue aspirin, Lipitor, Plavix, beta gregg. Will maximize beta gregg therapy as tolerated. 2. Will discontinue epicardial pacemaker wires. 3. Flomax added. Urology consult is regarding urinary retention. 4. Wean O2 as tolerated. Encourage incentive spirometer use. 5. Increase activity, ambulate in hallway as able. Physical therapy to follow. 6. GI/DVT prophylaxis. 7. Insulin management per primary care service. 8. Will monitor daily labs, chest x-rays. 9. More recommendations as patient progresses. Anticipate discharge to rehab in 24-48 hours. Time with Patient: Greater than 30
--- NOTE | 2016-09-20 16:18 | CDI ---
In responding to this query, please exercise your independent professional judgment. The [facility] Coding Staff and Clinical Documentation Specialists appreciate your assistance in clarifying documentation, maintaining compliance with coding guidelines, accurately documenting patients condition and capturing severity of illness. The fact that a question is asked does not imply that any particular answer is desired or expected. Communication forms are a method of clarifying documentation and are not made part of the Legal Health Record. Thank you in advance for your clarification. Last Revision, December [address] [facility] [place] [address] Documentation Clarification Form Date: 09/20/2016 3:30:00 PM From: Gricelda Sorenson Admit Date: 09/14/2016 5:44:00 AM Patient Name: Francisco Pagan Visit Number: [id number] Discharge Date: Dr. Addi Wilburn Atrial fibrillation is documented in your ongoing progress notes starting on 01/2017. History/Risk Factors: Hypertension, CAD, Hyperlipidemia, Diabetes Mellitus type 2, Clinical Indicators: patient went into atrial fibrillation was treated with a amiodarone drip as loading. Rhythm went back into sinus controlled rate. Treatment: Amiodarone (current on hold) ASA PO Plavix PO In your professional opinion, can you please clarify the post operative atrial fibrillation, and specify if it is expected or unexpected post procedural condition? Chronic/Permanent Paroxysmal Persistent Other, please specify Unable to determine Please document in your progress notes in order to capture severity of illness and risk of mortality. Include clinical findings that support your diagnosis. FYI: Press F11 to launch patient chart MTDD
--- NOTE | 2016-09-20 16:28 | P.GSCN ---
History of Present Illness Consult date: 09/20/16 Reason for Consult: Urinary retention History of present illness: The patient is an 81-year-old male admitted on 09/14/2016 for evaluation of chest pain. He was discovered to have significant coronary artery disease and aortic valve dysfunction and underwent CABG with aortic valve replacement on 09/15. A Lindsey catheter was inserted at the time of the surgery and was removed the following day. The patient was unable to void and a catheter was reinserted 12 hours later. The catheter has remained in place since that time. The patient says he has no previous history of urinary retention. He says that he has taken Flomax for over 10 years. The Flomax was discontinued at the time of the patient's surgery and is scheduled to be restarted this evening. The patient says that he usually voids every 2-4 hours during the day and once at night. He describes a moderate urinary flow and does not strain to void. Prior to this admission he felt that he was voiding completely. He has no history of gross hematuria or recurrent urinary tract infections. He says his bowels have been moving normally since his surgery. Review of Systems All systems: negative (chest wall pain related to his recent surgery) Past Medical History Past Medical History: Coronary Artery Disease (CAD), Diabetes Mellitus, GERD/ Reflux, Hyperlipidemia, Hypertension, Memory Impairment, Osteoarthritis (OA), Prostate Disorder Additional Past Medical History / Comment(s): irregular heartrate, varicose veins, past hx shingles, SOB w/exertion History of Any Multi-Drug Resistant Organisms: None Reported Past Surgical History: Appendectomy, Heart Catheterization, Hernia Repair Additional Past Surgical History / Comment(s): "spots removed from his lung", mastoid surgery as child, mariama cataracts Past Anesthesia/Blood Transfusion Reactions: No Reported Reaction Smoking Status: Former smoker - Past Family History Sister(s) Family Medical History: Cancer (Patient had a sister with colon cancer.) Father Family Medical History: Unable to Obtain (he said that his father at the age of 45.) Mother Family Medical History: Diabetes Mellitus (mother at the age of 45 from DM2.) Brother(s) Family Medical History: No Reported History (Patient has 2 brothers.) Medications and Allergies Home Medications Medication Instructions Recorded Confirmed Type Ascorbic Acid [Vitamin C with Kim 1,000 mg PO DAILY 08/02/16 09/14/16 History Hips] Aspirin 325 mg PO DAILY 08/02/16 09/14/16 History Atenolol [Tenormin] 25 mg PO DAILY 08/02/16 09/14/16 History Cholecalciferol [Vitamin D3] 2,000 unit PO DAILY 08/02/16 09/14/16 History Ezetimibe/Simvastatin [Vytorin 1 tab PO DAILY 08/02/16 09/14/16 History 10-80 mg Tablet] Ferrous Sulfate [Feosol] 325 mg PO DAILY 08/02/16 09/14/16 History Glimepiride [Amaryl] 2 mg PO DAILY 08/02/16 09/14/16 History sitaGLIPtin [Januvia] 100 mg PO DAILY 08/02/16 09/14/16 History Calcium Carbonate [Tums] 500 mg PO TID PRN 09/07/16 09/14/16 History Mag Hydrox/Al Hydrox/Simeth 15 - 30 ml PO HS PRN 09/07/16 09/14/16 History [Maalox] metFORMIN HCL [Glucophage] 1,000 mg PO BID 09/14/16 09/14/16 History Allergies Allergy/AdvReac Type Severity Reaction Status Date / Time No Known Allergies Allergy Verified 09/14/16 06:16 Surgical - Exam Vital Signs Temp Pulse Resp BP Pulse Ox 97.7 F 53 L 16 177/77 97 09/14/16 06:13 09/14/16 06:13 09/14/16 06:13 09/14/16 06:13 09/14/16 06:13 - General well developed, no distress - Respiratory normal respiratory effort - Abdomen Abdomen: soft, non tender, no organomegaly Hernia: no inguinal - Genitourinary testicles non-tender, other (A Lindsey catheter is present and is draining clear urine) - Rectum Rectum: normal sphincter tone, no hemorrhoids, no masses, other (Prostate is 2+ enlarged and benign to palpation) - Psychiatric oriented to time, oriented to place, speech is normal, memory intact Results - Labs 09/20/16 06:40 09/20/16 06:40 Abnormal Lab Results - Last 24 Hours (Table) 09/19/16 09/19/16 09/20/16 Range/Units 18:01 21:21 06:40 WBC 15.5 H (3.8-10.6) k/uL RBC 2.72 L (4.30-5.90) m/uL Hgb 8.7 L (13.0-17.5) gm/dL Hct 26.4 L (39.0-53.0) % RDW 15.6 H (11.5-15.5) % PT (9.0-12.0) sec INR (<1.2) Glucose (74-99) mg/dL POC Glucose (mg/dL) 130 H 221 H (75-99) mg/dL Calcium (8.4-10.2) mg/dL Phosphorus (2.5-4.5) mg/dL Total Bilirubin (0.2-1.3) mg/dL AST (17-59) U/L ALT (21-72) U/L Total Protein (6.3-8.2) g/dL Albumin (3.5-5.0) g/dL 09/20/16 09/20/16 09/20/16 Range/Units 06:40 06:40 07:26 WBC (3.8-10.6) k/uL RBC (4.30-5.90) m/uL Hgb (13.0-17.5) gm/dL Hct (39.0-53.0) % RDW (11.5-15.5) % PT 12.2 H (9.0-12.0) sec INR 1.2 H (<1.2) Glucose 140 H (74-99) mg/dL POC Glucose (mg/dL) 194 H (75-99) mg/dL Calcium 7.9 L (8.4-10.2) mg/dL Phosphorus 1.8 L (2.5-4.5) mg/dL Total Bilirubin 2.7 H (0.2-1.3) mg/dL AST 236 H (17-59) U/L ALT 156 H (21-72) U/L Total Protein 5.3 L (6.3-8.2) g/dL Albumin 2.8 L (3.5-5.0) g/dL 09/20/16 Range/Units 12:14 WBC (3.8-10.6) k/uL RBC (4.30-5.90) m/uL Hgb (13.0-17.5) gm/dL Hct (39.0-53.0) % RDW (11.5-15.5) % PT (9.0-12.0) sec INR (<1.2) Glucose (74-99) mg/dL POC Glucose (mg/dL) 116 H (75-99) mg/dL Calcium (8.4-10.2) mg/dL Phosphorus (2.5-4.5) mg/dL Total Bilirubin (0.2-1.3) mg/dL AST (17-59) U/L ALT (21-72) U/L Total Protein (6.3-8.2) g/dL Albumin (3.5-5.0) g/dL Diabetes panel 09/19/16 09/20/16 Range/Units 18:18 06:40 Sodium 137 (137-145) mmol/L Potassium 3.7 3.6 (3.5-5.1) mmol/L Chloride 104 (98-107) mmol/L Carbon Dioxide 24 (22-30) mmol/L BUN 20 (9-20) mg/dL Creatinine 0.70 (0.66-1.25) mg/dL Glucose 140 H (74-99) mg/dL Calcium 7.9 L (8.4-10.2) mg/dL AST 236 H (17-59) U/L ALT 156 H (21-72) U/L Alkaline Phosphatase 65 (38-126) U/L Total Protein 5.3 L (6.3-8.2) g/dL Albumin 2.8 L (3.5-5.0) g/dL Calcium panel 09/20/16 Range/Units 06:40 Calcium 7.9 L (8.4-10.2) mg/dL Ionized Calcium Eyal 4.7 (4.5-5.3) mg/dL Phosphorus 1.8 L (2.5-4.5) mg/dL Albumin 2.8 L (3.5-5.0) g/dL Pituitary panel 09/19/16 09/20/16 Range/Units 18:18 06:40 Sodium 137 (137-145) mmol/L Potassium 3.7 3.6 (3.5-5.1) mmol/L Chloride 104 (98-107) mmol/L Carbon Dioxide 24 (22-30) mmol/L BUN 20 (9-20) mg/dL Creatinine 0.70 (0.66-1.25) mg/dL Glucose 140 H (74-99) mg/dL Calcium 7.9 L (8.4-10.2) mg/dL Adrenal panel 09/19/16 09/20/16 Range/Units 18:18 06:40 Sodium 137 (137-145) mmol/L Potassium 3.7 3.6 (3.5-5.1) mmol/L Chloride 104 (98-107) mmol/L Carbon Dioxide 24 (22-30) mmol/L BUN 20 (9-20) mg/dL Creatinine 0.70 (0.66-1.25) mg/dL Glucose 140 H (74-99) mg/dL Calcium 7.9 L (8.4-10.2) mg/dL Total Bilirubin 2.7 H (0.2-1.3) mg/dL AST 236 H (17-59) U/L ALT 156 H (21-72) U/L Alkaline Phosphatase 65 (38-126) U/L Total Protein 5.3 L (6.3-8.2) g/dL Albumin 2.8 L (3.5-5.0) g/dL Assessment and Plan (1) Postoperative urinary retention Status: Acute Plan: The patient had some symptoms of bladder outflow obstruction prior to his admission which appeared to be well controlled with tamsulosin 0.4 mg daily. Unfortunately the tamsulosin was discontinued at the time of his surgery and was not re-started prior to removal of his catheter on postoperative day 1. The patient will be restarted on tamsulosin tonight and his catheter will be removed in the morning. His postvoid residual should be checked by bladder scan after his first void to ensure he is voiding completely. It is anticipated that he will be transferred to a rehab unit later in the day.
--- NOTE | 2016-09-20 16:47 | CDI ---
In responding to this query, please exercise your independent professional judgment. The [facility] Coding Staff and Clinical Documentation Specialists appreciate your assistance in clarifying documentation, maintaining compliance with coding guidelines, accurately documenting patients condition and capturing severity of illness. The fact that a question is asked does not imply that any particular answer is desired or expected. Communication forms are a method of clarifying documentation and are not made part of the Legal Health Record. Thank you in advance for your clarification. Last Revision, December [address] [place] [address] Documentation Clarification Form Date: 09/20/2016 4:19:00 PM From: Gricelda Delta Admit Date: 09/14/2016 5:44:00 AM Patient Name: Francisco Pagan Visit Number: [id number] Discharge Date: Dr. Sahil Mcarthur Clinical Indicators: chest x-ray starting on 09/15/16 - 09/19/16 09/15/16 Bilateral infiltrate and pleural effusion. Correlate for CHF 09/16/16 Some improvement in aeration 09/17/16 Overall stable. Correlate for CHF and pulmonary vascular congestion /interstitial e edema. Prominent retoocardiac and left basilar atelectasis and/or consolidation. Similar small left pleural effusion is suspected as well. 09/18/16 Cardiomegaly with interstitial opacities. Correlate for continued CHF and pulmonary vascular congestion/interstitial edema. 09/19/16 Similar to previous exam. Correlate for CHF, pneumonia and there may be associated atelectasis or effusion. Treatment: Serial Chest x-ray Lasix IV (DC) Duoneb's PRN Clinical significance of diagnostic testing and treatment CANNOT be assumed or coded without physician documentation of significance if any. Please clarify what abnormal chest x-ray signifies: Clarify if this is expected or unexpected post procedure: Disease process, please specify Infectious process, please specify Unable to determine Other, please specify Please document in your progress notes in order to capture severity of illness and risk of mortality. Include clinical findings that support your diagnosis. FYI: Press F11 to launch patient chart MTDD
[2016-09-20 17:27] LABS: Glucose,Whole Blood 166 mg/dL (75-99)
[2016-09-20] MEDS ORDERED: TAMSULOSIN 0.4 MG CAP.ER.24H PO SCH (18:30)
[2016-09-20 20:33] LABS: Appearance,Urine Clear (Clear); Bilirubin,Urine Negative (Negative); Glucose,Urine (UA) Negative (Negative); Ketones,Urine Negative (Negative); Leukocyte Esterase,Urine Small (Negative); Mucus,Urine Rare /hpf; Nitrite,Urine Negative (Negative); PH, Urine 5.5 (5.0-8.0); Particle Count 2494; Protein,Urine 1+ (Negative); RBC,Urine 26 /hpf (0-5); Specific Gravity,Urine 1.014 (1.001-1.035); UA Billing (MACRO vs. MICRO) MICRO; Urobilinogen,Urine <2.0 mg/dL (<2.0); WBC,Urine 9 /hpf (0-5)
[2016-09-20 21:40] LABS: Glucose,Whole Blood 156 mg/dL (75-99)
[2016-09-21 01:36] VITALS: RESP 18
[2016-09-21] MEDS: HYDROcodone/APAP 5-325MG 1 EACH TAB PO PRN (01:46)
[2016-09-21] MEDS: HEPARIN SODIUM,PORCINE 5,000 UNIT/ML 1 ML VIAL SQ SCH ×2 (01:48→08:35)
[2016-09-21 05:56] LABS: Glucose,Whole Blood 189 mg/dL (75-99)
[2016-09-21] MEDS: INSULIN LISPRO (humaLOG) 300 UNIT/3 ML VIAL SQ SCH ×2 (05:59→12:16)
[2016-09-21] MEDS: PANTOPRAZOLE 40 MG TABLET PO SCH (06:02)
[2016-09-21 06:18] LABS: Aty Lym Flag Marked; CHCM 31.8; HCT 24.3 % (39.0-53.0); HDW 3.32; Hypochromasia Slight; MCH 32.2 pg (25.0-35.0); MCHC 32.7 g/dL (31.0-37.0); MCV 98.3 fL (80.0-100.0); Macrocytosis Slight; Mean Platelet Volume 8.1; RBC 2.48 m/uL (4.30-5.90); RDW 15.7 % (11.5-15.5); WBC 14.7 k/uL (3.8-10.6); WBC (Perox) 14.64
[2016-09-21 06:35] LABS: ALT 115 U/L (21-72); AST 114 U/L (17-59); Alkaline Phosphatase 69 U/L (38-126); Anion Gap 10 mmol/L; Blood Urea Nitrogen 13 mg/dL (9-20); Calcium 7.8 mg/dL (8.4-10.2); Carbon Dioxide 21 mmol/L (22-30); Chloride 103 mmol/L (98-107); Glucose 179 mg/dL (74-99); Magnesium 2.3 mg/dL (1.6-2.3); Non-African American GFR(MDRD) >60 (>60 ml/min/1.73 sqM); Phosphorous 2.2 mg/dL (2.5-4.5); Potassium 3.7 mmol/L (3.5-5.1); Sodium 134 mmol/L (137-145); Total Bilirubin 3.2 mg/dL (0.2-1.3); Total Protein 5.4 g/dL (6.3-8.2)
[2016-09-21 06:37] LABS: Add Differential Manual Differential
[2016-09-21 06:40] LABS: Metamyelocytes % 4 %; Nucleated Red Blood Cells 0 /100 WBC (0-0); Total Cells Counted 200
[2016-09-21 06:41] LABS: Manual Review Performed
[2016-09-21 06:42] LABS: Polychromasia Present
--- NOTE | 2016-09-21 07:18 | XR ---
EXAMINATION TYPE: XR chest 2V DATE OF EXAM: 09/21/2016 COMPARISON: Prior chest x-ray 09/19/2016 HISTORY: Status post coronary artery bypass graft, valve replacement TECHNIQUE: Frontal and lateral views of the chest are obtained. FINDINGS: Basilar increased density persists. Patient is post median sternotomy and the heart is enl arged. Post cardiac valve replacement change. Prominent lung volumes suggest underlying COPD. There a re overlying cardiac leads. Interstitium is increased. Left chest tube has been removed. No sizable p neumothorax is evident. IMPRESSION: No evident complication status post chest tube removal. There is some improved aeration. There may be a component of pulmonary venous hypertension and interstitial edema, volume overload. S mall basilar effusions and associated atelectasis.
[2016-09-21] MEDS: ASPIRIN 325 MG TAB PO SCH (08:35)
[2016-09-21] MEDS: ATORVASTATIN 40 MG TAB PO SCH (08:35)
[2016-09-21] MEDS: LINAGLIPTIN 5 MG TABLET PO SCH (08:36)
[2016-09-21] MEDS: METOPROLOL TARTRATE 25 MG TAB PO SCH (08:36)
[2016-09-21] MEDS: LISINOPRIL 10 MG TAB PO SCH (08:36)
[2016-09-21] MEDS: CLOPIDOGREL 75 MG TAB PO SCH (08:36)
--- NOTE | 2016-09-21 08:41 | P.PN ---
Subjective Principal diagnosis: Symptomatic multivessel coronary artery disease. Severe aortic valve stenosis with mild aortic regurgitation. Preserved left ventricular function. Type 2 diabetes mellitus. GERD. Hypertension. Hyperlipidemia. Previous tobacco dependence. POD #7 elective triple-vessel coronary artery bypass grafting using the left internal mammary artery to the left anterior descending artery, reverse saphenous vein graft from the aorta to the ramus artery, reverse saphenous vein graft from the aorta to the diagonal artery. Aortic valve replacement using a 25 mm pericardial bioprosthesis magna ease. Endoscopic vein harvesting of the right greater saphenous vein. Intraoperative transesophageal echocardiogram and epi-aortic scanning. Intraoperative graft flow measurement using the Medistim system. Patient is sitting up to the bedside chair tolerating his breakfast. He is alert and oriented 1. He remains confused to time. Attempts made to re- orient him to time and place. He reports the year 2001 and [place] Objective - Vital Signs Vital signs: Vital Signs Temp 98.1 F 09/21/16 03:53 Pulse 72 09/21/16 03:53 Resp 18 09/21/16 03:53 BP 124/66 09/21/16 03:53 Pulse Ox 98 09/21/16 03:53 Intake & Output 09/20/16 09/21/16 09/21/16 18:59 06:59 18:59 Intake Total 860 720 Output Total 775 1500 Balance 85 -780 Weight 87.044 kg 86.8 kg Intake: IV 500 Potassium Phosphate 10 500 mmol In Sodium Chloride 0 .9% 250 ml @ 125 mls/hr IV Q[facility] Rx#:[id number] Oral 360 720 Output: Urine 775 1500 Other: Voiding Method Indwelling Catheter Indwelling Catheter # Voids 1 ABP, PAP, CO, CI - Last Documented Arterial Blood Pressure 147/52 Pulmonary Artery Pressure 141/53 - Constitutional General appearance: Present: cooperative, no acute distress - EENT Eyes: Present: PERRLA, normal appearance ENT: Present: hearing grossly normal - Neck Details: No JVD present. - Respiratory Details: Lung sounds are essentially clear to his bilateral upper lobes, few scattered crackles to his bilateral bases. Respirations are symmetrical and unlabored. His oxygen saturations are 98% on room air. He is achieving 1500 mL on his incentive spirometry with encouragement. - Cardiovascular Details: Regular rhythm and rate. S1 and S2 present, negative for S3, gallop or murmur. Sternum is stable. His heart hugger is in place and the patient is demonstrating appropriate use with encouragement. Knee-high GRZEGORZ hose and sequential compression devices in place to bilateral lower extremities. +1 edema to his bilateral lower extremities. - Gastrointestinal Gastrointestinal Comment(s): Abdomen is soft, nontender and nondistended. He is active bowel sounds all 4 abdominal quadrants. He is tolerating oral intake. Positive flatus. - Genitourinary Genitourinary Comment(s): Adequate urine output, clear yellow urine. His orellana catheter was discontinued this a.m. - Integumentary Integumentary Comment(s): Midline sternal incision clean dry and well approximated. Dermabond dressing intact, clean and dry. 4 x 4 dressing to cover and secured with tape. Right lower extremity EVH site well approximated and ecchymotic. No drainage noted. - Musculoskeletal Musculoskeletal: Present: generalized weakness, strength equal bilaterally - Psychiatric Psychiatric Comment(s): Alert and oriented to person, reports the years 2001. [place] once he is reminded he is in the hospital he reports he is here for his heart. Psychiatric: Present: appropriate affect - Allied health notes Allied health notes reviewed: nursing - Labs CBC & Chem 7: 09/21/16 05:59 09/21/16 05:56 Labs: Abnormal Lab Results - Last 24 Hours (Table) 09/20/16 09/20/16 09/20/16 Range/Units 06:40 12:14 17:25 WBC (3.8-10.6) k/uL RBC (4.30-5.90) m/uL Hgb (13.0-17.5) gm/dL Hct (39.0-53.0) % RDW (11.5-15.5) % Neutrophils # (Manual) (1.3-7.7) k/uL Lymphocytes # (Manual) (1.0-4.8) k/uL Monocytes # (Manual) (0-1.0) k/uL Metamyelocytes # (Man) (0) k/uL PT 12.2 H (9.0-12.0) sec INR 1.2 H (<1.2) Sodium (137-145) mmol/L Carbon Dioxide (22-30) mmol/L Glucose (74-99) mg/dL POC Glucose (mg/dL) 116 H 166 H (75-99) mg/dL Calcium (8.4-10.2) mg/dL Phosphorus (2.5-4.5) mg/dL Total Bilirubin (0.2-1.3) mg/dL AST (17-59) U/L ALT (21-72) U/L Total Protein (6.3-8.2) g/dL Albumin (3.5-5.0) g/dL Urine Protein (Negative) Urine Blood (Negative) Ur Leukocyte Esterase (Negative) Urine RBC (0-5) /hpf Urine WBC (0-5) /hpf Urine Mucus (None) /hpf 09/20/16 09/20/16 09/21/16 Range/Units 20:00 21:39 05:55 WBC (3.8-10.6) k/uL RBC (4.30-5.90) m/uL Hgb (13.0-17.5) gm/dL Hct (39.0-53.0) % RDW (11.5-15.5) % Neutrophils # (Manual) (1.3-7.7) k/uL Lymphocytes # (Manual) (1.0-4.8) k/uL Monocytes # (Manual) (0-1.0) k/uL Metamyelocytes # (Man) (0) k/uL PT (9.0-12.0) sec INR (<1.2) Sodium (137-145) mmol/L Carbon Dioxide (22-30) mmol/L Glucose (74-99) mg/dL POC Glucose (mg/dL) 156 H 189 H (75-99) mg/dL Calcium (8.4-10.2) mg/dL Phosphorus (2.5-4.5) mg/dL Total Bilirubin (0.2-1.3) mg/dL AST (17-59) U/L ALT (21-72) U/L Total Protein (6.3-8.2) g/dL Albumin (3.5-5.0) g/dL Urine Protein 1+ H (Negative) Urine Blood Moderate H (Negative) Ur Leukocyte Esterase Small H (Negative) Urine RBC 26 H (0-5) /hpf Urine WBC 9 H (0-5) /hpf Urine Mucus Rare H (None) /hpf 09/21/16 09/21/16 Range/Units 05:56 05:59 WBC 14.7 H (3.8-10.6) k/uL RBC 2.48 L (4.30-5.90) m/uL Hgb 8.0 L (13.0-17.5) gm/dL Hct 24.3 L (39.0-53.0) % RDW 15.7 H (11.5-15.5) % Neutrophils # (Manual) 11.61 H (1.3-7.7) k/uL Lymphocytes # (Manual) 0.59 L (1.0-4.8) k/uL Monocytes # (Manual) 1.47 H (0-1.0) k/uL Metamyelocytes # (Man) 0.59 H (0) k/uL PT (9.0-12.0) sec INR (<1.2) Sodium 134 L (137-145) mmol/L Carbon Dioxide 21 L (22-30) mmol/L Glucose 179 H (74-99) mg/dL POC Glucose (mg/dL) (75-99) mg/dL Calcium 7.8 L (8.4-10.2) mg/dL Phosphorus 2.2 L (2.5-4.5) mg/dL Total Bilirubin 3.2 H (0.2-1.3) mg/dL AST 114 H (17-59) U/L ALT 115 H (21-72) U/L Total Protein 5.4 L (6.3-8.2) g/dL Albumin 2.9 L (3.5-5.0) g/dL Urine Protein (Negative) Urine Blood (Negative) Ur Leukocyte Esterase (Negative) Urine RBC (0-5) /hpf Urine WBC (0-5) /hpf Urine Mucus (None) /hpf Microbiology - Last 24 Hours (Table) 09/20/16 20:00 Urine Culture - Preliminary Urine,Catheterized - Imaging and Cardiology Chest x-ray: report reviewed, image reviewed Assessment and Plan (1) Tobacco dependence in remission Status: Acute (2) Coronary artery disease Status: Acute (3) Hyperlipidemia Status: Acute (4) Hypertension Status: Acute (5) Severe aortic stenosis Status: Acute (6) Type 2 diabetes mellitus Status: Acute Plan: 1. Continue aspirin, Lipitor, Plavix, metoprolol. 2. Ciprofloxacin 500 mg by mouth daily 3 days initiated for UTI. 3. Flomax added yesterday. Urology consult is regarding urinary retention. 4. Encourage incentive spirometer use every hour while awake. 5. Increase activity, ambulate in hallway as able. Physical therapy to follow. 6. GI/DVT prophylaxis. 7. Insulin management per primary care service. 8. Will monitor daily labs, chest x-rays. 9. More recommendations as patient progresses. Anticipate discharge to rehab within the next 24 hours. Time with Patient: Greater than 30
[2016-09-21] MEDS ORDERED: CIPROFLOXACIN HCL 500 MG TAB PO SCH (09:00)
[2016-09-21] MEDS: OLANZapine 2.5 MG TAB PO PRN (09:41)
--- NOTE | 2016-09-21 11:08 | P.PN ---
Subjective Principal diagnosis: CABG and aortic valve replacement Is an 81-year-old gentleman with known history of severe aortic valve stenosis as well as multivessel coronary artery disease, type 2 diabetes, hypertension, hyperlipidemia, and prior nicotine dependence who underwent coronary artery bypass grafting surgery as well as aortic valve replacement. Patient was seen and examined this morning, lying down in bed. He does have a sitter at the bedside, he is alert and oriented times one and remains confused. Blood pressure this morning 132/60 with a heart rate in the 80s. White blood cell count 14.7, hemoglobin 8.0, platelet count 195. Sodium 134, potassium 3.7 , BUN 13, creatinine 0.7. Magnesium 2.3, AST 114, ALT 115. Objective - Vital Signs Vital signs: Vital Signs Temp 97.1 F L 09/21/16 08:00 Pulse 86 09/21/16 10:40 Resp 18 09/21/16 08:00 BP 132/59 09/21/16 10:40 Pulse Ox 92 L 09/21/16 10:40 Intake & Output 09/20/16 09/21/16 09/21/16 18:59 06:59 18:59 Intake Total 860 720 237 Output Total 775 1500 0 Balance 85 -780 237 Weight 87.044 kg 86.8 kg Intake: IV 500 Potassium Phosphate 10 500 mmol In Sodium Chloride 0 .9% 250 ml @ 125 mls/hr IV Q2H JESUS Rx#:[id number] Oral 360 720 237 Output: Urine 775 1500 0 Other: Voiding Method Indwelling Catheter Indwelling Catheter # Voids 1 ABP, PAP, CO, CI - Last Documented Arterial Blood Pressure 147/52 Pulmonary Artery Pressure 141/53 - Exam PHYSICAL EXAMINATION: HEENT: Head is atraumatic, normocephalic. Pupils equal, round. Neck is supple. There is no elevated jugular venous pressure. HEART EXAMINATION: Heart S1, S2 normal. No murmur or gallop heard. CHEST EXAMINATION: Lungs are clear with mild diminished air entry to the bases. ABDOMEN: Soft, nontender. Bowel sounds are heard. No organomegaly noted. EXTREMITIES: 2+ peripheral pulses with no evidence of peripheral edema and no calf tenderness noted. NEUROLOGIC patient is awake, confused. - Labs CBC & Chem 7: 09/21/16 05:59 09/21/16 05:56 Labs: Abnormal Lab Results - Last 24 Hours (Table) 09/20/16 09/20/16 09/20/16 Range/Units 12:14 17:25 20:00 WBC (3.8-10.6) k/uL RBC (4.30-5.90) m/uL Hgb (13.0-17.5) gm/dL Hct (39.0-53.0) % RDW (11.5-15.5) % Neutrophils # (Manual) (1.3-7.7) k/uL Lymphocytes # (Manual) (1.0-4.8) k/uL Monocytes # (Manual) (0-1.0) k/uL Metamyelocytes # (Man) (0) k/uL Sodium (137-145) mmol/L Carbon Dioxide (22-30) mmol/L Glucose (74-99) mg/dL POC Glucose (mg/dL) 116 H 166 H (75-99) mg/dL Calcium (8.4-10.2) mg/dL Phosphorus (2.5-4.5) mg/dL Total Bilirubin (0.2-1.3) mg/dL AST (17-59) U/L ALT (21-72) U/L Total Protein (6.3-8.2) g/dL Albumin (3.5-5.0) g/dL Urine Protein 1+ H (Negative) Urine Blood Moderate H (Negative) Ur Leukocyte Esterase Small H (Negative) Urine RBC 26 H (0-5) /hpf Urine WBC 9 H (0-5) /hpf Urine Mucus Rare H (None) /hpf 09/20/16 09/21/16 09/21/16 Range/Units 21:39 05:55 05:56 WBC (3.8-10.6) k/uL RBC (4.30-5.90) m/uL Hgb (13.0-17.5) gm/dL Hct (39.0-53.0) % RDW (11.5-15.5) % Neutrophils # (Manual) (1.3-7.7) k/uL Lymphocytes # (Manual) (1.0-4.8) k/uL Monocytes # (Manual) (0-1.0) k/uL Metamyelocytes # (Man) (0) k/uL Sodium 134 L (137-145) mmol/L Carbon Dioxide 21 L (22-30) mmol/L Glucose 179 H (74-99) mg/dL POC Glucose (mg/dL) 156 H 189 H (75-99) mg/dL Calcium 7.8 L (8.4-10.2) mg/dL Phosphorus 2.2 L (2.5-4.5) mg/dL Total Bilirubin 3.2 H (0.2-1.3) mg/dL AST 114 H (17-59) U/L ALT 115 H (21-72) U/L Total Protein 5.4 L (6.3-8.2) g/dL Albumin 2.9 L (3.5-5.0) g/dL Urine Protein (Negative) Urine Blood (Negative) Ur Leukocyte Esterase (Negative) Urine RBC (0-5) /hpf Urine WBC (0-5) /hpf Urine Mucus (None) /hpf 09/21/16 Range/Units 05:59 WBC 14.7 H (3.8-10.6) k/uL RBC 2.48 L (4.30-5.90) m/uL Hgb 8.0 L (13.0-17.5) gm/dL Hct 24.3 L (39.0-53.0) % RDW 15.7 H (11.5-15.5) % Neutrophils # (Manual) 11.61 H (1.3-7.7) k/uL Lymphocytes # (Manual) 0.59 L (1.0-4.8) k/uL Monocytes # (Manual) 1.47 H (0-1.0) k/uL Metamyelocytes # (Man) 0.59 H (0) k/uL Sodium (137-145) mmol/L Carbon Dioxide (22-30) mmol/L Glucose (74-99) mg/dL POC Glucose (mg/dL) (75-99) mg/dL Calcium (8.4-10.2) mg/dL Phosphorus (2.5-4.5) mg/dL Total Bilirubin (0.2-1.3) mg/dL AST (17-59) U/L ALT (21-72) U/L Total Protein (6.3-8.2) g/dL Albumin (3.5-5.0) g/dL Urine Protein (Negative) Urine Blood (Negative) Ur Leukocyte Esterase (Negative) Urine RBC (0-5) /hpf Urine WBC (0-5) /hpf Urine Mucus (None) /hpf Microbiology - Last 24 Hours (Table) 09/20/16 20:00 Urine Culture - Preliminary Urine,Catheterized Assessment and Plan Plan: Assessment and Plan Plan: 1. Status post CABG X3 with AVR. Continue current management as per cardiothoracic surgery, cardiology, pulmonary medicine, continue aggressive pulmonary toileting, continue metoprolol 12.5 mg orally twice every day, restart the patient on statin, continue patient on aspirin 325 mg orally once every day, continue Plavix 75 mg orally once every day, pain control, increase activity. 2. Post vent dependent respiratory support secondary to CABG 3 and AVR, expected. Patient was extubated continue aggressive pulmonary toileting, encourage the usage of incentive spirometer. 3. Hypertension and hypertensive cardiovascular disease. Continue metoprolol 12.5 mg orally twice every day, start the patient on small dose of losartan when more stable. 4. Hyperlipidemia. restart Lipitor 80 mg orally daily. 5. Diabetes Mellitus type 2. will continue with insulin drip. 6. Vascular dementia with behavioral disturbance. Patient has received Ativan which may have contributed to his confusion , Haldol and Seroquel. Psychiatric consult was requested. Psychiatrist has recommended Haldol 0.5 mg IV every 8 hours for severe agitation and to start Zyprexa. 7. Metabolic encephalopathy secondary to a combination of lack of sleep, vascular dementia, Ativan, Haldol and Seroquel. Avoid Ativan. 8. Acute blood loss anemia status post multiple transfusions. Plan From cardiology's perspective, we will continue the patient on his current medications. DNP note has been reviewed, I agree with a documented findings and plan of care. Patient was seen and examined.
--- NOTE | 2016-09-21 11:08 | P.DS ---
Providers Date of admission: 09/14/16 05:44 Expected date of discharge: 09/21/16 Attending physician: Mackenzie Hannon Consults: 09/14/16 16:37 Consult Physician Routine Consulting Provider: Viry Ahn Consult Reason/Comments: Assistant Professor Of Life Sciences Consult: post cardiac surgery Do you want consulting provider notified?: Yes Consult Physician Routine Consulting Provider: Mary Pressley Consult Reason/Comments: medical management Do you want consulting provider notified?: Yes Consult Physician Routine Consulting Provider: Melinda Elizalde Consult Reason/Comments: Technical Marketing Engineer Consult: post cardiac surgery Do you want consulting provider notified?: Yes 09/16/16 10:13 Consult Physician Urgent Consulting Provider: Florence Arshad Consult Reason/Comments: dementia, psycosis post CABG Do you want consulting provider notified?: Yes 09/19/16 10:28 Consult Physician Routine Consulting Provider: Terrence Keller Consult Reason/Comments: inpatient rehab eval. Do you want consulting provider notified?: Yes 09/20/16 10:11 Consult Physician Routine Consulting Provider: Yohannes Chua Consult Reason/Comments: urinary retention post open heart Do you want consulting provider notified?: Yes Primary care physician: Zayda Stallwood - Discharge Diagnosis(es) (1) Tobacco dependence in remission Current Visit: Yes Status: Acute (2) Coronary artery disease Current Visit: No Status: Acute (3) Hyperlipidemia Current Visit: No Status: Acute (4) Hypertension Current Visit: No Status: Acute (5) Severe aortic stenosis Current Visit: No Status: Acute (6) Type 2 diabetes mellitus Current Visit: No Status: Acute Hospital Course: FINAL DIAGNOSIS: 1. Severe aortic valve stenosis 2. Diffuse calcific coronary artery disease 3. Preserved left ventricular function 4. Hyperlipidemia 5. Hypertension 6. Postoperative paroxysmal atrial fibrillation and expected outcome of surgery 7. Postoperative urinary retention, possible outcome of surgery 8. Diabetes mellitus type 2 9. Postoperative delirium, multiple etiologies 10. History of memory impairment 11. Prostate disorder 12. Remote history of nicotine dependence 13. Gastroesophageal reflux disease PRINCIPAL PROCEDURE: 1. Elective triple vessel coronary artery bypass grafting using the left internal mammary artery to the left anterior descending coronary artery, a reverse greater saphenous vein graft from the aorta to the diagonal coronary artery, a reverse greater saphenous vein graft from the aorta to the ramus intermedius coronary artery. 2. Aortic valve replacement using a #25 mm pericardial bioprosthesis Magna- Ease. 3. Endoscopic harvesting of the right greater saphenous vein. 4. Intraoperative transesophageal echocardiogram and epi-aortic scanning. 5. Intraoperative graft flow measurement using the Mir Tesen system. HISTORY OF PRESENT ILLNESS: This is an 81-year-old gentleman who is followed by Dr. Zayda San on an outpatient basis. Patient has a past medical history of diabetes mellitus type 2, hypertension, hyperlipidemia, and an aortic valve stenosis which has been followed closely with serial 2-D echocardiograms by Dr. Elizalde on an outpatient basis. Recently, the patient has had complaints of progressive fatigue and worsening shortness of breath on exertion. Subsequently he underwent a repeat 2-D echocardiogram which showed worsening of his aortic valve stenosis with a peak gradient across his aortic valve of 73 mmHg, a mean gradient of 44 mmHg and an aortic valve area measuring 0.69 cm. A 2-D echocardiogram did show a preserved left ventricular function with an ejection fraction of 55%. Subsequently the patient underwent a stress test on 07/11/2016 which was abnormal. For further evaluation the patient was recommended to undergo a cardiac catheterization and transesophageal echocardiogram. On 08/04/2016 the patient underwent a transesophageal echocardiogram which showed a normal left ventricular size and systolic function , a tricuspid aortic valve with severe calcification and evidence of severe aortic stenosis with a valve area measuring between 0.8 and 1.1 cm with mild aortic regurgitation, and calcification of the mitral valve chordae with mild to moderate mitral valve regurgitation and mild tricuspid valve regurgitation. His cardiac catheterization results demonstrated a 30% stenosis to his left main coronary artery, a 70% stenosis to his right coronary artery, and 80% stenosis to a circumflex coronary artery, a 70% stenosis to his proximal left anterior descending coronary artery, and a 80% stenosis to his mid left anterior descending coronary artery. His heart catheterization results also demonstrated a calcified aortic valve without any significant aortic regurgitation and a calcified mitral annulus. The above-mentioned studies were reviewed with the patient by Dr. Elizalde and subsequently Dr. Mackenzie Hannon was consulted to evaluate the patient for an elective aortic valve replacement and order artery bypass grafting surgery. HOSPITAL COURSE: The patient was admitted to the hospital and after obtaining consent he was taken to the operating room where Dr. Mackenzie Hannon performed an elective triple vessel coronary artery bypass grafting using the left internal mammary artery to the left anterior descending coronary artery, a reverse greater saphenous vein graft from the aorta to the diagonal coronary artery, a reverse greater saphenous vein graft from the aorta to the ramus intermedius coronary artery, an Aortic valve replacement using a #25 mm pericardial bioprosthesis Magna-Ease, endoscopic harvesting of the right greater saphenous vein, intraoperative transesophageal echocardiogram and epi-aortic scanning, and intraoperative graft flow measurement using the [employer]istim system. The patient was then transferred to the cardiovascular intensive care unit where he was recovered, monitored hemodynamically, and where he progressed cardiac rehabilitation phase 1. He was subsequently extubated, is drips and invasive lines were discontinued and he was transferred to [address] [place] [address] for further monitoring and rehabilitation. Patient did have some postoperative paroxysmal atrial fibrillation which was an expected outcome of surgery and was treated accordingly. Patient also had some postoperative urinary retention which was treated accordingly. Discharge instructions have been reviewed with the patient and his family and their questions have been answered. The patient will be transferred to [facility] inpatient rehab for further rehabilitation needs. COMPLICATIONS: Postoperative period was complicated by some paroxysmal atrial fibrillation which was treated accordingly. CONSULTATIONS: 1. Dr. Pressley for medical management 2. Dr. Elizalde for cardiology management 3. Dr. Ahn for pulmonary and ventilator management 4. Dr. Arshad for mental health management 5. Dr. Samuel huynh for urology management 6. Dr. Keller for inpatient rehab evaluation. DISCHARGE INSTRUCTIONS: 1. No driving for 4 weeks, or until physician gives their ok. 2. The patient should sleep in their own bed, no medical bed needed. 3. Stairs are not an issue. If the bedroom is upstairs, it is advised that the patient go up at night and down in the morning for the first week. Go slowly, using handrail and take 1 step at a time. 4. GRZEGORZ hose are to be worn for 30 days or until physician discontinues. 5. Heart hugger is to be worn 100% of the time until physician discontinues.( except when showering) 6. No lifting, pushing, or pulling more than 10 pounds for 12 weeks. The physician will advise of any restriction changes. 7. The patient is expected to continue the prescribed walking program. 8. Continue pain control per as needed orders. 9. Continue with incentive spirometry and splinting/heart hugger until otherwise directed by the physician. 10. Must shower daily using liquid antibacterial soap and a separate white washcloth for each individual incision. 11. Routine sternal incision care, no ointments, lotions or powders on the incisions. 12. Please notify surgeon/nurse practitioner for temperature greater than 101F or purulent drainage from incisions 13. Prescriptions for first 30 days given per cardiac surgery service. After 30 days, all prescription refills obtained through cardiology/primary care physician. 14. A red arm and has been placed on this patient it should be worn for 30 days post surgery and will be removed by the cardiothoracic surgeons. If an ER visit is necessary, please make sure the number on the red arm band is called. 15. Physical therapy and occupational therapy to evaluate and treat. INPATIENT REHAB SERVICES TO PROVIDE: RN SKILLED HOME CARE SERVICES FOR POST-OP SURGICAL PATIENTS WITH THE FOLLOWING: Coronary Artery Bypass Surgery (CABG), Mitral Valve Replacement/ Repair ( MVR), Aortic Valve Replacement/Repair (AVR) RN TO CONTINUE EDUCATION FROM ``ROAD TO A HEALTH HEART PATIENT EDUCATION MANUAL" (GIVEN TO PATIENT IN THE HOSPITAL) MEDICATION RECONCILIATION WITH EDUCATION NEEDED ON FIRST HOME VISIT EMPHASIZE IMPORTANCE OF WEARING BREAST SUPPORT/HEART HUGGER ENCOURAGE USE OF INCENTIVE SPIROMETER 10 X EVERY HOUR WHILE AWAKE ENCOURAGE UTILIZATION OF LOWER EXTREMITY COMPRESSION STOCKINGS/GRZEGORZ HOSE and ELEVATE LEGS ABOVE LEVEL OF HEART WHILE AT REST. ENCOURAGE AMBULATION 3-5x/day INCREASING TOLERATES, WHILE AVOID EXTREMES IN TEMPERATURE FREQUENCY: RN TO OPEN THE PATIENT WITHIN 24 HOURS OF DISCHARGE FROM THE HOSPITAL WITH TELEHEALTH INSTALLED AT [facility] [place], RN TO VISIT 2-3 X A WEEK FOR 4 WEEKS ESTABLISHED BY PATIENT NEEDS. REMOVAL OF SUTURES: NURSING SERVICES TO REMOVE SUTURES TWO WEEKS POST SURGICAL DATE 09/29/2016 If any questions regarding suture removal please call the office at [phone]. LABORATORY: CBC, CMP TO BE DRAWN ON THE THIRD DAY HOME, 09/24/2016 (RAN STAT) FAX RESULTS TO [phone]. TELEHEALTH PARAMETERS: WEIGHT: NOTIFY MD OF WEIGHT GAIN OF 2 LBS IN 24 HOURS OR 5 LBS IN ONE WEEK HR: NOTIFY MD OF HR <55 BPM OR HR>100 BPM BP: NOTIFY MD IF BP <90/55 OR BP>140/100 O2 SAT: NOTIFY MD IF PO2<93% ON ROOM AIR SEND TELEHEALTH REPORT TO METAL CUTTER AND CARDIOVASCULAR SURGEON THE FIRST WEEK OF CARE AND THEN BI-WEEKLY. PLEASE ADDITIONALLY COMMUNICATE ANY ABNORMALS AND NEW FINDINGS TO THE SURGEONS OFFICE. Plan - Discharge Summary New Discharge Prescriptions: New Atorvastatin [Lipitor] 40 mg PO DAILY tab Ciprofloxacin HCl [Cipro] 500 mg PO DAILY tab Clopidogrel [Plavix] 75 mg PO DAILY tab HYDROcodone/APAP 5-325MG [[place] 5-325] 1 - 2 each PO Q6HR PRN #120 tab PRN Reason: Moderate Pain Ipratropium-Albuterol Nebulize [Duoneb 0.5 mg-3 mg/3 ml Soln] 3 ml INHALATION RT-Q2H PRN neb PRN Reason: Shortness Of Breath Or Wheezing Lisinopril [Zestril] 10 mg PO DAILY tab Metoprolol Tartrate [Lopressor] 25 mg PO TID tab OLANZapine [ZyPREXA] 2.5 mg PO QID PRN tab PRN Reason: Agitation Pantoprazole [Protonix] 40 mg PO DAILY tab Tamsulosin [Flomax] 0.4 mg PO PC-SUPPER cap Continue Ferrous Sulfate [Iron (65 MG Elemental)] 325 mg PO DAILY Ascorbic Acid [Vitamin C with Kim Hips] 1,000 mg PO DAILY sitaGLIPtin [Januvia] 100 mg PO DAILY Cholecalciferol [Vitamin D3] 2,000 unit PO DAILY Aspirin 325 mg PO DAILY Mag Hydrox/Al Hydrox/Simeth [Maalox] 15 - 30 ml PO HS PRN PRN Reason: Heartburn metFORMIN HCL [Glucophage] 1,000 mg PO BID Discontinued Ezetimibe/Simvastatin [Vytorin 10-80 mg Tablet] 1 tab PO DAILY Atenolol [Tenormin] 25 mg PO DAILY Glimepiride [Amaryl] 2 mg PO DAILY Calcium Carbonate [Tums] 500 mg PO TID PRN PRN Reason: Heartburn Discharge Medication List Ascorbic Acid [Vitamin C with Kim Hips] 1,000 mg PO DAILY 08/02/16 [History] Aspirin 325 mg PO DAILY 08/02/16 [History] Cholecalciferol [Vitamin D3] 2,000 unit PO DAILY 08/02/16 [History] Ferrous Sulfate [Iron (65 MG Elemental)] 325 mg PO DAILY 08/02/16 [History] sitaGLIPtin [Januvia] 100 mg PO DAILY 08/02/16 [History] Mag Hydrox/Al Hydrox/Simeth [Maalox] 15 - 30 ml PO HS PRN 09/07/16 [History] metFORMIN HCL [Glucophage] 1,000 mg PO BID 09/14/16 [History] Atorvastatin [Lipitor] 40 mg PO DAILY tab 09/21/16 [Rx] Ciprofloxacin HCl [Cipro] 500 mg PO DAILY tab 09/21/16 [Rx] Clopidogrel [Plavix] 75 mg PO DAILY tab 09/21/16 [Rx] HYDROcodone/APAP 5-325MG [[place] 5-325] 1 - 2 each PO Q6HR PRN #120 tab 09/21/16 [Rx] Ipratropium-Albuterol Nebulize [Duoneb 0.5 mg-3 mg/3 ml Soln] 3 ml INHALATION RT -Q2H PRN neb 09/21/16 [Rx] Lisinopril [Zestril] 10 mg PO DAILY tab 09/21/16 [Rx] Metoprolol Tartrate [Lopressor] 25 mg PO TID tab 09/21/16 [Rx] OLANZapine [ZyPREXA] 2.5 mg PO QID PRN tab 09/21/16 [Rx] Pantoprazole [Protonix] 40 mg PO DAILY tab 09/21/16 [Rx] Tamsulosin [Flomax] 0.4 mg PO PC-SUPPER cap 09/21/16 [Rx] Follow up Appointment(s)/Referral(s): Zayda San MD [Primary Care Provider] - 10/06/16 10:00 am Melinda Elizalde MD [STAFF PHYSICIAN] - 09/27/16 11:15 am Mackenzie Hannon MD [STAFF PHYSICIAN] - 10/21/16 10:15 am Viry Ahn MD [STAFF PHYSICIAN] - 10/14/16 10:30 am Ambulatory/Diagnostic Orders: Complete Blood Count w/diff [LAB.AMB] Time Frame: 3 Days, Location: Determined By Patient Comprehensive Metabolic Panel [LAB.AMB] Time Frame: 3 Days, Location: Determined By Patient Activity/Diet/Wound Care/Special Instructions: DISCHARGE INSTRUCTIONS: 1. No driving for 4 weeks, or until physician gives their ok. 2. The patient should sleep in their own bed, no medical bed needed. 3. Stairs are not an issue. If the bedroom is upstairs, it is advised that the patient go up at night and down in the morning for the first week. Go slowly, using handrail and take 1 step at a time. 4. GRZEGORZ hose are to be worn for 30 days or until physician discontinues. 5. Heart hugger is to be worn 100% of the time until physician discontinues.( except when showering) 6. No lifting, pushing, or pulling more than 10 pounds for 12 weeks. The physician will advise of any restriction changes. 7. The patient is expected to continue the prescribed walking program. 8. Continue pain control per as needed orders. 9. Continue with incentive spirometry and splinting/heart hugger until otherwise directed by the physician. 10. Must shower daily using liquid antibacterial soap and a separate white washcloth for each individual incision. 11. Routine sternal incision care, no ointments, lotions or powders on the incisions. 12. Please notify surgeon/nurse practitioner for temperature greater than 101F or purulent drainage from incisions 13. Prescriptions for first 30 days given per cardiac surgery service. After 30 days, all prescription refills obtained through cardiology/primary care physician. 14. A red arm and has been placed on this patient it should be worn for 30 days post surgery and will be removed by the cardiothoracic surgeons. If an ER visit is necessary, please make sure the number on the red arm band is called. 15. Physical therapy and occupational therapy to evaluate and treat. INPATIENT REHAB SERVICES TO PROVIDE: RN SKILLED HOME CARE SERVICES FOR POST-OP SURGICAL PATIENTS WITH THE FOLLOWING: Coronary Artery Bypass Surgery (CABG), Mitral Valve Replacement/ Repair ( MVR), Aortic Valve Replacement/Repair (AVR) RN TO CONTINUE EDUCATION FROM ``ROAD TO A HEALTH HEART PATIENT EDUCATION MANUAL" (GIVEN TO PATIENT IN THE HOSPITAL) MEDICATION RECONCILIATION WITH EDUCATION NEEDED ON FIRST HOME VISIT EMPHASIZE IMPORTANCE OF WEARING BREAST SUPPORT/HEART HUGGER ENCOURAGE USE OF INCENTIVE SPIROMETER 10 X EVERY HOUR WHILE AWAKE ENCOURAGE UTILIZATION OF LOWER EXTREMITY COMPRESSION STOCKINGS/GRZEGORZ HOSE and ELEVATE LEGS ABOVE LEVEL OF HEART WHILE AT REST. ENCOURAGE AMBULATION 3-5x/day INCREASING TOLERATES, WHILE AVOID EXTREMES IN TEMPERATURE FREQUENCY: RN TO OPEN THE PATIENT WITHIN 24 HOURS OF DISCHARGE FROM THE HOSPITAL WITH TELEHEALTH INSTALLED AT [facility] [place], RN TO VISIT 2-3 X A WEEK FOR 4 WEEKS ESTABLISHED BY PATIENT NEEDS. REMOVAL OF SUTURES: NURSING SERVICES TO REMOVE SUTURES TWO WEEKS POST SURGICAL DATE 09/29/2016 If any questions regarding suture removal please call the office at [phone]. LABORATORY: CBC, CMP TO BE DRAWN ON THE THIRD DAY HOME, 09/24/2016 (RAN STAT) FAX RESULTS TO [phone]. TELEHEALTH PARAMETERS: WEIGHT: NOTIFY MD OF WEIGHT GAIN OF 2 LBS IN 24 HOURS OR 5 LBS IN ONE WEEK HR: NOTIFY MD OF HR <55 BPM OR HR>100 BPM BP: NOTIFY MD IF BP <90/55 OR BP>140/100 O2 SAT: NOTIFY MD IF PO2<93% ON ROOM AIR SEND TELEHEALTH REPORT TO METAL CUTTER AND CARDIOVASCULAR SURGEON THE FIRST WEEK OF CARE AND THEN BI-WEEKLY. PLEASE ADDITIONALLY COMMUNICATE ANY ABNORMALS AND NEW FINDINGS TO THE SURGEONS OFFICE. Discharge Disposition: TRANSFER TO SNF/ECF
[2016-09-21 11:42] LABS: Glucose,Whole Blood 170 mg/dL (75-99)
--- NOTE | 2016-09-21 11:45 | P.PN ---
Subjective This is an 81-year-old gentleman who follows with Dr. San as his primary care physician. He has a history of diabetes mellitus, gastroesophageal reflux disease, hyperlipidemia, hypertension. He follows with Dr. Elizalde in the office for aortic stenosis. He is also had worsening fatigue and dyspnea on exertion. His most recent echo revealed severe aortic stenosis and a drop in his ejection fraction along with reversible ischemia on a stress test. He had subsequently undergone cardiac catheterization which revealed multivessel coronary artery disease. He presented here today for an elective surgery which was performed today by Dr. Hannon. He received a PUTNAM to the LAD, saphenous vein grafts to the ramus and the diagonal branches along with aortic valve replacement. Patient was seen in the ICU sitting in a recliner appears a bit confused with minimal short term memory deficit, there is chest wall pain and minimal cough. 09/16: issues lethargic this morning and contributing factors include lack of sleep, Ativan during the night, Haldol and Seroquel 50 mg given this morning. Patient was very uncooperative and combative and confused. Would recommend Seroquel at 12.5 mg to 25 mg twice daily only. Psychiatric consult was added. patient is sitting in bed and appears to be in no acute distress but again quite lethargic. 09/17: Patient's more oriented however he is a bit drowsy, patient required Seroquel as recommended by psychiatry, patient remains in ICU, can follow commands, patient with dry mouth no aspirations observed by nursing staff 09/18: Patient remains in ICU, mentation has improved significantly, patient's more lucid, did not require any sedation or antipsychotics at this point, he is to receive 1 unit of packed red blood cells for hemoglobin of 6.8, patient is comfortable, chest tube and left side remains in place insulin drip is now switched to sliding scale, 1 diet is more consistent, home blood sugar medications will be resumed 09/19: Patient has been evaluated by physical therapy with recommendations for home. There is a consult in place for Dr. Keller to evaluate for inpatient rehab. Amiodarone is on hold due to his elevated liver function tests. He did receive 1 dose of IV Lasix this morning. Left pleural chest tube is to be removed and patient be transferred to selective care today. No new complaints today. 09/20: Patient remains in the intensive care unit. He is awake and alert. He denies any shortness of breath or cough. He states he slept okay last night. Patient has required Lindsey catheter for urinary retention and consult was placed with urology. We will plan to resume patient back on which the hospital carries Tradjenta as a replacement. No Nipride or metformin at this time. 09/21: Patient has been transferred to the selective care unit. Patient was started on Tradjenta yesterday blood sugars are coming up higher most likely due to increased oral intake. Liver function tests are down from yesterday. Patient was started yesterday on ciprofloxacin for 3 days for UTI. Urinalysis was clear with moderate amount of blood. Urine cultures in progress. Objective - Vital Signs Vital signs: Vital Signs Temp 98.1 F 09/21/16 03:53 Pulse 72 09/21/16 03:53 Resp 18 09/21/16 03:53 BP 124/66 09/21/16 03:53 Pulse Ox 98 09/21/16 03:53 Intake & Output 09/20/16 09/21/16 09/21/16 18:59 06:59 18:59 Intake Total 860 720 Output Total 775 1500 Balance 85 -780 Weight 87.044 kg 86.8 kg Intake: IV 500 Potassium Phosphate 10 500 mmol In Sodium Chloride 0 .9% 250 ml @ 125 mls/hr IV Q2H [facility] Rx#:[id number] Oral 360 720 Output: Urine 775 1500 Other: Voiding Method Indwelling Catheter Indwelling Catheter # Voids 1 ABP, PAP, CO, CI - Last Documented Arterial Blood Pressure 147/52 Pulmonary Artery Pressure 141/53 - Exam General appearance: Present: cooperative, no acute distress - EENT Eyes: Present: anicteric sclerae, EOMI, poor dentition, normal appearance ENT: Present: NA/AT - Neck Neck: Present: normal ROM - Respiratory Respiratory: bilateral: CTA - Cardiovascular Rhythm: regular Heart sounds: normal: S1, S2 Abnormal Heart Sounds: Absent: systolic murmur, diastolic murmur, rub, S3 Gallop , S4 Gallop, click, other - Gastrointestinal General gastrointestinal: Present: normal bowel sounds, soft - Integumentary Integumentary: Present: decreased turgor, normal - Neurologic Neurologic: Present: CNII-XII intact - Musculoskeletal Musculoskeletal: Present: generalized weakness, strength equal bilaterally - Psychiatric Psychiatric: Present: A&O x's 1, appropriate affect - Labs CBC & Chem 7: 09/21/16 05:59 09/21/16 05:56 Labs: Abnormal Lab Results - Last 24 Hours (Table) 09/20/16 09/20/16 09/20/16 Range/Units 12:14 17:25 20:00 WBC (3.8-10.6) k/uL RBC (4.30-5.90) m/uL Hgb (13.0-17.5) gm/dL Hct (39.0-53.0) % RDW (11.5-15.5) % Neutrophils # (Manual) (1.3-7.7) k/uL Lymphocytes # (Manual) (1.0-4.8) k/uL Monocytes # (Manual) (0-1.0) k/uL Metamyelocytes # (Man) (0) k/uL Sodium (137-145) mmol/L Carbon Dioxide (22-30) mmol/L Glucose (74-99) mg/dL POC Glucose (mg/dL) 116 H 166 H (75-99) mg/dL Calcium (8.4-10.2) mg/dL Phosphorus (2.5-4.5) mg/dL Total Bilirubin (0.2-1.3) mg/dL AST (17-59) U/L ALT (21-72) U/L Total Protein (6.3-8.2) g/dL Albumin (3.5-5.0) g/dL Urine Protein 1+ H (Negative) Urine Blood Moderate H (Negative) Ur Leukocyte Esterase Small H (Negative) Urine RBC 26 H (0-5) /hpf Urine WBC 9 H (0-5) /hpf Urine Mucus Rare H (None) /hpf 09/20/16 09/21/16 09/21/16 Range/Units 21:39 05:55 05:56 WBC (3.8-10.6) k/uL RBC (4.30-5.90) m/uL Hgb (13.0-17.5) gm/dL Hct (39.0-53.0) % RDW (11.5-15.5) % Neutrophils # (Manual) (1.3-7.7) k/uL Lymphocytes # (Manual) (1.0-4.8) k/uL Monocytes # (Manual) (0-1.0) k/uL Metamyelocytes # (Man) (0) k/uL Sodium 134 L (137-145) mmol/L Carbon Dioxide 21 L (22-30) mmol/L Glucose 179 H (74-99) mg/dL POC Glucose (mg/dL) 156 H 189 H (75-99) mg/dL Calcium 7.8 L (8.4-10.2) mg/dL Phosphorus 2.2 L (2.5-4.5) mg/dL Total Bilirubin 3.2 H (0.2-1.3) mg/dL AST 114 H (17-59) U/L ALT 115 H (21-72) U/L Total Protein 5.4 L (6.3-8.2) g/dL Albumin 2.9 L (3.5-5.0) g/dL Urine Protein (Negative) Urine Blood (Negative) Ur Leukocyte Esterase (Negative) Urine RBC (0-5) /hpf Urine WBC (0-5) /hpf Urine Mucus (None) /hpf 09/21/16 Range/Units 05:59 WBC 14.7 H (3.8-10.6) k/uL RBC 2.48 L (4.30-5.90) m/uL Hgb 8.0 L (13.0-17.5) gm/dL Hct 24.3 L (39.0-53.0) % RDW 15.7 H (11.5-15.5) % Neutrophils # (Manual) 11.61 H (1.3-7.7) k/uL Lymphocytes # (Manual) 0.59 L (1.0-4.8) k/uL Monocytes # (Manual) 1.47 H (0-1.0) k/uL Metamyelocytes # (Man) 0.59 H (0) k/uL Sodium (137-145) mmol/L Carbon Dioxide (22-30) mmol/L Glucose (74-99) mg/dL POC Glucose (mg/dL) (75-99) mg/dL Calcium (8.4-10.2) mg/dL Phosphorus (2.5-4.5) mg/dL Total Bilirubin (0.2-1.3) mg/dL AST (17-59) U/L ALT (21-72) U/L Total Protein (6.3-8.2) g/dL Albumin (3.5-5.0) g/dL Urine Protein (Negative) Urine Blood (Negative) Ur Leukocyte Esterase (Negative) Urine RBC (0-5) /hpf Urine WBC (0-5) /hpf Urine Mucus (None) /hpf Microbiology - Last 24 Hours (Table) 09/20/16 20:00 Urine Culture - Preliminary Urine,Catheterized Assessment and Plan Plan: 1. Status post CABG X3 with AVR. Continue current management as per cardiothoracic surgery, cardiology, pulmonary medicine, continue aggressive pulmonary toileting, continue metoprolol 12.5 mg orally twice every day, restart the patient on statin, continue patient on aspirin 325 mg orally once every day, continue Plavix 75 mg orally once every day, pain control, increase activity. 2. Post vent dependent respiratory support secondary to CABG 3 and AVR, expected. Patient was extubated continue aggressive pulmonary toileting, encourage the usage of incentive spirometer. 3. Hypertension and hypertensive cardiovascular disease. Continue metoprolol 12.5 mg orally twice every day, start the patient on small dose of losartan when more stable. 4. Hyperlipidemia. restart Lipitor 80 mg orally daily. 5. Diabetes Mellitus type 2. Januvia/tradjenta to started. 6. Vascular dementia with behavioral disturbance. Patient has received Ativan which may have contributed to his confusion , Haldol and Seroquel. Psychiatric consult was requested. Psychiatrist has recommended Haldol 0.5 mg IV every 8 hours for severe agitation and to start Zyprexa. 7. Metabolic encephalopathy secondary to a combination of lack of sleep, vascular dementia, Ativan, Haldol and Seroquel. Avoid Ativan. 8. Acute blood loss anemia status post multiple transfusions. 9. DVT prophylaxis. SCD;s and GRANT wraps. 10. GI prophylaxis . continue with protonix 40 mg IVP daily. 11. Possible UTI. Patient was started on ciprofloxacin by cardiothoracic surgeon. Full code. Discharge plan: Inpatient rehab at [facility] Impression and plan of care have been directed as dictated by the signing physician. Shavon Kingston nurse practitioner acting as scribe for signing physician.
--- NOTE | 2016-09-21 12:01 | P.PN ---
Subjective Principal diagnosis: Status post CABG and aortic valve replacement postoperative day #7 This is an 81-year-old gentleman who follows with Dr. Opal casarez as his primary care physician. He has a history of diabetes mellitus, gastroesophageal reflux disease, hyperlipidemia, hypertension. He follows with Dr. Elizalde in the office for aortic stenosis. He is also had worsening fatigue and dyspnea on exertion. His most recent echo revealed severe aortic stenosis and a drop in his ejection fraction along with reversible ischemia on a stress test. He had subsequently undergone cardiac catheterization which revealed multivessel coronary artery disease. He presented here today for an elective surgery which was performed today by Dr. Hannon. He received a PUTNAM to the LAD , saphenous vein grafts to the ramus and the diagonal branches along with aortic valve replacement. He is seen today in the intensive care unit immediately postoperative. He is currently on the mechanical ventilator at assist control of 12, tidal volume 450, FiO2 100% and a PEEP of 5. Current blood gases reveal pO2 of 248, pCO2 46, pH 7.33. There were unable to insert a [place] catheter. There is a left IJ present his current blood pressure 114/ 45, CVP of 16, he is in normal sinus rhythm with a first-degree heart block. Current drips are Primacor 0.3 mcg/kg/m, propofol 20 mcg/kg/m, insulin at 1 unit per hour. Lactated Ringer's at 50 MLS per hour. Levophed currently off. Chest x-ray shows evidence of fluid volume overload. There is a split mediastinal chest tubes and a left pleural chest tube in place. Hemoglobin 5.5 which is being rerun in the lab currently. He did receive 2 units of fresh frozen plasma, 1 unit of platelets, 400 of Cell Saver and 1 unit of autologous blood. Estimated blood loss was 2000 MLS. The patient is seen again today 09/15/2016 in follow-up in the intensive care unit. He was successfully extubated and is maintaining good O2 saturations in the upper 90s on 3 L/m per nasal cannula. His chest x-ray reveals bilateral infiltrates with small effusions. He was given Lasix 20 mg IV push 1. Currently in a negative balance. He is sternal and left pleural chest tubes are in place. He remains on milrinone at 0.1 mcg/kg/m. He is on lactated Ringer's at 50 MLS per hour. He is on a insulin drip at 1 unit per hour. His remaining in normal sinus rhythm. He did receive a total of 2 units of packed red blood cells, 2 units of fresh frozen plasma, 1 unit of pheresis platelets. His current hemoglobin is 7.7. Platelet count 100,000. The patient is seen again today 09/16/2016 in follow-up in the intensive care unit. The patient has had ongoing issues with altered mental status and confusion. Yelling out. Disoriented to place and time. He has required Haldol and Seroquel. He is currently receiving lactated Ringer's at 20 miles per hour. The milrinone has been discontinued. He did receive albumin 250 MLS. He remains on insulin drip at 0.5 units per hour. He has remained hemodynamically stable. CVP 16. WBC 13.1. Hemoglobin 7.1. Platelet count 78, 000. He is maintaining good O2 saturations in the 90s on 2 L/m per nasal cannula. His remaining in sinus rhythm. His chest x-ray does show some persistent basilar densities but improvement in overall aeration. On 09/17/2016 the patient is being seen in follow-up. Active issue remains his delirium as the patient has an underlying dementia in addition. He is taken Zyprexa 2.5 mg every 6 hours as needed. He is calm and comfortable. Overnight he also received IV Haldol. Hemodynamically stable. Resting comfortably in bed. In fact quite sleepy. This point. He is however easily arousable. No respiratory distress. No aspiration. Sternum stable clean and intact. Still on 2 L of oxygen nasal cannula. The milrinone drip was discontinued. He did go into atrial fibrillation currently is on amiodarone drip as loading. Rhythm is back to sinus at this point and well-controlled. Hemoglobin is at 7.5 and stable. Chest x-ray showing CHF with pulmonary vessel congestion and interstitial edema. There is also small left pleural effusion suspected. On 09/18/2016 I'm seeing this patient in follow-up. Mentation is improved considerably. The patient did not require any Zyprexa. 2 no cough or pain control. Hemodynamically stable. Left sided chest tube in place. Put out approximately 0 that cc since morning it is such that she will be kept in place. Chest x-ray shows no pneumothorax. Lungs are well expanded. His off milrinone. Producing adequate amount of urine output. Cardiac rhythm is sinus and he is on oral amiodarone. No respiratory distress. Sternum stable clean and intact. Hemoglobin is down to 6.8 and the patient will be receiving a unit of packed RBC. Lasix will be given after the units of blood. On 09/19/2016, patient continues to do relatively well, mentation is improving but remains a bit confused, oriented to place, but not time and date. Patient is off Zyprexa, he is relatively asymptomatic, his left sided chest tube was removed. Labs including CBC and basic metabolic profile and renal profile were noted and reviewed. Patient denies any shortness of breath no cough no wheezing and no chest pain. We plan to consider moving the patient to a monitored bed on selective today. On 09/20/2016, patient is postoperative day #6, less confused, more alert and oriented, denies any specific complaints, patient is presently on overflow supposed to be on selective/monitor bed. But he remains in the ICU as an overflow patient. CBC showed a hemoglobin of 8.7 electrolytes and renal profile are normal. Liver enzymes were noted to be a bit elevated but being monitored. INR is 1.2. Renal profile is normal. No chest x-ray was done today. Reevaluated today on 09/21/2016, patient is postoperative day #7, no further episodes of confusion, patient seems to be alert oriented 3, has been active and moving down the hallway on his own. Patient is being considered for transfer to a rehab facility today. CBC was reviewed hemoglobin is 8.0 basic metabolic profile is normal renal profile is normal. Chest x-ray showed a small left pleural effusion and minimal atelectasis. Objective - Vital Signs Vital signs: Vital Signs Temp 97.1 F L 09/21/16 08:00 Pulse 86 09/21/16 10:40 Resp 18 09/21/16 08:00 BP 132/59 09/21/16 10:40 Pulse Ox 92 L 09/21/16 10:40 Intake & Output 09/20/16 09/21/16 09/21/16 18:59 06:59 18:59 Intake Total 860 720 237 Output Total 775 1500 0 Balance 85 -780 237 Weight 87.044 kg 86.8 kg Intake: IV 500 Potassium Phosphate 10 500 mmol In Sodium Chloride 0 .9% 250 ml @ 125 mls/hr IV Q2H [facility] Rx#:[id number] Oral 360 720 237 Output: Urine 775 1500 0 Other: Voiding Method Indwelling Catheter Indwelling Catheter # Voids 1 ABP, PAP, CO, CI - Last Documented Arterial Blood Pressure 147/52 Pulmonary Artery Pressure 141/53 - Exam Physical Exam: Revealed an 81-year-old slightly confused but in no distress. HEENT:[Neck is supple.] [No neck masses.] [No thyromegaly.] [No JVD.] Chest: [Diminished breath sounds at the bases no crackles or rhonchi or wheezes..] Cardiac Exam: [Normal S1 and S2, no S3 gallop, no murmur.] Abdomen: [Soft, nontender, no megaly, no rebound, no guarding, normal bowel sounds.] Extremities: [No clubbing, no edema, no cyanosis.] Neurological Exam: No gross focal neurologic deficit - Labs CBC & Chem 7: 09/21/16 05:59 09/21/16 05:56 Labs: Abnormal Lab Results - Last 24 Hours (Table) 09/20/16 09/20/16 09/20/16 Range/Units 12:14 17:25 20:00 WBC (3.8-10.6) k/uL RBC (4.30-5.90) m/uL Hgb (13.0-17.5) gm/dL Hct (39.0-53.0) % RDW (11.5-15.5) % Neutrophils # (Manual) (1.3-7.7) k/uL Lymphocytes # (Manual) (1.0-4.8) k/uL Monocytes # (Manual) (0-1.0) k/uL Metamyelocytes # (Man) (0) k/uL Sodium (137-145) mmol/L Carbon Dioxide (22-30) mmol/L Glucose (74-99) mg/dL POC Glucose (mg/dL) 116 H 166 H (75-99) mg/dL Calcium (8.4-10.2) mg/dL Phosphorus (2.5-4.5) mg/dL Total Bilirubin (0.2-1.3) mg/dL AST (17-59) U/L ALT (21-72) U/L Total Protein (6.3-8.2) g/dL Albumin (3.5-5.0) g/dL Urine Protein 1+ H (Negative) Urine Blood Moderate H (Negative) Ur Leukocyte Esterase Small H (Negative) Urine RBC 26 H (0-5) /hpf Urine WBC 9 H (0-5) /hpf Urine Mucus Rare H (None) /hpf 09/20/16 09/21/16 09/21/16 Range/Units 21:39 05:55 05:56 WBC (3.8-10.6) k/uL RBC (4.30-5.90) m/uL Hgb (13.0-17.5) gm/dL Hct (39.0-53.0) % RDW (11.5-15.5) % Neutrophils # (Manual) (1.3-7.7) k/uL Lymphocytes # (Manual) (1.0-4.8) k/uL Monocytes # (Manual) (0-1.0) k/uL Metamyelocytes # (Man) (0) k/uL Sodium 134 L (137-145) mmol/L Carbon Dioxide 21 L (22-30) mmol/L Glucose 179 H (74-99) mg/dL POC Glucose (mg/dL) 156 H 189 H (75-99) mg/dL Calcium 7.8 L (8.4-10.2) mg/dL Phosphorus 2.2 L (2.5-4.5) mg/dL Total Bilirubin 3.2 H (0.2-1.3) mg/dL AST 114 H (17-59) U/L ALT 115 H (21-72) U/L Total Protein 5.4 L (6.3-8.2) g/dL Albumin 2.9 L (3.5-5.0) g/dL Urine Protein (Negative) Urine Blood (Negative) Ur Leukocyte Esterase (Negative) Urine RBC (0-5) /hpf Urine WBC (0-5) /hpf Urine Mucus (None) /hpf 09/21/16 09/21/16 Range/Units 05:59 11:15 WBC 14.7 H (3.8-10.6) k/uL RBC 2.48 L (4.30-5.90) m/uL Hgb 8.0 L (13.0-17.5) gm/dL Hct 24.3 L (39.0-53.0) % RDW 15.7 H (11.5-15.5) % Neutrophils # (Manual) 11.61 H (1.3-7.7) k/uL Lymphocytes # (Manual) 0.59 L (1.0-4.8) k/uL Monocytes # (Manual) 1.47 H (0-1.0) k/uL Metamyelocytes # (Man) 0.59 H (0) k/uL Sodium (137-145) mmol/L Carbon Dioxide (22-30) mmol/L Glucose (74-99) mg/dL POC Glucose (mg/dL) 170 H (75-99) mg/dL Calcium (8.4-10.2) mg/dL Phosphorus (2.5-4.5) mg/dL Total Bilirubin (0.2-1.3) mg/dL AST (17-59) U/L ALT (21-72) U/L Total Protein (6.3-8.2) g/dL Albumin (3.5-5.0) g/dL Urine Protein (Negative) Urine Blood (Negative) Ur Leukocyte Esterase (Negative) Urine RBC (0-5) /hpf Urine WBC (0-5) /hpf Urine Mucus (None) /hpf Microbiology - Last 24 Hours (Table) /15/17 20:00 Urine Culture - Preliminary Urine,Catheterized Assessment and Plan Plan: #1 Coronary artery disease status post coronary artery bypass grafting utilizing a PUTNAM to the LAD, saphenous vein grafts to the ramus and diagonal branches. Postoperative day #7 #2 Severe aortic stenosis status post aortic valve replacement. Postoperative day #7 #3 postoperative delirium, resolved #4 Postoperative anemia as an expected outcome post thoracotomy. Current hemoglobin 8.0 #5 Previous history of chronic tobacco dependence. #6 Diabetes mellitus. #7 History of hypertension. #8 Hyperlipidemia. #9 History of dementia #10 postoperative atrial fibrillation , presently in sinus rhythm Plan Continue present supportive care measures, ambulate, continue incentive spirometry, agree with discharge planning to rehab. Follow-up on outpatient basis. Time with Patient: Less than 30
[2016-09-21] MEDS: FERROUS SULFATE 325 MG TAB PO SCH (12:16)
[2016-09-21 13:15] VITALS: BP 150/59; PULSE 88; TEMP 97.3
== END 2016-09-21 13:40 | DRG 219 ==
LOC: 2ORMAIN 09-14 05:44 → 6ICU 09-14 16:34 → 6SEL 09-20 20:26
PROVIDERS: ADMIT Surgery; ATTEND Surgery
PROC: 02RF08Z Replacement of Aortic Valve with Zooplastic Tissue, Open Approach (ICD-10-PCS; principal; 2016-09-14 08:00)
PROC: 5A1221Z Performance of Cardiac Output, Continuous (ICD-10-PCS; principal; 2016-09-14 08:00)
PROC: B246ZZ4 Ultrasonography of Right and Left Heart, Transesophageal (ICD-10-PCS; principal; 2016-09-14 08:00)
PROC: 06BP4ZZ Excision of Right Saphenous Vein, Percutaneous Endoscopic Approach (ICD-10-PCS; principal; 2016-09-14 08:00)
PROC: 021109W Bypass Coronary Artery, Two Arteries from Aorta with Autologous Venous Tissue, Open Approach (ICD-10-PCS; principal; 2016-09-14 08:00)
PROC: 02100Z9 Bypass Coronary Artery, One Artery from Left Internal Mammary, Open Approach (ICD-10-PCS; principal; 2016-09-14 08:00)
DX: I25.10 Atherosclerotic heart disease of native coronary artery without angina pectoris (principal); G92 Toxic encephalopathy; F05 Delirium due to known physiological condition; I11.0 Hypertensive heart disease with heart failure; I50.9 Heart failure, unspecified; N39.0 Urinary tract infection, site not specified; Q25.0 Patent ductus arteriosus; E11.9 Type 2 diabetes mellitus without complications; D64.9 Anemia, unspecified; I08.3 Combined rheumatic disorders of mitral, aortic and tricuspid valves; E78.5 Hyperlipidemia, unspecified; F01.50 Vascular dementia, unspecified severity, without behavioral disturbance, psychotic disturbance, mood disturbance, and anxiety; F17.201 Nicotine dependence, unspecified, in remission; I44.0 Atrioventricular block, first degree; I48.0 Paroxysmal atrial fibrillation; I83.90 Asymptomatic varicose veins of unspecified lower extremity; K21.9 Gastro-esophageal reflux disease without esophagitis; M19.90 Unspecified osteoarthritis, unspecified site; R33.8 Other retention of urine; Z79.82 Long term (current) use of aspirin; Z79.84 Long term (current) use of oral hypoglycemic drugs; N42.9 Disorder of prostate, unspecified; Z79.899 Other long term (current) drug therapy; Z80.0 Family history of malignant neoplasm of digestive organs; T42.4X5A Adverse effect of benzodiazepines, initial encounter
CPT/HCPCS: 36620; 71010; 71020; 80048; 80053; 81001; 82330; 82607; 82805; 83735; 84100; 84132; 84443; 85025; 85027; 85384; 85520; 85610; 85730; 86850; 86891; 86900; 86901; 86920; 87086; 87324; 88305; 88311; 94002; 94003; 94640

== ENCOUNTER → 2016-10-31 | Outpatient (CLI) | payer MEDICARE, BC ==
[2016-10-31 10:45] LABS: AST 33 U/L (17-59); Alkaline Phosphatase 90 U/L (38-126); Anion Gap 9 mmol/L; Blood Urea Nitrogen 16 mg/dL (9-20); Calcium 9.7 mg/dL (8.4-10.2); Carbon Dioxide 24 mmol/L (22-30); Chloride 102 mmol/L (98-107); Cholesterol 119 mg/dL (<200); Glucose 133 mg/dL (74-99); Non-African American GFR(MDRD) >60 (>60 ml/min/1.73 sqM); Potassium 5.1 mmol/L (3.5-5.1); Sodium 135 mmol/L (137-145); Total Bilirubin 0.5 mg/dL (0.2-1.3); Total Protein 7.1 g/dL (6.3-8.2)
[2016-10-31 10:46] LABS: ALT 48 U/L (21-72); HDL Cholesterol 36 mg/dL (40-60)
== END | disposition home or self-care (01) ==
LOC: LABWHC1 09:44
PROVIDERS: ATTEND Internal Medicine Interventional Cardiology
DX: E78.2 Mixed hyperlipidemia (principal)
CPT/HCPCS: 36415; 80053; 80061